=== PATIENT | female | born 1985 | race Caucasian/White ===

== ENCOUNTER 2020-04-10 12:42 | Outpatient (REF) | payer OTHER, SELFPAY ==
--- NOTE | 2020-04-10 | EEG_ITS ---
24-hour ambulatory EEG. The waking background activity consists of a well-defined moderate voltage 9 to 10 hertz posterior alpha frequency that is seen symmetrically and attenuates well with eye opening, well with low voltage, fast frequencies predominant anteriorly. Drowsiness is characterized by attenuation of the background activity and diffuse theta slowing. Stages I through IV of sleep are noted. Throughout the record, recurrent paroxysmal discharges seen in the form of some left hemisphere, predominantly left temporal occipital spike and slow wave discharges as well as generalized spike and slow wave discharges of 4 to 5 Hz occurring synchronously over both hemispheres with a maximum duration of 5 seconds without any associated clinical symptoms. IMPRESSION: This is an abnormal EEG with recurrent paroxysmal discharges, most of which are generalized as well as more isolated spike discharges from the left hemisphere. This EEG correlates with a seizure disorder, probably originating deep in the left hemisphere with secondary bilateral synchrony. Clinical correlation is suggested. MD HARSH Brandt/JOSÉ LUIS / [id number]
== END 2020-04-10 12:43 | disposition home or self-care (01) ==
LOC: HO.NEURO 12:42
PROVIDERS: Visit Provider Psychiatry & Neurology Neurology
DX: G40.909 Epilepsy, unspecified, not intractable, without status epilepticus (principal)
CPT/HCPCS: 95708

== ENCOUNTER 2020-05-19 19:46 | Emergency (ER) | payer OTHER, SELFPAY ==
[2020-05-19 19:49] VITALS: BP 116/79; PULSE 69; RESP 18; TEMP 36.9; O2SAT 100; BMI 26.4
--- NOTE | 2020-05-19 20:10 | ED_ITS ---
HPI - Dental/Oral General Chief complaint: Dental/Oral Stated complaint: dental pain Time Seen by Provider: 05/19/20 20:10 Source: patient Mode of arrival: ambulatory Limitations: no limitations History of Present Illness HPI Narrative: Right lower dental pain for past couple days no swelling or discharge. Does have history of dental caries and chipped teeth. MD Complaint: tooth pain Teeth map: 1. Molar 32 surgically absent extensive decay to 31 and 30 Treatment prior to arrival: none Related Data Previous Rx's Medication Instructions Recorded ibuprofen 800 mg PO Q8H PRN #30 tab 05/19/20 penicillin V potassium 500 mg PO Q12H #20 tab 05/19/20 Allergies Allergy/AdvReac Type Severity Reaction Status Date / Time stringer [CHERRIES] Allergy Severe ANAPHYLAXIS Verified 05/19/20 19:48 gabapentin [From NEURONTIN] Allergy Unknown MUSCLE Verified 05/19/20 19:48 SPASMS lamotrigine [From LAMICTAL] Allergy Unknown MUSCLE Verified 05/19/20 19:48 SPASMS oxcarbazepine Allergy Unknown MUSCLE Verified 05/19/20 19:48 [From TRILEPTAL] SPASMS Sulfa (Sulfonamide Allergy Unknown UNKNOWN Verified 05/19/20 19:48 Antibiotics) [SULFA (SULFONAMIDE ANTIBIOTICS)] SEAFOOD Allergy Severe ANAPHYLAXIS Uncoded 05/19/20 19:48 sulfa Allergy Unknown throat Uncoded 05/19/20 19:48 close Review of Systems Review of Systems: Constitutional: No Weight loss, No Fever, No Chills, No Night Sweats, No Fatigue, No Malaise ENT/Mouth: No Hearing loss, No Ear Pain, No Nasal Congestion, No Sinus Pain, No Hoarseness, No sore throat, No Rhinorrhea, No Swallowing Difficulty Eyes: No Eye Pain, No Swelling, No Redness, No Foreign Body Cardiovascular: No Chest Pain, No SOB, No Dyspnea on Exertion, No Orthopnea, No Edema, No Palpitations Respiratory: No Cough Gastrointestinal: No Nausea, No Vomiting, No Diarrhea, No Constipation, No abdominal Pain, No Hematochezia, No Melena Genitourinary: no irregular bleeding, No Dysuria Musculoskeletal: No joint pain, No Myalgias, No Joint Swelling Skin: No Skin Lesions, No rash Neuro: No Weakness, No Numbness, No Paresthesias, No Loss of Consciousness, No Dizziness, No Headache Psych: No Social Issues Heme/Lymph: No Bruising, No Bleeding,No Lymphadenopathy Endocrine: No Polyuria, No Polydipsia, No Temperature Intolerance Yes all other systems are reviewed and are negative [facility] Past Medical History Medical History (Updated 05/19/20 @ 20:13 by Richard Cook NP) Asthma Bipolar 1 disorder Circulation problem Psychosis Social History Social History Alcohol intake: never Smoking Status: Current every day smoker Use of substances other than those prescribed or required for medical reasons: No Physical Exam Vital Signs: Vital Signs: Last Vital Signs Temp 98.4 F 05/19/20 19:49 Pulse 69 05/19/20 19:49 Resp 18 05/19/20 19:49 BP 116/79 05/19/20 19:49 Pulse Ox 100 05/19/20 19:49 Body Mass Index 26.4 Reviewed Const: General: cooperative and healthy appearing; No acute distress or intoxicated appearing Nutritional Appearance: average body habitus Orientation/consciousness: patient oriented x3 HENMT: Head: Yes normal to inspection Ears: hearing grossly normal bilate rally Throat: Yes other (Extensive decay, no abscess) Eyes: General: appearance normal, both eyes and all related structures Visual Easton: normal visual easton by confrontation Neck: Neck: Yes normal visual inspection, No positive Brudzinski's sign, No positive Kernig's sign and No tender Thyroid: Thyroid normal Chest: Chest palpation & inspection: normal inspection of the chest Resp: Effort & Inspection: normal respiratory effort Cardio: Jugular venous distension: no JVD Skin: General skin exam: no rashes or lesions noted Neuro: General: patient oriented x3 Extrem: General: Yes normal to inspection Discharge Plan Discharge Clinical Impression: Toothache Patient Disposition: Home, Self-Care Instructions: Toothache (ED) Prescriptions: New penicillin V potassium 500 mg tablet 500 mg PO Q12H Qty: 20 RF: 0 ibuprofen 800 mg tablet 800 mg PO Q8H PRN (Reason: pain) Qty: 30 RF: 0 Referrals: ED Physician,Generic [Emergency Provider] - 2 days (Dentist)
--- NOTE | 2020-05-19 21:07 | PC.NURSE ---
PT GIVEN LIDO POP BY SANDRA HOOD.
== END 2020-05-19 20:40 | disposition home or self-care (01) ==
PROVIDERS: Emergency Provider Internal Medicine; PCP Internal Medicine
DX: K08.89 Other specified disorders of teeth and supporting structures (principal); F17.200 Nicotine dependence, unspecified, uncomplicated; Z71.6 Tobacco abuse counseling
CPT/HCPCS: 99283; 99284

== ENCOUNTER 2020-07-14 20:24 | Emergency (ER) | payer OTHER, SELFPAY ==
[2020-07-14 20:25] VITALS: PULSE 86; RESP 20; TEMP 36.7; O2SAT 97; BMI 29.0
--- NOTE | 2020-07-14 22:48 | ED_ITS ---
HPI - Dental/Oral General Chief complaint: Dental/Oral Stated complaint: Dental pain Time Seen by Provider: 07/14/20 22:41 Source: patient Mode of arrival: ambulatory Limitations: no limitations History of Present Illness HPI Narrative: Patient comes to emergency room complaining of dental pain in the right maxillary side. Patient states she has had a broken tooth since 2016, patient has been here for similar complaint. Patient states that she has an appointment with her dentist in 2 weeks for tooth extraction. MD Complaint: tooth pain Onset (ago): year(s) Related Data Previous Rx's Medication Instructions Recorded ibuprofen 800 mg PO Q8H PRN #30 tab 05/19/20 penicillin V potassium 500 mg PO Q12H #20 tab 05/19/20 ibuprofen 800 mg PO Q8H PRN #14 tab 07/14/20 penicillin V potassium 500 mg PO Q8H 7 Days #21 tab 07/14/20 Allergies Allergy/AdvReac Type Severity Reaction Status Date / Time stringer [CHERRIES] Allergy Severe ANAPHYLAXIS Verified 05/19/20 19:48 gabapentin [From NEURONTIN] Allergy Unknown MUSCLE Verified 05/19/20 19:48 SPASMS lamotrigine [From LAMICTAL] Allergy Unknown MUSCLE Verified 05/19/20 19:48 SPASMS oxcarbazepine Allergy Unknown MUSCLE Verified 05/19/20 19:48 [From TRILEPTAL] SPASMS Sulfa (Sulfonamide Allergy Unknown UNKNOWN Verified 05/19/20 19:48 Antibiotics) [SULFA (SULFONAMIDE ANTIBIOTICS)] SEAFOOD Allergy Severe ANAPHYLAXIS Uncoded 05/19/20 19:48 sulfa Allergy Unknown throat Uncoded 05/19/20 19:48 close Review of Systems Review of Systems: Constitutional : No Weight loss, No Fever, No Chills, No Night Sweats, No Fatigue, No Malaise ENT/Mouth : No Hearing loss, No Ear Pain, No Nasal Congestion, No Sinus Pain, No Hoarseness, No sore throat, No Rhinorrhea, No Swallowing Difficulty, dental pain in the right maxillary side Eyes: No Eye Pain, No Swelling, No Redness, No Foreign Body, No Discharge, No Vision Changes Cardiovascular : No Chest Pain, No SOB, No Dyspnea on Exertion, No Orthopnea, No Edema, No Palpitations Respiratory : No Cough, No Sputum, No Wheezing, No Smoke Exposure, No Dyspnea Gastrointestinal : No Nausea, No Vomiting, No Diarrhea, No Constipation, No ab dominal Pain, No Hematochezia, No Melena Genitourinary : no irregular bleeding, No Dysuria, No Urinary Frequency, No Hematuria, No Urinary Incontinence, No Urgency, No Flank Pain, No Urinary Flow Changes, No Hesitancy Musculoskeletal : No joint pain, No Myalgias, No Joint Swelling Skin : No Skin Lesions, No rash Neuro : No Weakness, No Numbness, No Paresthesias, No Loss of Consciousness, No Dizziness, No Headache Psych : No Anxiety/Panic, No Depression, No SI/HI/AH/VH, No Social Issues, Heme/Lymph: No Bruising, No Bleeding,No Lymphadenopathy Endocrine : No Polyuria, No Polydipsia, No Temperature Intolerance [facility] Past Medical History Medical History Asthma Bipolar 1 disorder Circulation problem Psychosis Social History Social History Alcohol intake: never Smoking Status: Current every day smoker Advance Directives: No Advance Directives Information Provided: Yes Physical Exam Vital Signs: Vital Signs: Last Vital Signs Temp 98.0 F 07/14/20 20:25 Pulse 86 07/14/20 20:25 Resp 20 07/14/20 20:25 Pulse Ox 97 07/14/20 20:25 Body Mass Index 29.0 Appearance: Alert. Oriented X3. No acute distress. Eyes: Pupils equal, round and reactive to light. Poor dentition, multiple teeth absent, cracked tooth to the gum in the right maxilla, gum is swollen, no obvious abscess ENT: Pharynx normal. Neck: Normal inspection. Neck supple. No lymph nodes noted. No crepitus CVS: Normal heart rate and rhythm. Pulses normal. Normal S1 and S2 Respiratory: No respiratory distress. Breath sounds normal. No Wheezing. No rales Abdomen: Soft and nontender. No rigidity. No distention. good BS x4 Skin: Skin warm and dry. Normal skin color. Normal skin turgor. Extremities: No lower extremity edema. No lower extremity edema. No Lacerations. No Rash Neuro: Oriented X 3. No motor deficit. No sensory deficit. Moving all exter mities. No slurred speech. Course Course Course Narrative: Patient received the 1st dose of antibiotics, penicillin V 500 and also 800 mg of ibuprofen. Patient states she has had good relief with 800 mg of ibuprofen in the past. Patient has already an appointment schedule for tooth extraction. Discharge Plan Discharge Clinical Impression: Chronic dental pain Patient Disposition: Home, Self-Care Instructions: Toothache (ED) Additional Instructions: Please follow-up with your dentist, please call tomorrow and try to reschedule your appointment to be seen sooner if possible. Please follow-up with your primary care physician tomorrow. If you have any worsening or new symptoms, please return to the emergency room or call 911 Prescriptions: New ibuprofen 800 mg tablet 800 mg PO Q8H PRN (Reason: pain) Qty: 14 RF: 0 penicillin V potassium 500 mg tablet 500 mg PO Q8H 7 Days Qty: 21 RF: 0 No Action penicillin V potassium 500 mg tablet 500 mg PO Q12H Qty: 20 RF: 0 ibuprofen 800 mg tablet 800 mg PO Q8H PRN (Reason: pain) Qty: 30 RF: 0
[2020-07-14] MEDS: Ibuprofen 800 MG TABLET PO (23:12)
[2020-07-14] MEDS: Penicillin V Potassium 250 MG TABLET 500 MG PO (23:12)
== END 2020-07-14 23:32 | disposition home or self-care (01) ==
PROVIDERS: Emergency Provider Emergency Medicine; PCP Internal Medicine
DX: K08.89 Other specified disorders of teeth and supporting structures (principal); Z79.899 Other long term (current) drug therapy
CPT/HCPCS: 99284

== ENCOUNTER → 2020-08-20 13:30 | Outpatient (REF) | payer OTHER, SELFPAY ==
--- NOTE | 2020-08-20 13:44 | ECG_ITS ---
Test Reason : BIPOLAR DISORDER Blood Pressure : / mmHG Vent. Rate : 051 BPM Atrial Rate : 051 BPM P-R Int : 148 ms QRS Dur : 078 ms QT Int : 420 ms P-R-T Axes : 016 088 059 degrees QTc Int : 387 ms Sinus bradycardia Otherwise normal ECG No previous ECGs available Referred By: Jarvis Mccray Electronically Signed By:JOSE DAVID WELLS MD
== END ==
LOC: HO.CARD 13:30
PROVIDERS: PCP Internal Medicine; Visit Provider Psychiatry & Neurology Psychiatry
DX: F25.0 Schizoaffective disorder, bipolar type (principal)
CPT/HCPCS: 93005

== ENCOUNTER 2020-09-11 14:16 | Emergency (ER) | payer OTHER, SELFPAY ==
[2020-09-11 14:32] VITALS: BP 92/61; PULSE 76; RESP 18; TEMP 37.1; O2SAT 96; BMI 28.8
[2020-09-11] MEDS: Docusate Sodium 100 MG/10 ML LIQUID PO (15:15)
--- NOTE | 2020-09-11 16:31 | PC.NURSE ---
PT CAME OUT OF HER ROOM AND BEGAN YELLING AT NURSE THAT THE DR HAD TOLD HER HE BE RIGHT BACK TO FLUSH HER EAR SOFTENER ALREADY APPLIED. PT GOT CLOSE IN NURSES FACE TO YELL AT HER. PT WAS INSTRUCTED THAT HE WILL BE IN SOON HE CAN IT IS AN EMERGENCY ROOM AND HE HAS TO DEAL WITH EMERGENCY WITH [facility], BUT HE WILL BE BACK AND SOON HE CAN AND HE IS AWARE THAT SHE BEEN ASKING.
--- NOTE | 2020-09-11 16:49 | ED_ITS ---
HPI - Ear Problem General Chief complaint: Ear Problems <ADI Fontanez Last Filed: 09/11/20 20:47> Stated complaint: EAR PAIN <ADI Fontanez Last Filed: 09/11/20 20:47> Source: patient <ADI Fontanez Last Filed: 09/11/20 20:47> Mode of arrival: ambulatory <ADI Fontanez Last Filed: 09/11/20 20:47> Limitations: no limitations <ADI Fontanez Last Filed: 09/11/20 20:47> History of Present Illness HPI Narrative: Patient presents to the ED for decreased hearing in left ear, and left ear feeling full. Patient states slight ear pain. Patient denies any discharge from the ear, headache, fever, chills, nausea, vomiting, dizziness <ADI Fontanez Last Filed: 09/11/20 20:47> Related Data Home medications: Previous Rx's Medication Instructions Recorded ibuprofen 800 mg PO Q8H PRN #30 tab 05/19/20 penicillin V potassium 500 mg PO Q12H #20 tab 05/19/20 ibuprofen 800 mg PO Q8H PRN #14 tab 07/14/20 penicillin V potassium 500 mg PO Q8H 7 Days #21 tab 07/14/20 carbamide peroxide [Debrox] 5 drp OTIC (EAR) LEFT Q12H 4 Days 09/11/20 #18 ml cefuroxime axetil 500 mg PO Q12H 10 Days #20 tab 09/13/20 [id number] 4 drp OTIC (EAR) LEFT TID 10 Days 09/13/20 #10 ml <ADI Fontanez Last Filed: 09/11/20 20:47> Allergies/adverse reactions: Allergies Allergy/AdvReac Type Severity Reaction Status Date / Time stringer [CHERRIES] Allergy Severe ANAPHYLAXIS Verified 09/11/20 14:32 gabapentin [From NEURONTIN] Allergy Unknown MUSCLE Verified 09/11/20 14:32 SPASMS lamotrigine [From LAMICTAL] Allergy Unknown MUSCLE Verified 09/11/20 14:32 SPASMS oxcarbazepine Allergy Unknown MUSCLE Verified 09/11/20 14:32 [From TRILEPTAL] SPASMS Sulfa (Sulfonamide Allergy Unknown UNKNOWN Verified 09/11/20 14:32 Antibiotics) [SULFA (SULFONAMIDE ANTIBIOTICS)] SEAFOOD Allergy Severe ANAPHYLAXIS Uncoded 05/19/20 19:48 sulfa Allergy Unknown throat Uncoded 05/19/20 19:48 close <ADI Fontanez - Last Filed: 09/11/20 20:47> Review of Systems Review of Systems: Yes all other systems are reviewed and are negative <ADI Fontanez - Last Filed: 09/11/20 20:47> Constitutional: Constitutional: Reports as per HPI and Reports no additional constitutional complaints <ADI Fontanez - Last Filed: 09/11/20 20:47> Eyes: Eyes: Reports as per HPI and Reports no additional eye complaints <ADI Fontanez - Last Filed: 09/11/20 20:47> ENT: Reports system reviewed and no additional complaints, except as documented, Reports as per HPI and Reports hearing loss (Cerumen impaction) <ADI Fontanez Last Filed: 09/11/20 20:47> Cardiovascular: Cardiovascular: Reports as per HPI and Reports no additional cardiovascular complaints <ADI Fontanez Last Filed: 09/11/20 20:47> Respiratory: Respiratory: Reports as per HPI and Reports no additional respiratory complaints <ADI Fontanez Last Filed: 09/11/20 20:47> Gastrointestinal: Gastrointestinal: Reports as per HPI and Reports no additional gastrointestinal complaints <ADI Fontanez Last Filed: 09/11/20 20:47> Genitourinary: Genitourinary: Reports no additional female genitourinary complaints and Reports as per HPI <ADI Fontanez Last Filed: 09/11/20 20:47> Musculoskeletal: Musculoskeletal: Reports no additional musculoskeletal complaints and Reports as per HPI <ADI Fontanez Last Filed: 09/11/20 20:47> Neurologic: Reports system reviewed and no additional complaints, except as documented and Reports as per HPI <ADI Fontanez Last Filed: 09/11/20 20:47> Psychiatric: Psychiatric: Reports no additional psychiatric complaints and Reports as per HPI <ADI Fontnaez Last Filed: 09/11/20 20:47> PMFSH Past Medical History Medical History: Medical History Asthma Bipolar 1 disorder Circulation problem Psychosis <ADI Fontanez - Last Filed: 09/11/20 20:47> Social History Social History: Social History Alcohol intake: never Smoking Status: Current every day smoker Smoked in Last 30 Days: Yes Substance Use Type: Marijuana Substance Use Frequency: Daily Advance Directives: No Advance Directives Information Provided: No <ADI Fontanez - Last Filed: 09/11/20 20:47> Physical Exam Vital Signs: Vital Signs: Last Vital Signs Temp 98.7 F 09/11/20 14:32 Pulse 76 09/11/20 14:32 Resp 18 09/11/20 14:32 BP 92/61 09/11/20 14:32 Pulse Ox 96 09/11/20 14:32 Body Mass Index 28.8 <ADI Fontanez - Last Filed: 09/11/20 20:47> Vital Signs: Last Vital Signs Temp 98.7 F 09/11/20 14:32 Pulse 76 09/11/20 14:32 Resp 18 09/11/20 14:32 BP 92/61 09/11/20 14:32 Pulse Ox 96 09/11/20 14:32 Body Mass Index 28.8 <Watson Mckeon MD - Last Filed: 10/01/20 07:12> Const: General: cooperative, healthy appearing, comfortable, no acute distress, well developed, alert, awake and Physically active <ADI Fontanez - Last Filed: 09/11/20 20:47> Orientation/consciousness: patient oriented x3 <ADI Fontanez - Last Filed: 09/11/20 20:47> HENMT: Head: Yes normal to inspection and Yes No palpable skull fracture present <ADI Fontanez - Last Filed: 09/11/20 20:47> Ears: unable to visualize TM (Cerumen impaction) on the left <ADI Fontanez - Last Filed: 09/11/20 20:47> Eyes: General: appearance normal, both eyes and all related structures <ADI Fontanez - Last Filed: 09/11/20 20:47> Neck: Neck: Yes normal visual inspection, Yes full ROM, Yes no lymphadenopathy, Yes no meningeal signs, Yes trachea midline and Yes supple <ADI Fontanez Last Filed: 09/11/20 20:47> Chest: Chest palpation & inspection: normal inspection of the chest and normal palpation of entire chest wall <ADI Fontanez Last Filed: 09/11/20 20:47> Resp: Effort & Inspection: normal respiratory effort and able to speak in complete sentences <ADI Fontanez Last Filed: 09/11/20 20:47> Auscultation: clear to auscultation bilaterally <ADI Fontanez Last Filed: 09/11/20 20:47> Cardio: Jugular venous distension: no JVD <ADI Fontanez Last Filed: 09/11/20 20:47> Heart sounds: S1 normal heart sound present and S2 normal heart sound present <ADI Fontanez Last Filed: 09/11/20 20:47> GI: Inspection: Yes normal to inspection and No abdominal wall ecchymosis <ADI Fontanez Last Filed: 09/11/20 20:47> Palpation (GI): Soft to palpation, not firm, nontender, no guarding and not rigid <ADI Fontanez Last Filed: 09/11/20 20:47> : General: No CVA tenderness and Yes no CVA tenderness <ADI Fontanez Last Filed: 09/11/20 20:47> Back/Spine/Pelvis: Back: no CVA tenderness, No CVA tenderness and No back tenderness <ADI Fontanez Last Filed: 09/11/20 20:47> Skin: General skin exam: no rashes or lesions noted and elasticity normal <ADI Fontanez Last Filed: 09/11/20 20:47> Neuro: General: patient oriented x3, no meningeal signs and CN's II-XI intact bilaterally <ADI Fontanez Last Filed: 09/11/20 20:47> Cranial nerves: Yes CN's II-XII intact bilaterally <ADI Fontanez Last Filed: 09/11/20 20:47> Extrem: General: Yes normal to inspection and Yes full ROM <ADI Fontanez - Last Filed: 09/11/20 20:47> Psych: Appearance: grossly normal, well kempt and not disheveled <ADI Hurst - Last Filed: 09/11/20 20:47> Course Course Course Narrative: Cerumen impaction of left ear. Will attempt removal in the ED <ADI Fontanez - Last Filed: 09/11/20 20:47> I have reviewed the chart <Watson Mckeon MD - Last Filed: 10/01/20 07:12> Reevaluation(s) Reevaluation #1: Colace, normal saline, and curetted she was use attempted to remove cerumen impaction. Patient was not compliant in letting Colace staying in the ear and lying on her right side. Cerumen was still hard and attempt was made to try to remove it curetted, but then patient stated she no longer wanted the procedure and wanted to be prescribed medication to remove the earwax. Unable to evaluate tympanic membrane. Patient to be discharged with debrox <ADI Fontanez - Last Filed: 09/11/20 20:47> Time: 16:59 <ADI Fontanez - Last Filed: 09/11/20 20:47> MDM - Ear MDM Narrative Medical decision making narrative: Cerumen impaction <ADI Fontanez Last Filed: 09/11/20 20:47> Discharge Plan Discharge Clinical Impression: Cerumen impaction <ADI Fontanez Last Filed: 09/11/20 20:47> Patient Disposition: Home, Self-Care <ADI Fontanez Last Filed: 09/11/20 20:47> Instructions: Earache (ED) <ADI Fontanez Last Filed: 09/11/20 20:47> Additional Instructions: Return to the ED mainly for worsening ear pain, swelling behind ear, redness behind ear, drainage from the ear, headache, fever, chills, or any other concerning symptoms. <ADI Fontanez Last Filed: 09/11/20 20:47> Prescriptions: New carbamide peroxide [Debrox] 6.5 % drops 5 drp otic (ear) left Q12H 4 Days Qty: 18 RF: 0 No Action penicillin V potassium 500 mg tablet 500 mg PO Q12H Qty: 20 RF: 0 ibuprofen 800 mg tablet 800 mg PO Q8H PRN (Reason: pain) Qty: 30 RF: 0 ibuprofen 800 mg tablet 800 mg PO Q8H PRN (Reason: pain) Qty: 14 RF: 0 penicillin V potassium 500 mg tablet 500 mg PO Q8H 7 Days Qty: 21 RF: 0 cefuroxime axetil 500 mg tablet 500 mg PO Q12H 10 Days Qty: 20 RF: 0 gtrmtlsk-[id number]-JV 3.5-10,000-1 mg/mL-unit/mL-% drops,suspension 4 drp otic (ear) left TID 10 Days Qty: 10 RF: 0 <ADI Fontanez - Last Filed: 09/11/20 20:47> Referrals: Lissy Burrows MD [Primary Care Provider] - 2 days (Cerumen impaction.) <ADI Fontanez - Last Filed: 09/11/20 20:47> Interventions: ED Discharge Assessment Last Done: 09/11/20 17:19 <ADI Fontanez - Last Filed: 09/11/20 20:47> Discharge Date/Time: 09/11/20 17:25 <ADI Fontanez - Last Filed: 09/11/20 20:47> Print Language: Burmese <ADI Fontanez - Last Filed: 09/11/20 20:47>
--- NOTE | 2020-09-11 17:21 | PC.NURSE ---
ADI BYERS AT BEDSIDE TO FLUSH EAR OUT PT NOT TOLERATING ONLY SMALL AMOUNT FLUSHED. PT WILL NEEDED TO CONTINUE WITH DEBROX DROPS.
== END 2020-09-11 17:25 | disposition home or self-care (01) ==
PROVIDERS: Emergency Provider Emergency Medicine; PCP Internal Medicine
DX: H92.02 Otalgia, left ear (principal); H61.22 Impacted cerumen, left ear; Z79.899 Other long term (current) drug therapy
CPT/HCPCS: 69209; 99283

== ENCOUNTER 2020-09-13 11:58 | Emergency (ER) | payer OTHER, SELFPAY ==
[2020-09-13 12:23] VITALS: BP 81/53; PULSE 76; RESP 16; TEMP 36.6; O2SAT 97; BMI 27.3
--- NOTE | 2020-09-13 13:54 | ED_ITS ---
HPI - Ear Problem General Chief complaint: Ear Problems Stated complaint: ear pain Time Seen by Provider: 09/13/20 13:39 Source: patient Mode of arrival: ambulatory Limitations: no limitations History of Present Illness HPI Narrative: 34-year-old female who presents emergency department for evaluation left ear pain and decreased hearing in the left ear. The patient states that she has had the symptoms for approximately 3-4 days, she denies fever, chills, sore throat, cough. She was seen in the emergency department on 09/11/2020 (2 days prior to evaluation) and was noted to have cerumen impaction. The patient did not tolerate the procedure to disimpact her year and has been using Cerumenex and Q-tips on her ears over the past 2 days. She states that her hearing is not improved but her pain is now worse. She states she has a constant pelvis throbbing pain and her left ear which is 8/10 at its worst. She states she has decreased hearing in her ear as well. Related Data Previous Rx's Medication Instructions Recorded ibuprofen 800 mg PO Q8H PRN #30 tab 05/19/20 penicillin V potassium 500 mg PO Q12H #20 tab 05/19/20 ibuprofen 800 mg PO Q8H PRN #14 tab 07/14/20 penicillin V potassium 500 mg PO Q8H 7 Days #21 tab 07/14/20 carbamide peroxide [Debrox] 5 drp OTIC (EAR) LEFT Q12H 4 Days 09/11/20 #18 ml cefuroxime axetil 500 mg PO Q12H 10 Days #20 tab 09/13/20 zujnmeiy-fxcpuzmvq-AH 4 drp OTIC (EAR) LEFT TID 10 Days 09/13/20 #10 ml Allergies Allergy/AdvReac Type Severity Reaction Status Date / Time stringer [CHERRIES] Allergy Severe ANAPHYLAXIS Verified 09/11/20 14:32 gabapentin [From NEURONTIN] Allergy Unknown MUSCLE Verified 09/11/20 14:32 SPASMS lamotrigine [From LAMICTAL] Allergy Unknown MUSCLE Verified 09/11/20 14:32 SPASMS oxcarbazepine Allergy Unknown MUSCLE Verified 09/11/20 14:32 [From TRILEPTAL] SPASMS Sulfa (Sulfonamide Allergy Unknown UNKNOWN Verified 09/11/20 14:32 Antibiotics) [SULFA (SULFONAMIDE ANTIBIOTICS)] SEAFOOD Allergy Severe ANAPHYLAXIS Uncoded 05/19/20 19:48 sulfa Allergy Unknown throat Uncoded 05/19/20 19:48 close Review of Systems Review of Systems: Yes all other systems are reviewed and are negative [facility] Past Medical History Medical History Asthma Bipolar 1 disorder Circulation problem Psychosis Social History Social History Alcohol intake: never Smoking Status: Current every day smoker Smoked in Last 30 Days: Yes Substance Use Type: Marijuana Substance Use Frequency: Daily Advance Directives: No Advance Directives Information Provided: No Physical Exam Vital Signs: Vital Signs: Last Vital Signs Temp 97.8 F 09/13/20 12:23 Pulse 76 09/13/20 12:23 Resp 16 09/13/20 12:23 BP 81/53 L 09/13/20 12:23 Pulse Ox 97 09/13/20 12:23 Body Mass Index 27.3 Const: General: cooperative and in distress Orientation/consciousness: oriented to person Limitations: no limitations HENMT: Head: Yes normal to inspection and Yes normocephalic Ears: TM normal on the right, left TM abnormal (Erythema of the TM with loss of landmarks) and external ear abnormal (Auditory canal is swollen, no discharge, tender) auricular tenderness and pain with movement of external ear General nose ex am: Normal external nose present Face and sinus: Yes normal facial exam Mouth: Normal oral and palatal mucosa present Throat: Yes posterior oropharynx normal Eyes: General: appearance normal, both eyes and all related structures Periorbital: periorbital findings normal Eyelids: Yes eyelids normal Conjunctivae: conjunctivae normal Sclerae: sclerae normal Neck: Neck: Yes normal visual inspection, Yes no lymphadenopathy, Yes trachea midline and Yes supple Chest: Chest palpation & inspection: normal inspection of the chest and normal palpation of entire chest wall Neuro: General: oriented to person Psych: Appearance: grossly normal Mental Status: mental status grossly normal Speech and movement: Normal speech and movement present Affect: normal affect Attitude: cooperative Thought process: Normal thought process present Thought content: Normal thought content present Course Course Course Narrative: 34-year-old female who presents emergency department for evaluation of decreased hearing in her left ear and left ear pain times several days. She was seen 2 days prior for cerumen impaction. On my examination, the left external auditory canal is swollen and tender to palpation, I do not see any significant ear wax in the patient's external auditory canal, her tympanic membrane is erythematous with loss of landmarks. Patient's presentation is consistent with otitis externa and otitis media. The patient states that amoxicillin does not work on her for dental or ear infections therefore she was prescribed Ceftin 500 mg twice a day for 10 days. She was also given a prescription for Cortisporin 4 drops twice a day for 10 days the left ear. She was given verbal and printed instructions and discharged home. She was advised to take Tylenol and ibuprofen for pain. Told it was important to follow-up with her doctor in 2-3 days for re-evaluation. Discharge Plan Discharge Clinical Impression: Otitis externa Qualifiers: Otitis externa type: unspecified type Laterality: left Otitis media Qualifiers: Otitis media type: unspecified Laterality: left Qualified Code(s): H66.92 - Otitis media, unspecified, left ear Patient Disposition: Home, Self-Care Instructions: Otitis Externa (ED), Ear Infection (ED) Additional Instructions: Take Ceftin (cefuroxime) 500 mg pills, 1 pill twice a day for 10 days. Use Cortisporin ear drops, 4 drops in the left ear 3 times a day for 10 days. Take ibuprofen 200 mg pills, 3 pills every 6 hours as needed for pain. Take Tylenol (acetaminophen) 500 mg pills, 2 pills every 4 to 6 hours as needed for pain. Follow-up with your doctor in 2 days. Please return to the emergency department if your symptoms get worse or if you develop any symptoms that are concerning to you. Prescriptions: New cefuroxime axetil 500 mg tablet 500 mg PO Q12H 10 Days Qty: 20 RF: 0 nexbmqsa-vixksqzye-WQ 3.5-10,000-1 mg/mL-unit/mL-% drops,suspension 4 drp otic (ear) left TID 10 Days Qty: 10 RF: 0 No Action penicillin V potassium 500 mg tablet 500 mg PO Q12H Qty: 20 RF: 0 ibuprofen 800 mg tablet 800 mg PO Q8H PRN (Reason: pain) Qty: 30 RF: 0 ibuprofen 800 mg tablet 800 mg PO Q8H PRN (Reason: pain) Qty: 14 RF: 0 penicillin V potassium 500 mg tablet 500 mg PO Q8H 7 Days Qty: 21 RF: 0 carbamide peroxide [Debrox] 6.5 % drops 5 drp otic (ear) left Q12H 4 Days Qty: 18 RF: 0
== END 2020-09-13 14:20 | disposition home or self-care (01) ==
PROVIDERS: Emergency Provider Emergency Medicine Emergency Medical Services; PCP Internal Medicine
DX: H66.92 Otitis media, unspecified, left ear (principal); H92.02 Otalgia, left ear; Z79.899 Other long term (current) drug therapy; F17.200 Nicotine dependence, unspecified, uncomplicated; Z71.6 Tobacco abuse counseling; F12.90 Cannabis use, unspecified, uncomplicated
CPT/HCPCS: 99283

== ENCOUNTER 2021-02-01 09:33 | Emergency (ER) | payer OTHER, SELFPAY ==
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
[2021-02-01 11:01] VITALS: BP 116/49; PULSE 66; RESP 18; TEMP 37; O2SAT 98; BMI 27.0
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
== END 2021-02-01 12:37 | disposition home or self-care (01) ==
PROVIDERS: Emergency Provider Emergency Medicine Emergency Medical Services; PCP Internal Medicine
DX: S63.501A Unspecified sprain of right wrist, initial encounter (principal); S66.911A Strain of unspecified muscle, fascia and tendon at wrist and hand level, right hand, initial encounter; Y09 Assault by unspecified means; Y93.9 Activity, unspecified; Y92.9 Unspecified place or not applicable; Y99.9 Unspecified external cause status
CPT/HCPCS: 73110; 73130; 99283

== ENCOUNTER 2021-03-31 08:39 | Emergency (ER) | payer OTHER, SELFPAY ==
[2021-03-31 08:54] VITALS: BP 117/78; PULSE 94; RESP 18; TEMP 36.3; O2SAT 96; BMI 25.2
--- NOTE | 2021-03-31 09:00 | ED.SKABFB ---
HPI - Skin/Abscess/Foreign Bdy General Chief complaint: Skin/Abscess/Foreign Body Stated complaint: CYST Time Seen by Provider: 03/31/21 08:50 Source: patient Mode of arrival: ambulatory Limitations: no limitations History of Present Illness HPI narrative: 35 y/o female presenting to the ER for evaluation of Bartholin's cyst. She reports having it for the last 11 years. She was seen by an [facility] several years ago and they didn't do anything about it so she refused to go back. She reports it is not painful at rest. Minimal tenderness to the area but it is bothersome most when she walks. It has never been drained or spontaneously ruptured before. No fevers. She denies vaginal discharge, chance of , or other lesions. MD complaint: abscess/boil Onset (ago): year(s) () Tetanus up to date: unsure Location: genitals Severity: moderate Severity scale (1-10): 5 Quality: aching Pain Consistency: intermittent Relieving factors: none Exacerbating factors: movement Context: none Associated symptoms: denies other symptoms Treatments prior to arrival: none Related Data Previous Rx's Medication Instructions Recorded ibuprofen 800 mg tablet 800 mg PO Q8H PRN #30 tab 05/19/20 penicillin V potassium 500 mg 500 mg PO Q12H #20 tab 05/19/20 tablet ibuprofen 800 mg tablet 800 mg PO Q8H PRN #14 tab 07/14/20 penicillin V potassium 500 mg 500 mg PO Q8H 7 Days #21 tab 07/14/20 tablet carbamide peroxide 6.5 % ear drops 5 drp OTIC (EAR) LEFT Q12H 4 Days 09/11/20 (Debrox) #18 ml cefuroxime axetil 500 mg tablet 500 mg PO Q12H 10 Days #20 tab 09/13/20 ctchweak-yuxmvripj-hamycgluf 3.5 4 drp OTIC (EAR) LEFT TID 10 Days 09/13/20 mg-10,000 unit/mL-1 % ear #10 ml drops,susp naproxen 500 mg tablet 500 mg PO BID PRN #20 tab 02/01/21 cephalexin 500 mg capsule 500 mg PO Q6H 7 Days #28 cap 03/31/21 Allergies Allergy/AdvReac Type Severity Reaction Status Date / Time stringer [CHERRIES] Allergy Severe ANAPHYLAXIS Verified 03/31/21 08:56 gabapentin [From NEURONTIN] Allergy Unknown MUSCLE Verified 03/31/21 08:56 SPASMS lamotrigine [From LAMICTAL] Allergy Unknown MUSCLE Verified 03/31/21 08:56 SPASMS oxcarbazepine Allergy Unknown MUSCLE Verified 03/31/21 08:56 [From TRILEPTAL] SPASMS Sulfa (Sulfonamide Allergy Unknown UNKNOWN Verified 03/31/21 08:56 Antibiotics) [SULFA (SULFONAMIDE ANTIBIOTICS)] SEAFOOD Allergy Severe ANAPHYLAXIS Uncoded 02/01/21 11:04 sulfa Allergy Unknown throat Uncoded 02/01/21 11:04 close Review of Systems Constitutional: Constitutional: Denies chills and Denies fever(s) Eyes: Eyes: Reports no additional eye complaints ENT: Reports Normal hearing present Genitourinary: Genitourinary: Denies hematuria, Denies genital pruritis, Reports genital lesions, Denies dysuria, Denies vaginal discharge, Denies vaginal odor and Denies vaginal pruritus Musculoskeletal: Musculoskeletal: Denies back pain Integumentary/Breasts: Skin/Breast: Reports lesions and Denies rash Neurologic: Reports Normal hearing present Psychiatric: Psychiatric: Reports anxiety Hematologic/Lymphatic: Hematologic/Lymphatic: Denies easy bleeding and Denies lymphadenopathy PMFSH Past Medical History Medical History Asthma Bipolar 1 disorder Circulation problem Psychosis Social History Social History Alcohol intake: never Substance Use Type: Marijuana Advance Directives: No Advance Directives Information Provided: No Patient : No Physical Exam Vital Signs: Vital Signs: Last Vital Signs Temp 97.4 F 03/31/21 08:54 Pulse 94 03/31/21 08:54 Resp 18 03/31/21 08:54 BP 117/78 03/31/21 08:54 Pulse Ox 96 03/31/21 08:54 Body Mass Index 25.2 Const: General: cooperative, healthy appearing, comfortable and no acute distress Nutritional Appearance: average body habitus Orientation/consciousness: patient oriented x3 HENMT: Head: Yes normal to inspection Ears: hearing grossly normal bilaterally General nose exam: Normal external nose present Face and sinus: Yes normal facial exam Eyes: General: appearance normal, both eyes and all related structures Neck: Neck: Yes normal visual inspection Chest: Chest palpation & inspection: normal inspection of the chest Resp: Effort & Inspection: normal respiratory effort and able to speak in complete sentences GI: Inspection: Yes normal to inspection Palpation (GI): Soft to palpation, not firm and nontender Rectal Exam - Female: deferred : Other: large minimally tender soft lesion of the labia minora on the left lower side at 5 o.clock position, no fluctuance or induration. mobile without erythema or warmth External Female Exam: external swelling and lesion Female genitals images: 1. large lesion consistent with a Bartholin's cyst Neuro: General: patient oriented x3 Cranial nerves: Yes Normal hearing present Course Course Course Narrative: 35 y/o female presenting for evaluation of a Bartholin's cyst that she has had for 11 years. No recent worsening but just bothersome with ambulation. No exquisite tenderness on exam, lesion is soft and feels as though viscious, soft material is within. No overt inflammation, ertythema or warmth to the area to suggest infection. Unfortunately there are no Word catheters in the Emergency Department at this time. She has not been using Sitz baths or warm compresses. She would like the lesion excised and removed. We discussed need to follow up with [facility]. Offered I&D today but decided to follow up with ENGINE[facility]ING MANAGER for Word catheter vs excision. She is stable for d/c home - encouraged Sitz baths and will give rx for keflex in the event of possible infection although clinical suspicion is low. Patient agrees with plan and will call Dr. Segura's office tomorrow. Critical Care Time Critical Care Time Critical Care Time: No Discharge Plan Discharge Clinical Impression: Bartholin cyst Patient Disposition: Home, Self-Care Instructions: Bartholin Cyst (ED) Additional Instructions: Follow up with [facility] for further evaluation Use warm compresses several times per day Take the antibiotic as prescribed Prescriptions: New cephalexin 500 mg capsule 500 mg PO Q6H 7 Days Qty: 28 RF: 0 No Action penicillin V potassium 500 mg tablet 500 mg PO Q12H Qty: 20 RF: 0 ibuprofen 800 mg tablet 800 mg PO Q8H PRN (Reason: pain) Qty: 30 RF: 0 ibuprofen 800 mg tablet 800 mg PO Q8H PRN (Reason: pain) Qty: 14 RF: 0 penicillin V potassium 500 mg tablet 500 mg PO Q8H 7 Days Qty: 21 RF: 0 carbamide peroxide [Debrox] 6.5 % drops 5 drp otic (ear) left Q12H 4 Days Qty: 18 RF: 0 naproxen 500 mg tablet 500 mg PO BID PRN (Reason: pain) Qty: 20 RF: 0 cefuroxime axetil 500 mg tablet 500 mg PO Q12H 10 Days Qty: 20 RF: 0 lasggubz-qdpzodzha-YY 3.5-10,000-1 mg/mL-unit/mL-% drops,suspension 4 drp otic (ear) left TID 10 Days Qty: 10 RF: 0 Referrals: Manoj Segura MD [Physician] - 1 day (Bartholin's cyst )
== END 2021-03-31 09:34 | disposition home or self-care (01) ==
PROVIDERS: Emergency Provider Internal Medicine; PCP Internal Medicine
DX: N75.0 Cyst of Bartholin's gland (principal); N75.8 Other diseases of Bartholin's gland; Z79.899 Other long term (current) drug therapy
CPT/HCPCS: 99283

== ENCOUNTER → 2021-04-22 10:09 | Outpatient (BNVA) | payer OTHER, SELFPAY | PROVIDERS: PCP Internal Medicine; Visit Provider Obstetrics & Gynecology | DX: N90.89 Other specified noninflammatory disorders of vulva and perineum (principal) | CPT/HCPCS: 99202 ==

== ENCOUNTER 2021-05-15 07:05 | Emergency (ER) | payer OTHER, SELFPAY ==
--- NOTE | ~2021-05-15 | XR_ITS ---
EXAMINATION: XR KNEE, RIGHT CLINICAL INFORMATION: Atraumatic knee pain and swelling COMPARISON: Radiographs of the knee 11/05/2010 TECHNIQUE: Four views of the right knee. FINDINGS: Visualized osseous structures are intact. No fracture or joint effusion. There are postsurgical changes of the lateral aspect of the patella and distal femoral metaphysis Alignment is anatomic. Joint spaces are well maintained. No abnormal soft tissue calcification. XR/XR knee RT 4V IMPRESSION: Postsurgical changes of the knee without acute abnormality.
[2021-05-15 07:07] VITALS: BP 131/86; PULSE 109; RESP 18; TEMP 36.3; O2SAT 98; BMI 25.2
--- NOTE | 2021-05-15 07:17 | ED.EXTPRO ---
HPI - Extremity Problem General Chief complaint: Extremity Problem Stated complaint: rt knee pain Time Seen by Provider: 05/15/21 07:15 Source: patient Mode of arrival: ambulatory Limitations: no limitations History of Present Illness HPI Narrative: 35-year-old female past medical history significant for asthma, and bipolar disorder presents to the emergency department with atraumatic right-sided knee pain x3 days progressively worsening. Patient states that she woke up 1 day in her right knee suddenly started to hurt and becomes swollen. She also notes that over the past 3 days she has been having decreased range of motion to the right knee, and at this point she feels as though she can not even bend it a little bit. She states that walking and movement makes it worse, and immobilization makes it better. She tells me that she had a surgery done on the right knee in 2007 for a dislocated patella, there is no complications with the surgery. Patient denies trauma to the area. Patient rates her pain a 7/10 constant and severe. She denies paresthesias, numbness, fevers, chills, changes in urination, abdominal pain, nausea, vomiting, chest pain, shortness of breath. MD Complaint: joint swelling (right knee ) and joint paint (right knee ) Onset (ago): day(s) (3) Pain Consistency: constant Location: right and knee Severity scale (1-10): 7 Quality: sharp and constant Radiation: none Relieving factors: immobilization Exacerbating factors: range of motion, weight bearing and walking Associated symptoms: denies other symptoms Related Data Home Medications Medication Instructions Recorded Confirmed clonazepam 0.5 mg tablet 0.5 mg PO DAILY PRN 04/22/21 topiramate 100 mg tablet 100 mg PO BID 04/22/21 trazodone 150 mg tablet 150 mg PO BEDTIME 04/22/21 Previous Rx's Medication Instructions Recorded naproxen 500 mg tablet 500 mg PO BID PRN #14 tab 05/15/21 Allergies Allergy/AdvReac Type Severity Reaction Status Date / Time stringer [CHERRIES] Allergy Severe ANAPHYLAXIS Verified 04/22/21 10:39 gabapentin [From NEURONTIN] Allergy Unknown MUSCLE Verified 04/22/21 10:39 SPASMS lamotrigine [From LAMICTAL] Allergy Unknown MUSCLE Verified 04/22/21 10:39 SPASMS oxcarbazepine Allergy Unknown MUSCLE Verified 04/22/21 10:39 [From TRILEPTAL] SPASMS Sulfa (Sulfonamide Allergy Unknown UNKNOWN Verified 04/22/21 10:39 Antibiotics) [SULFA (SULFONAMIDE ANTIBIOTICS)] SEAFOOD Allergy Severe ANAPHYLAXIS Uncoded 02/01/21 11:04 sulfa Allergy Unknown throat Uncoded 02/01/21 11:04 close Review of Systems Review of Systems: Constitutional : No Weight loss, No Fever, No Chills, No Fatigue, No Malaise ENT/Mouth : No sore throat, No Rhinorrhea Eyes: No Eye Pain, No Swelling, No Redness Cardiovascular : No Chest Pain, No SOB, No Dyspnea on Exertion, No Orthopnea, No Edema, No Palpitations Respiratory : No Cough, No Sputum, No Wheezing Gastrointestinal : No Nausea, No Vomiting, No Diarrhea, No Constipation, No abdominal Pain, No Hematochezia, No Melena Genitourinary : No Dysuria, No Urinary Frequency, No Hematuria, Musculoskeletal : + joint pain, No Myalgias, + Joint Swelling Skin : No Skin Lesions, No rash Neuro : No Weakness, No Numbness, No Dizziness, No Headache Psych : No Anxiety/Panic, No Depression All other systems reviewed and are negative [facility] Past Medical History Attestation statement: The following information was validated with the patient. Source: old records reviewed and nursing notes reviewed Medical History Asthma Bipolar 1 disorder Circulation problem Psychosis Surgical History Tubal ligation status Social History Social History Alcohol intake: never Substance Use Type: Marijuana Advance Directives: No Patient : No Physical Exam Vital Signs: Vital Signs: Last Vital Signs Temp 96.7 F L 05/15/21 07:55 Pulse 74 05/15/21 07:55 Resp 18 05/15/21 07:55 BP 103/51 L 05/15/21 07:55 Pulse Ox 98 05/15/21 07:55 Body Mass Index 25.2 Appearance: Alert.? Oriented X3.? No acute distress.? Head: Normocephalic, atraumatic, no step-offs or deformities Eyes: Pupils equal, round and reactive to light.? ENT: Pharynx normal.? Neck: Normal inspection.? Neck supple.? CVS: Normal heart rate and rhythm.? Pulses normal.? Respiratory: No respiratory distress.? Breath sounds normal.? Abdomen: Soft and nontender.? Skin: Skin warm and dry.? Normal skin color.? Normal skin turgor.? Extremities: No lower extremity edema.? No calf ttp. 5/5 strength to bilateral upper and lower extremities + limited ROM to right knee due to pain and swelling. No overlying skin changes to right knee + pain to palpation over right knee. Left knee normal. Back: No midline tenderness, no C-spine tenderness, full range of motion, no CVA tenderness bilaterally Neuro: Oriented X 3.? No motor deficit.? No sensory deficit. Course Reevaluation(s) Reevaluation #1: X-ray of right knee shows no dislocations, or fractures. It shows slight postsurgical changes but nothing acute. This is likely inflammatory osteoarthritis. Patient will be placed in a knee immobilizer, and given crutches. She will also be given naproxen 500 mg p.o. b.i.d. which she can take for inflammation and pain. She has been advised to follow up with Orthopedics if her pain does not subside, or if symptoms worsen in a week. She is safe for discharge home with PCP and Ortho follow-up. Time: 08:19 MDM - Extremity (Nontraumatic) [facility] Narrative Medical decision making narrative: 714 35-year-old female past medical history significant for asthma, and bipolar disorder presents to the emergency department with atraumatic right-sided knee pain x3 days progressively worsening. Patient had surgery on this knee in 2007 when she had a dislocated patella no complications with the surgery. She denies all constitutional symptoms. Upon physical examination patient appears well, she is sitting upright on the exam table, in no acute distress. S1-S2 appreciated free murmurs. Abdomen soft nontender nondistended. Lungs are clear to auscultation no adventitious lung sounds. There is swelling overlying the right knee, and limited range of motion to the right knee, she reports pain with palpation of right knee. Left knee normal with full range of motion. Patient ambulating with a limp. Bilateral lower extremity pulses 2+ equal and bilateral. 5/5 strength. VSS slightly tachycardic likely secondary to pain. Plan at this time is to obtain an x-ray of the right knee. Medical Records Attestation: I reviewed the patient's medical records. Lab Data Attestation: I reviewed the patient's lab results. Imaging Data X-ray of right knee: Attestation: I personally reviewed and interpreted this imaging study as follows: Radiologist's impression: FINDINGS: Visualized osseous structures are intact. No fracture or joint effusion. There are postsurgical changes of the lateral aspect of the patella and distal femoral metaphysis Alignment is anatomic. Joint spaces are well maintained. No abnormal soft tissue calcification.? XR/XR knee RT 4V IMPRESSION: Postsurgical changes of the knee without acute abnormality. Critical Care Time Critical Care Time Critical Care Time: No Discharge Plan Discharge Clinical Impression: Inflammatory arthritis Patient Disposition: Home, Self-Care Instructions: Osteoarthritis (ED) Additional Instructions: Take your medications as prescribed. Rest your knee and wear your knee immobilizer 3-7 days, make sure you take it off at night. Use crutches as instructed. Rest, ice, compress and elevate. Follow-up with your primary care provider this week. And follow up with orthopedics in a week if symptoms worsen or do not resolve. Return to the emergency department with new or worsening symptoms. In case of emergency call 911 Prescriptions: New naproxen 500 mg tablet 500 mg PO BID PRN (Reason: pain) Qty: 14 RF: 0 No Action topiramate 100 mg tablet 100 mg PO BID RF: 0 trazodone 150 mg tablet 150 mg PO BEDTIME RF: 0 clonazepam 0.5 mg tablet 0.5 mg PO DAILY PRNRF: 0 Referrals: Lissy Burrows MD [Primary Care Provider] - 2 days Abisai Hurt MD [Physician] - 1 week Interventions: ED Discharge Assessment Last Done: 05/15/21 08:47 Discharge Date/Time: 05/15/21 08:48
[2021-05-15 07:55] VITALS: BP 103/51; PULSE 74; RESP 18; TEMP 35.9; O2SAT 98
--- NOTE | 2021-05-15 08:02 | PC.NURSE ---
pt c/o of right knee pain consistently x3 days. she states she had surgery on her right knee in 2007 and recently she started having the pain. pt denies any falls/injuries to her right knee. she describes the pain as achy and throbbing 7/10. no other symptoms reported. pt alert and oriented x4, vss.
[2021-05-15] MEDS: Ketorolac Tromethamine 15 MG/ML VIAL 30 MG IM (08:33)
--- NOTE | 2021-05-15 08:44 | PC.NURSE ---
pt medically cleared for discharge. discharge summary given and explained. crutches given and immobilizer placed with directions. pt alert and oriented, vss.
== END 2021-05-15 08:48 | disposition home or self-care (01) ==
PROVIDERS: Emergency Provider Emergency Medicine Emergency Medical Services; PCP Internal Medicine
DX: M17.11 Unilateral primary osteoarthritis, right knee (principal); J45.909 Unspecified asthma, uncomplicated
CPT/HCPCS: 73564; 96372; 99284; J1885

== ENCOUNTER 2021-06-06 12:38 | Outpatient (REF) | payer OTHER, SELFPAY ==
--- NOTE | 2021-06-06 12:43 | EEG_ITS ---
The waking background activity came in consists of a moderate to high voltage posterior 8 to 9 Hertz alpha frequency, intermixed with low voltage fast frequencies anteriorly. Drowsiness is characterized by diffuse theta slowing. All stages of sleep are identified with symmetrical frontal central sleep spindles, a complexes as well as delta sleep. Throughout the record recurrent paroxysmal epileptiform discharges seen in a generalized distribution with 2-4 hertz spike wave and polyspike wave discharges that are generalized and in some discharges it may be originating in the right parietotemporal region. The longest episode lasts 7 seconds without any clinical symptoms. IMPRESSION: This is an abnormal 24-hour ambulatory EEG with recurrent epileptiform discharges that are seen primarily in a generalized distribution with polyspike wave discharges consistent with a generalized seizure disorder. There is some indication that it may be arising in the right hemisphere. Clinical correlation is suggested. MD HARSH Brandt/JOSÉ LUIS / [id number]
== END 2021-06-06 12:39 | disposition home or self-care (01) ==
LOC: HO.NEURO 12:38
PROVIDERS: Visit Provider Psychiatry & Neurology Neurology
DX: G40.909 Epilepsy, unspecified, not intractable, without status epilepticus (principal)
CPT/HCPCS: 95708

== ENCOUNTER 2021-10-04 16:09 | Emergency (ER) | payer OTHER, SELFPAY ==
--- NOTE | ~2021-10-04 | XR_ITS ---
EXAMINATION: XR HIP, LEFT CLINICAL INFORMATION: Left hip pain status post fall. COMPARISON: None TECHNIQUE: Two views of the left hip. FINDINGS: There is no acute fracture or dislocation. The hip joints are intact. There is mild widening of the pubic symphysis with normal alignment. Incidental transitional L5-S1. XR/XR hip LT w PEL1V IMPRESSION: 1. No acute hip or pelvis abnormality. 2. Mild widening of the pubic symphysis may be normal for the patient/chronic.
--- NOTE | ~2021-10-04 | XR_ITS ---
EXAMINATION: XR ELBOW, LEFT CLINICAL INFORMATION: Left elbow pain status post fall. COMPARISON: None TECHNIQUE: AP, lateral, and oblique views of the left elbow. FINDINGS: Mild soft tissue swelling is seen posteriorly. No radiopaque foreign body. There is no acute fracture, dislocation or joint effusion. XR/XR elbow LT min 3V IMPRESSION: Mild soft tissue swelling posteriorly could be normal for the patient or posttraumatic. Correlate with physical exam. No underlying osseous abnormality.
[2021-10-04 16:28] VITALS: BP 132/78; PULSE 83; RESP 22; TEMP 36.9; O2SAT 99; BMI 22.0
[2021-10-04] MEDS: Acetaminophen 325 MG TABLET 650 MG PO (16:32)
[2021-10-04] MEDS: Ibuprofen 600 MG TABLET PO (16:32)
--- NOTE | 2021-10-04 16:43 | ED.FALL ---
HPI - Fall General Chief Complaint: Fall Stated Complaint: fall Time Seen by Provider: 10/04/21 16:43 Source: patient Mode of arrival: ambulatory Limitations: no limitations History of Present Illness HPI Narrative: This is a 35-year-old female past medical history significant for asthma and bipolar disorder presenting to the emergency department status post fall with complaints of left-sided hip and elbow pain. Patient tells me she was going up the stairs she tripped and fell onto her left side. No complaining of left hip and elbow pain. Patient tells me she is able to move elbow however with a lot of pain. She denies preceding symptoms. Denies numbness and tingling. She tells me her elbow is bothering her more than her hip. She denies loss of consciousness, head strike, chest pain, shortness of breath, nausea, vomiting, vision changes, dizziness, headache, neck pain. MD complaint: fall Onset (ago): hour(s) (2) Fall from: standing Fall witnessed: no Place fall occurred: home Loss of consciousness: none Prolonged down time: no Symptoms prior to fall: none Context: tripped/slipped Related Data Home Medications Medication Instructions Recorded Confirmed clonazepam 0.5 mg tablet 0.5 mg PO DAILY PRN 04/22/21 topiramate 100 mg tablet 100 mg PO BID 04/22/21 trazodone 150 mg tablet 150 mg PO BEDTIME 04/22/21 Previous Rx's Medication Instructions Recorded naproxen 500 mg tablet 500 mg PO BID PRN #14 tab 05/15/21 Allergies Allergy/AdvReac Type Severity Reaction Status Date / Time stringer [CHERRIES] Allergy Severe ANAPHYLAXIS Verified 10/04/21 16:30 gabapentin [From NEURONTIN] Allergy Unknown MUSCLE Verified 10/04/21 16:30 SPASMS lamotrigine [From LAMICTAL] Allergy Unknown MUSCLE Verified 10/04/21 16:30 SPASMS oxcarbazepine Allergy Unknown MUSCLE Verified 10/04/21 16:30 [From TRILEPTAL] SPASMS Sulfa (Sulfonamide Allergy Unknown UNKNOWN Verified 10/04/21 16:30 Antibiotics) [SULFA (SULFONAMIDE ANTIBIOTICS)] SEAFOOD Allergy Severe ANAPHYLAXIS Uncoded 10/04/21 16:30 sulfa Allergy Unknown throat Uncoded 10/04/21 16:30 close Review of Systems Review of Systems: Constitutional : No Weight loss, No Fever, No Chills, No Fatigue, No Malaise ENT/Mouth : No sore throat, No Rhinorrhea Eyes: No Eye Pain, No Swelling, No Redness Cardiovascular : No Chest Pain, No SOB, No Dyspnea on Exertion, No Orthopnea, No Edema, No Palpitations Respiratory : No Cough, No Sputum, No Wheezing Gastrointestinal : No Nausea, No Vomiting, No Diarrhea, No Constipation, No abdominal Pain, No Hematochezia, No Melena Genitourinary : No Dysuria, No Urinary Frequency, No Hematuria, Musculoskeletal : + joint pain, No Myalgias, No Joint Swelling Skin : No Skin Lesions, No rash Neuro : No Weakness, No Numbness, No Dizziness, No Headache Psych : No Anxiety/Panic, No Depression All other systems reviewed and are negative Yes all other systems are reviewed and are negative [facility]END[facility] TO [facility] Past Medical History Attestation statement: The following information was validated with the patient. Source: old records reviewed and nursing notes reviewed Medical History Asthma Bipolar 1 disorder Circulation problem Psychosis Surgical History Tubal ligation status Social History Social History Alcohol intake: never Substance Use Type: Marijuana Advance Directives: No Advance Directives Information Provided: No Physical Exam Vital Signs: Vital Signs: Last Vital Signs Temp 98.5 F 10/04/21 16:28 Pulse 83 10/04/21 16:28 Resp 22 H 10/04/21 16:28 BP 132/78 10/04/21 16:28 Pulse Ox 99 10/04/21 16:28 BMI result Body Mass Index 22.0 VSS Appearance: Alert.? Oriented X3.? No acute distress.? Head: Normocephalic, atraumatic, no step-offs or deformities Eyes: Pupils equal, round and reactive to light.? ENT: Pharynx normal.? Neck: Normal inspection.? Neck supple.? CVS: Normal heart rate and rhythm.? Pulses normal.? Respiratory: No respiratory distress.? Breath sounds normal.? Abdomen: Soft and nontender.? Skin: Skin warm and dry.? Normal skin color.? Normal skin turgor.? Extremities: No lower extremity edema.? No calf ttp. 5/5 strength to bilateral upper and lower extremities + pain to palpation to left olecranon. +patient guarding her left elbow however able to move it with pain. + full range of motion however with pain to left hip and left elbow. No overlying skin changes or ecchymosis. No distracting injuries or deformities. No step-offs. Bilateral radial pulses 2+ equal bilateral. Right-side normal. No wrist drop bilaterally. Sensation motor intact bilateral upper and lower extremities. Back: No midline tenderness, no C-spine tenderness, full range of motion, no CVA tenderness bilaterally Neuro: Oriented X 3.? No motor deficit.? No sensory deficit. CN 2-12 intact> Patient ambulating with steady gait. Course Reevaluation(s) Reevaluation #1: Patient decided to leave against medical advise. Images pending. Advised her of the risks of leaving AMA outlined he is on her discharge. I did however give her information to an orthopedic group. Offered her sling patient refused. Time: 17:10 MDM - Fall [facility] Narrative Medical decision making narrative: 1644 35 yo f presents s/p fall w/ complaints of left elbow and hip pain. Reports trip and falll To note upon my arrival to patient's room she is upset because she has been waiting for a long time. She is very upset with me because I am unable to give her a final read of her x-rays. I explained to patient I am not a radiologist. She tells me she is in a lot of pain and would like to leave against medical advice and she does not want wait anymore. I offered her pain medicine she refused. She tells me I just want to go home. PE significant for 5/5 strength to bilateral upper and lower extremities + full range of motion however with pain to left hip and left elbow. No overlying skin changes or ecchymosis. No distracting injuries or deformities. No step-offs. Bilateral radial pulses 2+ equal bilateral. Right-side normal. No wrist drop bilaterally. Sensation motor intact bilateral upper and lower extremities. Based off history and physical examination unlikely fracture, dislocation. Likely muscle strain/sprain. Plan at this time is imaging. Medical Records Attestation: I reviewed the patient's medical records. Lab Data Attestation: I reviewed the patient's lab results. Critical Care Time Critical Care Time Critical Care Time: No Discharge Plan Discharge Clinical Impression: Elbow pain, left, Hip pain, Left against medical advice Patient Disposition: Home, Self-Care Instructions: Against Medical Advice (ED), Hip Pain (ED) Additional Instructions: Take your medications as prescribed. If you were prescribed antibiotics today, it is important that you take your medication to their entirety, do not skip any doses, do not finish them early. Follow-up with your primary care provider this week. Return to the emergency department with new or worsening symptoms. Such as fevers, chills, chest pain, shortness of breath, nausea, vomiting, dizziness, headache, vision changes, lethargy In case of emergency call 911 You decided to leave against medical advice which means that your condition could worsen. Offered the pain medication and something to make it more comfortable. You tell me he want to leave. You were upset because I cannot provide you with the final read on your imaging because this requires a radiologist. Prescriptions: No Action naproxen 500 mg tablet 500 mg PO BID PRN (Reason: pain) Qty: 14 0RF Rx Instructions: Take with food topiramate 100 mg tablet 100 mg PO BID 0RF trazodone 150 mg tablet 150 mg PO BEDTIME 0RF clonazepam 0.5 mg tablet 0.5 mg PO DAILY PRN0RF Referrals: [facility] [Provider Group] - 1 week Physician,Unknown J [Physician] - 2 days Stand Alone Forms: Against Medical Advice, Work/School Release
== END 2021-10-04 17:15 | disposition home or self-care (01) ==
LOC: HO.ED 17:00
PROVIDERS: Emergency Provider Emergency Medicine; PCP Internal Medicine
DX: S59.902A Unspecified injury of left elbow, initial encounter (principal); M25.552 Pain in left hip; M25.551 Pain in right hip; W10.9XXA Fall (on) (from) unspecified stairs and steps, initial encounter; Y93.9 Activity, unspecified; Y92.9 Unspecified place or not applicable; Y99.9 Unspecified external cause status
CPT/HCPCS: 73080; 73502; 99283; 99284

== ENCOUNTER 2022-01-28 14:02 | Emergency (ER) | payer OTHER, SELFPAY ==
[2022-01-28 14:08] VITALS: BP 139/84; PULSE 100; RESP 18; TEMP 36.4; O2SAT 97; BMI 20.9
--- NOTE | 2022-01-28 15:22 | PC.NURSE ---
pt requesting ama paperwork to leave- pa aware
--- NOTE | 2022-01-28 15:26 | PC.NURSE ---
pt eloped upon arrival back to room
== END 2022-01-28 15:27 | disposition left against medical advice (07) ==
PROVIDERS: Emergency Provider Emergency Medicine; PCP Internal Medicine
DX: S81.812A Laceration without foreign body, left lower leg, initial encounter (principal); X99.1XXA Assault by knife, initial encounter; F12.90 Cannabis use, unspecified, uncomplicated; Y93.89 Activity, other specified; Y92.039 Unspecified place in apartment as the place of occurrence of the external cause; Y99.9 Unspecified external cause status
CPT/HCPCS: 99281; 99283

== ENCOUNTER 2022-02-06 11:45 | Outpatient (REF) | payer OTHER, SELFPAY ==
--- NOTE | ~2022-02-06 | US_ITS ---
EXAMINATION: US VENOUS ULTRASOUND WITH DOPPLER LOWER EXTREMITY, LEFT CLINICAL INFORMATION: Left leg edema COMPARISON: None TECHNIQUE: Ultrasound of the deep veins is performed from the hip to the calf with compression sonography and color and pulse Doppler assessment. Spectral analysis with color-flow imaging is performed. FINDINGS: There is normal venous compression and respiratory variation and augmented flow. The visualized common femoral vein, superficial femoral vein, profunda femoral vein, popliteal vein, and the trifurcation region shows no evidence of deep venous thrombosis. There is no significant popliteal fossa cyst. If the patient's symptoms persist, followup ultrasound in 5 days 7 days might be of value to exclude proximal propagation from a non-visualized calf vein. US/US venous duplex LE LT IMPRESSION: No DVT demonstrated in the left lower extremity.
--- NOTE | ~2022-02-06 | XR_ITS ---
EXAMINATION: XR ANKLE, LEFT CLINICAL INFORMATION: Left ankle swelling. COMPARISON: None TECHNIQUE: AP, lateral, and mortise views of the left ankle. FINDINGS: There is lateral malleolar soft tissue swelling. No visible acute fracture, dislocation or subluxation seen. The ankle mortise and subtalar joints are normal. No visible acute fracture, dislocation or subluxation seen. XR/XR ankle LT min 3V IMPRESSION: Mild bimalleolar soft tissue swelling suggestive of ligamentous injury. No visible acute fracture, dislocation or subluxation seen.
[2022-02-06 13:33] LABS: D Dimer High Sensitivity 302 NG/ML
[2022-02-06 13:51] LABS: Alanine Aminotransferase 14 U/L (0-31); Albumin Level 4.7 g/dL (3.5-5.0); Alkaline Phosphatase 42 U/L (39-117); Anion Gap 16 (12-20); Aspartate Amino Transferase 19 U/L (5-31); Bilirubin Total 0.3 mg/dL (0.0-1.0); Blood Urea Nitrogen 10 mg/dL (9-16); Calcium 9.3 mg/dL (8.4-10.2); Carbon Dioxide 23 mmol/L (22-29); Chloride 104 mmol/L (96-108); Estimated Glomerular Filt Rate > 60; Glucose Random 91 mg/dL (60-115); Potassium 3.6 mmol/L (3.3-5.1); Sodium 139 mmol/L (135-145); Total Protein 7.2 g/dL (6.5-8.0)
== END 2022-02-06 11:46 | disposition home or self-care (01) ==
LOC: HO.US 11:45
PROVIDERS: PCP Internal Medicine; Visit Provider Internal Medicine
DX: R60.0 Localized edema (principal); F31.9 Bipolar disorder, unspecified; G40.109 Localization-related (focal) (partial) symptomatic epilepsy and epileptic syndromes with simple partial seizures, not intractable, without status epilepticus
CPT/HCPCS: 36415; 73610; 80053; 85379; 93971

== ENCOUNTER 2022-02-25 19:53 | Emergency (ER) | payer OTHER, SELFPAY ==
[2022-02-25 20:08] VITALS: BP 131/65; PULSE 69; RESP 18; TEMP 37.2; O2SAT 96; BMI 19.9
== END 2022-02-25 22:32 | disposition left against medical advice (07) ==
PROVIDERS: Emergency Provider Emergency Medicine; PCP Internal Medicine
DX: M25.572 Pain in left ankle and joints of left foot (principal)
CPT/HCPCS: 99281

== ENCOUNTER → 2022-03-07 08:31 | Outpatient (BNVA) | payer OTHER, MEDICAID, SELFPAY | PROVIDERS: PCP Internal Medicine; Visit Provider Physician Assistant | DX: M25.572 Pain in left ankle and joints of left foot (principal); G89.29 Other chronic pain | CPT/HCPCS: 99202 ==

== ENCOUNTER 2022-03-29 12:34 | Emergency (ER) | payer OTHER, SELFPAY ==
--- NOTE | ~2022-03-29 | XR_ITS ---
EXAMINATION: XR FINGER, RIGHT CLINICAL INFORMATION: Second digit pain and swelling. COMPARISON: None TECHNIQUE: 3 views of the right hand second digit. FINDINGS: Mild soft tissue swelling is seen in the second digit. There is no acute fracture or dislocation. The joint spaces are unremarkable. No radiopaque foreign body. The remainder of the hand is unremarkable. XR/XR finger RT min 2V IMPRESSION: Mild soft tissue swelling without acute underlying osseous abnormality.
[2022-03-29 12:40] VITALS: BP 119/75; PULSE 94; RESP 18; TEMP 36.9; O2SAT 99; BMI 19.5
--- NOTE | 2022-03-29 15:01 | ED_ITS ---
HPI - Extremity Problem General Chief complaint: Extremity Problem Stated complaint: r index finger inj non work related Time Seen by Provider: 03/29/22 15:01 History of Present Illness HPI Narrative: Patient complains of right index finger pain after she hit a wall and the finger bent back and seemed to be dislocated, she did pull on it and the MCP joint went right back into place but now it is painful to move the finger, no other injury no other complaint no numbness or weakness Related Data Home Medications Medication Instructions Recorded Confirmed clonazepam 0.5 mg tablet 0.5 mg PO DAILY PRN 04/22/21 trazodone 150 mg tablet 150 mg PO BEDTIME 04/22/21 albuterol sulfate 2.5 mg/3 mL mg inhalation BID PRN asthma 03/07/22 (0.083 %) solution for nebulization albuterol sulfate 90 mcg/actuation inhalation 03/07/22 aerosol inhaler (ProAir HFA) fluticasone 250 mcg-salmeterol 50 1 ea inhalation BID 03/07/22 mcg/dose blistr powdr for inhalation (Advair Diskus) fluticasone propionate 110 2 puff inhalation BID 03/07/22 mcg/actuation HFA aerosol inhaler (Flovent HFA) topiramate 100 mg tablet 200 mg PO ONCE 03/07/22 Previous Rx's Medication Instructions Recorded ibuprofen 400 mg tablet 400 mg PO Q6H PRN pain #20 tabs 03/29/22 Allergies Allergy/AdvReac Type Severity Reaction Status Date / Time stringer [CHERRIES] Allergy Severe ANAPHYLAXIS Verified 04/02/22 09:39 gabapentin [From NEURONTIN] Allergy Unknown MUSCLE Verified 04/02/22 09:39 SPASMS lamotrigine [From LAMICTAL] Allergy Unknown MUSCLE Verified 04/02/22 09:39 SPASMS oxcarbazepine Allergy Unknown MUSCLE Verified 04/02/22 09:39 [From TRILEPTAL] SPASMS Sulfa (Sulfonamide Allergy Unknown UNKNOWN Verified 04/02/22 09:39 Antibiotics) [SULFA (SULFONAMIDE ANTIBIOTICS)] SEAFOOD Allergy Severe ANAPHYLAXIS Uncoded 04/02/22 09:39 sulfa Allergy Unknown throat Uncoded 04/02/22 09:39 close Review of Systems Review of Systems: Positive for right index finger pain Negatives are no head injury no neck pain no back pain no numbness weakness or tingling no other extremity injuries Yes all other systems are reviewed and are negative [facility] Past Medical History Source: nursing notes reviewed Medical History Asthma Bipolar 1 disorder Circulation problem Psychosis Surgical History Tubal ligation status Social History Social History (Updated 03/07/22 @ 08:48 by Giselle Elizalde Rowan) Alcohol intake: never Substance Use Type: Marijuana Current occupational status: 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 Physical Exam Vital Signs: Vital Signs: Last Vital Signs Temp 98.4 F 03/29/22 12:40 Pulse 94 03/29/22 12:40 Resp 18 03/29/22 12:40 BP 119/75 03/29/22 12:40 Pulse Ox 99 03/29/22 12:40 O2 Del Method 03/29/22 12:40 BMI result Body Mass Index 19.5 General appearance no distress Head normocephalic atraumatic Neck is supple Respiratory no distress Extremities full range of motion x4 function Right index finger is swollen but does have good range of motion normal tendon function, swelling is at the PIP and proximal phalanx, neurovascular intact, skin intact Other extremities normal Course Course Course Narrative: X-ray was normal so patient seems to have reduced her own finger successfully, all other finger functions were normal and she is given a finger splint and will follow with hand doctor Discharge Plan Discharge Clinical Impression: Dislocation of finger, Sprain of right index finger Patient Disposition: Home, Self-Care Additional Instructions: Follow with orthopedics for further evaluation X-ray showed some mild swelling but no dislocation or fracture of any bone Return any time any worse condition or concern You can apply ice and use Motrin if needed Prescriptions: New ibuprofen 400 mg tablet 400 mg PO Q6H PRN (Reason: pain) Qty: 20 0RF No Action trazodone 150 mg tablet 150 mg PO BEDTIME clonazepam 0.5 mg tablet 0.5 mg PO DAILY PRN topiramate 100 mg tablet 200 mg PO ONCE albuterol sulfate [ProAir HFA] 90 mcg/actuation HFA aerosol inhaler inhalation albuterol sulfate 2.5 mg /3 mL (0.083 %) solution for nebulization inhalation BID PRN (Reason: asthma) fluticasone propion-salmeterol [Advair Diskus] 250-50 mcg/dose blister with device 1 ea inhalation BID fluticasone propionate [Flovent HFA] 110 mcg/actuation HFA aerosol inhaler 2 puff inhalation BID Referrals: Marlene Juarez PA-C [Physician Sales And Marketing Administrator] - (Right index finger dislocation, reduced by patient, right index finger sprain) Interventions: ED Discharge Assessment Last Done: 03/29/22 15:23 Discharge Date/Time: 03/29/22 15:25
== END 2022-03-29 15:25 | disposition home or self-care (01) ==
PROVIDERS: Emergency Provider Emergency Medicine; PCP Internal Medicine
DX: S63.650A Sprain of metacarpophalangeal joint of right index finger, initial encounter (principal); W22.09XA Striking against other stationary object, initial encounter; Y93.9 Activity, unspecified; Y92.9 Unspecified place or not applicable; Y99.9 Unspecified external cause status
CPT/HCPCS: 73140; 99282; 99283

== ENCOUNTER 2022-04-02 08:22 | Outpatient (REF) | payer OTHER, SELFPAY ==
--- NOTE | ~2022-04-02 | XR_ITS ---
EXAMINATION: XR HAND, RIGHT CLINICAL INFORMATION: M79.641 - Pain in right hand COMPARISON: Radiographs right hand and index finger 03/29/2022 TECHNIQUE: PA, lateral, and oblique views of the right hand. FINDINGS: No acute or healing fracture, dislocation, destructive process. No interval arthropathy or erosive changes. No periostitis. XR/XR hand RT min 3V IMPRESSION: No fracture or arthropathy.
== END 2022-04-02 08:23 | disposition home or self-care (01) ==
LOC: HO.HOSX 08:22
PROVIDERS: Visit Provider Orthopaedic Surgery
DX: S63.610A Unspecified sprain of right index finger, initial encounter (principal); X58.XXXA Exposure to other specified factors, initial encounter; Y93.9 Activity, unspecified; Y92.9 Unspecified place or not applicable; Y99.9 Unspecified external cause status
CPT/HCPCS: 73130; 99202

== ENCOUNTER 2022-08-03 16:00 | Emergency (ER) | payer OTHER, SELFPAY ==
--- NOTE | ~2022-08-03 | CT_ITS ---
EXAMINATION: CT ABDOMEN AND PELVIS WITHOUT CONTRAST CLINICAL INFORMATION: Left flank pain. Question stone. COMPARISON: None TECHNIQUE: Multidetector volumetric imaging was performed from the superior aspect of the liver through the pubic symphysis. Sagittal and coronal reformatted images were obtained on the technologist's workstation. This CT examination was performed using dose optimization techniques as appropriate, variously including the following: *Automated exposure control *Adjustment of mA and/or kV according to patient size (this includes techniques or standardized protocols for targeted exams where dose is matched to indication/reason for exam; i.e. extremities or head) *Use of iterative reconstruction technique DLP: 483 mGy-cm FINDINGS: LUNG BASES: The visualized lung bases are unremarkable. LIVER, GALLBLADDER, AND BILIARY TREE: The liver is normal in size, shape, and attenuation. No focal hepatic lesion or biliary ductal dilatation is present. The gallbladder is unremarkable with no evidence of radiopaque gallstones, gallbladder wall thickening, or obvious pericholecystic inflammatory changes. PANCREAS: Pancreas appears normal in appearance. There is, however, a 6.5 x 3 x 2 cm pocket of fluid situated just posterior to the pancreatic tail, anterior to the left kidney, and caudal to the spleen which is of uncertain etiology. This has an attenuation value of 10 Hounsfield units. No additional fluid collections are identified. No intraperitoneal free air or free fluid. SPLEEN: Unremarkable. ADRENAL GLANDS: Unremarkable. KIDNEYS AND URETERS: The kidneys are normal in size, shape, and attenuation. No hydronephrosis or hydroureter. There is a 1 mm nonobstructing calculus within a calyx of the interpolar region of the left kidney. No perinephric stranding. No appreciable ureteral calculi or hydroureter. BLADDER: Unremarkable. GASTROINTESTINAL TRACT: Stomach, small bowel, and colon are normal in caliber. No bowel wall thickening or surrounding inflammatory changes. Appendix is normal. No intraperitoneal free fluid or free air. Moderate volume of stool throughout the colon ABDOMINAL WALL: . LYMPH NODES: Normal. VASCULAR: Unremarkable. PELVIC VISCERA: The uterus and adnexa are unremarkable. OSSEOUS STRUCTURES: There is Castellvi type IIB transitional anatomy at the S1-S2 junction. No acute osseous findings. CT/CT abdomen pelvis wo IV con IMPRESSION: 1. A 1 mm nonobstructing calculus in the left kidney. No evidence of obstructive uropathy. 2. A 6.5 x 3 x 2 cm pocket of fluid situated just posterior to the pancreatic tail, anterior to the left kidney, and caudal to the spleen. This is of uncertain etiology, potentially a sequela of prior pancreatitis there no additional findings of pancreatic inflammation are identified and there are no additional fluid collections. Recommend correlation with serum amylase and lipase. 3. Moderate volume of stool throughout the colon. Fleischner guidelines were followed.
[2022-08-03 16:10] VITALS: BP 106/77; PULSE 93; RESP 20; TEMP 36.6; O2SAT 100; BMI 19.8
--- NOTE | 2022-08-03 16:10 | ED.ABDPAIN ---
HPI - Abdominal Pain General Chief Complaint: Urogenital-Female <ADI Keller - Last Filed: 08/03/22 16:59> Stated Complaint: pain in left side/ left kidney <ADI Keller - Last Filed: 08/03/22 16:59> Time Seen by Provider: 08/03/22 17:20 <ADI Keller - Last Filed: 08/03/22 16:59> Source: patient <Koffi Boyer MD - Last Filed: 08/03/22 22:51> Mode of arrival: ambulatory <Koffi Boyer MD - Last Filed: 08/03/22 22:51> Limitations: no limitations <Koffi Boyer MD - Last Filed: 08/03/22 22:51> History of Present Illness HPI narrative: Patient with no significant past medical history noticed sudden onset of left flank pain for last 2 days last night pain got worse with nausea and vomiting once pain was so bad that patient had syncope episode after the vomiting pain increases on movements no urinary complaints no history of kidney stone no fever or chills no urinary complaints no history of pancreatitis or peptic ulcer disease <Koffi Boyer MD - Last Filed: 08/03/22 22:51> Related Data Home Medications: Home Medications Medication Instructions Recorded Confirmed clonazepam 0.5 mg tablet 0.5 mg PO DAILY PRN 04/22/21 trazodone 150 mg tablet 150 mg PO BEDTIME 04/22/21 albuterol sulfate 2.5 mg/3 mL mg inhalation BID PRN asthma 03/07/22 (0.083 %) solution for nebulization albuterol sulfate 90 mcg/actuation inhalation 03/07/22 aerosol inhaler (ProAir HFA) fluticasone 250 mcg-salmeterol 50 1 ea inhalation BID 03/07/22 mcg/dose blistr powdr for inhalation (Advair Diskus) fluticasone propionate 110 2 puff inhalation BID 03/07/22 mcg/actuation HFA aerosol inhaler (Flovent HFA) topiramate 100 mg tablet 200 mg PO ONCE 03/07/22 Previous Rx's Medication Instructions Recorded ibuprofen 400 mg tablet 400 mg PO Q6H PRN pain #20 tabs 03/29/22 <ADI Keller - Last Filed: 08/03/22 16:59> Allergies/Adverse Reactions: Allergies Allergy/AdvReac Type Severity Reaction Status Date / Time stringer [CHERRIES] Allergy Severe ANAPHYLAXIS Verified 08/03/22 16:13 gabapentin [From NEURONTIN] Allergy Unknown MUSCLE Verified 08/03/22 16:13 SPASMS lamotrigine [From LAMICTAL] Allergy Unknown MUSCLE Verified 08/03/22 16:13 SPASMS oxcarbazepine Allergy Unknown MUSCLE Verified 08/03/22 16:13 [From TRILEPTAL] SPASMS Sulfa (Sulfonamide Allergy Unknown UNKNOWN Verified 04/02/22 09:39 Antibiotics) [SULFA (SULFONAMIDE ANTIBIOTICS)] SEAFOOD Allergy Severe ANAPHYLAXIS Uncoded 04/02/22 09:39 sulfa Allergy Unknown throat Uncoded 04/02/22 09:39 close <ADI Keller - Last Filed: 08/03/22 16:59> Review of Systems Review of Systems Yes all other systems are reviewed and are negative <Koffi Boyer MD - Last Filed: 08/03/22 22:51> [facility] Past Medical History Medical History: Medical History Asthma Bipolar 1 disorder Circulation problem Psychosis <ADI Keller - Last Filed: 08/03/22 16:59> Surgical History: Surgical History Tubal ligation status <ADI Keller - Last Filed: 08/03/22 16:59> Social History Social History: Social History Alcohol intake: never Substance Use Type: Marijuana Advance Directives: No Advance Directives Information Provided: No Current occupational status: 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 <ADI Keller - Last Filed: 08/03/22 16:59> Physical Exam ED Vital Signs: Vital Signs - 24 hr 08/03/22 16:10 08/03/22 17:21 08/03/22 17:21 Temperature 98 F 98.0 F Pulse Rate 93 75 78 Respiratory Rate 20 18 Blood Pressure 106/77 115/61 97/57 L Pulse Oximetry 100 99 Oxygen Delivery Method Room Air Room Air 08/03/22 17:23 08/03/22 17:25 08/03/22 19:25 Temperature 97.9 F Pulse Rate 77 98 64 Respiratory Rate 16 Blood Pressure 109/66 102/67 110/67 Pulse Oximetry 100 Oxygen Delivery Method Room Air BMI result Body Mass Index 19.8 <ADI Keller - Last Filed: 08/03/22 16:59> Vital Signs - 24 hr 08/03/22 16:10 08/03/22 17:21 08/03/22 17:21 Temperature 98 F 98.0 F Pulse Rate 93 75 78 Respiratory Rate 20 18 Blood Pressure 106/77 115/61 97/57 L Pulse Oximetry 100 99 Oxygen Delivery Method Room Air Room Air 08/03/22 17:23 08/03/22 17:25 08/03/22 19:25 Temperature 97.9 F Pulse Rate 77 98 64 Respiratory Rate 16 Blood Pressure 109/66 102/67 110/67 Pulse Oximetry 100 Oxygen Delivery Method Room Air BMI result Body Mass Index 19.8 <Koffi Boyer MD - Last Filed: 08/03/22 22:51> Appearance: Alert. Oriented X3. No acute distress. Eyes: PERRLA, No Nystagmus ENT: Pharynx normal. Oral Mucosa moist Neck: Normal inspection. Neck supple. CVS: Normal heart rate and rhythm. Pulses normal. Respiratory: No respiratory distress. Equal air entry bilateral, no wheezing/rales/rhonchi Abdomen: Soft and nontender. Bowel sounds are present, no mass palpable, no CVA tenderness Skin: Skin warm and dry. Normal skin color. Normal skin turgor. Extremities: No lower extremity edema. No calf tenderness Neuro: Oriented X 3. No motor deficit. No sensory deficit.No cerebellar signs , cranial nerves II-XII intact <Koffi Boyer MD - Last Filed: 08/03/22 22:51> Course Course Course Narrative: RME--36yo F w/PMHx asthma, bipolar, c/o L flank pain since last night with assoc nausea, vomiting and syncopal epsiode last night during intense pain. Denies dysuria, hematuria, fever Ambulating w/steady gait, VSS, nontoxic appearing EKG, Labs, UA, CTAP, orthostatic VS, IVF and zofran ordered <ADI Keller - Last Filed: 08/03/22 16:59> Medical Decision Making Medical Decision Making [facility] [place] Narrative: Patient's CT scan showed fluid collection posterior to the pancreatic tail etiology not very clear patient eloped from the ER without discussing the CT scan results patient's lipase was normal, a phone call at [phone] was made and left a message asking the patient to come back to the ER [phone] Patient called back will be coming back to the ER for admission <Koffi Boyer MD - Last Filed: 08/03/22 22:51> Lab Data [facility] [place] Lab Attestation statement: I reviewed the patient's lab results. <Koffi Boyer MD - Last Filed: 08/03/22 22:51> Result Diagrams: 08/03/22 16:50 08/03/22 16:50 <ADI Keller - Last Filed: 08/03/22 16:59> Labs: Lab Results 08/03/22 08/03/22 08/03/22 Range/Units 16:50 16:50 16:50 WBC 11.2 H (4.8-10.8) X10*3/uL RBC 4.15 L (4.20-5.50) X10*6/uL Hgb 13.2 (12.0-16.0) g/dl Hct 39.9 (37.0-47.0) % MCV 96.1 (80.0-98.0) fL MCH 31.8 (27.0-33.0) pg MCHC 33.1 (31.0-35.0) g/dl RDW 14.0 (11.0-16.0) % Plt Count 188 (160-400) X10*3/uL MPV 11.4 (9.4-12.3) fL Immature Gran % (Auto) 0.5 H (0.0-0.4) % Neut % (Auto) 65.1 (45-73) % Lymph % (Auto) 24.8 (20-40) % [place] % (Auto) 7.6 (2-11) % Eos % (Auto) 1.3 (0-4) % Baso % (Auto) 0.7 (0-2) % Lymph # (Auto) 2.8 (1.2-4.9) X10*3/uL [place] # (Auto) 0.9 (0.1-1.2) X10*3/uL Eos # (Auto) 0.2 (0.0-0.4) X10*3/uL Baso # (Auto) 0.1 (0.0-0.2) X10*3/uL Abs Immat Gran (auto) 0.06 H (0.00-0.03) X10*3/uL Absolute Neuts (auto) 7.3 (2.0-8.3) x10*3/uL Absolute Nucleated RBC 0.000 (0.0-0.012) X10*3/uL Nucleated RBC % (auto) 0.0 (0.0-0.2) /100WBC Sodium 141 (135-145) mmol/L Potassium 4.3 (3.3-5.1) mmol/L Chloride 107 (96-108) mmol/L Carbon Dioxide 24 (22-29) mmol/L Anion Gap 14 (12-20) BUN 13 (9-16) mg/dL Creatinine 0.80 (0.5-1.4) mg/dL Estim Creat Clear Calc 89.6 Estimated GFR > 60 Random Glucose 76 (60-115) mg/dL Calcium 9.7 (8.4-10.2) mg/dL Magnesium 1.8 (1.6-2.6) mg/dL Total Bilirubin 0.2 (0.0-1.0) mg/dL Direct Bilirubin < 0.2 (0.0-0.5) mg/dL AST 14 (5-31) U/L ALT 11 (0-31) U/L Alkaline Phosphatase 46 (39-117) U/L Troponin I High Sens < 3.5 (<3.5-17.0) ng/L Total Protein 6.7 (6.5-8.0) g/dL Albumin 4.4 (3.5-5.0) g/dL Lipase 29 (8-78) U/L Urine Color Urine Appearance Urine pH (5.0-9.0) Ur Specific [place] (1.005-1.025) Urine Protein (Neg-Trace) mg/dL Urine Glucose (UA) (Negative) mg/dL Urine Ketones (Negative) mg/dL Urine Blood (Negative) Urine Nitrite (Negative) Ur Leukocyte Esterase (Negative) Urine RBC (0-2) /HPF Urine WBC (0-5) /HPF Ur Squamous Epith Cells (0-2) /HPF Urine Bacteria (None Seen) Hyaline Casts (0-2) /LPF Urine Test (NEGATIVE) 08/03/22 08/03/22 Range/Units 18:29 18:29 WBC (4.8-10.8) X10*3/uL RBC (4.20-5.50) X10*6/uL Hgb (12.0-16.0) g/dl Hct (37.0-47.0) % MCV (80.0-98.0) fL MCH (27.0-33.0) pg MCHC (31.0-35.0) g/dl RDW (11.0-16.0) % Plt Count (160-400) X10*3/uL MPV (9.4-12.3) fL Immature Gran % (Auto) (0.0-0.4) % Neut % (Auto) (45-73) % Lymph % (Auto) (20-40) % [place] % (Auto) (2-11) % Eos % (Auto) (0-4) % Baso % (Auto) (0-2) % Lymph # (Auto) (1.2-4.9) X10*3/uL [place] # (Auto) (0.1-1.2) X10*3/uL Eos # (Auto) (0.0-0.4) X10*3/uL Baso # (Auto) (0.0-0.2) X10*3/uL Abs Immat Gran (auto) (0.00-0.03) X10*3/uL Absolute Neuts (auto) (2.0-8.3) x10*3/uL Absolute Nucleated RBC (0.0-0.012) X10*3/uL Nucleated RBC % (auto) (0.0-0.2) /100WBC Sodium (135-145) mmol/L Potassium (3.3-5.1) mmol/L Chloride (96-108) mmol/L Carbon Dioxide (22-29) mmol/L Anion Gap (12-20) BUN (9-16) mg/dL Creatinine (0.5-1.4) mg/dL Estim Creat Clear Calc Estimated GFR Random Glucose (60-115) mg/dL Calcium (8.4-10.2) mg/dL Magnesium (1.6-2.6) mg/dL Total Bilirubin (0.0-1.0) mg/dL Direct Bilirubin (0.0-0.5) mg/dL AST (5-31) U/L ALT (0-31) U/L Alkaline Phosphatase (39-117) U/L Troponin I High Sens (<3.5-17.0) ng/L Total Protein (6.5-8.0) g/dL Albumin (3.5-5.0) g/dL Lipase (8-78) U/L Urine Color Yellow Urine Appearance Cloudy Urine pH 6.5 (5.0-9.0) Ur Specific [place] 1.025 (1.005-1.025) Urine Protein Negative (Neg-Trace) mg/dL Urine Glucose (UA) Negative (Negative) mg/dL Urine Ketones Trace (Negative) mg/dL Urine Blood Moderate (2+) H (Negative) Urine Nitrite Negative (Negative) Ur Leukocyte Esterase Negative (Negative) Urine RBC 11-20 H (0-2) /HPF Urine WBC 0-5 (0-5) /HPF Ur Squamous Epith Cells 3-5 (0-2) /HPF Urine Bacteria 4+ (None Seen) Hyaline Casts 0-2 (0-2) /LPF Urine Test NEGATIVE (NEGATIVE) <ADI Keller - Last Filed: 08/03/22 16:59> Lab Results 08/03/22 08/03/22 08/03/22 Range/Units 16:50 16:50 16:50 WBC 11.2 H (4.8-10.8) X10*3/uL RBC 4.15 L (4.20-5.50) X10*6/uL Hgb 13.2 (12.0-16.0) g/dl Hct 39.9 (37.0-47.0) % MCV 96.1 (80.0-98.0) fL MCH 31.8 (27.0-33.0) pg MCHC 33.1 (31.0-35.0) g/dl RDW 14.0 (11.0-16.0) % Plt Count 188 (160-400) X10*3/uL MPV 11.4 (9.4-12.3) fL Immature Gran % (Auto) 0.5 H (0.0-0.4) % Neut % (Auto) 65.1 (45-73) % Lymph % (Auto) 24.8 (20-40) % [place] % (Auto) 7.6 (2-11) % Eos % (Auto) 1.3 (0-4) % Baso % (Auto) 0.7 (0-2) % Lymph # (Auto) 2.8 (1.2-4.9) X10*3/uL [place] # (Auto) 0.9 (0.1-1.2) X10*3/uL Eos # (Auto) 0.2 (0.0-0.4) X10*3/uL Baso # (Auto) 0.1 (0.0-0.2) X10*3/uL Abs Immat Gran (auto) 0.06 H (0.00-0.03) X10*3/uL Absolute Neuts (auto) 7.3 (2.0-8.3) x10*3/uL Absolute Nucleated RBC 0.000 (0.0-0.012) X10*3/uL Nucleated RBC % (auto) 0.0 (0.0-0.2) /100WBC Sodium 141 (135-145) mmol/L Potassium 4.3 (3.3-5.1) mmol/L Chloride 107 (96-108) mmol/L Carbon Dioxide 24 (22-29) mmol/L Anion Gap 14 (12-20) BUN 13 (9-16) mg/dL Creatinine 0.80 (0.5-1.4) mg/dL Estim Creat Clear Calc 89.6 Estimated GFR > 60 Random Glucose 76 (60-115) mg/dL Calcium 9.7 (8.4-10.2) mg/dL Magnesium 1.8 (1.6-2.6) mg/dL Total Bilirubin 0.2 (0.0-1.0) mg/dL Direct Bilirubin < 0.2 (0.0-0.5) mg/dL AST 14 (5-31) U/L ALT 11 (0-31) U/L Alkaline Phosphatase 46 (39-117) U/L Troponin I High Sens < 3.5 (<3.5-17.0) ng/L Total Protein 6.7 (6.5-8.0) g/dL Albumin 4.4 (3.5-5.0) g/dL Lipase 29 (8-78) U/L Urine Color Urine Appearance Urine pH (5.0-9.0) Ur Specific [place] (1.005-1.025) Urine Protein (Neg-Trace) mg/dL Urine Glucose (UA) (Negative) mg/dL Urine Ketones (Negative) mg/dL Urine Blood (Negative) Urine Nitrite (Negative) Ur Leukocyte Esterase (Negative) Urine RBC (0-2) /HPF Urine WBC (0-5) /HPF Ur Squamous Epith Cells (0-2) /HPF Urine Bacteria (None Seen) Hyaline Casts (0-2) /LPF Urine Test (NEGATIVE) 08/03/22 08/03/22 Range/Units 18:29 18:29 WBC (4.8-10.8) X10*3/uL RBC (4.20-5.50) X10*6/uL Hgb (12.0-16.0) g/dl Hct (37.0-47.0) % MCV (80.0-98.0) fL MCH (27.0-33.0) pg MCHC (31.0-35.0) g/dl RDW (11.0-16.0) % Plt Count (160-400) X10*3/uL MPV (9.4-12.3) fL Immature Gran % (Auto) (0.0-0.4) % Neut % (Auto) (45-73) % Lymph % (Auto) (20-40) % [place] % (Auto) (2-11) % Eos % (Auto) (0-4) % Baso % (Auto) (0-2) % Lymph # (Auto) (1.2-4.9) X10*3/uL [place] # (Auto) (0.1-1.2) X10*3/uL Eos # (Auto) (0.0-0.4) X10*3/uL Baso # (Auto) (0.0-0.2) X10*3/uL Abs Immat Gran (auto) (0.00-0.03) X10*3/uL Absolute Neuts (auto) (2.0-8.3) x10*3/uL Absolute Nucleated RBC (0.0-0.012) X10*3/uL Nucleated RBC % (auto) (0.0-0.2) /100WBC Sodium (135-145) mmol/L Potassium (3.3-5.1) mmol/L Chloride (96-108) mmol/L Carbon Dioxide (22-29) mmol/L Anion Gap (12-20) BUN (9-16) mg/dL Creatinine (0.5-1.4) mg/dL Estim Creat Clear Calc Estimated GFR Random Glucose (60-115) mg/dL Calcium (8.4-10.2) mg/dL Magnesium (1.6-2.6) mg/dL Total Bilirubin (0.0-1.0) mg/dL Direct Bilirubin (0.0-0.5) mg/dL AST (5-31) U/L ALT (0-31) U/L Alkaline Phosphatase (39-117) U/L Troponin I High Sens (<3.5-17.0) ng/L Total Protein (6.5-8.0) g/dL Albumin (3.5-5.0) g/dL Lipase (8-78) U/L Urine Color Yellow Urine Appearance Cloudy Urine pH 6.5 (5.0-9.0) Ur Specific [place] 1.025 (1.005-1.025) Urine Protein Negative (Neg-Trace) mg/dL Urine Glucose (UA) Negative (Negative) mg/dL Urine Ketones Trace (Negative) mg/dL Urine Blood Moderate (2+) H (Negative) Urine Nitrite Negative (Negative) Ur Leukocyte Esterase Negative (Negative) Urine RBC 11-20 H (0-2) /HPF Urine WBC 0-5 (0-5) /HPF Ur Squamous Epith Cells 3-5 (0-2) /HPF Urine Bacteria 4+ (None Seen) Hyaline Casts 0-2 (0-2) /LPF Urine Test NEGATIVE (NEGATIVE) <Koffi Boyer MD - Last Filed: 08/03/22 22:51> Radiology Impression Discussion of test interpretation with radiology: I have reviewed the radiologist's reading. <Koffi Boyer MD - Last Filed: 08/03/22 22:51> Radiologist Impression: CT/CT abdomen pelvis wo IV con IMPRESSION: 1.? A 1 mm nonobstructing calculus in the left kidney. No evidence of obstructive uropathy. 2.? A 6.5 x 3 x 2 cm pocket of fluid situated just posterior to the pancreatic tail, anterior to the left kidney, and caudal to the spleen. This is of uncertain etiology, potentially a sequela of prior pancreatitis there no additional findings of pancreatic inflammation are identified and there are no additional fluid collections. Recommend correlation with serum amylase and lipase. 3.? Moderate volume of stool throughout the colon. <Koffi Boyer MD - Last Filed: 08/03/22 22:51> Medications Administered Discontinued Medications Generic Name Dose Route Start Last Admin Trade Name Freq PRN Reason Stop Dose Admin Sodium Chloride 1,000 mls @ 999 mls/hr 08/03/22 16:15 08/03/22 17:39 Ns IV 08/03/22 17:15 Not Given .Q1H1M IVONNE Tramadol HCl 50 mg 08/03/22 17:34 08/03/22 17:39 Tramadol Hcl 50 Mg Tablet PO 08/03/22 17:35 50 mg ONCE ONE Administration <ADI Keller - Last Filed: 08/03/22 16:59> Medications Administered Discontinued Medications Generic Name Dose Route Start Last Admin Trade Name Freq PRN Reason Stop Dose Admin Sodium Chloride 1,000 mls @ 999 mls/hr 08/03/22 16:15 08/03/22 17:39 Ns IV 08/03/22 17:15 Not Given .Q1H1M IVONNE Tramadol HCl 50 mg 08/03/22 17:34 08/03/22 17:39 Tramadol Hcl 50 Mg Tablet PO 08/03/22 17:35 50 mg ONCE ONE Administration <Koffi Boyer MD - Last Filed: 08/03/22 22:51> Discharge Plan Discharge Clinical Impression: Acute left flank pain <ADI Keller - Last Filed: 08/03/22 16:59> Patient Disposition: Elopement <ADI Keller - Last Filed: 08/03/22 16:59> Prescriptions: No Action ibuprofen 400 mg tablet 400 mg PO Q6H PRN (Reason: pain) Qty: 20 0RF trazodone 150 mg tablet 150 mg PO BEDTIME clonazepam 0.5 mg tablet 0.5 mg PO DAILY PRN topiramate 100 mg tablet 200 mg PO ONCE albuterol sulfate [ProAir HFA] 90 mcg/actuation HFA aerosol inhaler inhalation albuterol sulfate 2.5 mg /3 mL (0.083 %) solution for nebulization inhalation BID PRN (Reason: asthma) fluticasone propion-salmeterol [Advair Diskus] 250-50 mcg/dose blister with device 1 ea inhalation BID fluticasone propionate [Flovent HFA] 110 mcg/actuation HFA aerosol inhaler 2 puff inhalation BID <ADI Keller - Last Filed: 08/03/22 16:59>
--- NOTE | 2022-08-03 16:12 | ECG_ITS ---
Test Reason : syncopy Blood Pressure : / mmHG Vent. Rate : 087 BPM Atrial Rate : 087 BPM P-R Int : 162 ms QRS Dur : 078 ms QT Int : 362 ms P-R-T Axes : 074 090 058 degrees QTc Int : 435 ms Normal sinus rhythm Rightward axis Borderline ECG When compared with ECG of 20-AUG-2020 13:52, Vent. rate has increased BY 36 BPM QT has lengthened Referred By: Sonia White Electronically Signed By:JOSE DAVID WELLS MD
[2022-08-03 16:56] LABS: MANUAL DIFF FLAG NO
[2022-08-03 17:01] LABS: Basophils Absolute Auto 0.1 X10*3/uL (0.0-0.2); Basophils Percent Auto 0.7 % (0-2); Eosinophils Absolute Auto 0.2 X10*3/uL (0.0-0.4); Eosinophils Percent Auto 1.3 % (0-4); Hematocrit 39.9 % (37.0-47.0); Hemoglobin 13.2 g/dl (12.0-16.0); Imm Gran Abs Auto 0.06 X10*3/uL (0.00-0.03); Imm Gran Pct Auto 0.5 % (0.0-0.4); Lymphocytes Absolute Auto 2.8 X10*3/uL (1.2-4.9); Lymphocytes Percent Auto 24.8 % (20-40); Mean Corpuscular HGB Conc 33.1 g/dl (31.0-35.0); Mean Corpuscular Hemoglobin 31.8 pg (27.0-33.0); Mean Corpuscular Volume 96.1 fL (80.0-98.0); Mean Platelet Volume 11.4 fL (9.4-12.3); Monocytes Absolute Auto 0.9 X10*3/uL (0.1-1.2); Monocytes Percent Auto 7.6 % (2-11); Neutrophils Absolute Auto 7.3 x10*3/uL (2.0-8.3); Neutrophils Percent Auto 65.1 % (45-73); Platelet Count 188 X10*3/uL (160-400); Red Blood Count 4.15 X10*6/uL (4.20-5.50); White Blood Count 11.2 X10*3/uL (4.8-10.8)
[2022-08-03 17:13] LABS: Alanine Aminotransferase 11 U/L (0-31); Albumin Level 4.4 g/dL (3.5-5.0); Alkaline Phosphatase 46 U/L (39-117); Anion Gap 14 (12-20); Aspartate Amino Transferase 14 U/L (5-31); Bilirubin Direct < 0.2 mg/dL (0.0-0.5); Bilirubin Total 0.2 mg/dL (0.0-1.0); Blood Urea Nitrogen 13 mg/dL (9-16); Calcium 9.7 mg/dL (8.4-10.2); Carbon Dioxide 24 mmol/L (22-29); Chloride 107 mmol/L (96-108); Creatinine Clr Calc Pharmacy 89.6; Estimated Glomerular Filt Rate > 60; Glucose Random 76 mg/dL (60-115); Lipase 29 U/L (8-78); Magnesium 1.8 mg/dL (1.6-2.6); Potassium 4.3 mmol/L (3.3-5.1); Sodium 141 mmol/L (135-145); Total Protein 6.7 g/dL (6.5-8.0)
[2022-08-03 17:21] VITALS: BP 115/61; BP 97/57; PULSE 75; PULSE 78; RESP 18; TEMP 36.7; O2SAT 99
[2022-08-03 17:23] VITALS: BP 109/66; PULSE 77
[2022-08-03 17:24] LABS: Troponin-I High Sensitivity < 3.5 ng/L (<3.5-17.0)
[2022-08-03 17:25] VITALS: BP 102/67; PULSE 98
[2022-08-03] MEDS: traMADoL HCL 50 MG TABLET PO (17:39)
--- NOTE | 2022-08-03 17:43 | PC.NURSE ---
Alert and oriented, respirations even and unlabored. Medicated per the AUG. 02/05 abd pain radiating to her leg. Awaiting CT scan
[2022-08-03 18:37] LABS: Appearance Urine Cloudy; Color Urine Yellow; Glucose Urine UA Negative (Negative); Leukocyte Esterase Urine Negative (Negative); Nitrite Urine Negative (Negative); PH 6.5 (5.0-9.0); Specific Gravity - Urine 1.025 (1.005-1.025); UMIC TRIGGER UACC YES; Urine Blood Moderate (2+) (Negative); Urine Ketones Trace mg/dL (Negative); Urine Protein Negative (Neg-Trace)
[2022-08-03 18:40] LABS: UPreg QC Valid YES; Urine Pregnancy NEGATIVE (NEGATIVE)
[2022-08-03 18:42] LABS: Bacteria Urine 4+ (None Seen); Hyaline Casts Urine 0-2 /LPF (0-2); WBC Urine 0-5 /HPF (0-5)
[2022-08-03 19:25] VITALS: BP 110/67; PULSE 64; RESP 16; TEMP 36.6; O2SAT 100
--- NOTE | 2022-08-03 20:09 | PC.NURSE ---
pt rang call becca. this rn entered pt room. pt stated she would like something to eat. this rn informed pt still awaiting results from CT scan. pt became agitated hearing this and stated I will leave against medical advice, I have not eaten all day . this rn informed dr malik of pt statement. dr malik states it is okay to give pt food at this time. this rn provided pt with crackers and sandwich at this time. awaiting results of ct at this time
== END 2022-08-03 20:25 | disposition left against medical advice (07) ==
PROVIDERS: Physician Assistant; Emergency Provider Internal Medicine; PCP Internal Medicine
DX: R55 Syncope and collapse (principal); R11.2 Nausea with vomiting, unspecified; R10.9 Unspecified abdominal pain; Z79.899 Other long term (current) drug therapy
CPT/HCPCS: 36415; 74176; 80048; 80076; 81001; 81025; 83690; 83735; 84484; 85025; 93005; 96361; 96374; 99285

== ENCOUNTER 2022-08-03 21:42 | Emergency (ER) | payer OTHER, SELFPAY ==
--- NOTE | 2022-08-03 22:00 | ED.ABDPAIN ---
HPI - Abdominal Pain General Chief Complaint: Abdominal Pain Stated Complaint: Fluid in abd Time Seen by Provider: 08/03/22 22:00 Source: patient Mode of arrival: ambulatory Limitations: no limitations History of Present Illness HPI narrative: Patient was seen here earlier for left flank pain for last [address] scan showed fluid collection around the pancreas without any inflammation patient eloped during previous visit ask her to come back for further investigation admission Related Data Home Medications Medication Instructions Recorded Confirmed clonazepam 0.5 mg tablet 0.5 mg PO DAILY PRN 04/22/21 trazodone 150 mg tablet 150 mg PO BEDTIME 04/22/21 albuterol sulfate 2.5 mg/3 mL mg inhalation BID PRN asthma 03/07/22 (0.083 %) solution for nebulization albuterol sulfate 90 mcg/actuation inhalation 03/07/22 aerosol inhaler (ProAir HFA) fluticasone 250 mcg-salmeterol 50 1 ea inhalation BID 03/07/22 mcg/dose blistr powdr for inhalation (Advair Diskus) fluticasone propionate 110 2 puff inhalation BID 03/07/22 mcg/actuation HFA aerosol inhaler (Flovent HFA) topiramate 100 mg tablet 200 mg PO ONCE 03/07/22 Previous Rx's Medication Instructions Recorded ibuprofen 400 mg tablet 400 mg PO Q6H PRN pain #20 tabs 03/29/22 Allergies Allergy/AdvReac Type Severity Reaction Status Date / Time stringer [CHERRIES] Allergy Severe ANAPHYLAXIS Verified 08/03/22 16:13 gabapentin [From NEURONTIN] Allergy Unknown MUSCLE Verified 08/03/22 16:13 SPASMS lamotrigine [From LAMICTAL] Allergy Unknown MUSCLE Verified 08/03/22 16:13 SPASMS oxcarbazepine Allergy Unknown MUSCLE Verified 08/03/22 16:13 [From TRILEPTAL] SPASMS Sulfa (Sulfonamide Allergy Unknown UNKNOWN Verified 04/02/22 09:39 Antibiotics) [SULFA (SULFONAMIDE ANTIBIOTICS)] SEAFOOD Allergy Severe ANAPHYLAXIS Uncoded 04/02/22 09:39 sulfa Allergy Unknown throat Uncoded 04/02/22 09:39 close PMFSH Past Medical History Medical History Asthma Bipolar 1 disorder Circulation problem Psychosis Surgical History Tubal ligation status Social History Social History Alcohol intake: never Substance Use Type: Marijuana Advance Directives: No Advance Directives Information Provided: No Current occupational status: 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 Physical Exam ED Vital Signs: Vital Signs - 24 hr 08/03/22 22:30 Temperature 98.4 F Pulse Rate 72 Respiratory Rate 18 Blood Pressure 105/62 Pulse Oximetry 98 Oxygen Delivery Method Room Air BMI result Body Mass Index 19.3 Medical Decision Making Lab Data Labs: Lab Results 08/03/22 08/03/22 Range/Units 22:46 22:46 Lactic Acid 0.7 (0.5-2.0) mmol/L COVID-19 (PRETTY) Negative (Negative) COVID-19 Clin Com See Note Discharge Plan Discharge Clinical Impression: Abdominal pain Patient Disposition: Left Against Medical Advice Instructions: Abdominal Pain (ED) Additional Instructions: You have fluid collection in the abdomen which need to be evaluated and treated please go to your PCP in a.m. for further workup Prescriptions: No Action ibuprofen 400 mg tablet 400 mg PO Q6H PRN (Reason: pain) Qty: 20 0RF trazodone 150 mg tablet 150 mg PO BEDTIME clonazepam 0.5 mg tablet 0.5 mg PO DAILY PRN topiramate 100 mg tablet 200 mg PO ONCE albuterol sulfate [ProAir HFA] 90 mcg/actuation HFA aerosol inhaler inhalation albuterol sulfate 2.5 mg /3 mL (0.083 %) solution for nebulization inhalation BID PRN (Reason: asthma) fluticasone propion-salmeterol [Advair Diskus] 250-50 mcg/dose blister with device 1 ea inhalation BID fluticasone propionate [Flovent HFA] 110 mcg/actuation HFA aerosol inhaler 2 puff inhalation BID Stand Alone Forms: Against Medical Advice Interventions: ED Discharge Assessment Last Done: 08/03/22 23:33 Discharge Date/Time: 08/03/22 23:33
[2022-08-03 22:30] VITALS: BP 105/62; PULSE 72; RESP 18; TEMP 36.9; O2SAT 98; BMI 19.3
[2022-08-03 23:14] LABS: Lactic Acid 0.7 mmol/L (0.5-2.0)
--- NOTE | 2022-08-03 23:29 | PC.NURSE ---
THis RN was informed by Dr. Tejada that patient was sitting at the edge of the bed with the cigarette and pension agent requesting to go outside to smoke. Patient refused use nicotine patch. Patient requesting to leave AMA despite detailed explanation of risks of leaving AMA. DR. Zuleta attempted to convince [id number] to stay, patient declined. IV line removed. Patient signed AMA notice and instructed to f/u with PCP in am.
[2022-08-03 23:33] LABS: COVID-19 Test Negative (Negative); IDNOW Serial# 6674DD1D
== END 2022-08-03 23:33 | disposition left against medical advice (07) ==
PROVIDERS: Emergency Provider Internal Medicine; PCP Internal Medicine
DX: R10.9 Unspecified abdominal pain (principal); Z20.822 Contact with and (suspected) exposure to COVID-19; Z20.828 Contact with and (suspected) exposure to other viral communicable diseases; Z79.899 Other long term (current) drug therapy
CPT/HCPCS: 36415; 83605; 87040; 87635; 99282

== ENCOUNTER 2022-08-04 15:08 | Observation (INO) | payer OTHER, SELFPAY ==
--- NOTE | ~2022-08-04 | MR_ITS ---
EXAMINATION: MR ABDOMEN WITHOUT AND WITH CONTRAST CLINICAL INFORMATION: Pancreatitis. Question pancreatic cyst. COMPARISON: CT 08/03/2022. Ultrasound 08/05/2022. TECHNIQUE: MR abdomen was performed without and with use of 5.5 mL intravenous Gadavist gadolinium contrast. Postcontrast images are performed in multiphase dynamic sequences. Imaging was performed in 3 planes. FINDINGS: LUNG BASES: The visualized lung bases are unremarkable. LIVER, GALLBLADDER, AND BILIARY TREE: The liver is normal in size, smooth in contour, and normal in signal. No focal hepatic lesion or biliary ductal dilatation is present. The gallbladder is unremarkable with no evidence of gallbladder wall thickening, or obvious pericholecystic inflammatory changes. PANCREAS: The pancreatic parenchyma appears homogenous. There is no pancreatic ductal dilatation. There is motion on this study which does limit evaluation. As seen on previous imaging there is an area of somewhat ill-defined fluid posterior to the pancreatic tail, anterior to the upper pole of the left kidney, and inferior to the spleen. This area measures approximately 5.3 x 2.3 x 2.8 cm. This has a thin wall. Postcontrast imaging is limited in this area but there is no clear abnormal enhancement associated. A pseudocyst is favored given this appearance. SPLEEN: Normal. ADRENAL GLANDS: Normal. KIDNEYS AND URETERS: The kidneys are normal in size, shape, and enhance symmetrically. No hydronephrosis. No perinephric stranding. GASTROINTESTINAL TRACT: No bowel obstruction. No ascites. ABDOMINAL WALL: No significant hernia is appreciated. LYMPH NODES: No lymphadenopathy. VASCULAR: Unremarkable. OSSEOUS STRUCTURES: Marrow signal normal. Mild degenerative change at L5-S1 where there is disc space narrowing and loss of normal signal in the disc. MR/MR abdomen wo/w con IMPRESSION: 1. Motion artifact limits evaluation. There is no pancreatic ductal dilatation. The pancreatic parenchyma appears homogenous. 2. There is an area of fluid posterior to the pancreatic tail, anterior to the upper pole of the left kidney, and inferior to the spleen. This corresponds to the appearance on prior imaging. This has a thin wall and is most consistent with a pseudocyst.
--- NOTE | ~2022-08-04 | US_ITS ---
EXAMINATION: US ABDOMEN COMPLETE CLINICAL INFORMATION: Pancreatic fluid collection.. COMPARISON: CT scan of the abdomen and pelvis dated 08/03/2022. TECHNIQUE: Real-time imaging of the abdominal viscera. FINDINGS: PANCREAS: Normal. Seen in the pancreatic tail measuring approximately 4.6 x 3.4 x 4.0 cm. The remainder the pancreas is unremarkable. No pancreatic ductal dilatation. ABDOMINAL AORTA: Visualized portions unremarkable. INFERIOR VENA CAVA: Visualized portions unremarkable. LIVER: Unremarkable. GALLBLADDER: Incompletely distended with elongation. An echogenic focus along the posterior wall closer to the neck is seen measuring up to 0.3 cm. No mural thickening or pericholecystic fluid. COMMON BILE DUCT: Activity 0.7 cm without intraluminal abnormality. RIGHT KIDNEY: 11.0 cm. Unremarkable. LEFT KIDNEY: 10.2 cm. Unremarkable. SPLEEN: 6.7 cm. Unremarkable. FREE FLUID: None. US/US abdomen complete IMPRESSION: 1. Anechoic fluid collection adjacent to the pancreatitis correlates with CT findings. This is nonspecific. This could represent a pancreatic cyst or pseudocyst. Correlate with patient history. Contrast-enhanced abdominal MRI is recommended for better characterization. 2. 0.3 cm gallbladder polyp without other associated abnormality. This could be monitored for change with a right upper quadrant ultrasound in one year.
[2022-08-04 16:46] VITALS: BP 115/59; PULSE 76; RESP 18; TEMP 36.6; O2SAT 96; BMI 19.3
--- NOTE | 2022-08-04 16:50 | ED.GENADULT ---
HPI - General Adult General Chief complaint: Abdominal Pain <ADI Fontanez Last Filed: 08/09/22 16:11> Stated complaint: abd and back pain <ADI Fontanez Last Filed: 08/09/22 16:11> Time Seen by Provider: 08/04/22 20:33 <ADI Fontanez Last Filed: 08/09/22 16:11> Source: patient <ADI Ellis Last Filed: 08/04/22 22:19> Mode of arrival: ambulatory <ADI Ellis Last Filed: 08/04/22 22:19> Limitations: no limitations <ADI Ellis Last Filed: 08/04/22 22:19> History of Present Illness HPI narrative: This is a 36-year-old female history of bipolar disorder, circulation problems and psychosis re-presented to the emergency department with 3 days of left upper quadrant pain that is severe, constant in nature, tells me it is interfering with her activities of daily living. She tells me that she was seen here yesterday and told that she has fluid in her stomach and that she should be admitted she tell me she left against medical advice. Reports associated nausea, subjective chills. Has not taken her temperature.. Denies chest pain, shortness of breath, headache, vision changes, Vomiting, dizziness, weakness. Patient tells me she is coming in because she would like to be hospitalized as her pain has become intolerable. Patient is not a drinker. <ADI Ellis Last Filed: 08/04/22 22:19> Related Data Home medications: Home Medications Medication Instructions Recorded Confirmed clonazepam 0.5 mg tablet 0.5 mg PO DAILY PRN Anxiety 04/22/21 08/04/22 trazodone 150 mg tablet 150 mg PO BEDTIME 04/22/21 08/04/22 fluticasone 250 mcg-salmeterol 50 1 ea inhalation BID 03/07/22 08/04/22 mcg/dose blistr powdr for inhalation (Advair Diskus) fluticasone propionate 110 2 puff inhalation BID 03/07/22 08/04/22 mcg/actuation HFA aerosol inhaler (Flovent HFA) topiramate 100 mg tablet 200 mg PO DAILY 03/07/22 08/05/22 Previous Rx's Medication Instructions Recorded polyethylene glycol 3350 17 gram 17 g PO DAILY PRN constipation #30 08/07/22 oral powder packet (Miralax) ea <ADI Fontanez - Last Filed: 08/09/22 16:11> Allergies/adverse reactions: Allergies Allergy/AdvReac Type Severity Reaction Status Date / Time stringer [CHERRIES] Allergy Severe ANAPHYLAXIS Verified 08/04/22 23:50 gabapentin [From NEURONTIN] Allergy Unknown MUSCLE Verified 08/04/22 23:50 SPASMS lamotrigine [From LAMICTAL] Allergy Unknown MUSCLE Verified 08/04/22 23:50 SPASMS oxcarbazepine Allergy Unknown MUSCLE Verified 08/04/22 23:50 [From TRILEPTAL] SPASMS Sulfa (Sulfonamide Allergy Unknown UNKNOWN Verified 08/04/22 23:50 Antibiotics) [SULFA (SULFONAMIDE ANTIBIOTICS)] SEAFOOD Allergy Severe ANAPHYLAXIS Uncoded 08/04/22 23:50 sulfa Allergy Unknown throat Uncoded 08/04/22 23:50 close <ADI Fontanez - Last Filed: 08/09/22 16:11> Review of Systems Review of Systems: Constitutional : No Weight loss, No Fever, + Chills, No Fatigue, No Malaise ENT/Mouth : No sore throat, No Rhinorrhea Eyes: No Eye Pain, No Swelling, No Redness Cardiovascular : No Chest Pain, No SOB, No Dyspnea on Exertion, No Orthopnea, No Edema, No Palpitations Respiratory : No Cough, No Sputum, No Wheezing Gastrointestinal : + Nausea, No Vomiting, No Diarrhea, No Constipation, + abdominal Pain, No Hematochezia, No Melena Genitourinary : No Dysuria, No Urinary Frequency, No Hematuria, Musculoskeletal : No joint pain, No Myalgias, No Joint Swelling Skin : No Skin Lesions, No rash Neuro : No Weakness, No Numbness, No Dizziness, No Headache Psych : No Anxiety/Panic, No Depression All other systems reviewed and are negative <ADI Ellis Last Filed: 08/04/22 22:19> Yes all other systems are reviewed and are negative <ADI Ellis Last Filed: 08/04/22 22:19> [facility] Past Medical History Attestation statement: The following information was validated with the patient. <ADI Ellis - Last Filed: 08/04/22 22:19> Source: old records reviewed and nursing notes reviewed <ADI Ellis - Last Filed: 08/04/22 22:19> Medical History: Medical History Asthma Bipolar 1 disorder Circulation problem Psychosis <ADI Fontanez - Last Filed: 08/09/22 16:11> Surgical History: Surgical History Tubal ligation status <ADI Fontanez - Last Filed: 08/09/22 16:11> Social History Social History: Social History Household Members: Spouse Housing: Apartment Do you presently have visiting nurse or other home services: No Alcohol intake: current Alcohol intake frequency: does not drink Patient Tobacco Use Status: Current everyday Tobacco user Tobacco use type: Cigarette e-Cigarette/Vaping Use: Never Used Second Hand Smoke Exposure: Yes Substance Use Type: Marijuana service: No Current occupational status: 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 Oriented X3.? No acute distress.? Head: Normocephalic, atraumatic, no step-offs or deformities Eyes: Pupils equal, round and reactive to light.? Neck: Normal inspection.? Neck supple.? CVS: Normal heart rate and rhythm.? Pulses normal.? Respiratory: No respiratory distress.? Breath sounds normal.? Abdomen: Soft and +LUQ pain .? Skin: Skin warm and dry.? Normal skin color.? Normal skin turgor.? Extremities: No lower extremity edema.? No calf ttp. 5/5 strength to bilateral upper and lower extremities Back: No midline tenderness, no C-spine tenderness, full range of motion, no CVA tenderness bilaterally Neuro: Oriented X 3.? No motor deficit.? No sensory deficit. CN 2-12 intact <ADI Ellsi - Last Filed: 08/04/22 22:19> Course Course Course Narrative: RME: 36 yold female presents to the for abdominal pain. patient was seen last night in the ED and was supposed to be admitted for fluid in pancreas fluid and left kidney but patient signed out AMA. Repeat labs orderd. <ADI Fontanez - Last Filed: 08/09/22 16:11> Reevaluation(s) Reevaluation #1: Patient's CBC patient's CBC with no acute findings. Chemistry with no acute electrolyte abnormalities requiring intervention. Negative lactic acid. Patient is noted to have a urinary tract infection with 4+ bacteria, patient will be treated with ceftriaxone. I did discuss this case with General surgery who recommends reaching out to interventional radiology to see of this area with fluid can be drained, also discuss this with GI who again recommends seeking to Interventional Radiology. Patient reporting severe pain however tolerating p.o.. Discussed this case with hospitalist who will admit patient. <ADI Ellis - Last Filed: 08/04/22 22:19> Time: 22:17 <ADI Ellis - Last Filed: 08/04/22 22:19> Medications Administered Discontinued Medications Generic Name Dose Route Start Last Admin Trade Name Freq PRN Reason Stop Dose Admin Clonazepam 0.5 mg 08/05/22 06:41 08/06/22 23:05 Clonazepam 0.5 Mg Tablet PO 0.5 mg DAILY PRN Administration Anxiety Fluticasone Propionate 2 puff 08/05/22 08:00 08/07/22 08:00 Fluticasone Propionate 100 Mcg Blst.W.Dev INHALE 2 puff RBID IVONNE Administration Fluticasone/Vilanterol 1 puff 08/05/22 08:00 08/07/22 08:00 Fluticasone/Vilanterol 100/25 Blst.W.Dev INHALE 1 puff RDAILY IVONNE Administration Gadobutrol 7.5 ml 08/05/22 14:35 08/05/22 14:36 Gadobutrol 7.5 Ml Vial IVPUSH 08/05/22 14:36 5.5 ml ONCE ONE Administration Ceftriaxone Sodium 1 gm/ 50 mls @ 100 mls/hr 08/04/22 22:16 08/04/22 23:35 Sodium Chloride IV 08/04/22 22:45 Infused ONCE ONE Infusion Lactated Ringer's 1,000 mls @ 100 mls/hr 08/05/22 09:30 08/07/22 11:19 Lr IVCONT Infused .Q10H IVONNE Infusion Morphine Sulfate 4 mg 08/04/22 21:35 08/04/22 21:39 Morphine Sulfate 4 Mg/Ml Cartridge IVPUSH 08/04/22 21:36 4 mg ONCE ONE Administration Protocol Morphine Sulfate 4 mg 08/04/22 23:11 08/07/22 08:09 Morphine Sulfate 4 Mg/Ml Cartridge IVPUSH 4 mg Q4H PRN Administration Pain, Severe (Pain Scale 7-10) Protocol Nicotine 21 mg 08/04/22 23:40 08/07/22 08:09 Nicotine 21 Mg Patch.Td24 TRANSDERMA 21 mg DAILY IVONNE Administration Ondansetron HCl 4 mg 08/04/22 23:11 08/06/22 19:51 Ondansetron Hcl 4 Mg/2 Ml Vial IVPUSH 4 mg Q8H PRN Administration Nausea and Vomiting Polyethylene Glycol 17 gm 08/05/22 09:00 08/07/22 08:09 Polyethylene Glycol 3350 17 Gm Powd.Pack PO 17 gm DAILY IVONNE Administration Sodium Chloride 3 ml 08/05/22 00:00 08/07/22 08:09 0.9 % Sodium Chloride Flush 3 Ml Syringe IVFLUSH 3 ml QSHIFT IVONNE Administration Trazodone HCl 150 mg 08/05/22 21:00 08/06/22 23:05 Trazodone Hcl 50 Mg Tablet PO 150 mg BEDTIME IVONNE Administration Zinc Acetate/Diphenhydramine 1 appl 08/06/22 08:32 08/06/22 16:56 Diphenhydramine Hcl 2 % Cream 28 Gm Tube TOPICAL 1 appl QID PRN Administration itching/skin irritation Protocol Zolpidem Tartrate 5 mg 08/05/22 02:08 08/05/22 03:02 Zolpidem Tartrate 5 Mg Tablet PO 08/05/22 02:09 5 mg ONCE ONE Administration <ADI Fontanez - Last Filed: 08/09/22 16:11> Medications Administered Discontinued Medications Generic Name Dose Route Start Last Admin Trade Name Freq PRN Reason Stop Dose Admin Clonazepam 0.5 mg 08/05/22 06:41 08/06/22 23:05 Clonazepam 0.5 Mg Tablet PO 0.5 mg DAILY PRN Administration Anxiety Fluticasone Propionate 2 puff 08/05/22 08:00 08/07/22 08:00 Fluticasone Propionate 100 Mcg Blst.W.Dev INHALE 2 puff RBID IVONNE Administration Fluticasone/Vilanterol 1 puff 08/05/22 08:00 08/07/22 08:00 Fluticasone/Vilanterol 100/25 Blst.W.Dev INHALE 1 puff RDAILY IVONNE Administration Gadobutrol 7.5 ml 08/05/22 14:35 08/05/22 14:36 Gadobutrol 7.5 Ml Vial IVPUSH 08/05/22 14:36 5.5 ml ONCE ONE Administration Ceftriaxone Sodium 1 gm/ 50 mls @ 100 mls/hr 08/04/22 22:16 08/04/22 23:35 Sodium Chloride IV 08/04/22 22:45 Infused ONCE ONE Infusion Lactated Ringer's 1,000 mls @ 100 mls/hr 08/05/22 09:30 08/07/22 11:19 Lr IVCONT Infused .Q10H IVONNE Infusion Morphine Sulfate 4 mg 08/04/22 21:35 08/04/22 21:39 Morphine Sulfate 4 Mg/Ml Cartridge IVPUSH 08/04/22 21:36 4 mg ONCE ONE Administration Protocol Morphine Sulfate 4 mg 08/04/22 23:11 08/07/22 08:09 Morphine Sulfate 4 Mg/Ml Cartridge IVPUSH 4 mg Q4H PRN Administration Pain, Severe (Pain Scale 7-10) Protocol Nicotine 21 mg 08/04/22 23:40 02/09/23 08:09 Nicotine 21 Mg Patch.Td24 TRANSDERMA 21 mg DAILY IVONNE Administration Ondansetron HCl 4 mg 08/04/22 23:11 08/06/22 19:51 Ondansetron Hcl 4 Mg/2 Ml Vial IVPUSH 4 mg Q8H PRN Administration Nausea and Vomiting Polyethylene Glycol 17 gm 08/05/22 09:00 08/07/22 08:09 Polyethylene Glycol 3350 17 Gm Powd.Pack PO 17 gm DAILY IVONNE Administration Sodium Chloride 3 ml 08/05/22 00:00 08/07/22 08:09 0.9 % Sodium Chloride Flush 3 Ml Syringe IVFLUSH 3 ml QSHIFT IVONNE Administration Trazodone HCl 150 mg 08/05/22 21:00 08/06/22 23:05 Trazodone Hcl 50 Mg Tablet PO 150 mg BEDTIME IVONNE Administration Zinc Acetate/Diphenhydramine 1 appl 08/06/22 08:32 08/06/22 16:56 Diphenhydramine Hcl 2 % Cream 28 Gm Tube TOPICAL 1 appl QID PRN Administration itching/skin irritation Protocol Zolpidem Tartrate 5 mg 08/05/22 02:08 08/05/22 03:02 Zolpidem Tartrate 5 Mg Tablet PO 08/05/22 02:09 5 mg ONCE ONE Administration <ADI Ellis - Last Filed: 08/04/22 22:19> Medical Decision Making Medical Decision Making MDM Narrative: 2100 36-year-old female every presents for the 2nd day in a row for left upper quadrant pain, left against medical advice yesterday reports associated chills, nausea. Tells me she has fluids some are in her stomach. Upon chart review it appears as though patient was offered admission yesterday she was noted to have a 6.5 x 3 x 2 cm pocket of fluid situated just posterior to the pancreatic tail anterior to the left kidney and caudal to the spleen. Of uncertain etiology. Concerning for possible previous pancreatitis. This is exactly where patient has point tenderness. Patient also noted to have moderate amount of stool throughout. On exam significant tenderness to left upper quadrant. No CVA tenderness. Vital signs are stable. Patient well appearing. Again based off patient's chart review I a.m. concerned for this pocket of fluid situated posterior to the pancreatic tail that could be causing pain or discomfort. Also some concern for pancreatitis, UTI, obstructing uropathy. No signs of acute abdomen however. Plan at this time is labs, urine. No need to repeat imaging as patient did have imaging done yesterday, risks versus benefits of radiation reviewed with patient, no need for an additional CT scan. Symptoms are essentially unchanged from yesterday. Will speak to hospitalist for admission. <ADI Ellis - Last Filed: 08/04/22 22:19> Differential Diagnosis Differential Diagnoses: The differential diagnosis associated with the presentation includes <ADI Ellis - Last Filed: 08/04/22 22:19> Again based off patient's chart review I a.m. concerned for this pocket of fluid situated posterior to the pancreatic tail that could be causing pain or discomfort. Also some concern for pancreatitis, UTI, obstructing uropathy. No signs of acute abdomen however. <ADI Ellis - Last Filed: 08/04/22 22:19> Admission/Observation Consideration of admission/observation: Escalation of care including admission/observation considered <ADI Ellis - Last Filed: 08/04/22 22:19> Lab Data MDM Lab Attestation statement: I reviewed the patient's lab results. <ADI Ellis - Last Filed: 08/04/22 22:19> Result Diagrams: 08/04/22 18:30 08/04/22 18:30 <ADI Fontanez - Last Filed: 08/09/22 16:11> Labs: Lab Results 08/04/22 08/04/22 08/04/22 Range/Units 18:30 18:30 21:26 WBC 9.7 (4.8-10.8) X10*3/uL RBC 4.11 L (4.20-5.50) X10*6/uL Hgb 13.0 (12.0-16.0) g/dl Hct 39.4 (37.0-47.0) % MCV 95.9 (80.0-98.0) fL MCH 31.6 (27.0-33.0) pg MCHC 33.0 (31.0-35.0) g/dl RDW 14.4 (11.0-16.0) % Plt Count 182 (160-400) X10*3/uL MPV 11.0 (9.4-12.3) fL Immature Gran % (Auto) 0.5 H (0.0-0.4) % Neut % (Auto) 58.2 (45-73) % Lymph % (Auto) 30.6 (20-40) % [place] % (Auto) 7.7 (2-11) % Eos % (Auto) 2.2 (0-4) % Baso % (Auto) 0.8 (0-2) % Lymph # (Auto) 3.0 (1.2-4.9) X10*3/uL [place] # (Auto) 0.7 (0.1-1.2) X10*3/uL Eos # (Auto) 0.2 (0.0-0.4) X10*3/uL Baso # (Auto) 0.1 (0.0-0.2) X10*3/uL Abs Immat Gran (auto) 0.05 H (0.00-0.03) X10*3/uL Absolute Neuts (auto) 5.6 (2.0-8.3) x10*3/uL Absolute Nucleated RBC 0.000 (0.0-0.012) X10*3/uL Nucleated RBC % (auto) 0.0 (0.0-0.2) /100WBC Sodium 139 (135-145) mmol/L Potassium 3.8 (3.3-5.1) mmol/L Chloride 105 (96-108) mmol/L Carbon Dioxide 28 (22-29) mmol/L Anion Gap 10 L (12-20) BUN 18 H (9-16) mg/dL Creatinine 0.79 (0.5-1.4) mg/dL Estim Creat Clear Calc 88.7 Estimated GFR > 60 Random Glucose 106 (60-115) mg/dL Lactic Acid (0.5-2.0) mmol/L Calcium 8.9 D (8.4-10.2) mg/dL Total Bilirubin 0.2 (0.0-1.0) mg/dL AST 13 (5-31) U/L ALT 12 (0-31) U/L Alkaline Phosphatase 49 (39-117) U/L Total Protein 6.6 (6.5-8.0) g/dL Albumin 4.3 (3.5-5.0) g/dL Triglycerides 110 mg/dL Lipase 50 (8-78) U/L Beta HCG, Quant < 2 mIU/mL Urine Color Yellow Urine Appearance Cloudy Urine pH 6.5 (5.0-9.0) Ur Specific [place] >= 1.030 H (1.005-1.025) Urine Protein Negative (Neg-Trace) mg/dL Urine Glucose (UA) Negative (Negative) mg/dL Urine Ketones Negative (Negative) mg/dL Urine Blood Moderate (2+) H (Negative) Urine Nitrite Negative (Negative) Ur Leukocyte Esterase Negative (Negative) Urine RBC 6-10 H (0-2) /HPF Urine WBC 0-5 (0-5) /HPF Ur Squamous Epith Cells 3-5 (0-2) /HPF Urine Bacteria 4+ (None Seen) Hyaline Casts 0-2 (0-2) /LPF 08/04/22 Range/Units 22:59 WBC (4.8-10.8) X10*3/uL RBC (4.20-5.50) X10*6/uL Hgb (12.0-16.0) g/dl Hct (37.0-47.0) % MCV (80.0-98.0) fL MCH (27.0-33.0) pg MCHC (31.0-35.0) g/dl RDW (11.0-16.0) % Plt Count (160-400) X10*3/uL MPV (9.4-12.3) fL Immature Gran % (Auto) (0.0-0.4) % Neut % (Auto) (45-73) % Lymph % (Auto) (20-40) % [place] % (Auto) (2-11) % Eos % (Auto) (0-4) % Baso % (Auto) (0-2) % Lymph # (Auto) (1.2-4.9) X10*3/uL [place] # (Auto) (0.1-1.2) X10*3/uL Eos # (Auto) (0.0-0.4) X10*3/uL Baso # (Auto) (0.0-0.2) X10*3/uL Abs Immat Gran (auto) (0.00-0.03) X10*3/uL Absolute Neuts (auto) (2.0-8.3) x10*3/uL Absolute Nucleated RBC (0.0-0.012) X10*3/uL Nucleated RBC % (auto) (0.0-0.2) /100WBC Sodium (135-145) mmol/L Potassium (3.3-5.1) mmol/L Chloride (96-108) mmol/L Carbon Dioxide (22-29) mmol/L Anion Gap (12-20) BUN (9-16) mg/dL Creatinine (0.5-1.4) mg/dL Estim Creat Clear Calc Estimated GFR Random Glucose (60-115) mg/dL Lactic Acid 0.7 (0.5-2.0) mmol/L Calcium (8.4-10.2) mg/dL Total Bilirubin (0.0-1.0) mg/dL AST (5-31) U/L ALT (0-31) U/L Alkaline Phosphatase (39-117) U/L Total Protein (6.5-8.0) g/dL Albumin (3.5-5.0) g/dL Triglycerides mg/dL Lipase (8-78) U/L Beta HCG, Quant mIU/mL Urine Color Urine Appearance Urine pH (5.0-9.0) Ur Specific [place] (1.005-1.025) Urine Protein (Neg-Trace) mg/dL Urine Glucose (UA) (Negative) mg/dL Urine Ketones (Negative) mg/dL Urine Blood (Negative) Urine Nitrite (Negative) Ur Leukocyte Esterase (Negative) Urine RBC (0-2) /HPF Urine WBC (0-5) /HPF Ur Squamous Epith Cells (0-2) /HPF Urine Bacteria (None Seen) Hyaline Casts (0-2) /LPF <ADI Fontanez - Last Filed: 08/09/22 16:11> Lab Results 08/04/22 08/04/22 08/04/22 Range/Units 18:30 18:30 21:26 WBC 9.7 (4.8-10.8) X10*3/uL RBC 4.11 L (4.20-5.50) X10*6/uL Hgb 13.0 (12.0-16.0) g/dl Hct 39.4 (37.0-47.0) % MCV 95.9 (80.0-98.0) fL MCH 31.6 (27.0-33.0) pg MCHC 33.0 (31.0-35.0) g/dl RDW 14.4 (11.0-16.0) % Plt Count 182 (160-400) X10*3/uL MPV 11.0 (9.4-12.3) fL Immature Gran % (Auto) 0.5 H (0.0-0.4) % Neut % (Auto) 58.2 (45-73) % Lymph % (Auto) 30.6 (20-40) % [place] % (Auto) 7.7 (2-11) % Eos % (Auto) 2.2 (0-4) % Baso % (Auto) 0.8 (0-2) % Lymph # (Auto) 3.0 (1.2-4.9) X10*3/uL [place] # (Auto) 0.7 (0.1-1.2) X10*3/uL Eos # (Auto) 0.2 (0.0-0.4) X10*3/uL Baso # (Auto) 0.1 (0.0-0.2) X10*3/uL Abs Immat Gran (auto) 0.05 H (0.00-0.03) X10*3/uL Absolute Neuts (auto) 5.6 (2.0-8.3) x10*3/uL Absolute Nucleated RBC 0.000 (0.0-0.012) X10*3/uL Nucleated RBC % (auto) 0.0 (0.0-0.2) /100WBC Sodium 139 (135-145) mmol/L Potassium 3.8 (3.3-5.1) mmol/L Chloride 105 (96-108) mmol/L Carbon Dioxide 28 (22-29) mmol/L Anion Gap 10 L (12-20) BUN 18 H (9-16) mg/dL Creatinine 0.79 (0.5-1.4) mg/dL Estim Creat Clear Calc 88.7 Estimated GFR > 60 Random Glucose 106 (60-115) mg/dL Lactic Acid (0.5-2.0) mmol/L Calcium 8.9 D (8.4-10.2) mg/dL Total Bilirubin 0.2 (0.0-1.0) mg/dL AST 13 (5-31) U/L ALT 12 (0-31) U/L Alkaline Phosphatase 49 (39-117) U/L Total Protein 6.6 (6.5-8.0) g/dL Albumin 4.3 (3.5-5.0) g/dL Triglycerides 110 mg/dL Lipase 50 (8-78) U/L Beta HCG, Quant < 2 mIU/mL Urine Color Yellow Urine Appearance Cloudy Urine pH 6.5 (5.0-9.0) Ur Specific [place] >= 1.030 H (1.005-1.025) Urine Protein Negative (Neg-Trace) mg/dL Urine Glucose (UA) Negative (Negative) mg/dL Urine Ketones Negative (Negative) mg/dL Urine Blood Moderate (2+) H (Negative) Urine Nitrite Negative (Negative) Ur Leukocyte Esterase Negative (Negative) Urine RBC 6-10 H (0-2) /HPF Urine WBC 0-5 (0-5) /HPF Ur Squamous Epith Cells 3-5 (0-2) /HPF Urine Bacteria 4+ (None Seen) Hyaline Casts 0-2 (0-2) /LPF 08/04/22 Range/Units 22:59 WBC (4.8-10.8) X10*3/uL RBC (4.20-5.50) X10*6/uL Hgb (12.0-16.0) g/dl Hct (37.0-47.0) % MCV (80.0-98.0) fL MCH (27.0-33.0) pg MCHC (31.0-35.0) g/dl RDW (11.0-16.0) % Plt Count (160-400) X10*3/uL MPV (9.4-12.3) fL Immature Gran % (Auto) (0.0-0.4) % Neut % (Auto) (45-73) % Lymph % (Auto) (20-40) % [place] % (Auto) (2-11) % Eos % (Auto) (0-4) % Baso % (Auto) (0-2) % Lymph # (Auto) (1.2-4.9) X10*3/uL [place] # (Auto) (0.1-1.2) X10*3/uL Eos # (Auto) (0.0-0.4) X10*3/uL Baso # (Auto) (0.0-0.2) X10*3/uL Abs Immat Gran (auto) (0.00-0.03) X10*3/uL Absolute Neuts (auto) (2.0-8.3) x10*3/uL Absolute Nucleated RBC (0.0-0.012) X10*3/uL Nucleated RBC % (auto) (0.0-0.2) /100WBC Sodium (135-145) mmol/L Potassium (3.3-5.1) mmol/L Chloride (96-108) mmol/L Carbon Dioxide (22-29) mmol/L Anion Gap (12-20) BUN (9-16) mg/dL Creatinine (0.5-1.4) mg/dL Estim Creat Clear Calc Estimated GFR Random Glucose (60-115) mg/dL Lactic Acid 0.7 (0.5-2.0) mmol/L Calcium (8.4-10.2) mg/dL Total Bilirubin (0.0-1.0) mg/dL AST (5-31) U/L ALT (0-31) U/L Alkaline Phosphatase (39-117) U/L Total Protein (6.5-8.0) g/dL Albumin (3.5-5.0) g/dL Triglycerides mg/dL Lipase (8-78) U/L Beta HCG, Quant mIU/mL Urine Color Urine Appearance Urine pH (5.0-9.0) Ur Specific [place] (1.005-1.025) Urine Protein (Neg-Trace) mg/dL Urine Glucose (UA) (Negative) mg/dL Urine Ketones (Negative) mg/dL Urine Blood (Negative) Urine Nitrite (Negative) Ur Leukocyte Esterase (Negative) Urine RBC (0-2) /HPF Urine WBC (0-5) /HPF Ur Squamous Epith Cells (0-2) /HPF Urine Bacteria (None Seen) Hyaline Casts (0-2) /LPF <Susanita Lo, PA - Last Filed: 08/04/22 22:19> Radiology Impression Discussion of test interpretation with radiology: I have reviewed the radiologist's reading. <ADI Ellis - Last Filed: 08/04/22 22:19> Core Measures AMI core measures followed: Yes <ADI Ellis - Last Filed: 08/04/22 22:19> Measure exclusions: not indicated <ADI Ellis - Last Filed: 08/04/22 22:19> Critical Care Time Critical Care Time Critical Care Time: Yes <ADI Ellis - Last Filed: 08/04/22 22:19> Total Critical Care Time: 35 <ADI Ellis - Last Filed: 08/04/22 22:19> Attestation: I attest to this time spent taking care of the patient, obtaining history, physical, reviewing labs, imaging, speaking to my attending, speaking to specialist. <ADI Ellis - Last Filed: 08/04/22 22:19> Discharge Plan Discharge Clinical Impression: Acute LUQ pain, Nausea, UTI (urinary tract infection) <ADI Fontanez - Last Filed: 08/09/22 16:11> Patient Disposition: Admitted As Inpatient <ADI Fontanez - Last Filed: 08/09/22 16:11> Discharge Date/Time: 08/05/22 16:56 <ADI Fontanez - Last Filed: 08/09/22 16:11>
[2022-08-04 18:37] LABS: Basophils Absolute Auto 0.1 X10*3/uL (0.0-0.2); Basophils Percent Auto 0.8 % (0-2); Eosinophils Absolute Auto 0.2 X10*3/uL (0.0-0.4); Eosinophils Percent Auto 2.2 % (0-4); Hematocrit 39.4 % (37.0-47.0); Imm Gran Abs Auto 0.05 X10*3/uL (0.00-0.03); Imm Gran Pct Auto 0.5 % (0.0-0.4); Lymphocytes Percent Auto 30.6 % (20-40); MANUAL DIFF FLAG NO; Mean Corpuscular Hemoglobin 31.6 pg (27.0-33.0); Mean Corpuscular Volume 95.9 fL (80.0-98.0); Monocytes Absolute Auto 0.7 X10*3/uL (0.1-1.2); Monocytes Percent Auto 7.7 % (2-11); Neutrophils Absolute Auto 5.6 x10*3/uL (2.0-8.3); Neutrophils Percent Auto 58.2 % (45-73); Platelet Count 182 X10*3/uL (160-400); Red Blood Count 4.11 X10*6/uL (4.20-5.50); Red Cell Distribution Width 14.4 % (11.0-16.0); White Blood Count 9.7 X10*3/uL (4.8-10.8)
[2022-08-04 19:01] LABS: Alanine Aminotransferase 12 U/L (0-31); Albumin Level 4.3 g/dL (3.5-5.0); Alkaline Phosphatase 49 U/L (39-117); Anion Gap 10 (12-20); Aspartate Amino Transferase 13 U/L (5-31); Bilirubin Total 0.2 mg/dL (0.0-1.0); Blood Urea Nitrogen 18 mg/dL (9-16); Calcium 8.9 mg/dL (8.4-10.2); Carbon Dioxide 28 mmol/L (22-29); Chloride 105 mmol/L (96-108); Creatinine Clr Calc Pharmacy 88.7; Estimated Glomerular Filt Rate > 60; Glucose Random 106 mg/dL (60-115); Lipase 50 U/L (8-78); Potassium 3.8 mmol/L (3.3-5.1); Sodium 139 mmol/L (135-145); Total Protein 6.6 g/dL (6.5-8.0)
[2022-08-04 19:04] LABS: HCG Quantitative < 2 mIU/mL
--- NOTE | 2022-08-04 20:36 | PC.NURSE ---
pt resting on stretcher, reports 8/10 pain in epigastric pain radiating around to both flanks
[2022-08-04 21:27] LABS: Triglycerides 110 mg/dL
[2022-08-04] MEDS: Morphine Sulfate 4 MG/ML CARTRIDGE IVPUSH (21:39)
[2022-08-04 21:53] LABS: Appearance Urine Cloudy; Color Urine Yellow; Glucose Urine UA Negative (Negative); Leukocyte Esterase Urine Negative (Negative); Nitrite Urine Negative (Negative); PH 6.5 (5.0-9.0); Specific Gravity - Urine >= 1.030 (1.005-1.025); UMIC TRIGGER UACC YES; Urine Blood Moderate (2+) (Negative); Urine Ketones Negative (Negative); Urine Protein Negative (Neg-Trace)
[2022-08-04 22:00] LABS: Bacteria Urine 4+ (None Seen); Hyaline Casts Urine 0-2 /LPF (0-2); WBC Urine 0-5 /HPF (0-5)
[2022-08-04 22:59] VITALS: BP 108/84; PULSE 78; RESP 18; O2SAT 97
[2022-08-04] MEDS: cefTRIAXone sodium 1 GM in 0.9 % Sodium Chloride 50 ML IV (23:01)
[2022-08-04 23:13] LABS: Lactic Acid 0.7 mmol/L (0.5-2.0)
--- NOTE | 2022-08-04 23:20 | PM.IMHP ---
History of Present Illness Date of Service: 08/04/22 Chief Complaint: abd pain 56-year-old female with past medical history of asthma, bipolar disorder, psychosis, presents to the hospital with complaints of abdominal pain. Patient reports abdominal pain for the past 2 days, 10/10, constant,localized to the epigastric as well as left upper quadrant area, radiating to the back, reports nausea vomiting, reports no diarrhea constipation, reports no fever or chills. States no history of pancreatitis, denies drinking alcohol. Reports no recent injury to the abdomen. Has no headache, change in vision, no chest pain, no palpitations, no urinary symptoms and no lower extremity edema. on arrival to the ED patient hemodynamically stable Labs are significant for WBC count of 9.7, labs otherwise unremarkable , normal lipase CT abdomen done on the day prior while she was evaluated in the ER showed 6.5 x 3.2 cm pocket of fluid situated just posterior to the pancreatic tail, anterior to the left kidney and quad O2 the spleen, uncertain etiology, potentially a sequelae of prior pancreatitis, case was discussed with surgery, as well as GI, recommended IR intervention Review of Systems Review of Systems: Yes all other systems are reviewed and are negative [facility] Medical History Asthma Bipolar 1 disorder Circulation problem Psychosis Surgical History Tubal ligation status Social History Alcohol intake: current Alcohol intake frequency: does not drink Patient Tobacco Use Status: Current everyday Tobacco user Smoked in Last 30 Days: Yes Use of substances other than those prescribed or required for medical reasons: Yes Substance Use Type: Marijuana Advance Directives: No Advance Directives Information Provided: Yes Nutrition Risks: No Nutritional Risk Patient : No Current occupational status: 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 Allergies Allergy/AdvReac Type Severity Reaction Status Date / Time stringer [CHERRIES] Allergy Severe ANAPHYLAXIS Verified 08/04/22 23:50 gabapentin [From NEURONTIN] Allergy Unknown MUSCLE Verified 08/04/22 23:50 SPASMS lamotrigine [From LAMICTAL] Allergy Unknown MUSCLE Verified 08/04/22 23:50 SPASMS oxcarbazepine Allergy Unknown MUSCLE Verified 02/06/23 23:50 [From TRILEPTAL] SPASMS Sulfa (Sulfonamide Allergy Unknown UNKNOWN Verified 08/04/22 23:50 Antibiotics) [SULFA (SULFONAMIDE ANTIBIOTICS)] SEAFOOD Allergy Severe ANAPHYLAXIS Uncoded 08/04/22 23:50 sulfa Allergy Unknown throat Uncoded 08/04/22 23:50 close Active Medications: Current Medications Morphine Sulfate (Morphine Sulfate 4 Mg/Ml Cartridge) 4 mg IVPUSH Q4H PRN; Protocol PRN Reason: Pain, Severe (Pain Scale 7-10) Ondansetron HCl (Ondansetron Hcl 4 Mg/2 Ml Vial) 4 mg IVPUSH Q8H PRN PRN Reason: Nausea and Vomiting Pharmacy Consult (Consult Rx Perform Med Rec) 1 each MISCELLANE ONCE PRN PRN Reason: Consult order Sodium Chloride (0.9 % Sodium Chloride Flush 3 Ml Syringe) [facility] Medications Medication Instructions Recorded Confirmed Last Taken Type clonazepam 0.5 mg tablet 0.5 mg PO DAILY PRN Anxiety 04/22/21 08/04/22 08/03/22 History trazodone 150 mg tablet 150 mg PO BEDTIME 04/22/21 08/04/22 08/03/22 History fluticasone 250 mcg-salmeterol 50 1 ea inhalation BID 03/07/22 08/04/22 Unknown History mcg/dose blistr powdr for inhalation (Advair Diskus) fluticasone propionate 110 2 puff inhalation BID 03/07/22 08/04/22 Unknown History mcg/actuation HFA aerosol inhaler (Flovent HFA) topiramate 100 mg tablet 200 mg PO ONCE 03/07/22 08/04/22 08/03/22 History Physical Exam Vital Signs and Narrative: Vital Signs: Last Vital Signs Temp 97.8 F 08/04/22 16:46 Pulse 78 08/04/22 22:59 Resp 18 08/04/22 22:59 BP 108/84 08/04/22 22:59 Pulse Ox 97 08/04/22 22:59 O2 Del Method 08/04/22 22:59 BMI result Body Mass Index 19.3 Const: General: cooperative and no acute distress Orientation/consciousness: patient oriented x3 Eyes: General: appearance normal, both eyes and all related structures Resp: Effort & Inspection: normal respiratory effort Auscultation: clear to auscultation bilaterally Cardio: Rate: regular rate Rhythm: regular rhythm GI: Other: tender in the right upper quadrant, no guarding or rebound no CVA tenderness Palpation (GI): Soft to palpation Auscultation: normal bowel sounds Skin: General skin exam: no rashes or lesions noted Neuro: General: patient oriented x3 Cognition (Neuro): normal cognition Extrem: General: Yes normal to inspection and Yes no pedal edema Results Labs 08/04/22 18:30 08/04/22 18:30 Labs: Laboratory Results - last 24 hr 08/04/22 08/04/22 08/04/22 18:30 18:30 21:26 MCV 95.9 MCH 31.6 MCHC 33.0 RDW 14.4 Plt Count 182 MPV 11.0 Immature Gran % (Auto) 0.5 H Neut % (Auto) 58.2 Lymph % (Auto) 30.6 Marin % (Auto) 7.7 Eos % (Auto) 2.2 Baso % (Auto) 0.8 Lymph # (Auto) 3.0 Marin # (Auto) 0.7 Eos # (Auto) 0.2 Baso # (Auto) 0.1 Abs Immat Gran (auto) 0.05 H Absolute Neuts (auto) 5.6 Absolute Nucleated RBC 0.000 Nucleated RBC % (auto) 0.0 Anion Gap 10 L Estim Creat Clear Calc 88.7 Estimated GFR > 60 Random Glucose 106 Lactic Acid Calcium 8.9 D Total Bilirubin 0.2 AST 13 ALT 12 Alkaline Phosphatase 49 Total Protein 6.6 Albumin 4.3 Triglycerides 110 Lipase 50 Beta HCG, Quant < 2 Urine Color Yellow Urine Appearance Cloudy Urine pH 6.5 Ur Specific [place] >= 1.030 H Urine Protein Negative Urine Glucose (UA) Negative Urine Ketones Negative Urine Blood Moderate (2+) H Urine Nitrite Negative Ur Leukocyte Esterase Negative Urine RBC 6-10 H Urine WBC 0-5 Ur Squamous Epith Cells 3-5 Urine Bacteria 4+ Hyaline Casts 0-2 08/04/22 22:59 MCV MCH MCHC RDW Plt Count MPV Immature Gran % (Auto) Neut % (Auto) Lymph % (Auto) Marin % (Auto) Eos % (Auto) Baso % (Auto) Lymph # (Auto) Marin # (Auto) Eos # (Auto) Baso # (Auto) Abs Immat Gran (auto) Absolute Neuts (auto) Absolute Nucleated RBC Nucleated RBC % (auto) Anion Gap Estim Creat Clear Calc Estimated GFR Random Glucose Lactic Acid 0.7 Calcium Total Bilirubin AST ALT Alkaline Phosphatase Total Protein Albumin Triglycerides Lipase Beta HCG, Quant Urine Color Urine Appearance Urine pH Ur Specific Morrison Urine Protein Urine Glucose (UA) Urine Ketones Urine Blood Urine Nitrite Ur Leukocyte Esterase Urine RBC Urine WBC Ur Squamous Epith Cells Urine Bacteria Hyaline Casts Imaging Comment: 1.? A 1 mm nonobstructing calculus in the left kidney. No evidence of obstructive uropathy. 2.? A 6.5 x 3 x 2 cm pocket of fluid situated just posterior to the pancreatic tail, anterior to the left kidney, and caudal to the spleen. This is of uncertain etiology, potentially a sequela of prior pancreatitis there no additional findings of pancreatic inflammation are identified and there are no additional fluid collections. Recommend correlation with serum amylase and lipase. 3.? Moderate volume of stool throughout the colon. ? Assessment and Plan (1) Acute LUQ pain: Status: Acute (2) Pancreatic cyst: Status: Acute Plan 36-year-old female with past medical history of asthma as well as bipolar disorder presents to the hospital with left upper quadrant abdominal pain found to have cyst in the abdomen # pancreatic cyst - cyst located just posterior to the to the tail of the abdomen - denies any history of pancreatitis - normal lipase - no evidence of pancreatitis at this time - afebrile, no leukocytosis - will speak to IR for possible drainage - pain control at this time # asthma - not in exacerbation - continue home inhalers DVT prophylaxis: Early ambulation Time Spent With Patient Time: Total time managing care of this patient today ____ minutes. Quality Stroke Does the patient have a stroke diagnosis?: No VTE Prior VTE?: No VTE Risk Level:: Medical - low VTE Device Contraindication: Treatment Not Indicated VTE Drug Contraindication: Treatment Not Indicated
[2022-08-05] MEDS: Nicotine 21 MG PATCH.TD24 TRANSDERMA ×2 (00:23→07:58)
[2022-08-05] MEDS: Morphine Sulfate 4 MG/ML CARTRIDGE IVPUSH ×6 (01:39→22:23)
[2022-08-05 01:41] LABS: COVID-19 Test Negative (Negative); IDNOW Serial# 6674DD1D
[2022-08-05] MEDS: Zolpidem Tartrate 5 MG TABLET PO (03:02)
[2022-08-05 06:19] LABS: MANUAL DIFF FLAG NO
[2022-08-05 06:23] LABS: Basophils Absolute Auto 0.1 X10*3/uL (0.0-0.2); Basophils Percent Auto 0.8 % (0-2); Eosinophils Absolute Auto 0.3 X10*3/uL (0.0-0.4); Eosinophils Percent Auto 2.5 % (0-4); Hematocrit 37.5 % (37.0-47.0); Hemoglobin 12.5 g/dl (12.0-16.0); Imm Gran Abs Auto 0.04 X10*3/uL (0.00-0.03); Imm Gran Pct Auto 0.4 % (0.0-0.4); Lymphocytes Absolute Auto 3.5 X10*3/uL (1.2-4.9); Lymphocytes Percent Auto 33.7 % (20-40); Mean Corpuscular HGB Conc 33.3 g/dl (31.0-35.0); Mean Corpuscular Hemoglobin 31.9 pg (27.0-33.0); Mean Corpuscular Volume 95.7 fL (80.0-98.0); Mean Platelet Volume 11.3 fL (9.4-12.3); Monocytes Percent Auto 9.3 % (2-11); Neutrophils Absolute Auto 5.6 x10*3/uL (2.0-8.3); Neutrophils Percent Auto 53.3 % (45-73); Platelet Count 189 X10*3/uL (160-400); Red Blood Count 3.92 X10*6/uL (4.20-5.50); Red Cell Distribution Width 14.5 % (11.0-16.0); White Blood Count 10.5 X10*3/uL (4.8-10.8)
--- NOTE | 2022-08-05 06:29 | PC.NURSE ---
patient medicated with morphine per aug. states extreme 8/10 pain to abdomen. patient also reporting she is very thirsty and asking for iv fluids. will CTM
[2022-08-05 06:42] LABS: Anion Gap 15 (12-20); Blood Urea Nitrogen 14 mg/dL (9-16); Calcium 8.9 mg/dL (8.4-10.2); Carbon Dioxide 22 mmol/L (22-29); Chloride 106 mmol/L (96-108); Estimated Glomerular Filt Rate > 60; Glucose Random 98 mg/dL (60-115); Potassium 3.9 mmol/L (3.3-5.1); Sodium 139 mmol/L (135-145)
--- NOTE | 2022-08-05 07:18 | PC.NURSE ---
assumed care of patient, pt resting comfortably in bed, VSS, awaiting inpt bed
[2022-08-05] MEDS: polyethylene glycoL 3350 17 GM POWD.PACK PO (07:58)
[2022-08-05] MEDS: clonazePAM 0.5 MG TABLET PO (09:29)
[2022-08-05] MEDS: Lactated Ringers 1,000 ML 100 ML IVCONT ×2 (09:30→17:28)
[2022-08-05] MEDS: ondansetron HCL 4 MG/2 ML VIAL IVPUSH (09:31)
--- NOTE | 2022-08-05 09:50 | PM.GICN ---
History of Present Illness Data of Consult Service Date: 08/05/22 Requesting physician: Leslie Villela Primary Care Provider: Lissy Burrows MD HPI Reason for consult: LUQ pain ?36-year-old female with history of asthma, bipolar disorder, psychosis, who I am seeing for assessment for abdominal pain She presents with 2 d hx of LUQ and epigastric pain, 10/10 in severity, with radiation into the back associated with nausea,. No relieving or exacerbating factors and no relation to food. denies diarrhea constipation, reports no fever or chills, Has no headache, change in vision, no chest pain, no palpitations, no urinary symptoms and no lower extremity edema.? denies alcohol use.no history of pancreatitis, no new meds, been on same meds for 2 yrs now. Has weight loss for 2 yrs attributed to topirimate use. CT imaging w/ 6.5 x 3.2 cm pocket of fluid situated just posterior to the pancreatic tail, anterior to the left kidney Labs are significant for WBC count of 9.7, labs otherwise unremarkable , normal lipase UA with blood-not on periods Review of Systems Review of Systems: Constitutional : + Weight loss, No Fever, No Chills ENT/Mouth : No sore throat, No Rhinorrhea Eyes: No Swelling, No Redness Cardiovascular : No Chest Pain, No SOB, No Edema Respiratory : No Cough, No Sputum, No Wheezing Gastrointestinal : see HPI Genitourinary : NO Dysuria, No Urinary Frequency, No Hematuria, No Urgency Musculoskeletal : No joint pain, No Myalgias, No Joint Swelling Skin : No Skin Lesions, No rash Neuro : No Weakness, No Numbness, No Dizziness, No Headache Psych : No Anxiety/Panic, No Depression Heme/Lymph: No Bruising, No Lymphadenopathy Endocrine : No Polyuria, No Polydipsia All other systems reviewed and are negative. [facility] Past Medical History Medical History Asthma Bipolar 1 disorder Circulation problem Psychosis Family History Pertinent family history: no FH of pancreas disease Surgical History Surgical History Tubal ligation status Social History Social History Household Members: Spouse Housing: Apartment Do you presently have visiting nurse or other home services: No Alcohol intake: current Alcohol intake frequency: does not drink Patient Tobacco Use Status: Current everyday Tobacco user Tobacco use type: Cigarette e-Cigarette/Vaping Use: Never Used Second Hand Smoke Exposure: Yes Substance Use Type: Marijuana Current occupational status: 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 Allergies Allergy/AdvReac Type Severity Reaction Status Date / Time stringer [CHERRIES] Allergy Severe ANAPHYLAXIS Verified 08/04/22 23:50 gabapentin [From NEURONTIN] Allergy Unknown MUSCLE Verified 08/04/22 23:50 SPASMS lamotrigine [From LAMICTAL] Allergy Unknown MUSCLE Verified 08/04/22 23:50 SPASMS oxcarbazepine Allergy Unknown MUSCLE Verified 08/04/22 23:50 [From TRILEPTAL] SPASMS Sulfa (Sulfonamide Allergy Unknown UNKNOWN Verified 08/04/22 23:50 Antibiotics) [SULFA (SULFONAMIDE ANTIBIOTICS)] SEAFOOD Allergy Severe ANAPHYLAXIS Uncoded 08/04/22 23:50 sulfa Allergy Unknown throat Uncoded 08/04/22 23:50 close Active Medications: Current Medications Clonazepam (Clonazepam 0.5 Mg Tablet) 0.5 mg PO DAILY PRN PRN Reason: Anxiety Last Admin: 08/05/22 09:29 Dose: 0.5 mg Fluticasone Propionate (Fluticasone Propionate 100 Mcg Blst.W.Dev) 2 puff INHALE RBID [facility] Last Admin: 08/05/22 09:30 Dose: Not Given Fluticasone/Vilanterol (Fluticasone/Vilanterol 100/25 Blst.W.Dev) 1 puff INHALE RDAILY [facility] Last Admin: 08/05/22 09:31 Dose: Not Given Lactated Ringer's (Lr) 1,000 mls @ 100 mls/hr IVCONT .Q10H [facility] Last Admin: 08/05/22 09:30 Dose: 100 mls/hr Morphine Sulfate (Morphine Sulfate 4 Mg/Ml Cartridge) 4 mg IVPUSH Q4H PRN; Protocol PRN Reason: Pain, Severe (Pain Scale 7-10) Last Admin: 08/05/22 09:29 Dose: 4 mg Nicotine (Nicotine 21 Mg Patch.Td24) 21 mg TRANSDERMA DAILY [facility] Last Admin: 08/05/22 07:58 Dose: 21 mg Ondansetron HCl (Ondansetron Hcl 4 Mg/2 Ml Vial) 4 mg IVPUSH Q8H PRN PRN Reason: Nausea and Vomiting Last Admin: 08/05/22 09:31 Dose: 4 mg Pharmacy Consult (Consult Rx Perform Med Rec) 1 each MISCELLANE ONCE PRN PRN Reason: Consult order Polyethylene Glycol (Polyethylene Glycol 3350 17 Gm Powd.Pack) 17 gm PO DAILY [facility] Last Admin: 08/05/22 07:58 Dose: 17 gm Sodium Chloride (0.9 % Sodium Chloride Flush 3 Ml Syringe) 3 ml IVFLUSH QSHIFT [facility] Last Admin: 08/05/22 07:58 Dose: Not Given Topiramate (Topiramate 100 Mg Tablet) 200 mg PO ONCE IVONNE Trazodone HCl (Trazodone Hcl 50 Mg Tablet) 150 mg PO BEDTIME [facility] Home Medications Medication Instructions Recorded Confirmed Last Taken Type clonazepam 0.5 mg tablet 0.5 mg PO DAILY PRN Anxiety 04/22/21 08/04/22 08/03/22 History trazodone 150 mg tablet 150 mg PO BEDTIME 04/22/21 08/04/22 08/03/22 History fluticasone 250 mcg-salmeterol 50 1 ea inhalation BID 03/07/22 08/04/22 Unknown History mcg/dose blistr powdr for inhalation (Advair Diskus) fluticasone propionate 110 2 puff inhalation BID 03/07/22 08/04/22 Unknown History mcg/actuation HFA aerosol inhaler (Flovent HFA) topiramate 100 mg tablet 200 mg PO DAILY 03/07/22 08/05/22 08/03/22 History Physical Exam Vital Signs: Vital Signs: Last Vital Signs Temp 97.8 F 08/04/22 16:46 Pulse 78 08/04/22 22:59 Resp 18 08/04/22 22:59 BP 108/84 08/04/22 22:59 Pulse Ox 97 08/04/22 22:59 O2 Del Method 08/04/22 22:59 BMI result Body Mass Index 19.3 EXAM: GENERAL: The patient is well developed and nontoxic, relaxed VITAL SIGNS:see workflow HEENT: Nonicteric sclerae, PERRLA, EOMI. Oropharynx clear. Moist mucous membranes. Conjunctivae appear well perfused. No thyroid mass. CHEST: Chest wall is nontender. HEART: Regular rate and rhythm without murmurs. LUNGS: Clear to auscultation bilaterally. ABDOMEN: Soft, positive bowel sounds, nontender, no organomegaly.no flank tenderness, striations noted SKIN: No rash, no excessive bruising, petechiae, or purpura. NEUROLOGIC: Cranial nerves II-XII intact without motor/sensory deficit. psych-nml affect Results Labs 08/05/22 06:07 08/05/22 06:07 Labs: Short CBC 08/04/22 08/05/22 Range/Units 18:30 06:07 WBC 9.7 10.5 (4.8-10.8) X10*3/uL Hgb 13.0 12.5 (12.0-16.0) g/dl Hct 39.4 37.5 (37.0-47.0) % Plt Count 182 189 (160-400) X10*3/uL BMP 08/04/22 08/05/22 18:30 06:07 Sodium 139 139 Potassium 3.8 3.9 Chloride 105 106 Carbon Dioxide 28 22 BUN 18 H 14 Creatinine 0.79 0.70 Calcium 8.9 D 8.9 Liver Function 08/04/22 Range/Units 18:30 Total Bilirubin 0.2 (0.0-1.0) mg/dL AST 13 (5-31) U/L ALT 12 (0-31) U/L Alkaline Phosphatase 49 (39-117) U/L Albumin 4.3 (3.5-5.0) g/dL Urine 08/04/22 Range/Units 21:26 Urine Color Yellow Urine Appearance Cloudy Urine pH 6.5 (5.0-9.0) Ur Specific [place] >= 1.030 H (1.005-1.025) Urine Protein Negative (Neg-Trace) mg/dL Urine Glucose (UA) Negative (Negative) mg/dL Assessment and Plan (1) Pancreatic cyst: Status: Acute (2) Acute LUQ pain: Status: Acute Plan 1/ Acute upper abdominal pain, with nausea, wt cystic fluid collection around the tail of pancreas, the fluid collection is not that large and would not expect it to cause this much pain. to my read pancreas looks bulky on the non contrast CT. She may have pancreatitis due to medications e.g topirimate, pancreas divisum, or panc cysts, Sphincter of oddi dysfunction. Her abdomen exam is pretty benign at this time which conflicts with the clinical presentation. PLAN: 1/ MRI p-ancreas for further evaluation 2/ Abod exam is benign, can try clears and advance diet as tolerated 3/ if imaging neg and ongoing sx then EGD, 4/ check Igg4 and celiac serologies Time Spent With Patient Time: Total time managing care of this patient today ____ minutes. Procedures Date of Service Date of Service: 08/05/22
--- NOTE | 2022-08-05 09:57 | PM.CNGS ---
History of Present Illness Consult details Consult date: 08/05/22 Reason for consult: abdominal pain Narrative: The patient is a 36-year-old woman seen at the request of the emergency department because of left upper quadrant pain that started several days ago. Patient notes she was watching TV when she started developing an ache in her left upper quadrant and back that felt like us to muscle strain and then began getting worse. She denies any prior history of pancreatitis and denies any history of peptic ulcer disease. She is unaware of any malignancy in the immediate family. When the pain became unrelenting, she came to the emergency room for evaluation. She was noted to have our retro pancreatic collection and I was asked to help evaluate her. Patient denies any unexplained weight loss or recent trauma. In reviewing the past few months, the patient states she was otherwise in her usual state of health until a few days ago. Review of Systems Review of Systems: Yes all other systems are reviewed and are negative Constitutional: Constitutional: Reports as per [facility] Past Medical History Medical History Asthma Bipolar 1 disorder Circulation problem Psychosis Surgical History Surgical History Tubal ligation status Social History Social History Alcohol intake: current Alcohol intake frequency: does not drink Patient Tobacco Use Status: Current everyday Tobacco user Smoked in Last 30 Days: Yes Use of substances other than those prescribed or required for medical reasons: Yes Substance Use Type: Marijuana Advance Directives: No Advance Directives Information Provided: Yes Nutrition Risks: No Nutritional Risk Patient : No Current occupational status: 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 Allergies Allergy/AdvReac Type Severity Reaction Status Date / Time stringer [CHERRIES] Allergy Severe ANAPHYLAXIS Verified 08/04/22 23:50 gabapentin [From NEURONTIN] Allergy Unknown MUSCLE Verified 08/04/22 23:50 SPASMS lamotrigine [From LAMICTAL] Allergy Unknown MUSCLE Verified 08/04/22 23:50 SPASMS oxcarbazepine Allergy Unknown MUSCLE Verified 08/04/22 23:50 [From TRILEPTAL] SPASMS Sulfa (Sulfonamide Allergy Unknown UNKNOWN Verified 08/04/22 23:50 Antibiotics) [SULFA (SULFONAMIDE ANTIBIOTICS)] SEAFOOD Allergy Severe ANAPHYLAXIS Uncoded 08/04/22 23:50 sulfa Allergy Unknown throat Uncoded 08/04/22 23:50 close Active Medications: Current Medications Clonazepam (Clonazepam 0.5 Mg Tablet) 0.5 mg PO DAILY PRN PRN Reason: Anxiety Last Admin: 08/05/22 09:29 Dose: 0.5 mg Fluticasone Propionate (Fluticasone Propionate 100 Mcg Blst.W.Dev) 2 puff INHALE RBID [facility] Last Admin: 08/05/22 09:30 Dose: Not Given Fluticasone/Vilanterol (Fluticasone/Vilanterol 100/25 Blst.W.Dev) 1 puff INHALE RDAILY [facility] Last Admin: 08/05/22 09:31 Dose: Not Given Lactated Ringer's (Lr) 1,000 mls @ 100 mls/hr IVCONT .Q10H [facility] Last Admin: 08/05/22 09:30 Dose: 100 mls/hr Morphine Sulfate (Morphine Sulfate 4 Mg/Ml Cartridge) 4 mg IVPUSH Q4H PRN; Protocol PRN Reason: Pain, Severe (Pain Scale 7-10) Last Admin: 08/05/22 09:29 Dose: 4 mg Nicotine (Nicotine 21 Mg Patch.Td24) 21 mg TRANSDERMA DAILY [facility] Last Admin: 08/05/22 07:58 Dose: 21 mg Ondansetron HCl (Ondansetron Hcl 4 Mg/2 Ml Vial) 4 mg IVPUSH Q8H PRN PRN Reason: Nausea and Vomiting Last Admin: 08/05/22 09:31 Dose: 4 mg Pharmacy Consult (Consult Rx Perform Med Rec) 1 each MISCELLANE ONCE PRN PRN Reason: Consult order Polyethylene Glycol (Polyethylene Glycol 3350 17 Gm Powd.Pack) 17 gm PO DAILY [facility] Last Admin: 08/05/22 07:58 Dose: 17 gm Sodium Chloride (0.9 % Sodium Chloride Flush 3 Ml Syringe) 3 ml IVFLUSH QSHIFT [facility] Last Admin: 08/05/22 07:58 Dose: Not Given Topiramate (Topiramate 100 Mg Tablet) 200 mg PO ONCE [facility] Trazodone HCl (Trazodone Hcl 50 Mg Tablet) 150 mg PO BEDTIME [facility] Home Medications Medication Instructions Recorded Confirmed Last Taken Type clonazepam 0.5 mg tablet 0.5 mg PO DAILY PRN Anxiety 1025/21 02/06/23 02/05/23 History trazodone 150 mg tablet 150 mg PO BEDTIME 04/22/21 08/04/22 08/03/22 History fluticasone 250 mcg-salmeterol 50 1 ea inhalation BID 03/07/22 08/04/22 Unknown History mcg/dose blistr powdr for inhalation (Advair Diskus) fluticasone propionate 110 2 puff inhalation BID 03/07/22 08/04/22 Unknown History mcg/actuation HFA aerosol inhaler (Flovent HFA) topiramate 100 mg tablet 200 mg PO DAILY 03/07/22 08/05/22 08/03/22 History Physical Exam Vital Signs: Vital Signs: Last Vital Signs Temp 97.8 F 08/04/22 16:46 Pulse 78 08/04/22 22:59 Resp 18 08/04/22 22:59 BP 108/84 08/04/22 22:59 Pulse Ox 97 08/04/22 22:59 O2 Del Method 08/04/22 22:59 BMI result Body Mass Index 19.3 The patient is non-toxic & in good spirits NC/AT, PERRLA, EOMI Mood, affect & judgment all appear appropriate Sclera anicteric conjunctiva pink and moist Oropharynx is clear with no aphthous ulcers, dentition poor, Mallampati class 2, mucous membranes moist Neck is supple with no masses, adenopathy or bruits Heart is regular, normal S1-S2 no rubs or murmurs Lungs are clear and equal anteriorly with no audible wheezing, rubs or dullness to percussion Abdomen is overweight with no demonstrable hernias. No HSM, rebound, rigidity, guarding, masses or bruits are present. There is minimal left upper quadrant discomfort but no acute surgical abdomen Rectal exam is deferred Skin has good turgor and is free of rashes Extremities free of cyanosis clubbing edema Results Labs 08/05/22 06:07 08/05/22 06:07 Labs: Abnormal lab results 08/04/22 08/04/22 08/04/22 Range/Units 18:30 18:30 21:26 RBC 4.11 L (4.20-5.50) X10*6/uL Immature Gran % (Auto) 0.5 H (0.0-0.4) % Abs Immat Gran (auto) 0.05 H (0.00-0.03) X10*3/uL Anion Gap 10 L (12-20) BUN 18 H (9-16) mg/dL Ur Specific [place] >= 1.030 H (1.005-1.025) Urine Blood Moderate (2+) H (Negative) Urine RBC 6-10 H (0-2) /HPF 08/05/22 Range/Units 06:07 RBC 3.92 L (4.20-5.50) X10*6/uL Immature Gran % (Auto) (0.0-0.4) % Abs Immat Gran (auto) 0.04 H (0.00-0.03) X10*3/uL Anion Gap (12-20) BUN (9-16) mg/dL Ur Specific [place] (1.005-1.025) Urine Blood (Negative) Urine RBC (0-2) /HPF Short CBC 08/04/22 08/05/22 Range/Units 18:30 06:07 WBC 9.7 10.5 (4.8-10.8) X10*3/uL Hgb 13.0 12.5 (12.0-16.0) g/dl Hct 39.4 37.5 (37.0-47.0) % Plt Count 182 189 (160-400) X10*3/uL BMP 08/04/22 08/05/22 18:30 06:07 Sodium 139 139 Potassium 3.8 3.9 Chloride 105 106 Carbon Dioxide 28 22 BUN 18 H 14 Creatinine 0.79 0.70 Calcium 8.9 D 8.9 Liver Function 08/04/22 Range/Units 18:30 Total Bilirubin 0.2 (0.0-1.0) mg/dL AST 13 (5-31) U/L ALT 12 (0-31) U/L Alkaline Phosphatase 49 (39-117) U/L Albumin 4.3 (3.5-5.0) g/dL Urine 08/04/22 Range/Units 21:26 Urine Color Yellow Urine Appearance Cloudy Urine pH 6.5 (5.0-9.0) Ur Specific [place] >= 1.030 H (1.005-1.025) Urine Protein Negative (Neg-Trace) mg/dL Urine Glucose (UA) Negative (Negative) mg/dL All other labs normal. Imaging Abdomen CT scan report/results: report reviewed and image reviewed CT scan - pelvis: report reviewed and image reviewed Assessment and Plan (1) Acute LUQ pain: Status: Acute (2) Pancreatic cyst: Status: Acute (3) Nausea: Status: Acute Plan Unclear etiology for pancreatic fluid collection. While the patient is a smoker, she denies any typical symptoms of peptic ulcer disease including dyspepsia, so upper endoscopy is deferred to GI. Patient denies any antecedent trauma to suggest pancreatic injury or duct disruption. She reports sparing alcohol use and denies any prior history of pancreatitis. Additional imaging and tumor markers may be helpful if there is concern regarding malignancy, since the patient is a smoker. Either pancreatic protocol CT or MRI of the pancreas may be in order to exclude malignancy. Patient isn't reporting any signs consistent with choledocholithiasis, but I will order an abdominal ultrasound to assess the gallbladder. It is exceedingly unlikely the patient experienced choledocholithiasis that led to gallstone pancreatitis and a subsequent fluid collection, but if the remaining workup were to be unrevealing, this would need to be considered. There does not appear to be any acute surgical need at this time and would defer workup to Gastroenterology. Will follow-up on ultrasound, but given the clinical presentation, excluding primary pancreatic pathology is in order. Time Spent With Patient Time: Total time managing care of this patient today ____ minutes. Procedures Date of Service Date of Service: 08/05/22
[2022-08-05 10:25] LABS: Amylase 50 U/L (28-100); Lipase 14 U/L (8-78)
[2022-08-05 11:34] VITALS: BP 133/65; PULSE 86; RESP 16; TEMP 37; O2SAT 99
--- NOTE | 2022-08-05 14:06 | HO.PM.IMPN ---
Subjective Subjective Date of Service: 08/05/22 Interval History: LUQ pain No N/V No diarrhea No EtOH intake. No hx pancreatitis. No hx gallstones. Review of Systems Review of Systems: Yes all other systems are reviewed and are negative Physical Exam Vital Signs: Vital Signs: Last Vital Signs Temp 98.6 F 08/05/22 11:34 Pulse 86 08/05/22 11:34 Resp 16 08/05/22 11:34 BP 133/65 08/05/22 11:34 Pulse Ox 99 08/05/22 11:34 O2 Del Method 08/05/22 11:34 BMI result Body Mass Index 19.3 Const: Other: Gen: in no acute distress HEENT: sclera anicteric, moist mucus membranes Neck: supple Lungs: clear to auscultation bilaterally Heart: regular rate and rhythm, no murmurs Abd: soft, non-tender, non-distended Ext: no edema Skin: warm/well-perfused Neuro: alert and oriented x3, no focal findings Psych: appropriate affect Objective Data Active Medications Clonazepam (Clonazepam 0.5 Mg Tablet) 0.5 mg PO DAILY PRN PRN Reason: Anxiety Last Admin: 08/05/22 09:29 Dose: 0.5 mg Documented By: JOSÉ MIGUEL Fluticasone Propionate (Fluticasone Propionate 100 Mcg Blst.W.Dev) 2 puff INHALE RBID [facility] Last Admin: 08/05/22 09:30 Dose: Not Given Documented By: JOSÉ MIGUEL Non-Admin Reason: Patient Refused Fluticasone/Vilanterol (Fluticasone/Vilanterol 100/25 Blst.W.Dev) 1 puff INHALE RDAILY [facility] Last Admin: 08/05/22 09:31 Dose: Not Given Documented By: JOSÉ MIGUEL Non-Admin Reason: Patient Refused Lactated Ringer's (Lr) 1,000 mls @ 100 mls/hr IVCONT .Q10H [facility] Last Admin: 08/05/22 09:30 Dose: 100 mls/hr Documented By: JOSÉ MIGUEL Morphine Sulfate (Morphine Sulfate 4 Mg/Ml Cartridge) 4 mg IVPUSH Q4H PRN; Protocol PRN Reason: Pain, Severe (Pain Scale 7-10) Last Admin: 02/07/23 09:29 Dose: 4 mg Documented By: JOSÉ MIGUEL Nicotine (Nicotine 21 Mg Patch.Td24) 21 mg TRANSDERMA DAILY [facility] Last Admin: 08/05/22 07:58 Dose: 21 mg Documented By: JOSÉ MIGUEL Ondansetron HCl (Ondansetron Hcl 4 Mg/2 Ml Vial) 4 mg IVPUSH Q8H PRN PRN Reason: Nausea and Vomiting Last Admin: 08/05/22 09:31 Dose: 4 mg Documented By: JOSÉ MIGUEL Pharmacy Consult (Consult Rx Perform Med Rec) 1 each MISCELLANE ONCE PRN PRN Reason: Consult order Polyethylene Glycol (Polyethylene Glycol 3350 17 Gm Powd.Pack) 17 gm PO DAILY [facility] Last Admin: 08/05/22 07:58 Dose: 17 gm Documented By: JOSÉ MIUGEL Sodium Chloride (0.9 % Sodium Chloride Flush 3 Ml Syringe) 3 ml IVFLUSH QSHIFT [facility] Last Admin: 08/05/22 07:58 Dose: Not Given Documented By: JOSÉ MIGUEL Non-Admin Reason: IV Running Topiramate (Topiramate 100 Mg Tablet) 200 mg PO ONCE [facility] Trazodone HCl (Trazodone Hcl 50 Mg Tablet) 150 mg PO BEDTIME [facility] Labs 08/05/22 06:07 08/05/22 06:07 Labs: Laboratory Results - last 24 hr 08/04/22 08/04/22 08/04/22 18:30 18:30 21:26 MCV 95.9 MCH 31.6 MCHC 33.0 RDW 14.4 Plt Count 182 MPV 11.0 Immature Gran % (Auto) 0.5 H Neut % (Auto) 58.2 Lymph % (Auto) 30.6 [place] % (Auto) 7.7 Eos % (Auto) 2.2 Baso % (Auto) 0.8 Lymph # (Auto) 3.0 [place] # (Auto) 0.7 Eos # (Auto) 0.2 Baso # (Auto) 0.1 Abs Immat Gran (auto) 0.05 H Absolute Neuts (auto) 5.6 Absolute Nucleated RBC 0.000 Nucleated RBC % (auto) 0.0 Anion Gap 10 L Estim Creat Clear Calc 88.7 Estimated GFR > 60 Random Glucose 106 Lactic Acid Calcium 8.9 D Total Bilirubin 0.2 AST 13 ALT 12 Alkaline Phosphatase 49 Total Protein 6.6 Albumin 4.3 Triglycerides 110 Amylase Lipase 50 Beta HCG, Quant < 2 Urine Color Yellow Urine Appearance Cloudy Urine pH 6.5 Ur Specific [place] >= 1.030 H Urine Protein Negative Urine Glucose (UA) Negative Urine Ketones Negative Urine Blood Moderate (2+) H Urine Nitrite Negative Ur Leukocyte Esterase Negative Urine RBC 6-10 H Urine WBC 0-5 Ur Squamous Epith Cells 3-5 Urine Bacteria 4+ Hyaline Casts 0-2 COVID-19 (PRETTY) COVID-19 Clin Com 08/04/22 08/05/22 08/05/22 22:59 01:23 06:07 MCV 95.7 MCH 31.9 MCHC 33.3 RDW 14.5 Plt Count 189 MPV 11.3 Immature Gran % (Auto) 0.4 Neut % (Auto) 53.3 Lymph % (Auto) 33.7 [place] % (Auto) 9.3 Eos % (Auto) 2.5 Baso % (Auto) 0.8 Lymph # (Auto) 3.5 [place] # (Auto) 1.0 Eos # (Auto) 0.3 Baso # (Auto) 0.1 Abs Immat Gran (auto) 0.04 H Absolute Neuts (auto) 5.6 Absolute Nucleated RBC 0.000 Nucleated RBC % (auto) 0.0 Anion Gap Estim Creat Clear Calc Estimated GFR Random Glucose Lactic Acid 0.7 Calcium Total Bilirubin AST ALT Alkaline Phosphatase Total Protein Albumin Triglycerides Amylase Lipase Beta HCG, Quant Urine Color Urine Appearance Urine pH Ur Specific [place] Urine Protein Urine Glucose (UA) Urine Ketones Urine Blood Urine Nitrite Ur Leukocyte Esterase Urine RBC Urine WBC Ur Squamous Epith Cells Urine Bacteria Hyaline Casts COVID-19 (PRETTY) Negative COVID-19 Clin Com See Note 08/05/22 06:07 MCV MCH MCHC RDW Plt Count MPV Immature Gran % (Auto) Neut % (Auto) Lymph % (Auto) [place] % (Auto) Eos % (Auto) Baso % (Auto) Lymph # (Auto) [place] # (Auto) Eos # (Auto) Baso # (Auto) Abs Immat Gran (auto) Absolute Neuts (auto) Absolute Nucleated RBC Nucleated RBC % (auto) Anion Gap 15 Estim Creat Clear Calc 100.0 Estimated GFR > 60 Random Glucose 98 Lactic Acid Calcium 8.9 Total Bilirubin AST ALT Alkaline Phosphatase Total Protein Albumin Triglycerides Amylase 50 Lipase 14 Beta HCG, Quant Urine Color Urine Appearance Urine pH Ur Specific [place] Urine Protein Urine Glucose (UA) Urine Ketones Urine Blood Urine Nitrite Ur Leukocyte Esterase Urine RBC Urine WBC Ur Squamous Epith Cells Urine Bacteria Hyaline Casts COVID-19 (PRETTY) COVID-19 Clin Com Assessment and Plan (1) Pancreatic cyst: Status: Acute Plan hospital d#2 36yo F with asthma + bipolar disorder presenting with LUQ pain and found to have cyst near tail of pancreas # pancreatic cyst - GI + Gen Surg consulted. MRI + US. check celiac serology + IgG subclasses. clear liquid diet as tolerated. IV morphine for pain control # asthma - prn albuterol, controller inhalers # seizure disorder - topiramate # mood disorder - trazodone, clonazepam # tobacco abuse - NRT # VTE ppx: SCDs Time Spent With Patient Time: Total time managing care of this patient today ___40_ minutes. Quality Stroke Does the patient have a stroke diagnosis?: No VTE Prior VTE?: No VTE Risk Level:: Medical - low VTE Device Contraindication: Treatment Not Indicated VTE Drug Contraindication: Treatment Not Indicated
[2022-08-05 17:17] VITALS: BP 105/65; PULSE 72; RESP 18; TEMP 36.7; O2SAT 98
[2022-08-05] MEDS: traZODone HCL 50 MG TABLET 150 MG PO (22:21)
[2022-08-05 23:45] VITALS: BP 101/59; PULSE 61; RESP 18; TEMP 36.3; O2SAT 97
[2022-08-06] MEDS: Morphine Sulfate 4 MG/ML CARTRIDGE IVPUSH ×6 (02:24→23:31)
[2022-08-06 03:22] VITALS: BP 104/56; PULSE 71; RESP 18; TEMP 36.6; O2SAT 99
[2022-08-06] MEDS: Lactated Ringers 1,000 ML 100 ML IVCONT ×2 (05:52→14:18)
[2022-08-06 06:35] LABS: Prothrombin Time 11.8 SEC (10.0-13.1)
[2022-08-06 06:38] LABS: Partial Thromboplastin Time 27.2 SEC (26.0-36.4)
[2022-08-06 06:49] LABS: Hematocrit 38.8 % (37.0-47.0); Hemoglobin 12.9 g/dl (12.0-16.0); Mean Corpuscular HGB Conc 33.2 g/dl (31.0-35.0); Mean Corpuscular Hemoglobin 31.7 pg (27.0-33.0); Mean Corpuscular Volume 95.3 fL (80.0-98.0); Mean Platelet Volume 11.5 fL (9.4-12.3); Platelet Count 180 X10*3/uL (160-400); Red Blood Count 4.07 X10*6/uL (4.20-5.50); Red Cell Distribution Width 14.3 % (11.0-16.0); White Blood Count 7.8 X10*3/uL (4.8-10.8)
[2022-08-06 07:03] LABS: Alanine Aminotransferase 10 U/L (0-31); Albumin Level 3.7 g/dL (3.5-5.0); Alkaline Phosphatase 41 U/L (39-117); Anion Gap 15 (12-20); Aspartate Amino Transferase 12 U/L (5-31); Bilirubin Total 0.4 mg/dL (0.0-1.0); Blood Urea Nitrogen 8 mg/dL (9-16); Calcium 8.7 mg/dL (8.4-10.2); Carbon Dioxide 22 mmol/L (22-29); Chloride 107 mmol/L (96-108); Estimated Glomerular Filt Rate > 60; Glucose Random 128 mg/dL (60-115); Magnesium 1.8 mg/dL (1.6-2.6); Potassium 3.9 mmol/L (3.3-5.1); Sodium 140 mmol/L (135-145); Total Protein 5.6 g/dL (6.5-8.0)
[2022-08-06 07:44] VITALS: BP 96/53; PULSE 61; RESP 18; TEMP 36.8; O2SAT 100
[2022-08-06] MEDS: Nicotine 21 MG PATCH.TD24 TRANSDERMA (09:10)
--- NOTE | 2022-08-06 10:32 | MHC.CM.PN ---
SAUD 08/06/22, EMR REVIEWED, PT ADMITTED W/INTRCTABLE ABD PAIN, CM MET W/PT WHO REPORTS SHE LIVES W/, IS INDEP W/ALL CARE, DENIES USE OF DME/HOME SERVICES. PT VERIFIES PFIZER X2, PCP DEBORAH MIRANDA AND PT HAS BEEN EDUCATED ON AND COMPLETED A HCP NAMING HER [facility] SAUCEDA [phone] HER [facility] W/NO ALTERNATE CHOSEN AT THIS TIME. D/C PLAN: HOME NO SERVICES W/ FOR TRANSPORT
--- NOTE | 2022-08-06 11:12 | P.PNIM_ITS ---
Subjective Subjective Date of Service: 08/06/22 Interval History: still c/o LUQ pain but no N/V; wants to try eating MRI result pending Review of Systems Review of Systems: Yes all other systems are reviewed and are negative Physical Exam Vital Signs: Vital Signs: Last Vital Signs Temp 98.3 F 08/06/22 07:44 Pulse 61 08/06/22 07:44 Resp 18 08/06/22 07:44 BP 96/53 L 08/06/22 07:44 Pulse Ox 100 08/06/22 07:44 O2 Del Method 08/06/22 07:44 BMI result Body Mass Index 19.3 Const: Other: Gen: in no acute distress HEENT: sclera anicteric, moist mucus membranes Neck: supple Lungs: clear to auscultation bilaterally Heart: regular rate and rhythm, no murmurs Abd: soft, mild LUQ tenderness without rebound Ext: no edema Skin: warm/well-perfused Neuro: alert and oriented x3, no focal findings Psych: appropriate affect Objective Data Active Medications Clonazepam (Clonazepam 0.5 Mg Tablet) 0.5 mg PO DAILY PRN PRN Reason: Anxiety Last Admin: 08/05/22 09:29 Dose: 0.5 mg Documented By: JOSÉ MIGUEL Fluticasone Propionate (Fluticasone Propionate 100 Mcg Blst.W.Dev) 2 puff INHALE RBID [facility] Last Admin: 08/06/22 07:34 Dose: Not Given Documented By: TAISHA Non-Admin Reason: scan says amy wills Fluticasone/Vilanterol (Fluticasone/Vilanterol 100/25 Blst.W.Dev) 1 puff INHALE RDAILY [facility] Last Admin: 08/06/22 07:34 Dose: Not Given Documented By: TAISHA Non-Admin Reason: scan says med dc Lactated Ringer's (Lr) 1,000 mls @ 100 mls/hr IVCONT .Q10H [facility] Last Admin: 08/06/22 05:52 Dose: 100 mls/hr Documented By: FREIDA Morphine Sulfate (Morphine Sulfate 4 Mg/Ml Cartridge) 4 mg IVPUSH Q4H PRN; Protocol PRN Reason: Pain, Severe (Pain Scale 7-10) Last Admin: 02/08/23 10:29 Dose: 4 mg Documented By: SHERLEY Nicotine (Nicotine 21 Mg Patch.Td24) 21 mg TRANSDERMA DAILY [facility] Last Admin: 08/06/22 09:10 Dose: 21 mg Documented By: SHERLEY Ondansetron HCl (Ondansetron Hcl 4 Mg/2 Ml Vial) 4 mg IVPUSH Q8H PRN PRN Reason: Nausea and Vomiting Last Admin: 08/05/22 09:31 Dose: 4 mg Documented By: JSOÉ MIGUEL Pharmacy Consult (Consult Rx Perform Med Rec) 1 each MISCELLANE ONCE PRN PRN Reason: Consult order Polyethylene Glycol (Polyethylene Glycol 3350 17 Gm Powd.Pack) 17 gm PO DAILY [facility] Last Admin: 08/06/22 09:15 Dose: Not Given Documented By: SHERLEY Non-Admin Reason: Patient Refused Sodium Chloride (0.9 % Sodium Chloride Flush 3 Ml Syringe) 3 ml IVFLUSH QSHIFT [facility] Last Admin: 08/06/22 09:13 Dose: Not Given Documented By: SHERLEY Non-Admin Reason: IV Running Topiramate (Topiramate 100 Mg Tablet) 200 mg PO ONCE [facility] Trazodone HCl (Trazodone Hcl 50 Mg Tablet) 150 mg PO BEDTIME [facility] Last Admin: 08/05/22 22:21 Dose: 150 mg Documented By: FREIDA Comments: pt refused , was in br then she wanted to walk and now she will take pill and pain med Zinc Acetate/Diphenhydramine (Diphenhydramine Hcl 2 % Cream 28 Gm Tube) 1 appl TOPICAL QID PRN; Protocol PRN Reason: itching/skin irritation Labs 08/06/22 05:49 08/06/22 05:49 Labs: Laboratory Results - last 24 hr 08/06/22 08/06/22 08/06/22 05:49 05:49 05:49 MCV 95.3 MCH 31.7 MCHC 33.2 RDW 14.3 Plt Count 180 MPV 11.5 Absolute Nucleated RBC 0.000 Nucleated RBC % (auto) 0.0 PT 11.8 INR 1.0 APTT 27.2 Anion Gap 15 Estim Creat Clear Calc 100.0 Estimated GFR > 60 Random Glucose 128 H Calcium 8.7 Magnesium 1.8 Total Bilirubin 0.4 AST 12 ALT 10 Alkaline Phosphatase 41 Total Protein 5.6 L Albumin 3.7 Impressions Abdomen Ultrasound 08/05/22 11:39 IMPRESSION: 1. Anechoic fluid collection adjacent to the pancreatitis correlates with CT findings. This is nonspecific. This could represent a pancreatic cyst or pseudocyst. Correlate with patient history. Contrast-enhanced abdominal MRI is recommended for better characterization. 2. 0.3 cm gallbladder polyp without other associated abnormality. This could be monitored for change with a right upper quadrant ultrasound in one year. Microbiology Microbiology Results: Microbiology 08/04/22 22:59 Blood Culture - Preliminary Blood - Venous No growth after 24 hours. 08/04/22 22:59 Blood Culture - Preliminary Blood - Venous No growth after 24 hours. Assessment and Plan (1) Pancreatic cyst: Status: Acute Plan hospital d#3 36yo F with asthma + bipolar disorder presenting with LUQ pain and found to have cyst near tail of pancreas # pancreatic cyst - GI + Gen Surg consulted. MRI pending. celiac serology + IgG subclasses pending. advance diet as tolerated. IV morphine for pain control # GB polyp - repeat US in 6-12 mo # asthma - prn albuterol, controller inhalers # seizure disorder - topiramate # mood disorder - trazodone, clonazepam # tobacco abuse - NRT # VTE ppx: SCDs Time Spent With Patient Time: Total time managing care of this patient today _35___ minutes. Quality Stroke Does the patient have a stroke diagnosis?: No VTE Prior VTE?: No VTE Risk Level:: Medical - low VTE Device Contraindication: Treatment Not Indicated VTE Drug Contraindication: Treatment Not Indicated
[2022-08-06 12:00] VITALS: BP 108/66; PULSE 69; RESP 18; TEMP 37.1; O2SAT 99
[2022-08-06] MEDS: ondansetron HCL 4 MG/2 ML VIAL IVPUSH ×2 (12:56→19:51)
[2022-08-06] MEDS: 0.9 % Sodium Chloride Flush 3 ML SYRINGE IVFLUSH (14:23)
[2022-08-06 15:22] VITALS: BP 97/42; PULSE 57; RESP 19; TEMP 36.9; O2SAT 98
[2022-08-06] MEDS: diphenhydrAMINE HCl 2 % Cream 28 GM TUBE 1 APPL TOPICAL (16:56)
--- NOTE | 2022-08-06 17:49 | PC.NURSE ---
Pt alert and oriented x4. THis am at 0700, pt complained about the clear liquid diet she was on. I want regular food, or i will call my boyfriend to bring food. Pt is very demanding and unable to be redirected. notifeid. Diet changed to regular. Pt able to eat and tolerate with no nausea. At lunch time, pt had some nausea. Pt advised to go slow on the food.
--- NOTE | 2022-08-06 18:32 | PC.NURSE ---
1730- this RN went tompt room to insert a new IV. Pt stated i am sleeping now. I don't want to be bothered. this RN informed the pt that it would be difficulty to insert the IV at a later time since it was busy. This RN asked to pt to wait few minutes but the pt started yelling'Call my doctor. i am going to report you and joanna you. Pt was reminded that this RN did go to the room to insert an IV and she refused at time. Pt stated that she was going to pull out her IV that she had on the LAC and then go out and smoke. This RN let the covering and lining supervisor Lizeth Gandhi know about the situation and she came up and inserted a new IV for Pt. notified via Beeline text but he was already gone for the day. notified via [employer] text and a phone call.
[2022-08-06 19:17] VITALS: BP 97/60; PULSE 71; RESP 19; TEMP 36.8; O2SAT 97
[2022-08-06] MEDS: clonazePAM 0.5 MG TABLET PO (23:05)
[2022-08-06] MEDS: traZODone HCL 50 MG TABLET 150 MG PO (23:05)
[2022-08-06 23:57] VITALS: BP 118/58; PULSE 64; RESP 18; TEMP 36.8; O2SAT 100
[2022-08-07] MEDS: Lactated Ringers 1,000 ML 100 ML IVCONT ×2 (00:26→08:10)
[2022-08-07 08:00] VITALS: BP 132/94; PULSE 54; RESP 18; TEMP 35.4; O2SAT 96
[2022-08-07] MEDS: Fluticasone Propionate 100 MCG BLST.W.DEV 2 PUFF INHALE (08:00)
[2022-08-07] MEDS: Fluticasone/Vilanterol 100/25 BLST.W.DEV 1 PUFF INHALE (08:00)
[2022-08-07 08:03] VITALS: PULSE 68; RESP 16; O2SAT 98
[2022-08-07] MEDS: 0.9 % Sodium Chloride Flush 3 ML SYRINGE IVFLUSH (08:09)
[2022-08-07] MEDS: polyethylene glycoL 3350 17 GM POWD.PACK PO (08:09)
[2022-08-07] MEDS: Morphine Sulfate 4 MG/ML CARTRIDGE IVPUSH (08:09)
[2022-08-07] MEDS: Nicotine 21 MG PATCH.TD24 TRANSDERMA (08:09)
[2022-08-07 08:23] VITALS: TEMP 36.7
--- NOTE | 2022-08-07 11:11 | P.DS_ITS ---
DS: Providers Provider Date of Service: 08/07/22 Date of admission: 08/04/22 23:11 Date of discharge: 08/07/22 Primary care physician: Lissy Burrows MD Consults: 08/05/22 06:58 Consult to Physician Routine Consulting Provider: Yuriy Carballo Reason for consultation: IntraABDOMINAL Cyst Has provider been notified: No 08/05/22 09:20 Consult to Gastroenterology Routine Consulting Provider: [facility] [place] [facility] Reason for consultation: pancreatic cyust 08/05/22 09:22 Consult to General Surgery Routine Consulting Provider: [facility] [place] [facility] Reason for consultation: pancreatic cyst tail Attending physician on discharge: Lorenzo Damon Discharging clinician: Marleen Redding DS: Diagnosis Discharge Diagnosis (1) Pancreatic cyst: Status: Acute (2) Gallbladder polyp: Status: Acute DS: Summary Hospital Course Hospital Course: From H&P on day of admission 56-year-old female with past medical history of asthma, bipolar disorder, psychosis, presents to the hospital with complaints of abdominal pain.? Patient reports abdominal pain for the past 2 days, 10/10, constant,localized to the epigastric as well as left upper quadrant area, radiating to the back, reports nausea vomiting, reports no diarrhea constipation, reports no fever or chills.? States no history of pancreatitis, denies drinking alcohol.? Reports no recent injury to the abdomen.? Has no headache, change in vision, no chest pain, no palpitations, no urinary symptoms and no lower extremity edema.? ?on arrival to the ED patient hemodynamically stable Labs are significant for WBC count of 9.7, labs otherwise unremarkable , normal lipase CT abdomen done on the day prior while she was evaluated in the ER showed 6.5 x 3.2 cm pocket of fluid situated just posterior to the pancreatic tail, anterior to the left kidney and quad O2 the spleen, uncertain etiology, potentially a sequelae of prior pancreatitis, ?case was discussed with surgery, as well as GI, recommended IR intervention pancreatic pseudocyst. MRI confirmed likely pseudocyst. Lipase normal. Diet advanced to full and tolerating without issues. Sen by GI. No further inpatient workup or intervention is required. Recommend to schedule follow-up appointment with GI for possible endoscopy if patient is having ongoing abdominal pain. She is currently tolerating a regular diet and agrees with plan for outpatient follow up. gallbladder polyp- seen by General surgery. No gallstones noted. Should have follow-up ultrasound in 6 months to confirm stability. Time Spent with Patient Time attestation: Total time managing care of this patient today ____ minutes. Discharge coordination time: Greater than 30 minutes Quality: Safe Use of Opioids Does Pt have an Active Cancer Diagnosis on the Problem List?: No Quality: Stroke Does the patient have a stroke diagnosis?: No Physical Exam Vital Signs: Vital Signs: Last Vital Signs Temp 98.0 F 08/07/22 08:23 Pulse 68 08/07/22 08:03 Resp 16 08/07/22 08:03 BP 132/94 H 08/07/22 08:00 Pulse Ox 96 08/07/22 08:00 O2 Del Method 08/07/22 08:00 BMI result Body Mass Index 19.3 Const: General: comfortable, no acute distress, alert and awake Nutritional Appearance: average body habitus Orientation/consciousness: patient oriented x3 Resp: Effort & Inspection: normal respiratory effort Cardio: Rate: regular rate Heart sounds: S1 normal heart sound present and S2 normal heart sound present GI: Inspection: No distended Palpation (GI): Soft to palpation Neuro: General: patient oriented x3 Extrem: General: Yes no pedal edema DS: Data Data Completed and Pending Labs on day of discharge: Preliminary micro results at discharge 08/04/22 22:59 Blood Culture - Preliminary Blood - Venous No growth after 48 hours. 08/04/22 22:59 Blood Culture - Preliminary Blood - Venous No growth after 48 hours. Discharge Plan Discharge Patient Disposition: Home, Self-Care Discharge Diagnosis: pancreatic psudocyst Referrals: Lissy Burrows MD [Primary Care Provider] - 1 Week Francisco Velez MD [Physician] - 1 Week Discharge Medications: New polyethylene glycol 3350 [Miralax] 17 gram powder in packet 17 g PO DAILY PRN (Reason: constipation) Qty: 30 0RF Continued trazodone 150 mg tablet 150 mg PO BEDTIME clonazepam 0.5 mg tablet 0.5 mg PO DAILY PRN (Reason: Anxiety) topiramate 100 mg tablet 200 mg PO DAILY fluticasone propion-salmeterol [Advair Diskus] 250-50 mcg/dose blister with device 1 ea inhalation BID fluticasone propionate [Flovent HFA] 110 mcg/actuation HFA aerosol inhaler 2 puff inhalation BID Discharge Orders: Discharge Order (Routine); Ordered 08/07/22 Ordered By: Marlene Redding Activity on Discharge: As tolerated Stand Alone Forms: Patient Portal Discharge page Care Plan Goals: see below Health Concerns: Pancreatic pseudocyst gallbladder polyp Plan of Treatment: call to schedule follow-up appointment with GI specialist no intervention required for pancreatic pseudocyst at this time will need outpatient follow-up US for gallbladder polyp in 6 months can use miralax daily as needed for constipation Assessment: see discharge summary Discharge Date/Time: 08/07/22 11:34
--- NOTE | 2022-08-07 11:26 | MHC.CM.PN ---
PT MEDICALLY CLEARED FOR D/C HOME NO SERVICES W/ [facility] FOR TRANSPORT
[2022-08-07 13:13] LABS: Immunoglobulin A 242 mg/dL (47-310)
[2022-08-07 13:54] LABS: Transglutaminase Ab IgG <1.0 U/mL; Transglutaminase IgA <1.0 U/mL
[2022-08-07 14:48] LABS: Immunoglobulin G Subclass 1 319 mg/dL (382-929); Immunoglobulin G Subclass 2 253 mg/dL (241-700); Immunoglobulin G Subclass 3 38 mg/dL (22-178); Immunoglobulin G Subclass 4 14.9 mg/dL (4-86); Immunoglobulin G Total 661 mg/dL (600-1640)
== END 2022-08-07 11:34 | disposition home or self-care (01) ==
LOC: HO.ED 22:19 → HO.EDOVER 23:22 → HO.S3 08-05 15:46
PROVIDERS: Family Medicine; Physician Assistant; Admitting Provider Internal Medicine; Emergency Provider Emergency Medicine Emergency Medical Services; PCP Internal Medicine; Visit Provider Physician Assistant Medical
DX: K86.3 Pseudocyst of pancreas (principal); K82.4 Cholesterolosis of gallbladder; R10.12 Left upper quadrant pain; R11.0 Nausea; N39.0 Urinary tract infection, site not specified; Z20.822 Contact with and (suspected) exposure to COVID-19; R63.4 Abnormal weight loss; Z68.1 Body mass index [BMI] 19.9 or less, adult; J45.909 Unspecified asthma, uncomplicated; F31.9 Bipolar disorder, unspecified; I99.9 Unspecified disorder of circulatory system; F29 Unspecified psychosis not due to a substance or known physiological condition; F12.90 Cannabis use, unspecified, uncomplicated; F17.200 Nicotine dependence, unspecified, uncomplicated; Z79.899 Other long term (current) drug therapy
CPT/HCPCS: 36415; 74183; 76700; 80048; 80053; 81001; 82150; 82784; 83605; 83690; 83735; 84478; 84702; 85025; 85027; 85610; 85730; 86364; 87040; 87635; 96361; 96365; 96375; 96376; 99221; 99284; 99285; A9585; J0696; J2270; J2405

== ENCOUNTER 2022-08-16 09:31 | Emergency (ER) | payer OTHER, SELFPAY ==
--- NOTE | ~2022-08-16 | CT_ITS ---
EXAMINATION: CT ABDOMEN AND PELVIS WITH CONTRAST CLINICAL INFORMATION: Worsening left upper quadrant pain, known pancreatic pseudocyst COMPARISON: MR abdomen 08/05/2022, CT abdomen pelvis 08/03/2022 TECHNIQUE: Multidetector volumetric images were obtained from the superior aspect of the liver through the pubic symphysis following administration 85 mL of Omnipaque 350 intravenous contrast. Sagittal and coronal reformatted images were obtained on the technologist's workstation. Oral contrast: No This CT examination was performed using dose optimization techniques as appropriate, variously including the following: *Automated exposure control *Adjustment of mA and/or kV according to patient size (this includes techniques or standardized protocols for targeted exams where dose is matched to indication/reason for exam; i.e. extremities or head) *Use of iterative reconstruction technique DLP: 435 mGy-cm FINDINGS: LUNG BASES: Unremarkable. ABDOMINAL AND PELVIC WALL: Skin thickening overlying the region of the umbilicus which would be amenable to direct inspection to exclude any soft tissue infection, though similar to prior. LIVER AND BILIARY TREE: Unremarkable. GALLBLADDER: Unremarkable. PANCREAS: A simple attenuation fluid collection interposed between the tail of the pancreas and the left kidney measuring 6 cm which somewhat insinuates around the surrounding vessels and organs, previously 6.3 cm morphologically similar to recent prior.. SPLEEN: Unremarkable. ADRENAL GLANDS: Unremarkable. KIDNEYS AND URETERS: Unremarkable. GASTROINTESTINAL TRACT: Large desiccated stool ball within the rectum measuring 8.5 cm in diameter. No rectal wall thickening or infiltration of the mesorectal fat to suggest stercoral colitis. Normal appendix. VASCULAR: Unremarkable. LYMPH NODES/PERITONEUM: No lymphadenopathy. FREE FLUID: None. BLADDER: Unremarkable. PELVIC VISCERA: Physiologic left ovarian corpus luteum. OSSEOUS STRUCTURES: Lumbosacral anatomy with broad-based bilateral L5 transverse processes pseudoarticulating with the sacrum which can be a source of pain. While degenerative disc disease at L5-S1.. CT/CT abdomen pelvis w IV con IMPRESSION: A 6 cm simple attenuation fluid collection adjacent to the pancreatic tail which somewhat insinuates around the surrounding vessels and organs. 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 Other differential considerations could include an enteric duplication cyst, mesenteric cyst, or if any clinical history pancreatitis or peripancreatic pseudocyst. Large desiccated stool ball in the rectum measuring 8.5 cm in diameter. No rectal wall thickening or infiltration of the mesorectal fat to suggest stercoral colitis. Skin thickening overlying the region of the umbilicus which would be amenable to direct inspection to exclude any soft tissue infection, though appearance is similar to prior. Lumbosacral anatomy with broad-based bilateral L5 transverse processes pseudoarticulating with the sacrum which can be a source of pain.
--- NOTE | 2022-08-16 09:40 | ED.ABDPAIN ---
HPI - Abdominal Pain General Chief Complaint: Abdominal Pain Stated Complaint: L side abd pain per EMS Time Seen by Provider: 08/16/22 09:34 Source: patient Mode of arrival: ambulatory Limitations: no limitations History of Present Illness HPI narrative: Patient is a 36-year-old female who presents emergency department for evaluation of left upper abdominal pain. She reports this pain to be consistent with pain that previously had her admitted into the hospital earlier this month. She states that she is awaiting a follow-up appointment with Gastroenterology which is scheduled 08/25/2022. She states that she has had persistent pain since the time of discharge. However she woke this morning with severe worsening of pain, nausea without vomiting, diarrhea, and states that she ?felt something pop inside of my stomach?. Denies fevers, chills, chest pain, shortness of breath, constipation, lower abdominal pain, melena, hematochezia. Denies any genitourinary symptoms. Related Data Home Medications Medication Instructions Recorded Confirmed clonazepam 0.5 mg tablet 0.5 mg PO DAILY PRN Anxiety 04/22/21 08/04/22 trazodone 150 mg tablet 150 mg PO BEDTIME 04/22/21 08/04/22 fluticasone 250 mcg-salmeterol 50 1 ea inhalation BID 03/07/22 08/04/22 mcg/dose blistr powdr for inhalation (Advair Diskus) fluticasone propionate 110 2 puff inhalation BID 03/07/22 08/04/22 mcg/actuation HFA aerosol inhaler (Flovent HFA) topiramate 100 mg tablet 200 mg PO DAILY 03/07/22 08/05/22 Previous Rx's Medication Instructions Recorded polyethylene glycol 3350 17 gram 17 g PO DAILY PRN constipation #30 08/07/22 oral powder packet (Miralax) ea oxycodone 5 mg tablet 5 mg PO Q8H PRN pain #10 tabs 08/16/22 Allergies Allergy/AdvReac Type Severity Reaction Status Date / Time stringer [CHERRIES] Allergy Severe ANAPHYLAXIS Verified 08/04/22 23:50 gabapentin [From NEURONTIN] Allergy Unknown MUSCLE Verified 08/04/22 23:50 SPASMS lamotrigine [From LAMICTAL] Allergy Unknown MUSCLE Verified 08/04/22 23:50 SPASMS oxcarbazepine Allergy Unknown MUSCLE Verified 08/04/22 23:50 [From TRILEPTAL] SPASMS Sulfa (Sulfonamide Allergy Unknown UNKNOWN Verified 08/04/22 23:50 Antibiotics) [SULFA (SULFONAMIDE ANTIBIOTICS)] SEAFOOD Allergy Severe ANAPHYLAXIS Uncoded 08/04/22 23:50 sulfa Allergy Unknown throat Uncoded 08/04/22 23:50 close Review of Systems Review of Systems Constitutional : No Weight loss, No Fever, No Chills ENT/Mouth :? No sore throat, No Rhinorrhea Eyes: No Swelling, No Redness Cardiovascular : No Chest Pain, No SOB, No Edema Respiratory : No Cough, No Sputum, No Wheezing Gastrointestinal : Positive Nausea, no Vomiting, positive Diarrhea, positive abdominal pain, No Hematochezia, No Melena Genitourinary : No Dysuria, No Urinary Frequency, No Hematuria, No Urgency? Musculoskeletal : No joint pain, No Myalgias, No Joint Swelling Skin : No Skin Lesions, No rash Neuro : No Weakness, No Numbness, No Dizziness, No Headache Psych : No Anxiety/Panic, No Depression Heme/Lymph: No Bruising, No Lymphadenopathy Endocrine : No Polyuria, No Polydipsia Yes all other systems are reviewed and are negative FORMERLY [facility], [facility] Past Medical History Attestation statement: The following information was validated with the patient. Source: old records reviewed Medical History Asthma Bipolar 1 disorder Circulation problem Psychosis Surgical History Tubal ligation status Social History Social History Household Members: Spouse Housing: Apartment Do you presently have visiting nurse or other home services: No Alcohol intake: never Patient Tobacco Use Status: Current everyday Tobacco user Tobacco use type: Cigarette Smoked in Last 30 Days: Yes e-Cigarette/Vaping Use: Never Used Second Hand Smoke Exposure: Yes Use of substances other than those prescribed or required for medical reasons: No Substance Use Type: Marijuana Advance Directives: Yes Advance Directives on File: Yes Advance Directives Date on File: 08/08/22 Patient : No service: No Current occupational status: 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 No acute distress.?Normal affect. Eyes: Pupils equal, round and reactive to light.? ENT: Pharynx normal.?? Neck: Normal inspection.? Neck supple.?? CVS: Heart sounds normal. Normal heart rate and rhythm.? Pulses normal.?? Respiratory: No respiratory distress.? Lung sounds clear to auscultation bilaterally?? Abdomen: Soft with left upper quadrant tenderness upon palpation. Normoactive bowel sounds. No pulsatile mass.??No rigidity. No guarding. Skin: Skin warm and dry.? Normal skin color.?? Extremities: No lower extremity edema.? Neuro: Moves all extremities spontaneously. Sensation intact bilaterally. Ambulates with normal steady gait. Course Reevaluation(s) Reevaluation #1: COVID-19 and influenza testing are negative. CBC is without leukocytosis. CMP is overall unremarkable, lipase is within normal limits. Urinalysis without evidence of infection. CT of the abdomen and pelvis reveals a 6 cm fluid collection adjacent to the pancreatic tail, incidental finding of large volume stool in the rectum without wall thickening or infiltration of the rectal fat, skin thickening overlying the region of the umbilicus, upon physical examination there is no signs of soft tissue infection/cellulitis, and this has been seen previously. At this time, suspect pain to be consistent with prior diagnosed pancreatic pseudocyst, previously measured on MRI imaging at 5.3 x 2.3 x 2.8 cm. Pain has significantly improved after medicated with morphine. She is tolerating oral intake. Additionally she states that she has had a large bowel movement since CT imaging was obtained, therefore no concern for fecal impaction at this time. I consulted with Gastroenterology on-call Dr. Casillas; at this time she agrees with plan of care for discharge home, pain management, outpatient follow-up with Gastroenterology, no indication/current concern for infection to pseudocyst. Discussed with patient worrisome signs and symptoms that would warrant re-evaluation in the emergency department. Discussed Tylenol/ibuprofen, and prescription for oxycodone sent to patient's pharmacy. She verbalizes understanding. Stable for discharge. Time: 12:45 Medical Decision Making Medical Decision Making MDM Narrative: Reviewed recent inpatient admission 08/04/2022 with discharge 08/07/2022, diagnosed with pancreatic pseudocyst as seen on MRI, with advised went for outpatient follow-up with Gastroenterology and possible endoscopy for persistent pain, additionally gallbladder polyps with recommendations for follow-up with general surgery in 6 months. As per patient's report, she has not yet had follow-up with Gastroenterology this is scheduled for 08/25/2022. Presenting with sudden onset severe pain this morning, associated nausea and diarrhea. Abdominal examination reveals left upper abdominal tenderness upon palpation, no rigidity, no guarding. Will obtain CBC to evaluate for leukocytosis/ anemia, CMP and lipase to evaluate for abnormal electrolytes /abnormal renal function/ abnormal hepatic/biliary function, CT abdomen and pelvis, and Urinalysis. Patient received 1 L normal saline IV fluid, Zofran 4 mg IV for nausea, morphine 4 mg IV for pain. Differential Diagnosis Differential Diagnoses: The differential diagnosis associated with the presentation includes Consult Healthcare Provider Management of the patient was discussed with: [employer] (As noted in course) Lab Data [facility] Lab Attestation statement: I reviewed the patient's lab results. 08/16/22 10:04 08/16/22 10:04 Labs: Lab Results 08/16/22 08/16/22 08/16/22 Range/Units 10:04 10:04 10:04 WBC 9.6 (4.8-10.8) X10*3/uL RBC 4.17 L (4.20-5.50) X10*6/uL Hgb 13.2 (12.0-16.0) g/dl Hct 38.8 (37.0-47.0) % MCV 93.0 (80.0-98.0) fL MCH 31.7 (27.0-33.0) pg MCHC 34.0 (31.0-35.0) g/dl RDW 14.3 (11.0-16.0) % Plt Count 258 D (160-400) X10*3/uL MPV 9.8 (9.4-12.3) fL Immature Gran % (Auto) 0.4 (0.0-0.4) % Neut % (Auto) 71.7 (45-73) % Lymph % (Auto) 19.1 L (20-40) % Lasalle % (Auto) 5.8 (2-11) % Eos % (Auto) 2.2 (0-4) % Baso % (Auto) 0.8 (0-2) % Lymph # (Auto) 1.8 (1.2-4.9) X10*3/uL Lasalle # (Auto) 0.6 (0.1-1.2) X10*3/uL Eos # (Auto) 0.2 (0.0-0.4) X10*3/uL Baso # (Auto) 0.1 (0.0-0.2) X10*3/uL Abs Immat Gran (auto) 0.04 H (0.00-0.03) X10*3/uL Absolute Neuts (auto) 6.9 (2.0-8.3) x10*3/uL Absolute Nucleated RBC 0.000 (0.0-0.012) X10*3/uL Nucleated RBC % (auto) 0.0 (0.0-0.2) /100WBC Sodium 141 (135-145) mmol/L Potassium 3.8 (3.3-5.1) mmol/L Chloride 113 H (96-108) mmol/L Carbon Dioxide 18 L (22-29) mmol/L Anion Gap 14 (12-20) BUN 15 (9-16) mg/dL Creatinine 0.73 (0.5-1.4) mg/dL Estim Creat Clear Calc 101.7 Estimated GFR > 60 Random Glucose 99 (60-115) mg/dL Calcium 8.8 (8.4-10.2) mg/dL Magnesium 1.9 (1.6-2.6) mg/dL Total Bilirubin 0.5 (0.0-1.0) mg/dL AST 15 (5-31) U/L ALT 11 (0-31) U/L Alkaline Phosphatase 46 (39-117) U/L Total Protein 6.5 (6.5-8.0) g/dL Albumin 4.2 (3.5-5.0) g/dL Lipase 25 (8-78) U/L Urine Color Urine Appearance Urine pH (5.0-9.0) Ur Specific Given (1.005-1.025) Urine Protein (Neg-Trace) mg/dL Urine Glucose (UA) (Negative) mg/dL Urine Ketones (Negative) mg/dL Urine Blood (Negative) Urine Nitrite (Negative) Ur Leukocyte Esterase (Negative) Urine Test (NEGATIVE) COVID-19 (RPETTY) (Negative) COVID-19 Clin Com Influenza Type A ([place]) Negative (Negative) Influenza Type B ([place]) Negative (Negative) Influenza A & B Note See Note 08/16/22 08/16/22 08/16/22 Range/Units 10:04 11:19 11:19 WBC (4.8-10.8) X10*3/uL RBC (4.20-5.50) X10*6/uL Hgb (12.0-16.0) g/dl Hct (37.0-47.0) % MCV (80.0-98.0) fL MCH (27.0-33.0) pg MCHC (31.0-35.0) g/dl RDW (11.0-16.0) % Plt Count (160-400) X10*3/uL MPV (9.4-12.3) fL Immature Gran % (Auto) (0.0-0.4) % Neut % (Auto) (45-73) % Lymph % (Auto) (20-40) % Lasalle % (Auto) (2-11) % Eos % (Auto) (0-4) % Baso % (Auto) (0-2) % Lymph # (Auto) (1.2-4.9) X10*3/uL Lasalle # (Auto) (0.1-1.2) X10*3/uL Eos # (Auto) (0.0-0.4) X10*3/uL Baso # (Auto) (0.0-0.2) X10*3/uL Abs Immat Gran (auto) (0.00-0.03) X10*3/uL Absolute Neuts (auto) (2.0-8.3) x10*3/uL Absolute Nucleated RBC (0.0-0.012) X10*3/uL Nucleated RBC % (auto) (0.0-0.2) /100WBC Sodium (135-145) mmol/L Potassium (3.3-5.1) mmol/L Chloride (96-108) mmol/L Carbon Dioxide (22-29) mmol/L Anion Gap (12-20) BUN (9-16) mg/dL Creatinine (0.5-1.4) mg/dL Estim Creat Clear Calc Estimated GFR Random Glucose (60-115) mg/dL Calcium (8.4-10.2) mg/dL Magnesium (1.6-2.6) mg/dL Total Bilirubin (0.0-1.0) mg/dL AST (5-31) U/L ALT (0-31) U/L Alkaline Phosphatase (39-117) U/L Total Protein (6.5-8.0) g/dL Albumin (3.5-5.0) g/dL Lipase (8-78) U/L Urine Color Yellow Urine Appearance Clear Urine pH 5.5 (5.0-9.0) Ur Specific Given >= 1.030 H (1.005-1.025) Urine Protein Negative (Neg-Trace) mg/dL Urine Glucose (UA) Negative (Negative) mg/dL Urine Ketones Negative (Negative) mg/dL Urine Blood Negative (Negative) Urine Nitrite Negative (Negative) Ur Leukocyte Esterase Negative (Negative) Urine Test NEGATIVE (NEGATIVE) COVID-19 (PRETTY) Negative (Negative) COVID-19 Clin Com See Note Influenza Type A ([place]) (Negative) Influenza Type B ([place]) (Negative) Influenza A & B Note Independent Interpretation I performed an independent interpretation of an: CT Scan Radiology Impression Discussion of test interpretation with radiology: I have reviewed the radiologist's reading. Radiologist Impression: CT/CT abdomen pelvis w IV con IMPRESSION: ? A 6 cm simple attenuation fluid collection adjacent to the pancreatic tail which somewhat insinuates around the surrounding vessels and organs. 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 Other differential considerations could include an enteric duplication cyst, mesenteric cyst, or if any clinical history pancreatitis or peripancreatic pseudocyst. ? Large desiccated stool ball in the rectum measuring 8.5 cm in diameter. No rectal wall thickening or infiltration of the mesorectal fat to suggest stercoral colitis. ? Skin thickening overlying the region of the umbilicus which would be amenable to direct inspection to exclude any soft tissue infection, though appearance is similar to prior. ? Lumbosacral anatomy with broad-based bilateral L5 transverse processes pseudoarticulating with the sacrum which can be a source of pain. External Record Review External record reviewed: Inpatient record (As noted above) Prescription Management I considered prescription management with: Pain Medication (As noted in course) Medications Administered Discontinued Medications Generic Name Dose Route Start Last Admin Trade Name Jessica PRN Reason Stop Dose Admin Sodium Chloride 1,000 mls @ 999 mls/hr 08/16/22 09:45 08/16/22 12:41 Ns IV 08/16/22 10:45 Infused .Q1H1M IVONNE Infusion Iohexol 100 ml 08/16/22 10:47 08/16/22 10:48 Iohexol 350 Mg/Ml 100 Ml Infus..Btl IV 08/16/22 10:48 85 ml ONCE ONE Administration Morphine Sulfate 4 mg 08/16/22 09:45 08/16/22 10:32 Morphine Sulfate 4 Mg/Ml Cartridge IVPUSH 08/16/22 09:46 4 mg ONCE ONE Administration Protocol Nicotine 21 mg 08/16/22 11:33 08/16/22 12:27 Nicotine 21 Mg Patch.Td24 TRANSDERMA 08/16/22 11:34 21 mg ONCE ONE Administration Ondansetron HCl 4 mg 08/16/22 09:45 08/16/22 10:32 Ondansetron Hcl 4 Mg/2 Ml Vial IVPUSH 08/16/22 09:46 4 mg ONCE ONE Administration Discharge Plan Discharge Clinical Impression: Pancreatic cyst Patient Disposition: Home, Self-Care Additional Instructions: As we discussed, your blood work and CT imaging today are very reassuring. There are no changes. Please follow-up with GI doctor as scheduled. You can take ibuprofen 200 mg, 3 tablets (600mg) every 6-8 hours as needed for pain, in addition to Tylenol 500 mg, 2 tablets (1,000mg) every 4-6 hours as needed for pain, but not to exceed 3 doses daily (3,000mg).? You have also been given a prescription for oxycodone to use as needed for severe pain unrelieved by ibuprofen or Tylenol. Oxycodone is a narcotic medication, it can be addictive. You should not drive, drink alcohol, or work while taking this medication. Additionally, given you are prescribed clonazepam, you should not use this medication in addition to the oxycodone, as a combination of the 2 can be very sedating and can interact with 1 another. Please return back to emergency department with any new or worsening symptoms or concerns. Prescriptions: New oxycodone 5 mg tablet 5 mg PO Q8H PRN (Reason: pain) Qty: 10 0RF Rx Instructions: Partial Fill upon patient request. I am aware that patient is also prescribed clonazepam No Action polyethylene glycol 3350 [Miralax] 17 gram powder in packet 17 g PO DAILY PRN (Reason: constipation) Qty: 30 0RF trazodone 150 mg tablet 150 mg PO BEDTIME clonazepam 0.5 mg tablet 0.5 mg PO DAILY PRN (Reason: Anxiety) topiramate 100 mg tablet 200 mg PO DAILY fluticasone propion-salmeterol [Advair Diskus] 250-50 mcg/dose blister with device 1 ea inhalation BID fluticasone propionate [Flovent HFA] 110 mcg/actuation HFA aerosol inhaler 2 puff inhalation BID Referrals: Lissy Burrows MD [Primary Care Provider] - Francisco Velez MD [Physician] -
[2022-08-16 09:41] VITALS: BP 99/80; PULSE 83; RESP 20; TEMP 36.8; O2SAT 98; BMI 26.7
[2022-08-16 09:42] VITALS: BP 138/78; PULSE 79; O2SAT 99
[2022-08-16 10:08] LABS: MANUAL DIFF FLAG NO
[2022-08-16 10:12] LABS: Basophils Absolute Auto 0.1 X10*3/uL (0.0-0.2); Basophils Percent Auto 0.8 % (0-2); Eosinophils Absolute Auto 0.2 X10*3/uL (0.0-0.4); Eosinophils Percent Auto 2.2 % (0-4); Hematocrit 38.8 % (37.0-47.0); Hemoglobin 13.2 g/dl (12.0-16.0); Imm Gran Abs Auto 0.04 X10*3/uL (0.00-0.03); Imm Gran Pct Auto 0.4 % (0.0-0.4); Lymphocytes Absolute Auto 1.8 X10*3/uL (1.2-4.9); Lymphocytes Percent Auto 19.1 % (20-40); Mean Corpuscular Hemoglobin 31.7 pg (27.0-33.0); Mean Platelet Volume 9.8 fL (9.4-12.3); Monocytes Absolute Auto 0.6 X10*3/uL (0.1-1.2); Monocytes Percent Auto 5.8 % (2-11); Neutrophils Absolute Auto 6.9 x10*3/uL (2.0-8.3); Neutrophils Percent Auto 71.7 % (45-73); Platelet Count 258 X10*3/uL (160-400); Red Blood Count 4.17 X10*6/uL (4.20-5.50); Red Cell Distribution Width 14.3 % (11.0-16.0); White Blood Count 9.6 X10*3/uL (4.8-10.8)
[2022-08-16 10:23] LABS: COVID-19 Test Negative (Negative); IDNOW Serial# 16C4AD1C
[2022-08-16 10:29] LABS: Alanine Aminotransferase 11 U/L (0-31); Albumin Level 4.2 g/dL (3.5-5.0); Alkaline Phosphatase 46 U/L (39-117); Anion Gap 14 (12-20); Aspartate Amino Transferase 15 U/L (5-31); Bilirubin Total 0.5 mg/dL (0.0-1.0); Blood Urea Nitrogen 15 mg/dL (9-16); Calcium 8.8 mg/dL (8.4-10.2); Carbon Dioxide 18 mmol/L (22-29); Chloride 113 mmol/L (96-108); Creatinine Clr Calc Pharmacy 101.7; Estimated Glomerular Filt Rate > 60; Glucose Random 99 mg/dL (60-115); Lipase 25 U/L (8-78); Magnesium 1.9 mg/dL (1.6-2.6); Potassium 3.8 mmol/L (3.3-5.1); Sodium 141 mmol/L (135-145); Total Protein 6.5 g/dL (6.5-8.0)
[2022-08-16 10:30] LABS: IDNOW Serial# BCCEAD1C; Influenza A Negative (Negative); Influenza B2 Negative (Negative)
[2022-08-16] MEDS: 0.9 % Sodium Chloride 1,000 ML 999 ML IV (10:32)
[2022-08-16] MEDS: Morphine Sulfate 4 MG/ML CARTRIDGE IVPUSH (10:32)
[2022-08-16] MEDS: ondansetron HCL 4 MG/2 ML VIAL IVPUSH (10:32)
[2022-08-16] MEDS: iohexoL 350 MG/ML 100 ML INFUS..BTL IV (10:48)
[2022-08-16 11:30] LABS: Appearance Urine Clear; Color Urine Yellow; Glucose Urine UA Negative (Negative); Leukocyte Esterase Urine Negative (Negative); Nitrite Urine Negative (Negative); PH 5.5 (5.0-9.0); Specific Gravity - Urine >= 1.030 (1.005-1.025); Urine Blood Negative (Negative); Urine Ketones Negative (Negative); Urine Protein Negative (Neg-Trace)
[2022-08-16 11:34] LABS: UPreg QC Valid YES; Urine Pregnancy NEGATIVE (NEGATIVE)
[2022-08-16] MEDS: Nicotine 21 MG PATCH.TD24 TRANSDERMA (12:27)
== END 2022-08-16 13:06 | disposition home or self-care (01) ==
PROVIDERS: Nurse Practitioner Family; Emergency Provider Emergency Medicine; PCP Internal Medicine
DX: K86.2 Cyst of pancreas (principal); R10.12 Left upper quadrant pain; Z20.822 Contact with and (suspected) exposure to COVID-19; F17.210 Nicotine dependence, cigarettes, uncomplicated; F12.90 Cannabis use, unspecified, uncomplicated; Z79.899 Other long term (current) drug therapy
CPT/HCPCS: 74177; 80053; 81003; 81025; 83690; 83735; 85025; 87502; 87635; 96361; 96374; 96375; 99284; J2270; J2405; Q9967

== ENCOUNTER 2022-08-20 18:41 | Emergency (ER) | payer OTHER, SELFPAY ==
--- NOTE | ~2022-08-20 | XR_ITS ---
EXAMINATION: XR ABDOMEN KUB CLINICAL INDICATION: Flank pain. COMPARISON: 08/16/2022 (CT) TECHNIQUE: AP view of the abdomen. FINDINGS: There is Castellvi type IIB transitional anatomy at the lumbosacral junction. This transitional level is likely S1 is there are 5 nonrib-bearing vertebral bodies cephalad to it. Minimal left convex lumbar curvature. Nondilated bowel gas pattern. No radiodense renal or ureteral calculi are identified. Phleboliths are present in the pelvis. XR/XR KUB IMPRESSION: 1. No radiodense renal or ureteral calculi. 2. Transitional anatomy at the lumbosacral junction.
[2022-08-20 18:55] VITALS: BP 165/127; PULSE 82; RESP 16; TEMP 36.3; O2SAT 98; BMI 22.8
--- NOTE | 2022-08-20 19:27 | ED.ABDPAIN ---
HPI - Abdominal Pain General Chief Complaint: Abdominal Pain <ADI Erwin - Last Filed: 08/22/22 18:10> Stated Complaint: cyst pancreas <ADI Erwin - Last Filed: 08/22/22 18:10> Time Seen by Provider: 08/20/22 23:43 <ADI Erwin - Last Filed: 08/22/22 18:10> Source: patient <Francisca Gottlieb MD - Last Filed: 08/26/22 16:33> Mode of arrival: ambulatory <Francisca Gottlieb MD - Last Filed: 08/26/22 16:33> History of Present Illness HPI narrative: This is a 36-year-old female who was recently diagnosed with a pancreatic pseudocyst in comes in with significant amount of pain as her follow-up appointment with gastroenterology is not for a couple of more days and when she was discharged from the hospital the pain medication that she received was not enough to last until she is to be seen by the specialist for possible cyst drainage. She denies any fever, chills but is experiencing nausea and vomiting. <Francisca Gottlieb MD - Last Filed: 08/26/22 16:33> Related Data Home Medications: Home Medications Medication Instructions Recorded Confirmed clonazepam 0.5 mg tablet 0.5 mg PO DAILY PRN Anxiety 04/22/21 08/04/22 fluticasone 250 mcg-salmeterol 50 1 ea inhalation BID 03/07/22 08/04/22 mcg/dose blistr powdr for inhalation (Advair Diskus) fluticasone propionate 110 2 puff inhalation BID 03/07/22 08/04/22 mcg/actuation HFA aerosol inhaler (Flovent HFA) albuterol sulfate 2.5 mg/3 mL mg inhalation BID PRN asthma 08/25/22 (0.083 %) solution for nebulization albuterol sulfate 90 mcg/actuation inhalation 08/25/22 aerosol inhaler (Ventolin HFA) topiramate 200 mg tablet 200 mg PO DAILY 08/25/22 trazodone 100 mg tablet 100 mg PO BEDTIME 08/25/22 Previous Rx's Medication Instructions Recorded polyethylene glycol 3350 17 gram 17 g PO DAILY PRN constipation #30 08/07/22 oral powder packet (Miralax) ea oxycodone 5 mg tablet 5 mg PO Q8H PRN pain #10 tabs 08/16/22 hyoscyamine sulfate 0.125 mg 0.125 mg PO QID #30 tabs 08/25/22 disintegrating tablet pantoprazole 40 mg tablet,delayed 40 mg PO DAILY #30 tabs 08/25/22 release <ADI Erwin - Last Filed: 08/22/22 18:10> Allergies/Adverse Reactions: Allergies Allergy/AdvReac Type Severity Reaction Status Date / Time stringer [CHERRIES] Allergy Severe ANAPHYLAXIS Verified 08/25/22 14:37 gabapentin [From NEURONTIN] Allergy Unknown MUSCLE Verified 08/25/22 14:37 SPASMS lamotrigine [From LAMICTAL] Allergy Unknown MUSCLE Verified 08/25/22 14:37 SPASMS oxcarbazepine Allergy Unknown MUSCLE Verified 08/25/22 14:37 [From TRILEPTAL] SPASMS Sulfa (Sulfonamide Allergy Unknown UNKNOWN Verified 08/25/22 14:37 Antibiotics) [SULFA (SULFONAMIDE ANTIBIOTICS)] SEAFOOD Allergy Severe ANAPHYLAXIS Uncoded 08/04/22 23:50 sulfa Allergy Unknown throat Uncoded 08/04/22 23:50 close <ADI Erwin - Last Filed: 08/22/22 18:10> Review of Systems Review of Systems Pertinent positives and negatives as stated in HPI <Francisca Gottlieb MD - Last Filed: 08/26/22 16:33> PMFSH Past Medical History Source: nursing notes reviewed <Francisca Gottlieb MD - Last Filed: 08/26/22 16:33> Medical History: Medical History Asthma Bipolar 1 disorder Circulation problem Psychosis <ADI Erwin - Last Filed: 08/22/22 18:10> Surgical History: Surgical History Tubal ligation status <ADI Erwin - Last Filed: 08/22/22 18:10> Social History Social History: Social History Household Members: Spouse Housing: Apartment Do you presently have visiting nurse or other home services: No Alcohol intake: never Patient Tobacco Use Status: Current everyday Tobacco user Tobacco use type: Cigarette e-Cigarette/Vaping Use: Never Used Second Hand Smoke Exposure: Yes Substance Use Type: Marijuana Advance Directives Date on File: 08/08/22 service: No Current occupational status: 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 GENERAL: Well developed, well nourished, in no acute distress. HEAD: Normocephalic/atraumatic EYES: PERRLA, EOMI LUNGS: Normal breath sounds. No adventitious sounds or accessory muscle use. SpO2<98> CARDIOVASCULAR: Regular rate and rhythm without noted murmurs ABDOMEN: Soft, tenderness in the epigastrium non-distended with bowel sounds. MUSCULOSKELETAL: No tenderness, deformities, or effusions noted on gross inspection. EXTREMITIES: No cyanosis, clubbing or edema. SKIN: Inspection of the skin reveals no rashes NEUROLOGIC: Alert and oriented x 4. Strength and sensation to light touch were grossly intact x 4. <Francisca Gottlieb MD - Last Filed: 08/26/22 16:33> Course Course Course Narrative: RME - 36 y/o F, with hx of recently diagnosed pancreatic pseudocyst, recent admission here from 08/04-08/07, presenting today with 10/10 upper abdominal pain which started yesterday. +Nausea/vomiting. Patient is tearful in triage, BP 165/127, all other VS are stable. Labs ordered. Patient stable to return to the waiting room until treatment room becomes available. <ADI Erwin - Last Filed: 08/22/22 18:10> Medical Decision Making Medical Decision Making MDM Narrative: This is a down time chart completion 36-year-old female with recent diagnosis of pancreatic tail pseudocyst I did review her prior documentation, I provided patient with Zofran as well as 5 mg of oxycodone. I reviewed all investigations and my interpretation is that patient is likely having residual pain from the pancreatic findings but is otherwise hemodynamically stable. On re-evaluation patient is feeling much better will be discharged home with Zofran for nausea as well as enough oxycodone to get her to her scheduled appointment with GI. Patient understands the plan, knows the results and is amenable to the discharge. Patient was discharged at 02:33 with paper scripts for Zofran and oxycodone (dispense of 9). <Francisca Gottlieb MD - Last Filed: 08/26/22 16:33> Differential Diagnosis Please see the discussion above <Francisca Gottlieb MD - Last Filed: 08/26/22 16:33> Lab Data Please see the discussion above <Francisca Gottlieb MD - Last Filed: 08/26/22 16:33> Result Diagrams: 08/20/22 19:27 08/20/22 19:27 <ADI Erwin - Last Filed: 08/22/22 18:10> Labs: Lab Results 08/20/22 08/20/22 Range/Units 19:27 19:27 WBC 10.5 (4.8-10.8) X10*3/uL RBC 4.04 L (4.20-5.50) X10*6/uL Hgb 12.9 (12.0-16.0) g/dl Hct 37.7 (37.0-47.0) % MCV 93.3 (80.0-98.0) fL MCH 31.9 (27.0-33.0) pg MCHC 34.2 (31.0-35.0) g/dl RDW 14.0 (11.0-16.0) % Plt Count 256 (160-400) X10*3/uL MPV 10.0 (9.4-12.3) fL Immature Gran % (Auto) 0.3 (0.0-0.4) % Neut % (Auto) 64.1 (45-73) % Lymph % (Auto) 27.2 (20-40) % [place] % (Auto) 6.3 (2-11) % Eos % (Auto) 1.3 (0-4) % Baso % (Auto) 0.8 (0-2) % Lymph # (Auto) 2.9 (1.2-4.9) X10*3/uL [place] # (Auto) 0.7 (0.1-1.2) X10*3/uL Eos # (Auto) 0.1 (0.0-0.4) X10*3/uL Baso # (Auto) 0.1 (0.0-0.2) X10*3/uL Abs Immat Gran (auto) 0.03 (0.00-0.03) X10*3/uL Absolute Neuts (auto) 6.7 (2.0-8.3) x10*3/uL Absolute Nucleated RBC 0.000 (0.0-0.012) X10*3/uL Nucleated RBC % (auto) 0.0 (0.0-0.2) /100WBC Sodium 142 (135-145) mmol/L Potassium 3.7 (3.3-5.1) mmol/L Chloride 108 (96-108) mmol/L Carbon Dioxide 27 (22-29) mmol/L Anion Gap 11 L (12-20) BUN 10 (9-16) mg/dL Creatinine 0.68 (0.5-1.4) mg/dL Estim Creat Clear Calc 114.2 Estimated GFR > 60 Random Glucose 92 (60-115) mg/dL Calcium 9.2 (8.4-10.2) mg/dL Magnesium 1.6 (1.6-2.6) mg/dL Total Bilirubin 0.6 (0.0-1.0) mg/dL Direct Bilirubin 0.2 (0.0-0.5) mg/dL AST 17 (5-31) U/L ALT 13 (0-31) U/L Alkaline Phosphatase 45 (39-117) U/L Total Protein 6.7 (6.5-8.0) g/dL Albumin 4.4 (3.5-5.0) g/dL Lipase 19 (8-78) U/L Beta HCG, Quant < 2 mIU/mL <ADI Erwin - Last Filed: 08/22/22 18:10> Lab Results 08/20/22 08/20/22 Range/Units 19:27 19:27 WBC 10.5 (4.8-10.8) X10*3/uL RBC 4.04 L (4.20-5.50) X10*6/uL Hgb 12.9 (12.0-16.0) g/dl Hct 37.7 (37.0-47.0) % MCV 93.3 (80.0-98.0) fL MCH 31.9 (27.0-33.0) pg MCHC 34.2 (31.0-35.0) g/dl RDW 14.0 (11.0-16.0) % Plt Count 256 (160-400) X10*3/uL MPV 10.0 (9.4-12.3) fL Immature Gran % (Auto) 0.3 (0.0-0.4) % Neut % (Auto) 64.1 (45-73) % Lymph % (Auto) 27.2 (20-40) % [place] % (Auto) 6.3 (2-11) % Eos % (Auto) 1.3 (0-4) % Baso % (Auto) 0.8 (0-2) % Lymph # (Auto) 2.9 (1.2-4.9) X10*3/uL [place] # (Auto) 0.7 (0.1-1.2) X10*3/uL Eos # (Auto) 0.1 (0.0-0.4) X10*3/uL Baso # (Auto) 0.1 (0.0-0.2) X10*3/uL Abs Immat Gran (auto) 0.03 (0.00-0.03) X10*3/uL Absolute Neuts (auto) 6.7 (2.0-8.3) x10*3/uL Absolute Nucleated RBC 0.000 (0.0-0.012) X10*3/uL Nucleated RBC % (auto) 0.0 (0.0-0.2) /100WBC Sodium 142 (135-145) mmol/L Potassium 3.7 (3.3-5.1) mmol/L Chloride 108 (96-108) mmol/L Carbon Dioxide 27 (22-29) mmol/L Anion Gap 11 L (12-20) BUN 10 (9-16) mg/dL Creatinine 0.68 (0.5-1.4) mg/dL Estim Creat Clear Calc 114.2 Estimated GFR > 60 Random Glucose 92 (60-115) mg/dL Calcium 9.2 (8.4-10.2) mg/dL Magnesium 1.6 (1.6-2.6) mg/dL Total Bilirubin 0.6 (0.0-1.0) mg/dL Direct Bilirubin 0.2 (0.0-0.5) mg/dL AST 17 (5-31) U/L ALT 13 (0-31) U/L Alkaline Phosphatase 45 (39-117) U/L Total Protein 6.7 (6.5-8.0) g/dL Albumin 4.4 (3.5-5.0) g/dL Lipase 19 (8-78) U/L Beta HCG, Quant < 2 mIU/mL <Francisca Gottlieb MD - Last Filed: 08/26/22 16:33> Radiology Impression Radiologist Impression: My interpretation is in agreement with radiology's impression of the imaging study. <Francisca Gottlieb MD - Last Filed: 08/26/22 16:33> External Record Review External record reviewed: Outpatient record and Prior outpatient labs <Francisca Gottlieb MD - Last Filed: 08/26/22 16:33> Critical Care Time Critical Care Time Critical Care Time: Yes <Francisca Gottlieb MD - Last Filed: 08/26/22 16:33> Total Critical Care Time: 30 <Francisca Gottlieb MD - Last Filed: 08/26/22 16:33> Attestation: I personally attest to this time spent taking care of the patient. <Francisca Gottlieb MD - Last Filed: 08/26/22 16:33> Discharge Plan Discharge Clinical Impression: Abdominal pain, Cyst of pancreas <ADI Erwin - Last Filed: 08/22/22 18:10> Patient Disposition: Home, Self-Care <ADI Erwin - Last Filed: 08/22/22 18:10> Prescriptions: No Action oxycodone 5 mg tablet 5 mg PO Q8H PRN (Reason: pain) Qty: 10 0RF Rx Instructions: Partial Fill upon patient request. I am aware that patient is also prescribed clonazepam polyethylene glycol 3350 [Miralax] 17 gram powder in packet 17 g PO DAILY PRN (Reason: constipation) Qty: 30 0RF clonazepam 0.5 mg tablet 0.5 mg PO DAILY PRN (Reason: Anxiety) albuterol sulfate [Ventolin HFA] 90 mcg/actuation HFA aerosol inhaler inhalation albuterol sulfate 2.5 mg /3 mL (0.083 %) solution for nebulization inhalation BID PRN (Reason: asthma) topiramate 200 mg tablet 200 mg PO DAILY trazodone 100 mg tablet 100 mg PO BEDTIME hyoscyamine sulfate 0.125 mg tablet,disintegrating 0.125 mg PO QID Qty: 30 0RF pantoprazole 40 mg tablet,delayed release (DR/EC) 40 mg PO DAILY Qty: 30 1RF fluticasone propion-salmeterol [Advair Diskus] 250-50 mcg/dose blister with device 1 ea inhalation BID fluticasone propionate [Flovent HFA] 110 mcg/actuation HFA aerosol inhaler 2 puff inhalation BID <ADI Erwin - Last Filed: 08/22/22 18:10> Referrals: Clarisa Casillas MD [Physician] - <ADI Erwin - Last Filed: 08/22/22 18:10> Discharge Date/Time: 08/21/22 03:00 <ADI Erwin - Last Filed: 08/22/22 18:10>
[2022-08-20 19:32] LABS: MANUAL DIFF FLAG NO
[2022-08-20 19:34] LABS: Basophils Absolute Auto 0.1 X10*3/uL (0.0-0.2); Basophils Percent Auto 0.8 % (0-2); Eosinophils Absolute Auto 0.1 X10*3/uL (0.0-0.4); Eosinophils Percent Auto 1.3 % (0-4); Hematocrit 37.7 % (37.0-47.0); Hemoglobin 12.9 g/dl (12.0-16.0); Imm Gran Abs Auto 0.03 X10*3/uL (0.00-0.03); Imm Gran Pct Auto 0.3 % (0.0-0.4); Lymphocytes Absolute Auto 2.9 X10*3/uL (1.2-4.9); Lymphocytes Percent Auto 27.2 % (20-40); Mean Corpuscular HGB Conc 34.2 g/dl (31.0-35.0); Mean Corpuscular Hemoglobin 31.9 pg (27.0-33.0); Mean Corpuscular Volume 93.3 fL (80.0-98.0); Monocytes Absolute Auto 0.7 X10*3/uL (0.1-1.2); Monocytes Percent Auto 6.3 % (2-11); Neutrophils Absolute Auto 6.7 x10*3/uL (2.0-8.3); Neutrophils Percent Auto 64.1 % (45-73); Platelet Count 256 X10*3/uL (160-400); Red Blood Count 4.04 X10*6/uL (4.20-5.50); White Blood Count 10.5 X10*3/uL (4.8-10.8)
[2022-08-20 20:09] LABS: Alanine Aminotransferase 13 U/L (0-31); Albumin Level 4.4 g/dL (3.5-5.0); Alkaline Phosphatase 45 U/L (39-117); Anion Gap 11 (12-20); Aspartate Amino Transferase 17 U/L (5-31); Bilirubin Direct 0.2 mg/dL (0.0-0.5); Bilirubin Total 0.6 mg/dL (0.0-1.0); Blood Urea Nitrogen 10 mg/dL (9-16); Calcium 9.2 mg/dL (8.4-10.2); Carbon Dioxide 27 mmol/L (22-29); Chloride 108 mmol/L (96-108); Creatinine Clr Calc Pharmacy 114.2; Estimated Glomerular Filt Rate > 60; Glucose Random 92 mg/dL (60-115); HCG Quantitative < 2 mIU/mL; Lipase 19 U/L (8-78); Magnesium 1.6 mg/dL (1.6-2.6); Potassium 3.7 mmol/L (3.3-5.1); Sodium 142 mmol/L (135-145); Total Protein 6.7 g/dL (6.5-8.0)
[2022-08-21 00:54] VITALS: BP 119/71; PULSE 89; RESP 18; TEMP 36.8; O2SAT 99
== END 2022-08-21 03:00 | disposition home or self-care (01) ==
PROVIDERS: Physician Assistant; Emergency Provider Student in an Organized Health Care Education/Training Program; PCP Internal Medicine
DX: R10.9 Unspecified abdominal pain (principal); K86.2 Cyst of pancreas; F17.210 Nicotine dependence, cigarettes, uncomplicated; Z79.899 Other long term (current) drug therapy; Z71.6 Tobacco abuse counseling
CPT/HCPCS: 36415; 74018; 80048; 80076; 83690; 83735; 84702; 85025; 99283

== ENCOUNTER 2022-08-25 14:26 | Outpatient (REF) | payer OTHER, SELFPAY ==
[2022-08-26 15:33] LABS: H Pylori Breath Test Negative (Negative)
== END 2022-08-25 14:27 | disposition home or self-care (01) ==
LOC: CF 14:26
PROVIDERS: PCP Internal Medicine; Visit Provider Internal Medicine Gastroenterology
DX: R10.9 Unspecified abdominal pain (principal); K86.2 Cyst of pancreas
CPT/HCPCS: 36415; 83013; 99212

== ENCOUNTER 2022-11-29 16:02 | Emergency (ER) | payer OTHER, SELFPAY ==
[2022-11-29 16:05] VITALS: BP 119/70; PULSE 88; RESP 16; TEMP 36.7; O2SAT 97; BMI 23.0
--- NOTE | 2022-11-29 16:14 | ED_ITS ---
HPI - General Adult General Chief complaint: Extremity Injury, Lower Stated complaint: R knee pain Time Seen by Provider: 11/29/22 17:09 Source: patient and old records reviewed Mode of arrival: ambulatory Limitations: no limitations History of Present Illness HPI narrative: 37 year old female with a history of chronic right knee pain with history of osteoarthritis who presents to the ER for evaluation of worsening acute on chronic right knee pain. No new trauma or injury. She states she had surgery on that knee in 2006 at [facility]. She is unaware of what exactly the surgery was but thinks it had something to do with her patella. She has had numbness over the patella since. She also reports chronic pain in the knee. She denies any swelling, skin changes, warmth Or redness. She has been taking ibuprofen and Tylenol with minimal relief. She has been seeing her PCP who told her it was osteoarthritis and she is not in agreement with that. She does have in orthopedist at this time. MD complaint: Chronic right knee pain Onset (ago): month(s) (6) Location: right and lower extremity Radiation: non-radiation Severity: moderate Severity scale (1-10): 7 Quality: aching Pain Consistency: constant Relieving factors: immobilization Exacerbating factors: movement Associated symptoms: denies other symptoms Treatments prior to arrival: none Related Data Home Medications Medication Instructions Recorded Confirmed clonazepam 0.5 mg tablet 0.5 mg PO DAILY PRN Anxiety 04/22/21 08/04/22 fluticasone 250 mcg-salmeterol 50 1 ea inhalation BID 03/07/22 08/04/22 mcg/dose blistr powdr for inhalation (Advair Diskus) fluticasone propionate 110 2 puff inhalation BID 03/07/22 08/04/22 mcg/actuation HFA aerosol inhaler (Flovent HFA) albuterol sulfate 2.5 mg/3 mL mg inhalation BID PRN asthma 08/25/22 (0.083 %) solution for nebulization albuterol sulfate 90 mcg/actuation inhalation 08/25/22 aerosol inhaler (Ventolin HFA) topiramate 200 mg tablet 200 mg PO DAILY 08/25/22 trazodone 100 mg tablet 100 mg PO BEDTIME 08/25/22 Previous Rx's Medication Instructions Recorded polyethylene glycol 3350 17 gram 17 g PO DAILY PRN constipation #30 08/07/22 oral powder packet (Miralax) ea oxycodone 5 mg tablet 5 mg PO Q8H PRN pain #10 tabs 08/16/22 hyoscyamine sulfate 0.125 mg 0.125 mg PO QID #30 tabs 08/25/22 disintegrating tablet pantoprazole 40 mg tablet,delayed 40 mg PO DAILY #30 tabs 08/25/22 release naproxen 500 mg tablet 500 mg PO BID PRN pain #20 tabs 11/29/22 Allergies Allergy/AdvReac Type Severity Reaction Status Date / Time stringer [CHERRIES] Allergy Severe ANAPHYLAXIS Verified 11/29/22 16:05 gabapentin [From NEURONTIN] Allergy Unknown MUSCLE Verified 11/29/22 16:05 SPASMS lamotrigine [From LAMICTAL] Allergy Unknown MUSCLE Verified 11/29/22 16:05 SPASMS oxcarbazepine Allergy Unknown MUSCLE Verified 11/29/22 16:05 [From TRILEPTAL] SPASMS Sulfa (Sulfonamide Allergy Unknown UNKNOWN Verified 11/29/22 16:05 Antibiotics) [SULFA (SULFONAMIDE ANTIBIOTICS)] SEAFOOD Allergy Severe ANAPHYLAXIS Uncoded 08/04/22 23:50 sulfa Allergy Unknown throat Uncoded 08/04/22 23:50 close Review of Systems Review of Systems: Yes all other systems are reviewed and are negative PMFSH Past Medical History Medical History Asthma Bipolar 1 disorder Circulation problem Psychosis Surgical History Tubal ligation status Social History Social History Household Members: Spouse Housing: Apartment Do you presently have visiting nurse or other home services: No Alcohol intake: never Patient Tobacco Use Status: Current everyday Tobacco user Tobacco use type: Cigarette e-Cigarette/Vaping Use: Never Used Second Hand Smoke Exposure: Yes Substance Use Type: Marijuana Advance Directives: Yes Advance Directives on File: Yes Advance Directives Date on File: 08/08/22 service: No Current occupational status: 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 Oriented X3. No acute distress. HEENT: normal inspection CVS: Normal heart rate and rhythm. Pulses normal. Respiratory: No respiratory distress. Skin: Skin warm and dry. Normal skin color. Normal skin turgor. No rashes. Extremities: normal inspection of the bilateral lower extremities, well-healed surgical scar of the right knee. No joint swelling of the right knee. Normal range of motion of the right knee with pain at flexion of 90 degrees. No joint laxity appreciated. No pain with varus or valgus stress. Tenderness of the patellar tendon with no defect. Able to extend and lift the leg up off the bed. Neuro: Oriented X 3. No motor deficit. No sensory deficit. Steady gait, no limp Course Course Course Narrative: RME performed by Monica Ortiz PA-C. Patient is a 37 year old assigned female at presenting to the emergency department with right knee pain. Patient was told by her PCP this is likely arthritis and some degree of pain is normal however, the patient does not agree. Patient placed back in the waiting room pending room availability. Medical Decision Making Medical Decision Making MDM Narrative: 37-year-old female presenting to the ER for evaluation of acute on chronic nontraumatic right knee pain with history of surgery on that knee in 2006. Patient's knee is benign in appearance on examination today. She had x-ray done in 2020 showing postoperative changes. No role for emergent x-ray today given lack of trauma and swelling on examination. It is recommended that she follow-up with orthopedics for further evaluation and treatment. Will recommend naproxen for pain As well as Extra Strength Arthritis Tylenol. Arpit wrap provided 1st comfort and compression. We discussed knee braces as well. She will follow-up with orthopedics. Differential Diagnosis Differential Diagnoses: The differential diagnosis associated with the presentation includes Osteoarthritis, degenerative changes, inflammatory arthritis, meniscus injury, doubt knee sprain or strain External Record Review External record reviewed: Office record, Outpatient record and Prior outpatient labs Tests considered The following testing was considered but not selected: x-ray consider not indicated today Chronic Conditions Patient?s care impacted by: Diabetes Critical Care Time Critical Care Time Critical Care Time: No Discharge Plan Discharge Clinical Impression: Chronic pain of right knee Patient Disposition: Home, Self-Care Instructions: Knee Pain (ED) Additional Instructions: Recommend following up with orthopedics for further evaluation of your knee pain. Call for an appointment. Name and number below. Recommend Tylenol 975 mg every 6 hours around the clock. Take the prescribed anti-inflammatory pain medication as needed for pain, take with food. If you develop new or worsening symptoms call 911 or come back to the ER for further evaluation. Prescriptions: New naproxen 500 mg tablet 500 mg PO BID PRN (Reason: pain) Qty: 20 0RF No Action oxycodone 5 mg tablet 5 mg PO Q8H PRN (Reason: pain) Qty: 10 0RF Rx Instructions: Partial Fill upon patient request. I am aware that patient is also prescribed clonazepam polyethylene glycol 3350 [Miralax] 17 gram powder in packet 17 g PO DAILY PRN (Reason: constipation) Qty: 30 0RF clonazepam 0.5 mg tablet 0.5 mg PO DAILY PRN (Reason: Anxiety) albuterol sulfate [Ventolin HFA] 90 mcg/actuation HFA aerosol inhaler inhalation albuterol sulfate 2.5 mg /3 mL (0.083 %) solution for nebulization inhalation BID PRN (Reason: asthma) topiramate 200 mg tablet 200 mg PO DAILY trazodone 100 mg tablet 100 mg PO BEDTIME hyoscyamine sulfate 0.125 mg tablet,disintegrating 0.125 mg PO QID Qty: 30 0RF pantoprazole 40 mg tablet,delayed release (DR/EC) 40 mg PO DAILY Qty: 30 1RF fluticasone propion-salmeterol [Advair Diskus] 250-50 mcg/dose blister with device 1 ea inhalation BID fluticasone propionate [Flovent HFA] 110 mcg/actuation HFA aerosol inhaler 2 puff inhalation BID Referrals: [facility] [place] [Provider Group] ( chronic right knee pain, status post surgery 2006 at [facility]) Lsisy Burrows MD [Primary Care Provider] - (Chronic right knee pain) Interventions: ED Discharge Assessment Last Done: 11/29/22 17:29 Discharge Date/Time: 11/29/22 17:29
== END 2022-11-29 17:29 | disposition home or self-care (01) ==
PROVIDERS: Emergency Provider Emergency Medicine; PCP Internal Medicine
DX: M25.561 Pain in right knee (principal); F17.210 Nicotine dependence, cigarettes, uncomplicated; Z71.6 Tobacco abuse counseling; Z79.899 Other long term (current) drug therapy
CPT/HCPCS: 99282; 99283

== ENCOUNTER 2022-12-11 07:27 | Outpatient (REF) | payer OTHER, SELFPAY ==
--- NOTE | ~2022-12-11 | XR_ITS ---
EXAMINATION: XR KNEE AP STANDING XR KNEE, RIGHT CLINICAL INFORMATION: Knee pain. COMPARISON: May 15, 2021 TECHNIQUE: AP bilateral standing view of the knees was obtained. Three views of the right knee. XR/XR knee standing BI FINDINGS/IMPRESSION: There has been no significant radiographic change compared with May 15, 2021. There is no acute radiographic finding. A metallic plate projects over the lateral aspect of the patella. Linear, transverse/slightly oblique tubular lucency with associated amorphous calcification projects over the medial aspect of the distal femoral metaphysis. There is no acute finding. No fracture or dislocation is seen. No suprapatellar effusion is seen. The joint spaces appear maintained.
--- NOTE | ~2022-12-11 | XR_ITS ---
EXAMINATION: XR KNEE AP STANDING XR KNEE, RIGHT CLINICAL INFORMATION: Knee pain. COMPARISON: May 15, 2021 TECHNIQUE: AP bilateral standing view of the knees was obtained. Three views of the right knee. XR/XR knee RT 2V FINDINGS/IMPRESSION: There has been no significant radiographic change compared with May 15, 2021. There is no acute radiographic finding. A metallic plate projects over the lateral aspect of the patella. Linear, transverse/slightly oblique tubular lucency with associated amorphous calcification projects over the medial aspect of the distal femoral metaphysis. There is no acute finding. No fracture or dislocation is seen. No suprapatellar effusion is seen. The joint spaces appear maintained.
== END 2022-12-11 07:28 | disposition home or self-care (01) ==
LOC: HO.HOSX 07:27
PROVIDERS: Visit Provider Orthopaedic Surgery
DX: M17.11 Unilateral primary osteoarthritis, right knee (principal)
CPT/HCPCS: 73560; 73565; 99202

== ENCOUNTER 2023-03-12 14:00 | Outpatient (RCR) | payer OTHER, SELFPAY ==
--- NOTE | 2023-01-16 16:10 | MHC.PT.EP ---
[facility] [place] Office [place] Office [place] Office [address] [phone] F: [phone] F: [phone] F: [phone] F: [phone] Physical Therapy Plan of Care Date of Evaluation: Date of Surgery: Diagnosis: RIGHT knee primary OA and RIGHT knee patellofemoral OA Assessment: Patient is a 37 y.o. female who is referred to PT by Marlene Juarez PA-C, with Dx of RIGHT knee primary OA and RIGHT knee patellofemoral OA. Patient impairments include pain, antalgic and impaired gait, limited ROM, weakness.Patient current functional limitations are ascending/descending stairs, walking, bending, prolonged standing. Patient will benefit from skilled PT to address aforementioned impairments and functional limitations to meet established goals. Prognosis is fair due to chronicty of symptoms. Frequency and Duration: The patient will be seen 2x/week for 4 weeks Short Term Goals: 2 weeks Patient demonstrates consistency and independence with HEP to self manage symptoms. Patient is able to ambulate with LRAD, one crutch or cane to improve heel to toe gait pattern. Halfway Goals: 4 weeks Patient presents with increased R knee flexion 120 degrees to be able to perform sit to stand from low surface. Patient presents with increased R knee quad strength 4/5 to be able to asecend stairs with railings without buckling. Treatment Plan: Modalities to reduce pain, spasms and effusion. Manual therapy to restore motion and function. Therapeutic exercise to improve strength and flexibility. Neuromuscular re-education for posture and balance. Therapeutic activities to return to functional activities of daily living. Electronically signed by: Osei Duenas, PT, DPT Please sign and return to therapist. Thank you for your referral.
--- NOTE | 2023-03-12 15:41 | MHC.PT.DC ---
[facility] [place] Office [place] Office [place] Office [address] Keshav [place] 140 [facility] [phone] F: [phone] F: [phone] F: [phone] F: [phone] Physical Therapy Discharge Report Diagnosis: RIGHT knee primary OA and RIGHT knee patellofemoral OA Date of Surgery: Date of Evaluation: 01/16/23 Date of Discharge: 03/12/23 Treatments to Date: 15 Cancellations to Date: No Shows to Date: Discharge Status: Recommend MD Follow-up Discharge Summary: She has completed course of PT. Unfortunately she has plateaued with PT and has not been able to make significant progress in either ROM and strength, limited by pain and muscle guarding as I am unable to determine with testing meniscal or other ligamentous involvement. She also reports hx of fall if she tries to wean off brace or crutches at home. She is good candidate for MRI and alternative interventions besides PT, surgery if indicated. Electronically signed by: Osei Duenas, PT, DPT Please sign and return to therapist. Thank you for your referral.
== END 2023-03-12 15:38 | disposition home or self-care (01) ==
LOC: HO.PT 14:00
PROVIDERS: PCP Internal Medicine; Visit Provider Physician Assistant
DX: M17.11 Unilateral primary osteoarthritis, right knee (principal)
CPT/HCPCS: 97014; 97110; 97112; 97116; 97140; 97161; 97530

== ENCOUNTER 2023-03-18 14:26 | Outpatient (AMB) | payer OTHER, SELFPAY ==
--- NOTE | 2023-03-18 14:34 | A.OFFVIS_ITS ---
Intake Vital Signs 03/18/23 14:36 Height 5 ft 8 in Weight 151 lb BMI 23.0 Intake Visit Reasons: EP, Patellofemoral arthritis of right knee Intake Note: Katia a 37 year old female who presents today for a follow up of right knee. Patient reports last PT session was on 03/12/23 and has had no improvement. States pain with bending knee making it difficult to walk and stair use. No relief with Tylenol or motrin as well as knee bracing, icing and elevation. She uses a stem unit 3 times a day and has increased strength. Allergies stringer [CHERRIES] Allergy (Severe, Verified 03/18/23 14:43) ANAPHYLAXIS gabapentin [From NEURONTIN] Allergy (Unknown, Verified 03/18/23 14:43) MUSCLE SPASMS lamotrigine [From LAMICTAL] Allergy (Unknown, Verified 03/18/23 14:43) MUSCLE SPASMS oxcarbazepine [From TRILEPTAL] Allergy (Unknown, Verified 03/18/23 14:43) MUSCLE SPASMS Sulfa (Sulfonamide Antibiotics) [SULFA (SULFONAMIDE ANTIBIOTICS)] Allergy (Unknown, Verified 03/18/23 14:43) UNKNOWN SEAFOOD Allergy (Severe, Uncoded 03/18/23 14:43) ANAPHYLAXIS sulfa Allergy (Unknown, Uncoded 03/18/23 14:43) throat close HPI EP, Patellofemoral arthritis of right knee HPI Details 37-year-old female who returns to the formerly [facility] today for a follow-up of right knee pain. She states she has pain and tightness in her knee which is aggravated with bending, ambulation and stair use. She also c/o feeling like her knee will snap and give out. She finds no relief with Tylenol and Motrin as well as knee brace, icing and elevation. 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 Significant retropatellar tenderness along the medial and lateral aspect of the patella and hypersensitivity to palpation around the knee. Full ROM with crepitus. Negative Kori?s. No ligamentous laxity. NVI. Psych Appearance: grossly normal Affect: normal affect Attitude: cooperative Office Procedures Joint Injection/Drain Joint Injection/Drain Primary Site: right knee Prep: site was prepped using aseptic technique, ethochloride spray was applied and injection warnings given Injected: 80 mg of, DepoMedrol, with 8 mL of, 1% plain lidocaine and in the joint Approach Used: anterolateral Procedure: The patient tolerated the procedure well and there was some relief with the local anesthesia Coding 09556 - Glenohumeral/Tronchanteric Bursa/Intraarticular Procedure code (CPT) selection complete Results Reviewed Results Reviewed: 03/18/23 14:56 Lidocaine HCl 2 % MPF [Xylocaine 2 % MPF] 5 ml .ROUTE .STK-MED ONE methylPREDNISolone acetate [DEPO-MedroL] 80 mg .ROUTE .STK-MED ONE Assessment & Plan Assessment & Plan (1) Patellofemoral arthritis of right knee: Code(s): M17.11 - Unilateral primary osteoarthritis, right knee Plan We discussed options today which include steroid injection. They did consent to move forward with the injection, which was tolerated well. I recommended rest, ice and elevation and OTC anti-inflammatories PRN for discomfort. I am also going to refer her to pain management for evaluation of geniculate injection. If symptoms persist or worsens over the next 6-8 weeks, patient will contact the office, otherwise follow-up as needed. Orders: Referrals Pain Management Referral M17.11 - Unilateral primary osteoarthritis, right knee Patient Instructions: Scribed for Marlene Juarez PA-C, by Pb Jernigan medical referral coordinator, on 03/18/2023 at 2:45 PM Marlene CHANDRA PA-C, have personally reviewed and agree with the information entered by the scribe. Coding Level of Care Code Est Pt Level 3 (82311) Diagnoses Patellofemoral arthritis of right knee M17.11 CPT Codes Coding - Joint 7: 24170 - Glenohumeral/Tronchanteric Bursa/Intraarticular ([id number])
[2023-03-18 14:36] VITALS: BMI 23.0
== END 2023-03-18 16:38 | disposition home or self-care (01) ==
PROVIDERS: PCP Internal Medicine; Visit Provider Physician Assistant
DX: M17.11 Unilateral primary osteoarthritis, right knee (principal)
CPT/HCPCS: 20610; 99213

== ENCOUNTER → 2023-03-18 14:26 | Outpatient (BNVA) | payer OTHER, SELFPAY | PROVIDERS: PCP Internal Medicine; Visit Provider Physician Assistant | DX: M17.11 Unilateral primary osteoarthritis, right knee (principal) | CPT/HCPCS: 20610; 99212; J1040 ==

== ENCOUNTER 2023-03-27 13:05 | Outpatient (AMB) | payer OTHER, SELFPAY ==
--- NOTE | 2023-03-27 13:26 | A.OFFVIS_ITS ---
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: No Accompanied by: Self / Same As Patient Allergies stringer [CHERRIES] Allergy (Severe, Verified 03/18/23 14:43) ANAPHYLAXIS gabapentin [From NEURONTIN] Allergy (Unknown, Verified 03/18/23 14:43) MUSCLE SPASMS lamotrigine [From LAMICTAL] Allergy (Unknown, Verified 03/18/23 14:43) MUSCLE SPASMS oxcarbazepine [From TRILEPTAL] Allergy (Unknown, Verified 03/18/23 14:43) MUSCLE SPASMS Sulfa (Sulfonamide Antibiotics) [SULFA (SULFONAMIDE ANTIBIOTICS)] Allergy (Unknown, Verified 03/18/23 14:43) UNKNOWN SEAFOOD Allergy (Severe, Uncoded 03/18/23 14:43) ANAPHYLAXIS sulfa Allergy (Unknown, Uncoded 03/18/23 14:43) throat close HPI OA right knee HPI Details Patient is a 37 years old female with history of right knee OA, s/p right surgery in 2007 Dr. Lujan at [facility] for dislocated patella and reports has screws and anchors in place. Patient reports chronic knee pain unrelieved with physical therapy, NSAIDs, rest, ice, cortisone injection, knee bracing. She presents with global right knee pain, worse in medial aspect with pain and swelling. Reports increasing pain with bending, walking and weight bearing. Pain affects her daily activities, functioning, sleep, social activities, mood and quality of life. Patient utilizes crutches and is able to partial weight bearing only. Denies fever, numbness, tingling, weakness, skin discoloration, rashes or open wounds. Patient is interested to undergo diagnostic nerve blocks for potential peripheral nerve stimulation with Sprint trial. We also discussed genicular RFA as back up option. Location Right knee Duration Chronic pain for 1 year Characteristics of symptom or complaint Throbbing, aching, burning, tingling, stabbing, cramping, pulling, tight Aggravating or associated factors Walking, climbing stairs, bending, weight bearing Relieving factors None, tried NSAIDs, Tylenol, knee bracing Treatment PT no improvement, cortisone injection 03/18/23-no pain relief PFSH Medical History Psychosis Bipolar 1 disorder Circulation problem Asthma Surgical History Tubal ligation status Social History Household Members: Spouse Housing: Apartment Do you presently have visiting nurse or other home services: No Alcohol intake: never Patient Tobacco Use Status: Current everyday Tobacco user Tobacco use type: Cigarette Cigarette Packs Per Day: 0.5 Years Smoked: 28 years e-Cigarette/Vaping Use: Never Used Second Hand Smoke Exposure: Yes Substance Use Type: Marijuana Substance Use Frequency: Daily Advance Directives Date on File: 08/08/22 service: No Current occupational status: 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 Alert and oriented. Mood and affect appropriate. Follows and participates in conversation appropriately. Respiratory effort is unlabored. No cough. Able to transition from sit to stand unassisted. Ambulates with crutches, partial weight bearing on right. Extrem Right lower extremity: knee (Limited flexion, bending due to pain. Knee brace is on.) Details: tenderness (retropatellar) Location: of the medial joint line and of the lateral joint line, swelling (mild, global knee) and crepitus; no ec chymosis and no unusual warmth Results Reviewed Results Reviewed: XR KNEE AP STANDING XR KNEE, RIGHT 12/11/22 CLINICAL INFORMATION: Knee pain. COMPARISON: May 15, 2021 TECHNIQUE: AP bilateral standing view of the knees was obtained. Three views of the right knee. FINDINGS/IMPRESSION: There has been no significant radiographic change compared with May 15, 2021. There is no acute radiographic finding. A metallic plate projects over the lateral aspect of the patella. Linear, transverse/slightly oblique tubular lucency with associated amorphous calcification projects over the medial aspect of the distal femoral metaphysis. There is no acute finding. No fracture or dislocation is seen. No suprapatellar effusion is seen. The joint spaces appear maintained. Assessment & Plan Assessment & Plan (1) Patellofemoral arthritis of right knee: Code(s): M17.11 - Unilateral primary osteoarthritis, right knee (2) Right knee pain: Code(s): M25.561 - Pain in right knee Plan Schedule Diagnostic Right Femoral nerve block with local and fluoroscopy for potential temporary peripheral nerve stimulator placement for chronic right knee pain with prior history of knee surgery for dislocated patella. We also genicular RFA and Curonix PNS trial/implant for a longer term pain relief. Informational booklets were provided to patient. Expectations, risks and benefits were reviewed. Patient is aware she will be contacted to schedule this procedure. All questions were answered and the patient is in agreement of plan. Follow-up after injections and sooner as needed. Coding Level of Care Code New Pt Level 4 (03235) Diagnoses Patellofemoral arthritis of right knee M17.11 Right knee pain M25.561
[2023-03-27 13:33] VITALS: BP 132/71; PULSE 84; O2SAT 95; BMI 23.8
== END 2023-03-27 13:56 | disposition home or self-care (01) ==
PROVIDERS: PCP Internal Medicine; Visit Provider Nurse Practitioner Family
DX: M17.11 Unilateral primary osteoarthritis, right knee (principal); M25.561 Pain in right knee
CPT/HCPCS: 99204

== ENCOUNTER → 2023-03-27 13:05 | Outpatient (BNVA) | payer OTHER, SELFPAY | PROVIDERS: PCP Internal Medicine; Visit Provider Nurse Practitioner Family ==

== ENCOUNTER 2023-04-14 07:31 | Outpatient (REF) | payer OTHER, SELFPAY | END 2023-04-14 07:32 | disposition home or self-care (01) | LOC: CF 07:31 | PROVIDERS: Visit Provider Anesthesiology | DX: Z13.89 Encounter for screening for other disorder (principal) ==

== ENCOUNTER 2023-04-23 09:42 | Day surgery (SDC) | payer OTHER, SELFPAY ==
[2023-04-23 09:47] VITALS: BMI 24.0
[2023-04-23 09:49] VITALS: BP 121/80; PULSE 81; RESP 18; TEMP 36.1; O2SAT 96
--- NOTE | 2023-04-23 10:13 | MHC.SHP ---
Pre-Procedural Eval Section A Date of Service: 04/23/23 The patient is an INPATIENT: No Changes since office visit: Yes Patient answered all questions The History & Physical has been completed within 30 days and I have reviewed it.: No Section B Chief Complaint: Unilateral primary osteoarthritis, right knee Details of Present Illness: As above Relevant Family History (Specify if Yes): No Relevant Social History: None Present Medications: see Short Stay Collaborative assessment Medical History: No relevant PMH History of Previous Operations: No relevant previous surgery Allergies: Allergies Allergy/AdvReac Type Severity Reaction Status Date / Time stringer [CHERRIES] Allergy Severe ANAPHYLAXIS Verified 03/18/23 14:43 gabapentin [From NEURONTIN] Allergy Unknown MUSCLE Verified 03/18/23 14:43 SPASMS lamotrigine [From LAMICTAL] Allergy Unknown MUSCLE Verified 03/18/23 14:43 SPASMS oxcarbazepine Allergy Unknown MUSCLE Verified 03/18/23 14:43 [From TRILEPTAL] SPASMS Sulfa (Sulfonamide Allergy Unknown UNKNOWN Verified 03/18/23 14:43 Antibiotics) [SULFA (SULFONAMIDE ANTIBIOTICS)] SEAFOOD Allergy Severe ANAPHYLAXIS Uncoded 03/18/23 14:43 sulfa Allergy Unknown throat Uncoded 03/18/23 14:43 close Review of Systems Sugical H&P ROS: Negative: Constitution, Cardiovascular, Respiratory, Neurological, Psychiatric, Hem-Onc, Allergic/Immunologic, Gastrointestinal, Genitourinary, Musculoskeletal, Integumentary, Endocrine and Eyes/Ears/Nose/Throat Exam Surgical H&P Exam: Normal: HEENT, Normal: Heart, Normal: Lungs, Normal: Extremities, Normal: Abdomen, Normal: Skin and Normal: Neurological Plan Diagnosis/Plan: Unchanged I have reviewed the history and physical and performed a pertinent physical examination on my patient. No changes have occurred unless specified. Time Spent With Patient Time: Total time managing care of this patient today ____ minutes.
[2023-04-23] MEDS: Lactated Ringers 1,000 ML 100 ML IVCONT (10:19)
--- NOTE | 2023-04-23 10:56 | P.CONAN_ITS ---
Documented by User: Katia Lyon NP 04/22/23 09:40 HPI - Anesthesia Eval Consult details Narrative: 37yo F for Right Diagnostic Femoral Nerve Block s/p tubal PMFSH Active Problems Active Problems: All Active Problems (Updated 03/27/23 @ 14:15 by PETER Cabello) Right knee pain (Acute) Patellofemoral arthritis of right knee (Acute) Abdominal pain (Acute) Gallbladder polyp (Acute) Pancreatic cyst (Acute) Acute LUQ pain (Acute) Sprain of right index finger (Acute) Chronic pain of left ankle (Acute) Vulvar lesion (Acute) Past Medical History Medical History (Updated 03/27/23 @ 14:15 by PETER Cabello) Psychosis Bipolar 1 disorder Circulation problem Asthma Surgical History Surgical History (Updated 04/23/23 @ 10:21 by Luz Mchugh RN) Hx of tubal ligation Tubal ligation status Social History Social History Household Members: Spouse Housing: Apartment Do you presently have visiting nurse or other home services: No Alcohol intake: never Patient Tobacco Use Status: Current everyday Tobacco user Tobacco use type: Cigarette Cigarette Packs Per Day: 0.5 Years Smoked: 28 years e-Cigarette/Vaping Use: Never Used Second Hand Smoke Exposure: Yes Substance Use Type: Marijuana Are you DNR?: No Advance Directives: No Advance Directives Information Provided: Yes Advance Directives Date on File: 08/08/22 service: No Current occupational status: 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 Allergies Allergy/AdvReac Type Severity Reaction Status Date / Time stringer [CHERRIES] Allergy Severe ANAPHYLAXIS Verified 03/18/23 14:43 gabapentin [From NEURONTIN] Allergy Unknown MUSCLE Verified 03/18/23 14:43 SPASMS lamotrigine [From LAMICTAL] Allergy Unknown MUSCLE Verified 03/18/23 14:43 SPASMS oxcarbazepine Allergy Unknown MUSCLE Verified 03/18/23 14:43 [From TRILEPTAL] SPASMS Sulfa (Sulfonamide Allergy Unknown UNKNOWN Verified 03/18/23 14:43 Antibiotics) [SULFA (SULFONAMIDE ANTIBIOTICS)] SEAFOOD Allergy Severe ANAPHYLAXIS Uncoded 03/18/23 14:43 sulfa Allergy Unknown throat Uncoded 03/18/23 14:43 close Home Medications Medication Instructions Recorded Confirmed Last Taken Type clonazepam 0.5 mg tablet 0.5 mg PO DAILY PRN Anxiety 04/22/21 12/11/22 08/03/22 History fluticasone 250 mcg-salmeterol 50 1 ea inhalation BID 03/07/22 12/11/22 Unknown History mcg/dose blistr powdr for inhalation (Advair Diskus) fluticasone propionate 110 2 puff inhalation BID 03/07/22 12/11/22 Unknown History mcg/actuation HFA aerosol inhaler (Flovent HFA) albuterol sulfate 2.5 mg/3 mL mg inhalation BID PRN asthma 08/25/22 12/11/22 Unknown History (0.083 %) solution for nebulization albuterol sulfate 90 mcg/actuation inhalation 08/25/22 12/11/22 Unknown History aerosol inhaler (Ventolin HFA) topiramate 200 mg tablet 200 mg PO DAILY 08/25/22 12/11/22 04/23/23 History trazodone 100 mg tablet 100 mg PO BEDTIME 08/25/22 12/11/22 Unknown History Exam Exam Date and Time: April 22, 2023 0937 Pertinent Lab Results Pertinent Lab Results: Laboratory Tests 08/20/22 19:27 WBC 10.5 Hgb 12.9 Hct 37.7 Plt Count 256 Sodium 142 Potassium 3.7 Chloride 108 Carbon Dioxide 27 BUN 10 Creatinine 0.68 Narrative Narrative: EKG 07/2022 Vent. Rate : 087 BPM Atrial Rate : 087 BPM P-R Int : 162 ms QRS Dur : 078 ms QT Int : 362 ms P-R-T Axes : 074 090 058 degrees QTc Int : 435 ms Normal sinus rhythm Rightward axis Borderline ECG When compared with ECG of 20-AUG-2020 13:52, Vent. rate has increased BY 36 BPM QT has lengthened Assessment and Plan Assessment Anesthesia Assessment: Chart Reviewed Documented by User: Alix Costa DO 04/23/23 10:56 [facility] Past Medical History Medical History (Updated 03/27/23 @ 14:15 by PETER Cabello) Psychosis Bipolar 1 disorder Circulation problem Asthma Surgical History Surgical History (Updated 04/23/23 @ 10:21 by Luz Mchugh RN) Hx of tubal ligation Tubal ligation status History of Problems with Anesthesia: No Social History Social History Household Members: Spouse Housing: Apartment Do you presently have visiting nurse or other home services: No Alcohol intake: never Patient Tobacco Use Status: Current everyday Tobacco user Tobacco use type: Cigarette Cigarette Packs Per Day: 0.5 Years Smoked: 28 years e-Cigarette/Vaping Use: Never Used Second Hand Smoke Exposure: Yes Substance Use Type: Marijuana Are you DNR?: No Advance Directives: No Advance Directives Information Provided: Yes Advance Directives Date on File: 08/08/22 service: No Current occupational status: 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 Allergies Allergy/AdvReac Type Severity Reaction Status Date / Time stringer [CHERRIES] Allergy Severe ANAPHYLAXIS Verified 03/18/23 14:43 gabapentin [From NEURONTIN] Allergy Unknown MUSCLE Verified 03/18/23 14:43 SPASMS lamotrigine [From LAMICTAL] Allergy Unknown MUSCLE Verified 03/18/23 14:43 SPASMS oxcarbazepine Allergy Unknown MUSCLE Verified 03/18/23 14:43 [From TRILEPTAL] SPASMS Sulfa (Sulfonamide Allergy Unknown UNKNOWN Verified 03/18/23 14:43 Antibiotics) [SULFA (SULFONAMIDE ANTIBIOTICS)] SEAFOOD Allergy Severe ANAPHYLAXIS Uncoded 03/18/23 14:43 sulfa Allergy Unknown throat Uncoded 03/18/23 14:43 close Home Medications Medication Instructions Recorded Confirmed Last Taken Type clonazepam 0.5 mg tablet 0.5 mg PO DAILY PRN Anxiety 04/22/21 12/11/22 08/03/22 History fluticasone 250 mcg-salmeterol 50 1 ea inhalation BID 03/07/22 12/11/22 Unknown History mcg/dose blistr powdr for inhalation (Advair Diskus) fluticasone propionate 110 2 puff inhalation BID 03/07/22 12/11/22 Unknown History mcg/actuation HFA aerosol inhaler (Flovent HFA) albuterol sulfate 2.5 mg/3 mL mg inhalation BID PRN asthma 08/25/22 12/11/22 Un known History (0.083 %) solution for nebulization albuterol sulfate 90 mcg/actuation inhalation 08/25/22 12/11/22 Unknown History aerosol inhaler (Ventolin HFA) topiramate 200 mg tablet 200 mg PO DAILY 08/25/22 12/11/22 04/23/23 History trazodone 100 mg tablet 100 mg PO BEDTIME 08/25/22 12/11/22 Unknown History Exam Exam Date and Time: April 23, 2023 1055 Height,Weight and Vital Signs: Vital Signs Temperature 97 F 04/23/23 09:49 Pulse Rate 81 04/23/23 09:49 Respiratory Rate 18 04/23/23 09:49 Blood Pressure 121/80 04/23/23 09:49 Pulse Oximetry 96 04/23/23 09:49 Oxygen Delivery Method Room Air 04/23/23 09:49 Temperature 97 F 04/23/23 09:49 Pulse Rate 81 04/23/23 09:49 Respiratory Rate 18 04/23/23 09:49 Blood Pressure 121/80 04/23/23 09:49 Pulse Oximetry 96 04/23/23 09:49 Oxygen Delivery Method Room Air 04/23/23 09:49 Height 5 ft 8 in Weight 71.668 kg Airway Mallampati Class: II Neck ROM: Full Loose/Missing/Broken Teeth: Yes (poor dentition, multiple missing teeth) Heart: S1S2 Lungs: CTAB Assessment and Plan Assessment Anesthesia Assessment: Anesthesia Plan Discussed and Chart Reviewed Final Anesthetic Review History of Problems with Anesthesia: No NPO: Yes ASA Class: II Final Preanesthetic Review: No Changes in Pt Med Stat, Meds/Allgs Chart Reviewed, Consent Obtained/Reviewed and Anes Risks/Benef Reviewed Patient Risk: Low Procedure Risk: Low Anesthetic Plan Anesthetic Plan: MAC: and Agree w/ Assess. and Plan Disposition: Standard PACU
[2023-04-23] MEDS: Albuterol Sulfate (0.083%) 2.5 MG/3 ML VIAL.NEB INHALE (11:06)
[2023-04-23 11:55] VITALS: BP 96/62; PULSE 85; RESP 18; TEMP 36.4; O2SAT 99
--- NOTE | 2023-04-23 11:59 | PM.OP ---
Brief Operative Note Date of Service: 04/23/23 Pre-op diagnosis: Right knee pain Post-op diagnosis: same Procedure: femoral nerve block diagnostic Surgeon: Long Angeles MD Anesthesia: MAC Was an Senior Systems Programmer used for this Procedure?: No Estimated blood loss (mL): 0 Condition: stable Disposition: PACU
--- NOTE | 2023-04-23 12:00 | P.OP_ITS ---
Operative Note Operative Note Date of Service: 04/23/23 Narrative: informed consent was explained to the patient with risk and benefits explained. patient came to the operating room and positioned supine on the operating table [employer] monitors were applied. Patient was deeply sedated. Time-out was performed delineating correct site and side of the procedure name and date of of the patient allergies of the patient risk of fire needs for antibodies prophylaxis. The patient's right groin was prepped with ChloraPrep and draped with sterile adhesive utility towels. Sterilely prepped so sound probe was brought of the operating field and the picture of the femoral artery femoral vein and femoral nerves were delineated on the ultrasound screen. 100 mm echo stim 22 gauge needle was inserted extra anatomically through the skin and was advanced to were the femoral nerve in live view fashion. when needle stops in the vicinity of the femoral nerve injection of the saline was performed after aspiration. Spread of the saline demonstrated perineural spread of the injectate and no intraneural spread of the injectate. After that 6 cc of ropivacaine 0.5% was performed around the nerve. After that the needle was removed and sterile dressing was applied. Patient tolerated procedure well , she was awaken taking outside of the operating room to PACU. She reported no significant pain relieve, actually she reported pain act exacerbation after the procedure.
[2023-04-23 12:10] VITALS: BP 98/72; PULSE 73; RESP 18; TEMP 36.3; O2SAT 100
== END 2023-04-23 12:53 | disposition home or self-care (01) ==
PROVIDERS: PCP Internal Medicine; Visit Provider Anesthesiology
PROC: 3E0T3BZ Introduction of Anesthetic Agent into Peripheral Nerves and Plexi, Percutaneous Approach (ICD-10-PCS; CPT 64447; principal; 2023-04-23 11:30)
DX: M17.11 Unilateral primary osteoarthritis, right knee (principal); M25.561 Pain in right knee; G89.29 Other chronic pain; M25.572 Pain in left ankle and joints of left foot; J45.909 Unspecified asthma, uncomplicated; F31.9 Bipolar disorder, unspecified; Z79.51 Long term (current) use of inhaled steroids; Z79.899 Other long term (current) drug therapy; Z88.2 Allergy status to sulfonamides; Z88.8 Allergy status to other drugs, medicaments and biological substances; F17.210 Nicotine dependence, cigarettes, uncomplicated
CPT/HCPCS: 64447; J2795

== ENCOUNTER → 2023-04-23 09:42 | Outpatient (BNV) | payer OTHER, SELFPAY | PROVIDERS: PCP Internal Medicine; Visit Provider Anesthesiology | DX: M25.561 Pain in right knee (principal) | CPT/HCPCS: 64447 ==

== ENCOUNTER 2023-04-27 11:23 | Outpatient (AMB) | payer OTHER, SELFPAY ==
--- NOTE | 2023-04-27 11:34 | A.OFFVIS_ITS ---
Intake Vital Signs 04/27/23 11:54 Height 5 ft 8 in Weight 151 lb BMI 23.0 BP 124/72 Blood Pressure Location Lt brachial Position Sitting Respiration 16 Pulse 102 H Pulse Source Pulse Oximeter Pulse Oximetry (%) 97 Oxygen Delivery Method Room Air Intake Visit Reasons: S/p Dx Femoral Nerve Block 04/23/23/confirmed Allergies stringer [CHERRIES] Allergy (Severe, Verified 03/18/23 14:43) ANAPHYLAXIS gabapentin [From NEURONTIN] Allergy (Unknown, Verified 03/18/23 14:43) MUSCLE SPASMS lamotrigine [From LAMICTAL] Allergy (Unknown, Verified 03/18/23 14:43) MUSCLE SPASMS oxcarbazepine [From TRILEPTAL] Allergy (Unknown, Verified 03/18/23 14:43) MUSCLE SPASMS Sulfa (Sulfonamide Antibiotics) [SULFA (SULFONAMIDE ANTIBIOTICS)] Allergy ( Unknown, Verified 03/18/23 14:43) UNKNOWN SEAFOOD Allergy (Severe, Uncoded 03/18/23 14:43) ANAPHYLAXIS sulfa Allergy (Unknown, Uncoded 03/18/23 14:43) throat close HPI HPI Comments History of Present Illness Details Katia is back in my office after to diagnostic injections which were performed for her. There was genicular nerve block which resulted in only pain aggravation and there was also femoral nerve block which also resulted in pain aggravation postoperatively. Unfortunately this is exhausting my armamentarium to help this patient. I recommended her to go back to Dr. Lujan at [facility] and have a consult regarding of the total knee replacement. She is very young however her condition in the knees very severe and prevents her from being mobile, uses crutches for mobility, she reports pain 9.5/10, she tried opioid medications and NSAIDs to help her pain. She denies help from NSAIDs orally, she reported oxycodone 5 mg helped her pain for 4 hours but she did not like the way oxycodone make her feel. She reports dysesthesia and mood changes while she took oxycodone. Prior: a 37 years old female with history of right knee OA, s/p right surgery in 2006 Dr. Lujan at [facility] for dislocated patella and reports has screws and anchors in place. Patient reports chronic knee pain unrelieved with physical therapy, NSAIDs, rest, ice, cortisone injection, knee bracing. She presents with global right knee pain, worse in medial aspect with pain and swelling. Reports increasing pain with bending, walking and weight bearing. Pain affects her daily activities, functioning, sleep, social activities, mood and quality of life. Patient utilizes crutches and is able to partial weight bearing only. [facility] Medical History (Updated 03/27/23 @ 14:15 by PETER Cabello) Psychosis Bipolar 1 disorder Circulation problem Asthma Surgical History (Updated 04/23/23 @ 10:21 by Luz Mchugh RN) Hx of tubal ligation Tubal ligation status Social History Household Members: Spouse Housing: Apartment Do you presently have visiting nurse or other home services: No Alcohol intake: never Patient Tobacco Use Status: Current everyday Tobacco user Tobacco use type: Cigarette Cigarette Packs Per Day: 0.5 Years Smoked: 28 years e-Cigarette/Vaping Use: Never Used Second Hand Smoke Exposure: Yes Substance Use Type: Marijuana Advance Directives Date on File: 08/08/22 service: No Current occupational status: 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 Alert and oriented. Mood and affect appropriate. Follows and participates in conversation appropriately. Respiratory effort is unlabored. No cough. Able to transition from sit to stand unassisted. Ambulates with crutches, partial weight bearing on right. Extrem Right lower extremity: knee (Limited flexion, bending due to pain. Knee brace is on.) Details: tenderness (retropatellar) Location: of the medial joint line and of the lateral joint line, swelling (mild, global knee) and crepitus; no ecchymosis and no unusual warmth Assessment & Plan Assessment & Plan (1) Patellofemoral arthritis of right knee: Code(s): M17.11 - Unilateral primary osteoarthritis, right knee (2) Right knee pain: Code(s): M25.561 - Pain in right knee Plan Neither Diagnostic Right Femoral nerve block nor genicular nerve block were effective for pain control of this patient. The knee on exam is swollen and wrist ballottement of the patella. I will start her on diclofenac ointment. I recommended her to consider returning to Dr. Boswell for evaluation. The surgeon from [facility] was operating on her in 2006. That diagnosis was patellar dislocation. Medications: New diclofenac sodium 3% 1 appl topical BID 100 grams 8RF 30 days Patient Instructions: I here by testify that I spent 35 minutes in conversation with this patient as well as planning her care ordering medicine and organizing the note. Coding Level of Care Code Est Pt Level 4 (54122) Diagnoses Patellofemoral arthritis of right knee M17.11 Right knee pain M25.561
[2023-04-27 11:54] VITALS: BP 124/72; PULSE 102; RESP 16; O2SAT 97; BMI 23.0
== END 2023-04-27 12:23 | disposition home or self-care (01) ==
PROVIDERS: PCP Internal Medicine; Visit Provider Anesthesiology
DX: M17.11 Unilateral primary osteoarthritis, right knee (principal); M25.561 Pain in right knee
CPT/HCPCS: 99214

== ENCOUNTER → 2023-04-27 11:23 | Outpatient (BNVA) | payer OTHER, SELFPAY | PROVIDERS: PCP Internal Medicine; Visit Provider Anesthesiology | DX: M17.11 Unilateral primary osteoarthritis, right knee (principal); M25.561 Pain in right knee | CPT/HCPCS: 99212 ==

== ENCOUNTER 2023-06-05 03:22 | Emergency (ER) | payer OTHER, SELFPAY ==
[2023-06-05 03:25] VITALS: BP 136/99; PULSE 95; RESP 18; TEMP 36.6; O2SAT 97; BMI 22.0
--- NOTE | 2023-06-05 05:05 | ED.URI ---
HPI - URI/Sore Throat General Chief Complaint: Upper Respiratory Symptoms Stated Complaint: COVID +, SoB Time Seen by Provider: 06/05/23 04:58 Source: patient Mode of arrival: ambulatory Limitations: no limitations History of Present Illness HPI Narrative: Patient comes to the emergency room complaining of mild shortness of breath, coughing, nausea vomiting diarrhea. Patient states that she took to COVID test at home, both are positive. Patient states that she has been symptomatic for 7 days. Related Data Home Medications Medication Instructions Recorded Confirmed clonazepam 0.5 mg tablet 0.5 mg PO DAILY PRN Anxiety 04/22/21 12/11/22 fluticasone 250 mcg-salmeterol 50 1 ea inhalation BID 03/07/22 12/11/22 mcg/dose blistr powdr for inhalation (Advair Diskus) fluticasone propionate 110 2 puff inhalation BID 03/07/22 12/11/22 mcg/actuation HFA aerosol inhaler (Flovent HFA) albuterol sulfate 2.5 mg/3 mL mg inhalation BID PRN asthma 08/25/22 12/11/22 (0.083 %) solution for nebulization albuterol sulfate 90 mcg/actuation inhalation 08/25/22 12/11/22 aerosol inhaler (Ventolin HFA) topiramate 200 mg tablet 200 mg PO DAILY 08/25/22 12/11/22 trazodone 100 mg tablet 100 mg PO BEDTIME 08/25/22 12/11/22 Previous Rx's Medication Instructions Recorded polyethylene glycol 3350 17 gram 17 g PO DAILY PRN constipation #30 08/07/22 oral powder packet (Miralax) ea hyoscyamine sulfate 0.125 mg 0.125 mg PO QID #30 tabs 08/25/22 disintegrating tablet pantoprazole 40 mg tablet,delayed 40 mg PO DAILY #30 tabs 08/25/22 release Tens Unit #1 ea 01/28/23 diclofenac sodium 3 % topical gel 1 appl topical BID 30 days #100 04/27/23 grams acetaminophen 500 mg tablet 500 mg PO QID PRN fever or pain 06/05/23 #14 tabs ibuprofen 600 mg tablet 600 mg PO Q8H PRN fever or pain 06/05/23 #14 tabs ondansetron HCl 4 mg tablet 4 mg PO Q6H PRN nausea and 06/05/23 vomiting #10 tabs Allergies Allergy/AdvReac Type Severity Reaction Status Date / Time stringer [CHERRIES] Allergy Severe ANAPHYLAXIS Verified 06/05/23 03:25 gabapentin [From NEURONTIN] Allergy Unknown MUSCLE Verified 06/05/23 03:25 SPASMS lamotrigine [From LAMICTAL] Allergy Unknown MUSCLE Verified 06/05/23 03:25 SPASMS oxcarbazepine Allergy Unknown MUSCLE Verified 06/05/23 03:25 [From TRILEPTAL] SPASMS Sulfa (Sulfonamide Allergy Unknown UNKNOWN Verified 06/05/23 03:25 Antibiotics) [SULFA (SULFONAMIDE ANTIBIOTICS)] SEAFOOD Allergy Severe ANAPHYLAXIS Uncoded 06/05/23 03:25 sulfa Allergy Unknown throat Uncoded 06/05/23 03:25 close Review of Systems Review of Systems: Constitutional : No Weight loss, No Fever, No Chills, No Night Sweats, No Fatigue, No Malaise ENT/Mouth : No Hearing loss, No Ear Pain, No Nasal Congestion, No Sinus Pain, No Hoarseness, No sore throat, No Rhinorrhea, No Swallowing Difficulty Eyes: No Eye Pain, No Swelling, No Redness, No Foreign Body, No Discharge, No Vision Changes Cardiovascular : No Chest Pain, No SOB, No Dyspnea on Exertion, No Orthopnea, No Edema, No Palpitations Respiratory : Complaining of cough No Sputum, No Wheezing, No Smoke Exposure, No Dyspnea Gastrointestinal : Complaining of nausea vomiting and diarrhea No Constipation, No abdominal Pain, No Hematochezia, No Melena Genitourinary : no irregular bleeding, No Dysuria, No Urinary Frequency, No Hematuria, No Urinary Incontinence, No Urgency, No Flank Pain, No Urinary Flow Changes, No Hesitancy Musculoskeletal : No joint pain, No Myalgias, No Joint Swelling Skin : No Skin Lesions, No rash Neuro : No Weakness, No Numbness, No Paresthesias, No Loss of Consciousness, No Dizziness, No Headache Psych : No Anxiety/Panic, No Depression, No SI/HI/AH/VH, No Social Issues, Heme/Lymph: No Bruising, No Bleeding,No Lymphadenopathy Endocrine : No Polyuria, No Polydipsia, No Temperature Intolerance PMFSH Past Medical History Medical History Psychosis Bipolar 1 disorder Circulation problem Asthma Surgical History Hx of tubal ligation Tubal ligation status Social History Social History Household Members: Spouse Housing: Apartment Do you presently have visiting nurse or other home services: No Alcohol intake: never Patient Tobacco Use Status: Current everyday Tobacco user Tobacco use type: Cigarette Cigarette Packs Per Day: 0.5 Years Smoked: 28 years e-Cigarette/Vaping Use: Never Used Second Hand Smoke Exposure: Yes Substance Use Type: Marijuana Advance Directives: Yes Advance Directives on File: Yes Advance Directives Date on File: 08/08/22 service: No Current occupational status: 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 Oriented X3. No acute distress. Well-appearing Eyes: Pupils equal, round and reactive to light. ENT: Pharynx normal. Neck: Normal inspection. Neck supple. No lymph nodes noted. No crepitus CVS: Normal heart rate and rhythm. Pulses normal. Normal S1 and S2 Respiratory: No respiratory distress. Breath sounds normal. No Wheezing. No rales , oxygen saturation 100% on room air, even with walking in her room without oxygen desaturations Abdomen: Soft and nontender. No rigidity. No distention. Skin: Skin warm and dry. Normal skin color. Normal skin turgor. Extremities: No lower extremity edema. No Lacerations. No Rash Neuro: Oriented X 3. No motor deficit. No sensory deficit. Moving all extremities. No slurred speech. CN 2 through 12 grossly intact Psych: calm, cooperative, normal affect Medical Decision Making Medical Decision Making MDM Narrative: -patient brought with her her home tests of COVID, both positive. Discussed with the patient that she is outside of the window of treatment for paxlovid, patient has been symptomatic for about a week. -patient will be discharged home, will alternate Tylenol and Motrin. -patient agrees with plan. Differential Diagnosis Differential Diagnoses: The differential diagnosis associated with the presentation includes (COVID, viral URI, influenza) Discharge Plan Discharge Clinical Impression: COVID-19 Patient Disposition: Home, Self-Care Instructions: COVID-19 (Coronavirus Disease 2019) (ED) Additional Instructions: Please follow-up with your primary care physician tomorrow. If you have any worsening or new symptoms, please return to the emergency room or call 911 Prescriptions: New ibuprofen 600 mg tablet 600 mg PO Q8H PRN (Reason: fever or pain) Qty: 14 0RF acetaminophen 500 mg tablet 500 mg PO QID PRN (Reason: fever or pain) Qty: 14 0RF ondansetron HCl 4 mg tablet 4 mg PO Q6H PRN (Reason: nausea and vomiting) Qty: 10 0RF No Action (DME) Tens Unit See Rx Instructions .Route .MEDSUPPLY Qty: 1 0RF Rx Instructions: As directed polyethylene glycol 3350 [Miralax] 17 gram powder in packet 17 g PO DAILY PRN (Reason: constipation) Qty: 30 0RF clonazepam 0.5 mg tablet 0.5 mg PO DAILY PRN (Reason: Anxiety) albuterol sulfate [Ventolin HFA] 90 mcg/actuation HFA aerosol inhaler inhalation albuterol sulfate 2.5 mg /3 mL (0.083 %) solution for nebulization inhalation BID PRN (Reason: asthma) topiramate 200 mg tablet 200 mg PO DAILY trazodone 100 mg tablet 100 mg PO BEDTIME hyoscyamine sulfate 0.125 mg tablet,disintegrating 0.125 mg PO QID Qty: 30 0RF pantoprazole 40 mg tablet,delayed release (DR/EC) 40 mg PO DAILY Qty: 30 1RF fluticasone propion-salmeterol [Advair Diskus] 250-50 mcg/dose blister with device 1 ea inhalation BID fluticasone propionate [Flovent HFA] 110 mcg/actuation HFA aerosol inhaler 2 puff inhalation BID diclofenac sodium 3 % gel 1 appl topical BID 30 Days Qty: 100 8RF
[2023-06-05 05:26] LABS: Influenza A PCR NEGATIVE (Negative); Influenza B PCR NEGATIVE (Negative); Resp Syncy Virus RNA Qual PCR NEGATIVE (Negative); SARS COV2 PCR INHOUSE POSITIVE (Negative)
== END 2023-06-05 05:25 | disposition home or self-care (01) ==
PROVIDERS: Emergency Provider Emergency Medicine; PCP Internal Medicine
DX: U07.1 COVID-19 (principal); R06.02 Shortness of breath; F17.210 Nicotine dependence, cigarettes, uncomplicated; Z71.6 Tobacco abuse counseling; Z79.899 Other long term (current) drug therapy
CPT/HCPCS: 0241U; 99283; 99284

== ENCOUNTER 2023-11-08 18:14 | Emergency (ER) | payer OTHER, SELFPAY ==
[2023-11-08 18:26] VITALS: BP 143/86; PULSE 87; RESP 16; TEMP 36.6; O2SAT 96; BMI 24.3
--- NOTE | 2023-11-08 18:28 | ED.GENADULT ---
HPI - General Adult General Chief complaint: Dental/Oral Stated complaint: toothache, has tried everything w/ no help Time Seen by Provider: 11/08/23 18:30 Source: patient Mode of arrival: ambulatory Limitations: no limitations History of Present Illness HPI narrative: Patient is a 38 year old assigned female at with a history of chronic left ankle pain presenting to the emergency department today with left lower dental pain. Patient states that over the last few days she has had left lower dental pain. Patient states that she knows she needs to go to the dentist to have it removed but hasn't made it there yet. Patient denies any dizziness, lightheadedness, abdominal pain, nausea, vomiting, fever, chills, blurry vision, double vision, loss of vision, chest pain, difficulty breathing, shortness of breath, back pain, night sweats, pain with urination, increased urinary frequency, increased urinary urgency, blood in her urine or stool, syncope or a near syncopal episode, recent trauma or falls, bowel incontinence, bladder incontinence, bowel retention, bladder retention, or any other complaints at this time. Onset (ago): day(s) Location: mouth and left Radiation: non-radiation Severity: mild Severity scale (1-10): 3 Quality: aching and dull Pain Consistency: constant Relieving factors: none Exacerbating factors: none Associated symptoms: denies other symptoms Treatments prior to arrival: none Related Data Home Medications ?Medication ?Instructions ?Recorded ?Confirmed clonazepam 0.5 mg tablet 0.5 mg PO DAILY PRN Anxiety 04/22/21 12/11/22 fluticasone 250 mcg-salmeterol 50 1 ea inhalation BID 03/07/22 12/11/22 mcg/dose blistr powdr for inhalation (Advair Diskus) fluticasone propionate 110 2 puff inhalation BID 03/07/22 12/11/22 mcg/actuation HFA aerosol inhaler (Flovent HFA) albuterol sulfate 2.5 mg/3 mL mg inhalation BID PRN asthma 08/25/22 12/11/22 (0.083 %) solution for nebulization albuterol sulfate 90 mcg/actuation inhalation 08/25/22 12/11/22 aerosol inhaler (Ventolin HFA) topiramate 200 mg tablet 200 mg PO DAILY 08/25/22 12/11/22 trazodone 100 mg tablet 100 mg PO BEDTIME 08/25/22 12/11/22 Previous Rx's ?Medication ?Instructions ?Recorded polyethylene glycol 3350 17 gram 17 g PO DAILY PRN constipation #30 08/07/22 oral powder packet (Miralax) ea hyoscyamine sulfate 0.125 mg 0.125 mg PO QID #30 tabs 08/25/22 disintegrating tablet pantoprazole 40 mg tablet,delayed 40 mg PO DAILY #30 tabs 08/25/22 release Tens Unit #1 ea 01/28/23 diclofenac sodium 3 % topical gel 1 appl topical BID 30 days #100 04/27/23 grams acetaminophen 500 mg tablet 500 mg PO QID PRN fever or pain 06/05/23 #14 tabs ibuprofen 600 mg tablet 600 mg PO Q8H PRN fever or pain 06/05/23 #14 tabs ondansetron HCl 4 mg tablet 4 mg PO Q6H PRN nausea and 06/05/23 vomiting #10 tabs chlorhexidine gluconate 0.12 % 15 ml buccal BID #118 mL 11/08/23 mouthwash (Peridex) naproxen 500 mg tablet 500 mg PO BID 7 days #14 tabs 11/08/23 penicillin V potassium 500 mg 500 mg PO BID 10 days #20 tabs 11/08/23 tablet Allergies Allergy/AdvReac Type Severity Reaction Status Date / Time stringer [CHERRIES] Allergy Severe ANAPHYLAXIS Verified 11/08/23 18:28 gabapentin [From NEURONTIN] Allergy Unknown MUSCLE Verified 11/08/23 18:28 SPASMS lamotrigine [From LAMICTAL] Allergy Unknown MUSCLE Verified 11/08/23 18:28 SPASMS oxcarbazepine Allergy Unknown MUSCLE Verified 11/08/23 18:28 [From TRILEPTAL] SPASMS Sulfa (Sulfonamide Allergy Unknown UNKNOWN Verified 11/08/23 18:28 Antibiotics) [SULFA (SULFONAMIDE ANTIBIOTICS)] Review of Systems Constitutional: Constitutional: Reports no additional constitutional complaints, Denies chills, Denies fever(s) and Denies night sweats Eyes: Eyes: Reports no additional eye complaints, Denies blurry vision, Denies change in vision, Denies diplopia, Denies eye discharge, Denies loss of vision and Denies eye pain ENT: Denies dizziness Comments: left lower dental pain Cardiovascular: Cardiovascular: Reports no additional cardiovascular complaints, Denies chest pain, Denies lightheadedness, Denies Loss of Consciousness and Denies dyspnea Respiratory: Respiratory: Reports no additional respiratory complaints and Denies dyspnea Gastrointestinal: Gastrointestinal: Reports no additional gastrointestinal complaints, Denies abdominal pain, Denies melena, Denies hematochezia, Denies change in bowel habits and Denies change in stool character Genitourinary: Genitourinary: Denies hematuria, Denies urinary frequency, Denies dysuria, Denies urinary incontinence, Denies urinary hesitancy and Denies urinary urgency Musculoskeletal: Musculoskeletal: Reports no additional musculoskeletal complaints, Denies numbness and Denies tingling Neurologic: Denies dizziness, Denies loss of vision, Denies numbness and Denies tingling Psychiatric: Psychiatric: Reports no additional psychiatric complaints Endocrine: Endocrine: Reports no additional endocrine complaints Hematologic/Lymphatic: Hematologic/Lymphatic: Reports no additional hematologic/lymphatic complaints Allergic/Immunologic: Allergic/Immunologic: Reports no additional allergic/immunologic complaints [facility] Past Medical History Attestation statement: The following information was validated with the patient. Source: old records reviewed and nursing notes reviewed Medical History Psychosis Bipolar 1 disorder Circulation problem Asthma Surgical History Hx of tubal ligation Tubal ligation status Social History Social History Household Members: Spouse Housing: Apartment Do you presently have visiting nurse or other home services: No Alcohol intake: never Patient Tobacco Use Status: Current everyday Tobacco user Tobacco use type: Cigarette Cigarette Packs Per Day: 0.5 Years Smoked: 28 years e-Cigarette/Vaping Use: Never Used Second Hand Smoke Exposure: Yes Substance Use Type: Marijuana Advance Directives: Yes Advance Directives on File: Yes Advance Directives Date on File: 08/08/22 Do you have a plan to hurt others: No Plan service: No Current occupational status: 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 Physical Exam ED Vital Signs: Vital Signs - 24 hr 11/08/23 18:26 Temperature 97.9 F Pulse Rate 87 Respiratory Rate 16 Blood Pressure 143/86 H Pulse Oximetry 96 Oxygen Delivery Method Room Air BMI result Body Mass Index 24.3 Const General: cooperative, no acute distress, alert and awake Nutritional Appearance: well nourished Orientation/consciousness: patient oriented x3 Limitations: no limitations HENMT Head: Yes normal to inspection and Yes atraumatic Ears: hearing grossly normal bilaterally and external ears normal General nose exam: Normal external nose present, no nasal discharge noted and no epistaxis Face and sinus: Yes normal facial exam, No abrasion and No laceration Mouth: Normal oral and palatal mucosa present, no drooling and no muffled voice Teeth image: 1. section of tooth missing. Mild surrounding erythema. Eyes General: appearance normal, both eyes and all related structures Periorbital: periorbital findings normal Eyelids: Yes eyelids normal Conjunctivae: conjunctivae normal Pupils: Equal, round and reactive pupils present EOM: EOMs intact bilaterally Neck Neck: Yes normal visual inspection, Yes full ROM and Yes no lymphadenopathy Chest Chest palpation & inspection: normal inspection of the chest Resp Effort & Inspection: normal respiratory effort and able to speak in complete sentences GI Inspection: Yes normal to inspection Neuro General: patient oriented x3 and moves all extremities Cranial nerves: Yes Equal, round and reactive pupils present Cognition (Neuro): normal cognition Motor exam (neuro): 5/5 motor strength present throughout Sensory Exam: Normal double simultaneous stimulation for sensation Coordination: [id number] test normal Extrem General: Yes normal to inspection, Yes full ROM and Yes capillary refill normal Psych Appearance: grossly normal Mental Status: mental status grossly normal Affect: normal affect Attitude: cooperative Thought process: Normal thought process present Thought content: Normal thought content present Insight: Good insight present (Psych) Medical Decision Making Medical Decision Making MDM Narrative: Patient is a 38 year old assigned female at with a history of chronic left ankle pain presenting to the emergency department today with left lower dental pain. Patient's physical exam showed a section of tooth #17 missing as well as surrounding erythema but no area of fluctuance. I am suspicious of a developing abscess. I explained my physical exam findings to the patient. I answered all questions asked by the patient. I stressed the importance of the patient taking her medication as prescribed. I stressed the importance of the patient following up with her primary care provider and a dentist. I stressed the importance of the patient returning to the emergency department immediately if her symptoms were to worsen or if she were to develop any dizziness, shortness of breath, difficulty breathing, chest pain, blurry vision, loss of vision, nausea, vomiting, abdominal pain, fever, chills, back pain, or any other complaints. Patient verbalized agreement and understanding with this treatment plan and discharge. Differential Diagnosis Differential Diagnoses: The differential diagnosis associated with the presentation includes Dental caries Poor dentition Dental pain Dental abscess Admission/Observation Consideration of admission/observation: Escalation of care including admission/observation considered Patient would have been admitted to the hospital had her clinical presentation warranted hospital admission. Prescription Management I considered prescription management with: Antibiotic (patient prescribed an antibiotic for possible dental abscess around tooth #17) Discharge Plan Discharge Clinical Impression: Abscess, dental Patient Disposition: Home, Self-Care Instructions: Dental Abscess (ED) Additional Instructions: Follow up with your primary care provider and a dentist. Return to the emergency department immediately if your symptoms worsen or if you develop any dizziness, shortness of breath, difficulty breathing, chest pain, blurry vision, loss of vision, nausea, vomiting, abdominal pain, fever, chills, back pain, or any other complaints. Call or visit any of the clinics below to establish with a dentist: [facility] [address] [place] [address] [facility] [address] [place] [address] [facility] [address] [facility] [address] [facility] [address] [place] [address] [facility] [address] [place] [id number] [facility] [address] [place] [address] [place] [address] [place] [address] Prescriptions: New penicillin V potassium 500 mg tablet 500 mg PO BID 10 Days Qty: 20 0RF naproxen 500 mg tablet 500 mg PO BID 7 Days Qty: 14 0RF chlorhexidine gluconate [Peridex] 0.12 % mouthwash 15 ml buccal BID Qty: 118 0RF No Action (DME) Tens Unit See Rx Instructions .Route .MEDSUPPLY Qty: 1 0RF Rx Instructions: As directed polyethylene glycol 3350 [Miralax] 17 gram powder in packet 17 g PO DAILY PRN (Reason: constipation) Qty: 30 0RF ibuprofen 600 mg tablet 600 mg PO Q8H PRN (Reason: fever or pain) Qty: 14 0RF acetaminophen 500 mg tablet 500 mg PO QID PRN (Reason: fever or pain) Qty: 14 0RF ondansetron HCl 4 mg tablet 4 mg PO Q6H PRN (Reason: nausea and vomiting) Qty: 10 0RF clonazepam 0.5 mg tablet 0.5 mg PO DAILY PRN (Reason: Anxiety) albuterol sulfate [Ventolin HFA] 90 mcg/actuation HFA aerosol inhaler inhalation albuterol sulfate 2.5 mg /3 mL (0.083 %) solution for nebulization inhalation BID PRN (Reason: asthma) topiramate 200 mg tablet 200 mg PO DAILY trazodone 100 mg tablet 100 mg PO BEDTIME hyoscyamine sulfate 0.125 mg tablet,disintegrating 0.125 mg PO QID Qty: 30 0RF pantoprazole 40 mg tablet,delayed release (DR/EC) 40 mg PO DAILY Qty: 30 1RF fluticasone propion-salmeterol [Advair Diskus] 250-50 mcg/dose blister with device 1 ea inhalation BID fluticasone propionate [Flovent HFA] 110 mcg/actuation HFA aerosol inhaler 2 puff inhalation BID diclofenac sodium 3 % gel 1 appl topical BID 30 Days Qty: 100 8RF Referrals: Lissy Burrows MD [Primary Care Provider] - Discharge Date/Time: 11/08/23 18:36 Print Language: Kyrgyz
== END 2023-11-08 18:36 | disposition home or self-care (01) ==
LOC: HO.ED 18:34
PROVIDERS: Emergency Provider Emergency Medicine; PCP Internal Medicine
DX: K04.7 Periapical abscess without sinus (principal); K08.89 Other specified disorders of teeth and supporting structures; F17.210 Nicotine dependence, cigarettes, uncomplicated
CPT/HCPCS: 99281; 99283

== ENCOUNTER 2024-01-04 11:13 | Emergency (ER) | payer OTHER, SELFPAY ==
--- NOTE | ~2024-01-04 | XR_ITS ---
EXAMINATION: XR WRIST, RIGHT CLINICAL INFORMATION: Right wrist injury and pain COMPARISON: Right hand x-ray on 04/02/2022 TECHNIQUE: PA, lateral, oblique, and scaphoid views of the right wrist. FINDINGS: BONES: Bony structures are intact. There is no focal bone destruction or periosteal reaction seen. JOINTS: Alignment of joints is normal. SOFT TISSUE: Soft tissue is normal. No radiopaque foreign body or abnormal air collection is seen. XR/XR wrist RT min 3V IMPRESSION: 1. Unchanged Normal x-rays of right wrist. No fracture or dislocation or signs of osteomyelitis are found.
[2024-01-04 11:52] VITALS: BP 117/73; PULSE 66; RESP 18; TEMP 36.8; O2SAT 98; BMI 24.0
== END 2024-01-04 14:51 | disposition left against medical advice (07) ==
PROVIDERS: Emergency Provider Emergency Medicine; PCP Internal Medicine
DX: M25.531 Pain in right wrist (principal)
CPT/HCPCS: 73110; 99281

== ENCOUNTER 2024-01-07 02:36 | Emergency (ER) | payer OTHER, SELFPAY ==
--- NOTE | ~2024-01-07 | XR_ITS ---
EXAMINATION: XR HAND, LEFT CLINICAL INFORMATION: Pain. COMPARISON: None available. TECHNIQUE: PA, lateral, and oblique views of the left hand. FINDINGS: The bones and soft tissues are normal. No fracture. Alignment is anatomic. Joint spaces are maintained. No erosions or soft tissue calcifications. XR/XR hand LT min 3V IMPRESSION: No significant abnormality identified.
[2024-01-07 02:56] VITALS: BP 131/58; PULSE 65; RESP 16; TEMP 36.8; O2SAT 99; BMI 24.5
== END 2024-01-07 05:15 | disposition left against medical advice (07) ==
PROVIDERS: Emergency Provider Emergency Medicine
DX: M79.642 Pain in left hand (principal)
CPT/HCPCS: 73130; 99281

== ENCOUNTER 2024-01-19 16:12 | Inpatient (IN) | payer OTHER, SELFPAY ==
--- NOTE | 2024-01-19 16:35 | ED.PSYCH ---
HPI - Psych General Stated Complaint: SI WITH PLAN PER EMS Time Seen by Provider: 01/19/24 16:22 Source: patient Mode of arrival: EMS Limitations: no limitations History of Present Illness ED Provider: Dr. Krupa Santoro HPI Narrative: Patient comes to the emergency room via ambulance complaining of suicidal ideation for a month, and auditory hallucinations. Patient states that for about a month, the voices in her head have gradually been getting much louder and there are so many that she can not even hear what they are saying. Patient states that today she attempted to commit suicide by stabbing her neck. However, states that the knife she picked it was very dull and did not even appears the skin. Patient states that she got a much sharper knife, states that her stopped her and called 911. Patient and states that she is not on any medications for bipolar disorder. Patient denies HI Patient also complaining of chronic dental pain of the left mandible. Patient states that she has not been able to see her dentist. Patient states that when uses chlorhexidine mouthwash, makes the pain more tolerable Related Data Home Medications ?Medication ?Instructions ?Recorded ?Confirmed clonazepam 0.5 mg tablet 0.5 mg PO DAILY PRN Anxiety 04/22/21 12/11/22 fluticasone 250 mcg-salmeterol 50 1 ea inhalation BID 03/07/22 12/11/22 mcg/dose blistr powdr for inhalation (Advair Diskus) fluticasone propionate 110 2 puff inhalation BID 03/07/22 12/11/22 mcg/actuation HFA aerosol inhaler (Flovent HFA) albuterol sulfate 2.5 mg/3 mL mg inhalation BID PRN asthma 08/25/22 12/11/22 (0.083 %) solution for nebulization albuterol sulfate 90 mcg/actuation inhalation 08/25/22 12/11/22 aerosol inhaler (Ventolin HFA) topiramate 200 mg tablet 200 mg PO DAILY 08/25/22 12/11/22 trazodone 100 mg tablet 100 mg PO BEDTIME 08/25/22 12/11/22 Previous Rx's ?Medication ?Instructions ?Recorded polyethylene glycol 3350 17 gram 17 g PO DAILY PRN constipation #30 08/07/22 oral powder packet (Miralax) ea hyoscyamine sulfate 0.125 mg 0.125 mg PO QID #30 tabs 08/25/22 disintegrating tablet pantoprazole 40 mg tablet,delayed 40 mg PO DAILY #30 tabs 08/25/22 release Tens Unit #1 ea 01/28/23 diclofenac sodium 3 % topical gel 1 appl topical BID 30 days #100 04/27/23 grams acetaminophen 500 mg tablet 500 mg PO QID PRN fever or pain 06/05/23 #14 tabs ibuprofen 600 mg tablet 600 mg PO Q8H PRN fever or pain 06/05/23 #14 tabs ondansetron HCl 4 mg tablet 4 mg PO Q6H PRN nausea and 06/05/23 vomiting #10 tabs chlorhexidine gluconate 0.12 % 15 ml buccal BID #118 mL 11/08/23 mouthwash (Peridex) naproxen 500 mg tablet 500 mg PO BID 7 days #14 tabs 11/08/23 penicillin V potassium 500 mg 500 mg PO BID 10 days #20 tabs 11/08/23 tablet Allergies Allergy/AdvReac Type Severity Reaction Status Date / Time stringer [CHERRIES] Allergy Severe ANAPHYLAXIS Verified 01/19/24 16:43 gabapentin [From NEURONTIN] Allergy Unknown MUSCLE Verified 01/19/24 16:43 SPASMS lamotrigine [From LAMICTAL] Allergy Unknown MUSCLE Verified 01/19/24 16:43 SPASMS oxcarbazepine Allergy Unknown MUSCLE Verified 01/19/24 16:43 [From TRILEPTAL] SPASMS Sulfa (Sulfonamide Allergy Unknown UNKNOWN Verified 01/19/24 16:43 Antibiotics) [SULFA (SULFONAMIDE ANTIBIOTICS)] coconut Allergy Anaphylaxis Verified 01/19/24 16:43 Review of Systems Review of Systems: Constitutional : No Weight loss, No Fever, No Chills, No Night Sweats, No Fatigue, No Malaise ENT/Mouth : No Hearing loss, No Ear Pain, No Nasal Congestion, No Sinus Pain, No Hoarseness, No sore throat, No Rhinorrhea, No Swallowing Difficulty Eyes: No Eye Pain, No Swelling, No Redness, No Foreign Body, No Discharge, No Vision Changes Cardiovascular : No Chest Pain, No SOB, No Dyspnea on Exertion, No Orthopnea, No Edema, No Palpitations Respiratory : No Cough, No Sputum, No Wheezing, No Smoke Exposure, No Dyspnea Gastrointestinal : No Nausea, No Vomiting, No Diarrhea, No Constipation, No abdominal Pain, No Hematochezia, No Melena Genitourinary : no irregular bleeding, No Dysuria, No Urinary Frequency, No Hematuria, No Urinary Incontinence, No Urgency, No Flank Pain, No Urinary Flow Changes, No Hesitancy Musculoskeletal : No joint pain, No Myalgias, No Joint Swelling Skin : No Skin Lesions, No rash Neuro : No Weakness, No Numbness, No Paresthesias, No Loss of Consciousness, No Dizziness, No Headache Psych : No Anxiety/Panic, complaining of depression, suicidal ideation, no HI Heme/Lymph: No Bruising, No Bleeding,No Lymphadenopathy Endocrine : No Polyuria, No Polydipsia, No Temperature Intolerance PMFSH Past Medical History Medical History Psychosis Bipolar 1 disorder Circulation problem Asthma Surgical History Hx of tubal ligation Tubal ligation status Social History Social History Household Members: Spouse Housing: Apartment Do you presently have visiting nurse or other home services: No Alcohol intake: never Patient Tobacco Use Status: Current everyday Tobacco user Tobacco use type: Cigarette Cigarette Packs Per Day: 0.5 Years Smoked: 28 years e-Cigarette/Vaping Use: Never Used Second Hand Smoke Exposure: Yes Substance Use Type: Marijuana Advance Directives Date on File: 08/08/22 service: No Current occupational status: 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 Oriented X3. No acute distress. Eyes: Pupils equal, round and reactive to light. ENT: Pharynx normal. Poor dentition Neck: Normal inspection. Neck supple. No lymph nodes noted. No crepitus CVS: Normal heart rate and rhythm. Pulses normal. Normal S1 and S2 Respiratory: No respiratory distress. Breath sounds normal. No Wheezing. No rales Abdomen: Soft and nontender. No rigidity. No distention. Skin: Skin warm and dry. Normal skin color. Normal skin turgor. Extremities: No lower extremity edema. No Lacerations. No Rash Neuro: Oriented X 3. No motor deficit. No sensory deficit. Moving all extremities. No slurred speech. CN 2 through 12 grossly intact Psych: calm, cooperative, normal affect Course Course Course Narrative: -all of patient's labs pending -care team consult pending -patient is on a Section 12 -physician observation started at 16:39 Discharge Plan Discharge Clinical Impression: Psychosis, Bipolar 1 disorder, Pain, dental Patient Disposition: Still a Patient Prescriptions: No Action (DME) Tens Unit See Rx Instructions .Route .MEDSUPPLY Qty: 1 0RF Rx Instructions: As directed polyethylene glycol 3350 [Miralax] 17 gram powder in packet 17 g PO DAILY PRN (Reason: constipation) Qty: 30 0RF ibuprofen 600 mg tablet 600 mg PO Q8H PRN (Reason: fever or pain) Qty: 14 0RF acetaminophen 500 mg tablet 500 mg PO QID PRN (Reason: fever or pain) Qty: 14 0RF ondansetron HCl 4 mg tablet 4 mg PO Q6H PRN (Reason: nausea and vomiting) Qty: 10 0RF penicillin V potassium 500 mg tablet 500 mg PO BID 10 Days Qty: 20 0RF naproxen 500 mg tablet 500 mg PO BID 7 Days Qty: 14 0RF chlorhexidine gluconate [Peridex] 0.12 % mouthwash 15 ml buccal BID Qty: 118 0RF clonazepam 0.5 mg tablet 0.5 mg PO DAILY PRN (Reason: Anxiety) albuterol sulfate [Ventolin HFA] 90 mcg/actuation HFA aerosol inhaler inhalation albuterol sulfate 2.5 mg /3 mL (0.083 %) solution for nebulization inhalation BID PRN (Reason: asthma) topiramate 200 mg tablet 200 mg PO DAILY trazodone 100 mg tablet 100 mg PO BEDTIME hyoscyamine sulfate 0.125 mg tablet,disintegrating 0.125 mg PO QID Qty: 30 0RF pantoprazole 40 mg tablet,delayed release (DR/EC) 40 mg PO DAILY Qty: 30 1RF fluticasone propion-salmeterol [Advair Diskus] 250-50 mcg/dose blister with device 1 ea inhalation BID fluticasone propionate [Flovent HFA] 110 mcg/actuation HFA aerosol inhaler 2 puff inhalation BID diclofenac sodium 3 % gel 1 appl topical BID 30 Days Qty: 100 8RF Print Language: Pakistani
[2024-01-19 16:36] VITALS: BP 138/83; BP 140/88; PULSE 59; PULSE 62; RESP 14; TEMP 36.8; O2SAT 98; BMI 25.4
[2024-01-19 16:45] VITALS: RESP 14
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
[2024-01-19 16:58] LABS: Appearance Urine Cloudy; Color Urine Yellow; Glucose Urine UA Negative (Negative); Leukocyte Esterase Urine Negative (Negative); Nitrite Urine Positive (Negative); PH 7.5 (5.0-9.0); Specific Gravity - Urine 1.015 (1.005-1.025); UMIC TRIGGER UACC YES; Urine Blood Negative (Negative); Urine Ketones Negative (Negative); Urine Protein Negative (Neg-Trace)
[2024-01-19 16:59] LABS: UPreg QC Valid YES; Urine Pregnancy NEGATIVE (NEGATIVE)
[2024-01-19 17:10] LABS: Amphetamine Screen Urine Not Detected (Not Detect); Barbiturates, Urine Not Detected (Not Detect); Benzodiazepines Screen Urine Not Detected (Not Detect); Buprenorphine Scr Not Detected (Not Detect); Cannabinoid Screen Urine POSITIVE (Not Detect); Cocaine Screen Urine Not Detected (Not Detect); Fentanyl, urine Not Detected (Not Detect); Methadone Screen, Urine Not Detected (Not Detect); Opiate Screen Urine Not Detected (Not Detect); Oxycodone Screen Urine Not Detected (Not Detect); Phencyclidine Screen Urine Not Detected (Not Detect)
[2024-01-19 17:18] LABS: Bacteria Urine 4+ (None Seen); Hyaline Casts Urine 0-2 /LPF (0-2); RBC Urine 0-2 /HPF (0-2); UACC Culture Trigger YES; WBC Urine 0-5 /HPF (0-5)
[2024-01-19 17:33] LABS: MANUAL DIFF FLAG NO
[2024-01-19 17:39] LABS: Basophils Absolute Auto 0.1 X10*3/uL (0.0-0.2); Basophils Percent Auto 0.6 % (0-2); Eosinophils Absolute Auto 0.1 X10*3/uL (0.0-0.4); Eosinophils Percent Auto 0.9 % (0-4); Hematocrit 40.3 % (37.0-47.0); Hemoglobin 13.7 g/dl (12.0-16.0); Imm Gran Abs Auto 0.04 X10*3/uL (0.00-0.03); Imm Gran Pct Auto 0.4 % (0.0-0.4); Lymphocytes Absolute Auto 2.7 X10*3/uL (1.2-4.9); Mean Corpuscular Hemoglobin 32.3 pg (27.0-33.0); Mean Platelet Volume 11.1 fL (9.4-12.3); Monocytes Absolute Auto 0.7 X10*3/uL (0.1-1.2); Monocytes Percent Auto 6.9 % (2-11); Neutrophils Absolute Auto 6.7 x10*3/uL (2.0-8.3); Neutrophils Percent Auto 65.2 % (45-73); Platelet Count 227 X10*3/uL (160-400); Red Blood Count 4.24 X10*6/uL (4.20-5.50); Red Cell Distribution Width 14.6 % (11.0-16.0); White Blood Count 10.3 X10*3/uL (4.8-10.8)
[2024-01-19] MEDS: Nicotine 21 MG PATCH.TD24 TRANSDERMA (17:49)
[2024-01-19 17:55] LABS: Alanine Aminotransferase 10 U/L (0-31); Albumin Level 4.5 g/dL (3.5-5.0); Alkaline Phosphatase 55 U/L (39-117); Anion Gap 15 (12-20); Aspartate Amino Transferase 16 U/L (5-31); Bilirubin Direct 0.1 mg/dL (0.0-0.5); Bilirubin Total 0.3 mg/dL (0.0-1.0); Blood Urea Nitrogen 7 mg/dL (9-16); Calcium 9.7 mg/dL (8.4-10.2); Carbon Dioxide 24 mmol/L (22-29); Chloride 106 mmol/L (96-108); Estimated Glomerular Filt Rate > 60; Ethanol < 10 mg/dL; Glucose Random 111 mg/dL (60-115); Potassium 3.6 mmol/L (3.3-5.1); Sodium 141 mmol/L (135-145); Total Protein 7.3 g/dL (6.5-8.0)
[2024-01-19] MEDS: LORazepam 1 MG TABLET 2 MG PO (18:01)
--- NOTE | 2024-01-19 18:01 | PHA.MEDREC ---
Pharmacy Consult ? Medication Reconciliation Pharmacy has completed the medication reconciliation. Spoke to Carmen regarding med rec, patient reports she is noncompliant with her topiramate and trazodone
--- NOTE | 2024-01-19 19:16 | PC.NURSE ---
patient appears to remain at rest at present respirations are even and unlabored patient appears in no distress
[2024-01-19] MEDS: clonazePAM 0.5 MG TABLET PO (20:02)
[2024-01-19] MEDS: Chlorhexidine Gluc Oral Rinse 15 ML MOUTHWASH BUCCAL (20:02)
[2024-01-19] MEDS: traZODone HCL 100 MG TABLET PO (20:02)
[2024-01-20 06:21] VITALS: PULSE 16
[2024-01-20] MEDS: clonazePAM 0.5 MG TABLET PO ×2 (09:06→21:23)
[2024-01-20] MEDS: Chlorhexidine Gluc Oral Rinse 15 ML MOUTHWASH BUCCAL ×2 (09:06→21:22)
[2024-01-20] MEDS: Topiramate 100 MG TABLET 200 MG PO (09:06)
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
[2024-01-20] MEDS: diphenhydrAMINE HCL 25 MG CAPSULE 50 MG PO (10:34)
[2024-01-20] MEDS: LORazepam 1 MG TABLET 2 MG PO (10:34)
[2024-01-20] MEDS: OLANZapine 10 MG TABLET PO ×2 (10:34→11:56)
--- NOTE | 2024-01-20 10:56 | PC.NURSE ---
Pt aggrivated in regards to not having access to her phone. Pt voiced many times she wants to leave. Pt making threats such as i'm going to break all the lockers in here . Security called zachariah MOSHER notified. See orders
[2024-01-20] MEDS: Bacitracin Oint 0.9 GM PACKET 1 APPL TOPICAL (11:45)
--- NOTE | 2024-01-20 12:09 | PC.NURSE ---
Pt continuously c/o not being able to get in touch with her and her frustration over having a break from the the phone. Pt took her plastic juice cup, ripped it up, and used the cut up pieces to cut herself superficially multiple times. Charge nurse and MD aware. Superficial cuts cleansed and bacitracin applied with DSG.
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
[2024-01-20] MEDS: Nicotine 21 MG PATCH.TD24 TRANSDERMA (21:22)
[2024-01-20] MEDS: traZODone HCL 100 MG TABLET PO (21:23)
[2024-01-20] MEDS: hydrOXYzine HCL 25 MG TABLET PO (21:23)
[2024-01-21 07:00] VITALS: BMI 29.7
[2024-01-21 08:00] VITALS: BP 105/60; PULSE 67; RESP 14; TEMP 36.6; O2SAT 98
[2024-01-21 08:02] LABS: Estimated Average Glucose 105 mg/dL; Hemoglobin A1c % 5.3 % (<6.0)
[2024-01-21 08:12] LABS: Cholesterol 180 mg/dL (<200); HDL Cholesterol 47 mg/dL (>40); LDL Cholesterol Calculated 116 mg/dL (<100); Triglycerides 85 mg/dL (<150)
[2024-01-21 08:28] LABS: Free T4 (Free Thyroxine) 0.96 ng/dL (0.71-1.85); Thyroid Stimulating Hormone 0.38 uIU/mL (0.32-4.0)
[2024-01-21] MEDS: Chlorhexidine Gluc Oral Rinse 15 ML MOUTHWASH BUCCAL ×2 (08:30→21:15)
[2024-01-21] MEDS: Topiramate 100 MG TABLET 200 MG PO (08:30)
[2024-01-21] MEDS: clonazePAM 0.5 MG TABLET PO ×2 (08:30→21:15)
[2024-01-21 08:41] LABS: Folate 6.7 ng/mL (> or = 4.0); Vitamin B12 274 pg/mL (200-900)
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
[2024-01-21 14:30] VITALS: BP 113/80
[2024-01-21] MEDS: cloNIDine HCL 0.1 MG TABLET PO (14:30)
[2024-01-21] MEDS: Acetaminophen 325 MG TABLET 650 MG PO (14:31)
[2024-01-21] MEDS: Ibuprofen 600 MG TABLET PO ×2 (15:29→21:20)
[2024-01-21] MEDS: Benzocaine 20 % Oral Gel 9 GM TUBE 1 APPL MUCOUS MEM ×3 (16:11→21:22)
[2024-01-21] MEDS: traZODone HCL 100 MG TABLET PO (21:16)
[2024-01-21 21:17] VITALS: BP 130/75; PULSE 108; RESP 16; TEMP 36.4; O2SAT 96
[2024-01-21] MEDS: traZODone HCL 50 MG TABLET PO (21:17)
[2024-01-21] MEDS: cloNIDine HCL 0.1 MG TABLET 0.05 MG PO (21:17)
[2024-01-22 07:15] VITALS: BP 91/68; PULSE 106; RESP 14; TEMP 36.4; O2SAT 94
[2024-01-22] MEDS: clonazePAM 0.5 MG TABLET PO ×2 (08:29→22:22)
[2024-01-22] MEDS: Topiramate 100 MG TABLET 200 MG PO (08:30)
[2024-01-22] MEDS: Sertraline HCL 50 MG TABLET PO (08:30)
[2024-01-22 08:31] VITALS: BP 96/70
[2024-01-22] MEDS: cloNIDine HCL 0.1 MG TABLET 0.05 MG PO ×3 (08:31→22:23)
[2024-01-22] MEDS: Chlorhexidine Gluc Oral Rinse 15 ML MOUTHWASH BUCCAL ×2 (08:33→22:22)
[2024-01-22] MEDS: Nicotine 21 MG PATCH.TD24 TRANSDERMA (10:53)
--- NOTE | 2024-01-22 14:31 | HO.PSYCHPN ---
Subjective Subjective Date of Service: 01/22/24 Reason For Visit: SI WITH PLAN PER EMS Interim History: irritable, labile. asking for discharge. reinforced repeatedly that pt would not be discharged today or over the weekend. reported she was not having SI, anxiety much less, depression lifted. per staff, attending groups. no dep/anx. presented as with dep/anx. Mental Status Exam Mental Status Exam Narrative: reactive, irritable, not cooperative. adequately dressed and groomed. PMA of agitated gestures. speech incr rate, amount, loudness. nml tone, decr latency. thoughts linear and logical, no delusions or paranoia expressed. affect constricted, hyper-intense, labile. mood less anxious and not depressed. denies SI/SIBI/HI/AVH. Diagnostics Vital Signs (24Hr): Vital Signs - 24 hr 01/21/24 21:17 01/22/24 07:15 01/22/24 08:31 Temperature 97.6 F 97.5 F Pulse Rate 108 H 106 H Respiratory Rate 16 14 Blood Pressure 130/75 91/68 96/70 Pulse Oximetry 96 94 Oxygen Delivery Method Room Air Room Air BMI result Body Mass Index 29.7 Labs 01/19/24 17:28 01/19/24 17:28 Labs: Laboratory Results - last 48 hr 01/21/24 07:20 Estimat Average Glucose 105 Hemoglobin A1c % 5.3 Triglycerides 85 Cholesterol 180 LDL Cholesterol, Calc 116 H HDL Cholesterol 47 Vitamin B12 274 Folate 6.7 TSH 0.38 Free T4 0.96 Medications Medications Current Medications Acetaminophen (Acetaminophen 325 Mg Tablet) 650 mg PO Q6H PRN PRN Reason: Headache/Pain Mild Scale (1-3) Last Admin: 01/21/24 14:31 Dose: 650 mg Al Hydroxide/Mg Hydroxide (Magnesium Hydrox/Alum Hydrox 30 Ml Oral.Susp) 30 ml PO Q6H PRN PRN Reason: Heartburn/Nausea Benzocaine (Benzocaine 20 % Oral Gel 9 Gm Tube) 1 appl MUCOUS MEM QID PRN; Protocol PRN Reason: oral mucosa pain Last Admin: 01/21/24 21:22 Dose: 1 appl Chlorhexidine Gluconate (Chlorhexidine Gluc Oral Rinse 15 Ml Mouthwash) 15 ml BUCCAL BID IVONNE Last Admin: 01/22/24 08:33 Dose: 15 ml Clonazepam (Clonazepam 0.5 Mg Tablet) 0.5 mg PO BID [facility] Last Admin: 01/22/24 08:29 Dose: 0.5 mg Clonidine HCl (Clonidine Hcl 0.1 Mg Tablet) 0.05 mg PO TID [facility]; Protocol Last Admin: 01/22/24 08:31 Dose: 0.05 mg Hydroxyzine HCl (Hydroxyzine Hcl 25 Mg Tablet) 25 mg PO Q6H PRN PRN Reason: Anxiety Last Admin: 01/20/24 21:23 Dose: 25 mg Ibuprofen (Ibuprofen 600 Mg Tablet) 600 mg PO Q6H PRN PRN Reason: Pain, Moderate(Pain Scale 4-6) Last Admin: 01/21/24 21:20 Dose: 600 mg Magnesium Hydroxide (Milk Of Magnesia 30 Ml Oral.Susp) 30 ml PO DAILY PRN PRN Reason: Constipation Nicotine (Nicotine 21 Mg Patch.Td24) 21 mg TRANSDERMA DAILY PRN PRN Reason: Nicotine Cravings Last Admin: 01/22/24 10:53 Dose: 21 mg Nicotine Polacrilex (Nicotine Polacrilex 2 Mg Gum) 4 mg BUCCAL Q2H PRN PRN Reason: Nicotine Cravings Sertraline HCl (Sertraline Hcl 50 Mg Tablet) 50 mg PO DAILY [facility] Last Admin: 01/22/24 08:30 Dose: 50 mg Topiramate (Topiramate 100 Mg Tablet) 200 mg PO DAILY [facility] Last Admin: 01/22/24 08:30 Dose: 200 mg Trazodone HCl (Trazodone Hcl 100 Mg Tablet) 100 mg PO BEDTIME [facility] Last Admin: 01/21/24 21:16 Dose: 100 mg Trazodone HCl (Trazodone Hcl 50 Mg Tablet) 50 mg PO BEDTIME MRX1 PRN PRN Reason: Insomnia Last Admin: 01/21/24 21:17 Dose: 50 mg Allergies Allergies Allergy/AdvReac Type Severity Reaction Status Date / Time stringer [CHERRIES] Allergy Severe ANAPHYLAXIS Verified 01/19/24 16:43 gabapentin [From NEURONTIN] Allergy Unknown MUSCLE Verified 01/19/24 16:43 SPASMS lamotrigine [From LAMICTAL] Allergy Unknown MUSCLE Verified 01/19/24 16:43 SPASMS oxcarbazepine Allergy Unknown MUSCLE Verified 01/19/24 16:43 [From TRILEPTAL] SPASMS Sulfa (Sulfonamide Allergy Unknown UNKNOWN Verified 01/19/24 16:43 Antibiotics) [SULFA (SULFONAMIDE ANTIBIOTICS)] coconut Allergy Anaphylaxis Verified 01/19/24 16:43 Assessment & Plan Assessment & Plan (1) Chronic post-traumatic stress disorder (PTSD): Status: Acute Code(s): F43.12 - Post-traumatic stress disorder, chronic Plan 01/20: start clonidine 0.05 TID. start zoloft 50 mg daily. assess Sx tomorrow. 01/21: irritable, labile, agitated. demanding discharge. reinforced not until thursday at the earliest. reports she is feeling much less anxious, not depressed, and without SI. Reason for continued inpatient stay Substantial Risk for: harm to self, inability to function and rapid decompensation Time Spent With Patient Time: Total time managing care of this patient today __25__ minutes.
[2024-01-22 15:41] VITALS: BP 114/63; PULSE 65
[2024-01-22] MEDS: hydrOXYzine HCL 25 MG TABLET PO (15:44)
[2024-01-22] MEDS: chlorproMAZINE HCl 25 MG TABLET PO ×2 (15:44→22:22)
[2024-01-22 22:15] VITALS: BP 114/71; PULSE 77; RESP 16; TEMP 36.7; O2SAT 98
[2024-01-22] MEDS: traZODone HCL 100 MG TABLET PO (22:22)
[2024-01-23] MEDS: chlorproMAZINE HCl 25 MG TABLET PO (04:22)
[2024-01-23 08:00] VITALS: BP 112/76; PULSE 97; RESP 16; TEMP 36.7; O2SAT 100
[2024-01-23] MEDS: clonazePAM 0.5 MG TABLET PO ×2 (08:51→20:48)
[2024-01-23] MEDS: Topiramate 100 MG TABLET 200 MG PO (08:51)
[2024-01-23] MEDS: Sertraline HCL 50 MG TABLET PO (08:52)
[2024-01-23 08:53] VITALS: BP 112/76
[2024-01-23] MEDS: cloNIDine HCL 0.1 MG TABLET 0.05 MG PO ×3 (08:53→20:48)
[2024-01-23] MEDS: Chlorhexidine Gluc Oral Rinse 15 ML MOUTHWASH BUCCAL ×2 (08:55→20:49)
--- NOTE | 2024-01-23 10:24 | HO.PSYCHPN ---
Subjective Subjective Date of Service: 01/23/24 Reason For Visit: SI WITH PLAN PER EMS Subjective Notes: Conditional Voluntary and 3 Day (01/26) Interim History: Patient was seen and discussed in rounds today. Records and plans were reviewed. She continues to be guarded, somewhat labile. Attending some groups. Medication compliant. She has had some outburst when on the phone. Eating and sleeping adequately. No changes were made today. No dangerous behaviors reported Review of Systems Review of Systems Yes all other systems are reviewed and are negative Mental Status Exam Mental Status Exam Narrative: In today's visit she is alert, pleasant and interactive. Normal speech. Moderate eye contact. Affect is subdued. No overt signs of psychosis. No SI/HI. No AVH. Cognitively is intact. Diagnostics Vital Signs (24Hr): Vital Signs - 24 hr 01/22/24 15:41 01/22/24 22:15 01/23/24 08:53 Temperature 98.1 F Pulse Rate 65 77 Respiratory Rate 16 Blood Pressure 114/63 114/71 112/76 Pulse Oximetry 98 Oxygen Delivery Method Room Air BMI result Body Mass Index 29.7 Labs 01/19/24 17:28 01/19/24 17:28 Medications Medications Current Medications Acetaminophen (Acetaminophen 325 Mg Tablet) 650 mg PO Q6H PRN PRN Reason: Headache/Pain Mild Scale (1-3) Last Admin: 01/21/24 14:31 Dose: 650 mg Al Hydroxide/Mg Hydroxide (Magnesium Hydrox/Alum Hydrox 30 Ml Oral.Susp) 30 ml PO Q6H PRN PRN Reason: Heartburn/Nausea Benzocaine (Benzocaine 20 % Oral Gel 9 Gm Tube) 1 appl MUCOUS MEM QID PRN; Protocol PRN Reason: oral mucosa pain Last Admin: 01/21/24 21:22 Dose: 1 appl Chlorhexidine Gluconate (Chlorhexidine Gluc Oral Rinse 15 Ml Mouthwash) 15 ml BUCCAL BID IVONNE Last Admin: 01/23/24 08:55 Dose: 15 ml Chlorpromazine HCl (Chlorpromazine Hcl 25 Mg Tablet) 25 mg PO Q4H PRN PRN Reason: agitation Last Admin: 01/23/24 04:22 Dose: 25 mg Clonazepam (Clonazepam 0.5 Mg Tablet) 0.5 mg PO BID IVONNE Last Admin: 01/23/24 08:51 Dose: 0.5 mg Clonidine HCl (Clonidine Hcl 0.1 Mg Tablet) 0.05 mg PO TID [facility]; Protocol Last Admin: 01/23/24 08:53 Dose: 0.05 mg Hydroxyzine HCl (Hydroxyzine Hcl 25 Mg Tablet) 25 mg PO Q6H PRN PRN Reason: Anxiety Last Admin: 01/22/24 15:44 Dose: 25 mg Ibuprofen (Ibuprofen 600 Mg Tablet) 600 mg PO Q6H PRN PRN Reason: Pain, Moderate(Pain Scale 4-6) Last Admin: 01/21/24 21:20 Dose: 600 mg Magnesium Hydroxide (Milk Of Magnesia 30 Ml Oral.Susp) 30 ml PO DAILY PRN PRN Reason: Constipation Nicotine (Nicotine 21 Mg Patch.Td24) 21 mg TRANSDERMA DAILY PRN PRN Reason: Nicotine Cravings Last Admin: 01/22/24 10:53 Dose: 21 mg Nicotine Polacrilex (Nicotine Polacrilex 2 Mg Gum) 4 mg BUCCAL Q2H PRN PRN Reason: Nicotine Cravings Sertraline HCl (Sertraline Hcl 50 Mg Tablet) 50 mg PO DAILY [facility] Last Admin: 01/23/24 08:52 Dose: 50 mg Topiramate (Topiramate 100 Mg Tablet) 200 mg PO DAILY [facility] Last Admin: 01/23/24 08:51 Dose: 200 mg Trazodone HCl (Trazodone Hcl 100 Mg Tablet) 100 mg PO BEDTIME [facility] Last Admin: 01/22/24 22:22 Dose: 100 mg Trazodone HCl (Trazodone Hcl 50 Mg Tablet) 50 mg PO BEDTIME MRX1 PRN PRN Reason: Insomnia Last Admin: 01/21/24 21:17 Dose: 50 mg Allergies Allergies Allergy/AdvReac Type Severity Reaction Status Date / Time stringer [CHERRIES] Allergy Severe ANAPHYLAXIS Verified 01/19/24 16:43 gabapentin [From NEURONTIN] Allergy Unknown MUSCLE Verified 01/19/24 16:43 SPASMS lamotrigine [From LAMICTAL] Allergy Unknown MUSCLE Verified 01/19/24 16:43 SPASMS oxcarbazepine Allergy Unknown MUSCLE Verified 01/19/24 16:43 [From TRILEPTAL] SPASMS Sulfa (Sulfonamide Allergy Unknown UNKNOWN Verified 01/19/24 16:43 Antibiotics) [SULFA (SULFONAMIDE ANTIBIOTICS)] coconut Allergy Anaphylaxis Verified 01/19/24 16:43 Assessment & Plan Assessment & Plan (1) Chronic post-traumatic stress disorder (PTSD): Status: Acute Code(s): F43.12 - Post-traumatic stress disorder, chronic Plan 01/20: start clonidine 0.05 TID. start zoloft 50 mg daily. assess Sx tomorrow. 01/21: irritable, labile, agitated. demanding discharge. reinforced not until thursday at the earliest. reports she is feeling much less anxious, not depressed, and without SI. 01/22: Continue current regimen and plans Reason for continued inpatient stay Substantial Risk for: med/psych decompensation Time Spent With Patient Time: Total time managing care of this patient today ____ minutes.
[2024-01-23 14:50] VITALS: BP 122/84; PULSE 84
[2024-01-23 15:05] VITALS: BP 122/84
[2024-01-23 20:00] VITALS: BP 141/70; PULSE 82; RESP 18; TEMP 36.5; O2SAT 99
--- NOTE | 2024-01-23 20:20 | ECG_ITS ---
Test Reason : c/o chest pain Blood Pressure : / mmHG Vent. Rate : 068 BPM Atrial Rate : 068 BPM P-R Int : 164 ms QRS Dur : 082 ms QT Int : 416 ms P-R-T Axes : 075 090 064 degrees QTc Int : 442 ms Normal sinus rhythm Rightward axis Borderline ECG When compared with ECG of 03-AUG-2022 16:45, No significant change was found Referred By: Kavon Kwok Electronically Signed By:HAIR PALMER
[2024-01-23] MEDS: traZODone HCL 100 MG TABLET PO (20:48)
[2024-01-23] MEDS: Benzocaine 20 % Oral Gel 9 GM TUBE 1 APPL MUCOUS MEM (20:55)
[2024-01-24] MEDS: chlorproMAZINE HCl 25 MG TABLET PO (03:04)
--- NOTE | 2024-01-24 04:27 | PC.NURSE ---
at 1999 on 01/23/24 patient reported chest pain. no diaphoresis, no c/o nausea, no dyspnea. VS wnl. EKG done and reviewed by Dr. Emmy Diehl. Dr. Danyel Diehl also made f/u call to unit to see how patient was feeling. reported that patient was comfortable and no longer c/o chest pain.
[2024-01-24 08:25] VITALS: BP 99/66; PULSE 83; RESP 14; TEMP 36.7; O2SAT 97
[2024-01-24] MEDS: Sertraline HCL 50 MG TABLET PO (08:57)
[2024-01-24] MEDS: clonazePAM 0.5 MG TABLET PO ×2 (08:57→22:37)
[2024-01-24] MEDS: cloNIDine HCL 0.1 MG TABLET 0.05 MG PO ×2 (08:58→22:37)
[2024-01-24] MEDS: Topiramate 100 MG TABLET 200 MG PO (08:58)
[2024-01-24] MEDS: Chlorhexidine Gluc Oral Rinse 15 ML MOUTHWASH BUCCAL (09:01)
--- NOTE | 2024-01-24 10:24 | P.PNPSI_ITS ---
Subjective Subjective Date of Service: 01/24/24 Reason For Visit: SI WITH PLAN PER EMS Subjective Notes: Conditional Voluntary and 3 Day (01/26) Interim History: Patient was seen and discussed in rounds today. Records and plans were reviewed. She is doing a little better and denies any depression or anxiety. Not attending groups. Isolative. Eating and sleeping adequately. She is requesting a nasal spray which I will order. No SI. No changes were made Review of Systems Review of Systems Nasal dryness Yes all other systems are reviewed and are negative Mental Status Exam Mental Status Exam Narrative: In today's visit she is alert, pleasant and interactive. Normal speech. Moderate eye contact. Affect is subdued. No overt signs of psychosis. No SI/HI. No AVH. Cognitively is intact. Diagnostics Vital Signs (24Hr): Vital Signs - 24 hr 01/23/24 14:50 01/23/24 15:05 01/23/24 20:00 Temperature 97.7 F Pulse Rate 84 82 Respiratory Rate 18 Blood Pressure 122/84 122/84 141/70 H Pulse Oximetry 99 Oxygen Delivery Method Room Air 01/24/24 08:25 Temperature 98.1 F Pulse Rate 83 Respiratory Rate 14 Blood Pressure 99/66 Pulse Oximetry 97 Oxygen Delivery Method Room Air BMI result Body Mass Index 29.7 Labs 01/19/24 17:28 01/19/24 17:28 Medications Medications Current Medications Acetaminophen (Acetaminophen 325 Mg Tablet) 650 mg PO Q6H PRN PRN Reason: Headache/Pain Mild Scale (1-3) Last Admin: 01/21/24 14:31 Dose: 650 mg Al Hydroxide/Mg Hydroxide (Magnesium Hydrox/Alum Hydrox 30 Ml Oral.Susp) 30 ml PO Q6H PRN PRN Reason: Heartburn/Nausea Benzocaine (Benzocaine 20 % Oral Gel 9 Gm Tube) 1 appl MUCOUS MEM QID PRN; Protocol PRN Reason: oral mucosa pain Last Admin: 01/23/24 20:55 Dose: 1 appl Chlorhexidine Gluconate (Chlorhexidine Gluc Oral Rinse 15 Ml Mouthwash) 15 ml BUCCAL BID IVONNE Last Admin: 01/24/24 09:01 Dose: 15 ml Chlorpromazine HCl (Chlorpromazine Hcl 25 Mg Tablet) 25 mg PO Q4H PRN PRN Reason: agitation Last Admin: 01/24/24 03:04 Dose: 25 mg Clonazepam (Clonazepam 0.5 Mg Tablet) 0.5 mg PO BID [facility] Last Admin: 01/24/24 08:57 Dose: 0.5 mg Clonidine HCl (Clonidine Hcl 0.1 Mg Tablet) 0.05 mg PO TID [facility]; Protocol Last Admin: 01/24/24 08:58 Dose: 0.05 mg Hydroxyzine HCl (Hydroxyzine Hcl 25 Mg Tablet) 25 mg PO Q6H PRN PRN Reason: Anxiety Last Admin: 01/22/24 15:44 Dose: 25 mg Ibuprofen (Ibuprofen 600 Mg Tablet) 600 mg PO Q6H PRN PRN Reason: Pain, Moderate(Pain Scale 4-6) Last Admin: 01/21/24 21:20 Dose: 600 mg Magnesium Hydroxide (Milk Of Magnesia 30 Ml Oral.Susp) 30 ml PO DAILY PRN PRN Reason: Constipation Nicotine (Nicotine 21 Mg Patch.Td24) 21 mg TRANSDERMA DAILY PRN PRN Reason: Nicotine Cravings Last Admin: 01/22/24 10:53 Dose: 21 mg Nicotine Polacrilex (Nicotine Polacrilex 2 Mg Gum) 4 mg BUCCAL Q2H PRN PRN Reason: Nicotine Cravings Sertraline HCl (Sertraline Hcl 50 Mg Tablet) 50 mg PO DAILY [facility] Last Admin: 01/24/24 08:57 Dose: 50 mg Topiramate (Topiramate 100 Mg Tablet) 200 mg PO DAILY [facility] Last Admin: 01/24/24 08:58 Dose: 200 mg Trazodone HCl (Trazodone Hcl 100 Mg Tablet) 100 mg PO BEDTIME [facility] Last Admin: 01/23/24 20:48 Dose: 100 mg Trazodone HCl (Trazodone Hcl 50 Mg Tablet) 50 mg PO BEDTIME MRX1 PRN PRN Reason: Insomnia Last Admin: 01/21/24 21:17 Dose: 50 mg Allergies Allergies Allergy/AdvReac Type Severity Reaction Status Date / Time stringer [CHERRIES] Allergy Severe ANAPHYLAXIS Verified 01/19/24 16:43 gabapentin [From NEURONTIN] Allergy Unknown MUSCLE Verified 01/19/24 16:43 SPASMS lamotrigine [From LAMICTAL] Allergy Unknown MUSCLE Verified 01/19/24 16:43 SPASMS oxcarbazepine Allergy Unknown MUSCLE Verified 01/19/24 16:43 [From TRILEPTAL] SPASMS Sulfa (Sulfonamide Allergy Unknown UNKNOWN Verified 01/19/24 16:43 Antibiotics) [SULFA (SULFONAMIDE ANTIBIOTICS)] coconut Allergy Anaphylaxis Verified 01/19/24 16:43 Assessment & Plan Assessment & Plan (1) Chronic post-traumatic stress disorder (PTSD): Status: Acute Code(s): F43.12 - Post-traumatic stress disorder, chronic Plan 01/20: start clonidine 0.05 TID. start zoloft 50 mg daily. assess Sx tomorrow. 01/21: irritable, labile, agitated. demanding discharge. reinforced not until thursday at the earliest. reports she is feeling much less anxious, not depressed, and without SI. 01/22: Continue current regimen and plans 01/23: Continue current regimen and plans. Reason for continued inpatient stay Substantial Risk for: med/psych decompensation Time Spent With Patient Time: Total time managing care of this patient today ____ minutes.
--- NOTE | 2024-01-24 19:33 | PC.NURSE ---
01/24/24 Pt reported R knee pain. Pt reported hx of osteoarthritis. Pt stated It really hurts and I can not put any pressure on it. I tried to stand up and sat right back down on my bed. I passed information along to oncoming michael, Rukhsana OLSEN.
[2024-01-24] MEDS: Acetaminophen 325 MG TABLET 650 MG PO (20:08)
[2024-01-24 21:40] VITALS: BP 125/67; PULSE 68; RESP 16; TEMP 36.4; O2SAT 99
[2024-01-24] MEDS: traZODone HCL 100 MG TABLET PO (22:37)
[2024-01-24] MEDS: Acetaminophen/Codeine 300-30mg Tablet 1 TAB PO (22:38)
[2024-01-25] MEDS: chlorproMAZINE HCl 25 MG TABLET PO ×2 (04:06→21:55)
[2024-01-25 07:40] VITALS: BP 117/78; PULSE 81; RESP 16; TEMP 36.4; O2SAT 99
[2024-01-25] MEDS: cloNIDine HCL 0.1 MG TABLET 0.05 MG PO ×3 (08:16→21:47)
[2024-01-25] MEDS: Sertraline HCL 50 MG TABLET PO (08:17)
[2024-01-25] MEDS: Topiramate 100 MG TABLET 200 MG PO (08:18)
[2024-01-25] MEDS: clonazePAM 0.5 MG TABLET PO ×2 (08:18→21:48)
[2024-01-25] MEDS: Chlorhexidine Gluc Oral Rinse 15 ML MOUTHWASH BUCCAL ×2 (08:19→21:47)
[2024-01-25] MEDS: Nicotine 21 MG PATCH.TD24 TRANSDERMA (08:38)
[2024-01-25 15:08] VITALS: BP 118/92; PULSE 83; RESP 16; O2SAT 100
--- NOTE | 2024-01-25 17:31 | HO.PSYCHPN ---
Subjective Subjective Date of Service: 01/25/24 Reason For Visit: SI WITH PLAN PER EMS Subjective Notes: 3 Day Interim History: Reviewed with Dr. David. 3 day up on 01/27/24. social with peers, active on unit. Pt reports feeling good today; pt became angry and started yelling at T/W when notified she would not be getting discharged today. Pt reports she is feeling better and just want to go home ; pt denies SI/HI/VH/AH. Pt to be discharged home tomorrow. pt plans on following up with her outpatient providers. Medication Compliance: Yes Side effects from medications: No Attending Groups: Yes Review of Systems Constitutional: Reports as per HPI Eyes: Reports as per HPI Reports as per HPI Cardiovascular: Reports as per HPI Respiratory: Reports as per HPI Gastrointestinal: Reports as per HPI Genitourinary: Reports as per HPI Musculoskeletal: Reports as per HPI Skin/Breast: Reports as per HPI Reports as per HPI Psychiatric: Reports as per HPI Endocrine: Reports as per HPI Hematologic/Lymphatic: Reports as per HPI Allergic/Immunologic: Reports as per HPI Mental Status Exam Mental Status Exam Narrative: Pt is alert and oriented; behavior is cooperative; dressed in casual attire; mood is described as good ; eye contact appropriate; Speech is normal rate, volume and prosody not pressured; thought process is organized; Thought content is on discharge; denies SI/HI/VH/AH. Diagnostics Vital Signs (24Hr): Vital Signs - 24 hr 01/24/24 21:40 01/25/24 07:40 01/25/24 15:08 Temperature 97.6 F 97.5 F Pulse Rate 68 81 83 Respiratory Rate 16 16 16 Blood Pressure 125/67 117/78 118/92 H Pulse Oximetry 99 99 100 Oxygen Delivery Method Room Air Room Air Room Air BMI result Body Mass Index 29.7 Labs 01/19/24 17:28 01/19/24 17:28 Medications Medications Current Medications Acetaminophen (Acetaminophen 325 Mg Tablet) 650 mg PO Q6H PRN PRN Reason: Headache/Pain Mild Scale (1-3) Last Admin: 01/24/24 20:08 Dose: 650 mg Acetaminophen/Codeine Phosphate (Acetaminophen/Codeine 300-30mg Tablet) 1 tab PO Q6H PRN PRN Reason: Pain, Severe (Pain Scale 7-10) Stop: 01/25/24 22:20 Last Admin: 01/24/24 22:38 Dose: 1 tab Al Hydroxide/Mg Hydroxide (Magnesium Hydrox/Alum Hydrox 30 Ml Oral.Susp) 30 ml PO Q6H PRN PRN Reason: Heartburn/Nausea Benzocaine (Benzocaine 20 % Oral Gel 9 Gm Tube) 1 appl MUCOUS MEM QID PRN; Protocol PRN Reason: oral mucosa pain Last Admin: 01/23/24 20:55 Dose: 1 appl Chlorhexidine Gluconate (Chlorhexidine Gluc Oral Rinse 15 Ml Mouthwash) 15 ml BUCCAL BID [facility] Last Admin: 01/25/24 08:19 Dose: 15 ml Chlorpromazine HCl (Chlorpromazine Hcl 25 Mg Tablet) 25 mg PO Q4H PRN PRN Reason: agitation Last Admin: 01/25/24 04:06 Dose: 25 mg Clonazepam (Clonazepam 0.5 Mg Tablet) 0.5 mg PO BID [facility] Last Admin: 01/25/24 08:18 Dose: 0.5 mg Clonidine HCl (Clonidine Hcl 0.1 Mg Tablet) 0.05 mg PO TID [facility]; Protocol Last Admin: 01/25/24 15:12 Dose: 0.05 mg Hydroxyzine HCl (Hydroxyzine Hcl 25 Mg Tablet) 25 mg PO Q6H PRN PRN Reason: Anxiety Last Admin: 01/22/24 15:44 Dose: 25 mg Ibuprofen (Ibuprofen 600 Mg Tablet) 600 mg PO Q6H PRN PRN Reason: Pain, Moderate(Pain Scale 4-6) Last Admin: 01/21/24 21:20 Dose: 600 mg Magnesium Hydroxide (Milk Of Magnesia 30 Ml Oral.Susp) 30 ml PO DAILY PRN PRN Reason: Constipation Nicotine (Nicotine 21 Mg Patch.Td24) 21 mg TRANSDERMA DAILY PRN PRN Reason: Nicotine Cravings Last Admin: 01/25/24 08:38 Dose: 21 mg Nicotine Polacrilex (Nicotine Polacrilex 2 Mg Gum) 4 mg BUCCAL Q2H PRN PRN Reason: Nicotine Cravings Sertraline HCl (Sertraline Hcl 50 Mg Tablet) 50 mg PO DAILY [facility] Last Admin: 01/25/24 08:17 Dose: 50 mg Sodium Chloride (Sodium Chloride 0.65 % Nasal 44 Ml Sprbtl) 1 spray NOSTRIL-B Q1H PRN PRN Reason: Nasal Congestion Topiramate (Topiramate 100 Mg Tablet) 200 mg PO DAILY [facility] Last Admin: 01/25/24 08:18 Dose: 200 mg Trazodone HCl (Trazodone Hcl 100 Mg Tablet) 100 mg PO BEDTIME IVONNE Last Admin: 01/24/24 22:37 Dose: 100 mg Trazodone HCl (Trazodone Hcl 50 Mg Tablet) 50 mg PO BEDTIME MRX1 PRN PRN Reason: Insomnia Last Admin: 01/21/24 21:17 Dose: 50 mg Allergies Allergies Allergy/AdvReac Type Severity Reaction Status Date / Time stringer [CHERRIES] Allergy Severe ANAPHYLAXIS Verified 01/19/24 16:43 gabapentin [From NEURONTIN] Allergy Unknown MUSCLE Verified 01/19/24 16:43 SPASMS lamotrigine [From LAMICTAL] Allergy Unknown MUSCLE Verified 01/19/24 16:43 SPASMS oxcarbazepine Allergy Unknown MUSCLE Verified 01/19/24 16:43 [From TRILEPTAL] SPASMS Sulfa (Sulfonamide Allergy Unknown UNKNOWN Verified 01/19/24 16:43 Antibiotics) [SULFA (SULFONAMIDE ANTIBIOTICS)] coconut Allergy Anaphylaxis Verified 01/19/24 16:43 Assessment & Plan Assessment & Plan (1) Bipolar 1 disorder: Status: Acute Code(s): F31.9 - Bipolar disorder, unspecified (2) Chronic post-traumatic stress disorder (PTSD): Status: Acute Code(s): F43.12 - Post-traumatic stress disorder, chronic Plan 01/20: start clonidine 0.05 TID. start zoloft 50 mg daily. assess Sx tomorrow. 01/21: irritable, labile, agitated. demanding discharge. reinforced not until thursday at the earliest. reports she is feeling much less anxious, not depressed, and without SI. 01/22: Continue current regimen and plans 01/23: Continue current regimen and plans. 01/24: 3 day up on 01/27/24. social with peers, active on unit. Pt reports feeling good today; pt became angry and started yelling at T/W when notified she would not be getting discharged today. Pt reports she is feeling better and just want to go home ; pt denies SI/HI/VH/AH. Pt to be discharged home tomorrow. pt plans on following up with her outpatient providers. Patient educated on: diagnosis, medication risk/benefits and therapeutic strategies Informed Consent: understands Reason for continued inpatient stay Substantial Risk for: stable for discharge Time Spent With Patient Time: Total time managing care of this patient today _20___ minutes.
[2024-01-25] MEDS: Magnesium Hydrox/Alum Hydrox 30 ML ORAL.SUSP PO (20:08)
[2024-01-25 21:45] VITALS: BP 115/71; PULSE 79; RESP 16; TEMP 36.1; O2SAT 98
[2024-01-25] MEDS: traZODone HCL 100 MG TABLET PO (21:48)
[2024-01-26 07:15] VITALS: BP 105/64; PULSE 90; RESP 16; TEMP 36.4; O2SAT 98
[2024-01-26 08:48] VITALS: BP 115/72
[2024-01-26] MEDS: Chlorhexidine Gluc Oral Rinse 15 ML MOUTHWASH BUCCAL (08:48)
[2024-01-26] MEDS: clonazePAM 0.5 MG TABLET PO (08:48)
[2024-01-26] MEDS: Topiramate 100 MG TABLET 200 MG PO (08:48)
[2024-01-26] MEDS: Sertraline HCL 50 MG TABLET PO (08:48)
[2024-01-26] MEDS: cloNIDine HCL 0.1 MG TABLET 0.05 MG PO (08:48)
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
== END 2024-01-26 11:00 | disposition home or self-care (01) | DRG 753 ==
LOC: HO.ED 01-20 07:34 → HO.PADLT16 01-20 14:57
PROVIDERS: Emergency Medicine; Admitting Provider Psychiatry & Neurology Psychiatry; Emergency Provider Emergency Medicine Emergency Medical Services; PCP Internal Medicine; Responsible Provider Registered Nurse; Visit Provider Psychiatry & Neurology Psychiatry
DX: F31.9 Bipolar disorder, unspecified (principal); R45.851 Suicidal ideations; F43.12 Post-traumatic stress disorder, chronic; F17.210 Nicotine dependence, cigarettes, uncomplicated; Z71.6 Tobacco abuse counseling; Z79.899 Other long term (current) drug therapy
CPT/HCPCS: 36415; 80048; 80061; 80076; 80307; 81001; 81003; 81025; 82607; 82746; 83036; 84439; 84443; 85025; 87086; 87088; 87186; 93005; 99284; S9485

== ENCOUNTER 2024-01-20 14:44 | Outpatient (BNV) | payer OTHER, SELFPAY | END 2024-01-23 20:20 | PROVIDERS: Admitting Provider Psychiatry & Neurology Psychiatry; Emergency Provider Emergency Medicine Emergency Medical Services; PCP Internal Medicine; Visit Provider Internal Medicine | DX: R07.9 Chest pain, unspecified (principal) | CPT/HCPCS: 93010 ==

== ENCOUNTER → 2024-01-20 14:44 | Outpatient (BNV) | payer OTHER, SELFPAY | PROVIDERS: Admitting Provider Psychiatry & Neurology Psychiatry; Emergency Provider Emergency Medicine Emergency Medical Services; PCP Internal Medicine; Visit Provider Psychiatry & Neurology Psychiatry | DX: F31.4 Bipolar disorder, current episode depressed, severe, without psychotic features (principal); F43.12 Post-traumatic stress disorder, chronic | CPT/HCPCS: 90792; 99231; 99232; 99238 ==

== ENCOUNTER 2024-03-22 14:10 | Inpatient (IN) | payer OTHER, SELFPAY ==
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
[2024-03-22 14:23] VITALS: BP 126/81; PULSE 86; O2SAT 96
[2024-03-22 14:24] VITALS: BP 123/76; PULSE 85; RESP 18; TEMP 37.5; O2SAT 98; BMI 24.3
[2024-03-22 14:55] VITALS: BP 123/76; PULSE 85; RESP 18; TEMP 37.5; O2SAT 98
--- NOTE | 2024-03-22 14:55 | ED.PSYCH ---
HPI - Psych General Chief Complaint: Psychiatric Symptoms Stated Complaint: SI PER EMS Time Seen by Provider: 03/22/24 14:54 History of Present Illness ED Provider: Angelina BOWERS Narrative: The patient is a 38-year-old female with a history of bipolar disorder and PTSD. She has been feeling more this month. She has been feeling increasingly suicidal and has been hearing voices that has been telling her to kill herself. Today she had a plan to overdose on pills but her stopped her and called an ambulance and she was brought to the hospital. She did not actually overdose on any pills do anything else to harm herself. No fever, sweats, chills. Related Data Previous Rx's ?Medication ?Instructions ?Recorded chlorhexidine gluconate 0.12 % 15 ml buccal BID 30 days #600 mL 01/26/24 mouthwash chlorpromazine 25 mg tablet 25 mg PO BID PRN agitation 30 days 01/26/24 #60 tabs clonazepam 0.5 mg tablet 0.5 mg PO BID 14 days #28 tabs 01/26/24 clonidine HCl 0.1 mg tablet 0.05 mg PO TID 30 days #45 tabs 01/26/24 sertraline 50 mg tablet 50 mg PO DAILY 30 days #30 tabs 01/26/24 topiramate 200 mg tablet 200 mg PO DAILY 30 days #30 tabs 01/26/24 trazodone 100 mg tablet 100 mg PO BEDTIME 30 days #30 tabs 01/26/24 Allergies Allergy/AdvReac Type Severity Reaction Status Date / Time stringer [CHERRIES] Allergy Severe ANAPHYLAXIS Verified 03/22/24 14:24 gabapentin [From NEURONTIN] Allergy Unknown MUSCLE Verified 03/22/24 14:24 SPASMS lamotrigine [From LAMICTAL] Allergy Unknown MUSCLE Verified 03/22/24 14:24 SPASMS oxcarbazepine Allergy Unknown MUSCLE Verified 03/22/24 14:24 [From TRILEPTAL] SPASMS Sulfa (Sulfonamide Allergy Unknown UNKNOWN Verified 03/22/24 14:24 Antibiotics) [SULFA (SULFONAMIDE ANTIBIOTICS)] coconut Allergy Anaphylaxis Verified 03/22/24 14:24 Review of Systems Review of Systems: Yes all other systems are reviewed and are negative PMFSH Past Medical History Medical History Psychosis Bipolar 1 disorder Circulation problem Asthma Surgical History Hx of tubal ligation Tubal ligation status Social History Social History Household Members: Significant Other Housing: House Do you presently have visiting nurse or other home services: No Alcohol intake: never Patient Tobacco Use Status: Refuse Tobacco use screen Tobacco use type: Cigarette Cigarette Packs Per Day: 0.5 Years Smoked: 28 years Smoked in Last 30 Days: Yes e-Cigarette/Vaping Use: Never Used Second Hand Smoke Exposure: Yes Use of substances other than those prescribed or required for medical reasons: Yes Substance Use Type: Marijuana Advance Directives Date on File: 08/08/22 Do you have a plan to hurt others: No Plan service: No Current occupational status: 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 She is tearful and seems very sad. She is cooperative. HEENT: Other: Face is symmetrical, mucous membranes moist. Eyes: Other: Pupils are round equal, conjunctivae are clear, extraocular movements intact General: appearance normal, both eyes and all related structures Neck: Neck: Yes full ROM, Yes supple and Yes no JVD Resp: Effort & Inspection: normal respiratory effort Auscultation: clear to auscultation bilaterally Cardio: Rate: regular rate Rhythm: regular rhythm Heart sounds: S1 normal heart sound present and S2 normal heart sound present GI: Other: Abdomen is soft and nontender Skin: General skin exam: no rashes or lesions noted Neuro: Other: The patient is awake, alert. Face is symmetrical. Speech is clear. Cranial nerves are intact. She moves her extremities normally and appropriately. She has a normal gait. She is neurologically intact. Extrem: Other: No peripheral edema Psych: Other: The patient has a sad affect. She is cooperative. She says that she is hearing voices telling her to kill herself but she does not have an obvious thought disorder. Medications Administered Discontinued Medications Generic Name Dose Route Start Last Admin Trade Name Jessica PRN Reason Stop Dose Admin Olanzapine 10 mg 03/22/24 15:01 03/22/24 15:07 Olanzapine Odt 10 Mg Tab.Shiv BARON 03/22/24 15:02 10 mg ONCE ONE Administration Medical Decision Making Medical Decision Making [facility] Narrative: The patient is a 38-year-old female with a history of bipolar disorder and PTSD who presents with worsening symptoms of depression over the last month. She also describes hearing voices telling her to kill herself. Today she says that she attempted to try to overdose on medications but was stopped by her . She seems quite depressed. She complains of hearing voices although she does not seem frankly psychotic. She was given a dose of olanzapine orally as she seemed somewhat agitated. I suspect that she will be medically clear after her labs are back. She we will need to be seen by the care team. [facility] pending evaluation by the care team. The patient will be placed in physician observation. Lab Data 03/22/24 15:16 03/22/24 15:17 Labs: Lab Results 03/22/24 Range/Units 14:41 Urine Opiates Screen Not Detected (Not Detect) Ur Buprenorphine Scrn Not Detected (Not Detect) ng/mL Ur Oxycodone Screen Not Detected (Not Detect) ng/mL Urine Methadone Screen Not Detected (Not Detect) ng/mL Urine Fentanyl Screen Not Detected (Not Detect) Ur Barbiturates Screen Not Detected (Not Detect) Ur Phencyclidine Scrn Not Detected (Not Detect) Ur Amphetamines Screen Not Detected (Not Detect) U Benzodiazepines Scrn Not Detected (Not Detect) Urine Cocaine Screen Not Detected (Not Detect) U Marijuana (THC) Screen POSITIVE H (Not Detect) Discharge Plan Discharge Clinical Impression: Depression Patient Disposition: Still a Patient Prescriptions: No Action sertraline 50 mg Tablet 50 mg PO DAILY 30 Days Qty: 30 0RF chlorhexidine gluconate 0.12 % Mouthwash 15 ml buccal BID 30 Days Qty: 600 0RF clonidine HCl 0.1 mg Tablet 0.05 mg PO TID 30 Days Qty: 45 0RF Protocol: Hold for SBP< HOLD for SBP < : 90 chlorpromazine 25 mg Tablet 25 mg PO BID PRN (Reason: agitation) 30 Days Qty: 60 0RF clonazepam 0.5 mg tablet 0.5 mg PO BID 14 Days Qty: 28 1RF trazodone 100 mg tablet 100 mg PO BEDTIME 30 Days Qty: 30 0RF topiramate 200 mg tablet 200 mg PO DAILY 30 Days Qty: 30 0RF Interventions: [place]-Suicide Risk Severity Scale Last Done: 03/22/24 14:57 Print Language: Estonian
[2024-03-22 15:07] LABS: Amphetamine Screen Urine Not Detected (Not Detect); Barbiturates, Urine Not Detected (Not Detect); Benzodiazepines Screen Urine Not Detected (Not Detect); Buprenorphine Scr Not Detected (Not Detect); Cannabinoid Screen Urine POSITIVE (Not Detect); Cocaine Screen Urine Not Detected (Not Detect); Fentanyl, urine Not Detected (Not Detect); Methadone Screen, Urine Not Detected (Not Detect); Opiate Screen Urine Not Detected (Not Detect); Oxycodone Screen Urine Not Detected (Not Detect); Phencyclidine Screen Urine Not Detected (Not Detect)
[2024-03-22] MEDS: OLANZapine ODT 10 MG TAB.RAPDIS TRANSLINGU (15:07)
[2024-03-22 15:22] LABS: Basophils Absolute Auto 0.1 X10*3/uL (0.0-0.2); Basophils Percent Auto 0.6 % (0-2); Eosinophils Absolute Auto 0.1 X10*3/uL (0.0-0.4); Eosinophils Percent Auto 0.5 % (0-4); Hematocrit 38.7 % (37.0-47.0); Hemoglobin 13.3 g/dl (12.0-16.0); Imm Gran Abs Auto 0.04 X10*3/uL (0.00-0.03); Imm Gran Pct Auto 0.4 % (0.0-0.4); Lymphocytes Absolute Auto 1.9 X10*3/uL (1.2-4.9); Lymphocytes Percent Auto 16.8 % (20-40); MANUAL DIFF FLAG NO; Mean Corpuscular HGB Conc 34.4 g/dl (31.0-35.0); Mean Corpuscular Volume 93.3 fL (80.0-98.0); Mean Platelet Volume 10.6 fL (9.4-12.3); Monocytes Absolute Auto 0.7 X10*3/uL (0.1-1.2); Neutrophils Absolute Auto 8.5 x10*3/uL (2.0-8.3); Neutrophils Percent Auto 75.7 % (45-73); Platelet Count 225 X10*3/uL (160-400); Red Blood Count 4.15 X10*6/uL (4.20-5.50); Red Cell Distribution Width 14.1 % (11.0-16.0); White Blood Count 11.2 X10*3/uL (4.8-10.8)
--- NOTE | 2024-03-22 15:35 | MHC.CARE ---
Pt sent in from community by [facility] crisis team, pt suicidal and hearing voices, she will be inpatient bed search.
[2024-03-22 15:50] LABS: Acetaminophen LAB < 3 mcg/mL (<30); Alanine Aminotransferase 9 U/L (0-31); Albumin Level 4.8 g/dL (3.5-5.0); Alkaline Phosphatase 52 U/L (39-117); Anion Gap 14 (12-20); Aspartate Amino Transferase 18 U/L (5-31); Bilirubin Total 0.4 mg/dL (0.0-1.0); Blood Urea Nitrogen 11 mg/dL (9-16); Calcium 10.2 mg/dL (8.4-10.2); Carbon Dioxide 24 mmol/L (22-29); Chloride 104 mmol/L (96-108); Creatinine Clr Calc Pharmacy 104.3; Estimated Glomerular Filt Rate > 60; Ethanol < 10 mg/dL; Glucose Random 104 mg/dL (60-115); Potassium 3.5 mmol/L (3.3-5.1); Salicylate < 5.0 mg/dL (15-30); Sodium 138 mmol/L (135-145)
--- NOTE | 2024-03-22 15:55 | MHC.CARE ---
CARE team to re-assess patent for appropriate level of care, disposition pending crisis assessment by CARE team.
[2024-03-22 18:20] VITALS: BP 132/78; PULSE 80; RESP 16; TEMP 36.4; O2SAT 98
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
[2024-03-22] MEDS: clonazePAM 0.5 MG TABLET PO (21:22)
[2024-03-22] MEDS: traZODone HCL 100 MG TABLET PO (21:22)
[2024-03-22 21:42] VITALS: BP 132/78
[2024-03-22] MEDS: cloNIDine HCL 0.1 MG TABLET 0.05 MG PO (21:42)
[2024-03-22] MEDS: chlorproMAZINE HCl 25 MG TABLET PO (21:43)
[2024-03-23 08:15] VITALS: BP 161/88; PULSE 77; RESP 16; TEMP 36.3; O2SAT 97
[2024-03-23 08:49] LABS: Estimated Average Glucose 111 mg/dL; Hemoglobin A1C 111.3903 umol/L; Hemoglobin A1c % 5.5 % (<6.0); Total Hemoglobin (HGBA1C) 3031.2866 umol/L
[2024-03-23] MEDS: Nicotine 21 MG PATCH.TD24 TRANSDERMA (08:53)
[2024-03-23 08:54] VITALS: BP 161/88
[2024-03-23] MEDS: Topiramate 100 MG TABLET 200 MG PO (08:54)
[2024-03-23] MEDS: cloNIDine HCL 0.1 MG TABLET 0.05 MG PO (08:54)
[2024-03-23] MEDS: clonazePAM 0.5 MG TABLET PO (08:54)
[2024-03-23 08:59] LABS: Cholesterol 206 mg/dL (<200); HDL Cholesterol 46 mg/dL (>40); LDL Cholesterol Calculated 149 mg/dL (<100); Triglycerides 58 mg/dL (<150)
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
[2024-03-23] MEDS: Flu Vacc TS2024-25(6mos up)/PF 0.5 ML SYRINGE IM (10:23)
[2024-03-23] MEDS: Fluticasone Propionate 250 MCG BLST.W.DEV 1 PUFF INHALE (10:23)
[2024-03-23] MEDS: hydrOXYzine HCL 25 MG TABLET PO (13:30)
[2024-03-23] MEDS: OLANZapine 5 MG TABLET PO (13:32)
[2024-03-23 15:52] VITALS: BP 91/55
[2024-03-23 19:41] LABS: Appearance Urine Turbid; Color Urine Yellow; Glucose Urine UA Negative (Negative); Leukocyte Esterase Urine Trace (Negative); Nitrite Urine Negative (Negative); PH 8.5 (5.0-9.0); Specific Gravity - Urine 1.015 (1.005-1.025); UMIC TRIGGER UACC YES; Urine Blood Moderate (2+) (Negative); Urine Ketones Negative (Negative); Urine Protein Negative (Neg-Trace)
[2024-03-23 19:42] LABS: UPreg QC Valid YES; Urine Pregnancy NEGATIVE (NEGATIVE)
[2024-03-23 19:44] LABS: Bacteria Urine 4+ (None Seen); Hyaline Casts Urine 0-2 /LPF (0-2); RBC Urine >20 /HPF (0-2); WBC Urine 0-5 /HPF (0-5)
[2024-03-23 20:00] VITALS: BP 97/56; PULSE 60; TEMP 36.4; O2SAT 97
[2024-03-24] MEDS: chlorproMAZINE HCl 25 MG TABLET PO (00:05)
[2024-03-24] MEDS: OLANZapine 5 MG TABLET PO (00:05)
[2024-03-24] MEDS: clonazePAM 0.5 MG TABLET PO ×2 (00:05→21:34)
[2024-03-24] MEDS: traZODone HCL 100 MG TABLET PO (00:05)
[2024-03-24 10:24] VITALS: BP 88/58; PULSE 56; RESP 14; TEMP 36.9; O2SAT 98
[2024-03-24 10:29] VITALS: BP 86/52; PULSE 56; RESP 14; TEMP 36.9; O2SAT 98
[2024-03-24 10:45] VITALS: BP 88/54; PULSE 55; RESP 14; O2SAT 97
--- NOTE | 2024-03-24 10:45 | PC.NURSE ---
Addendum entered by Alva Weems RN 03/24/24 10:48: rechecked 15 min later 88/54. Pt educated and encouraged to increase fluids w/ little effect. Awaiting hospitalist. Will continue to monitor. (all BP's were checked manually this morning) Original Note: provider CAW, messaged via tiger text for decreased BP taken while sitting. 88/58, 86/52, fluids encouraged. Provider ordered hospitalist consult. Rechecked 10 min
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
--- NOTE | 2024-03-24 12:38 | PM.EVENT ---
Event Note Date of Service: 03/24/24 Event Note: Patient is a 38-year-old female with a PMH significant for migraines, bipolar disorder, and PTSD who was admitted to [facility] unit increasing depression with SI with plan to overdose on pills. Hospitalist consult for persistent hypotension. Patient's BP today has been documented 88/58 and then again as 88/54. Repeat manual taken a 94/70. Review of previous BP readings indicate patient mostly normotensive though occasionally hypertensive. Patient without history of significant hypotension in the past. Patient reports being lightheaded and dizzy with standing, and unsteady on her feet. Patient reports she has not been eating or drinking much for the past few days. Last meal yesterday at breakfast. Reports only drinking a couple of small sips of water since yesterday. Patient's affect is extremely flat. When asked why she has not been eating, patient just shrugs and states she is unable to answer that question. Denies nausea, vomiting, abdominal pain. Hypotension likely secondary to reduced p.o. intake. We will give patient 1L IVF. Encourage p.o. intake as much as possible. Repeat BP after fluids. Time Spent With Patient Time: Total time managing care of this patient today ____ minutes.
[2024-03-24] MEDS: cefuroxime axetiL 250 MG TABLET PO ×2 (14:08→21:21)
[2024-03-24] MEDS: 0.9 % Sodium Chloride 1,000 ML 999 ML IV (14:50)
[2024-03-24 16:07] VITALS: BP 120/85; PULSE 72; O2SAT 99
[2024-03-24] MEDS: Topiramate 100 MG TABLET 200 MG PO (16:26)
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
[2024-03-24 20:00] VITALS: BP 109/68; PULSE 68; RESP 16; TEMP 36.4; O2SAT 98
[2024-03-24] MEDS: Nicotine 21 MG PATCH.TD24 TRANSDERMA (22:02)
[2024-03-24 23:02] VITALS: BP 118/74
[2024-03-25 00:52] LABS: Amphetamine Screen Urine Not Detected (Not Detect); Barbiturates, Urine Not Detected (Not Detect); Benzodiazepines Screen Urine Not Detected (Not Detect); Buprenorphine Scr Not Detected (Not Detect); Cannabinoid Screen Urine POSITIVE (Not Detect); Cocaine Screen Urine Not Detected (Not Detect); Fentanyl, urine Not Detected (Not Detect); Methadone Screen, Urine Not Detected (Not Detect); Opiate Screen Urine Not Detected (Not Detect); Oxycodone Screen Urine Not Detected (Not Detect); Phencyclidine Screen Urine Not Detected (Not Detect)
[2024-03-25] MEDS: OLANZapine 5 MG TABLET PO ×2 (02:33→23:20)
[2024-03-25] MEDS: traZODone HCL 50 MG TABLET PO ×2 (02:33→23:21)
[2024-03-25 08:58] LABS: Iron 52 mcg/dL (30-160); Percent Iron Saturation 25 % (15-50); Total Iron Binding Capacity 206 mcg/dL (228-428); Unsaturated Iron Binding 154 ug/dL
[2024-03-25] MEDS: Thiamine HCL 100 MG TABLET PO (09:11)
[2024-03-25] MEDS: clonazePAM 0.5 MG TABLET PO ×2 (09:11→23:20)
[2024-03-25 09:12] VITALS: BP 114/67; PULSE 64; RESP 16; TEMP 36.7; O2SAT 97
[2024-03-25] MEDS: Topiramate 100 MG TABLET 200 MG PO (09:12)
[2024-03-25] MEDS: Fluticasone Propionate 250 MCG BLST.W.DEV 1 PUFF INHALE ×2 (09:12→23:22)
[2024-03-25] MEDS: cefuroxime axetiL 250 MG TABLET PO ×2 (09:12→23:21)
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
[2024-03-25] MEDS: Cariprazine HCl 1.5 MG CAPSULE PO (13:11)
--- NOTE | 2024-03-25 17:11 | MHC.SL.SWA ---
Speech Pathologist Impression: Pharyngoesophageal Dysphagia Risk of Aspiration Due to: None Dysphasia Diet Status: No Change Liquid Consistency and Strategies for Safe Swallow: Liquid Intake Recommendation: Thin Liquid Intake Strategies: Small Sips Solid Food Consistency: Dietary Recommendations: Regular Additional Modifications to Solid Foods: Patient's swallow appears WFL in the oral and pharyngeal phases. Patient with timely oral transit and intact rotary chew, patient is able to manage regular textures well with good oral clearance, timely swallow trigger, and no overt s/s of aspiration. Patient does report pain with swallowing, as well as globus sensation, burning in her throat, and feeling like things are coming back up, particularly when swallowing solids. Recommend further workup with Gastroenterology, as her symptoms are suspicious for esophageal pathology. Recommend continue on REGULAR texture diet and THIN liquids with precautions for pharyngoesophageal dysphagia: take small bites, chew food well, alternate with sips of liquid, maintain upright position while eating and for at least 30 minutes afterwards. Recommendations communicated with MD via [place] Message. Oral Medication Intake: Whole with Liquid Please contact the pharmacy regarding appropriate crushable or liquid drug formulations that are available whenever modified delivery is recommended. Compensatory Strategies and Precautions to be Taken for Safe Swallow: Sitting Upright (90 deg) Small Bites and Sips Alternate Liquids/Solids Rate of Ingestion Change Supervision While Eating and Drinking for Safe Swallow: Intermittent Supervision Swallowing Recommended Treatments: Compens. Strategy Educat. Recommendation for Speech: Inpatient Speech Therapy Comment: 1 f/u to monitor Frequency/Duration: Date Range for Service Req: Timeline to reassess: Java Web Architect Clinican/Clinical Fellow: No Supervisory Statement: I have reviewed and agree with the student/clinical fellow's documentation: N/A Speech Language Pathologist: Laurie Castorena M.A., CCC-[employer]
[2024-03-25 20:00] VITALS: BP 95/57; PULSE 79; TEMP 36.9; O2SAT 99
[2024-03-25 21:55] VITALS: BP 115/57; PULSE 71; TEMP 36.7
[2024-03-25] MEDS: polyethylene glycoL 3350 17 GM POWD.PACK PO (23:18)
[2024-03-25] MEDS: Nicotine 21 MG PATCH.TD24 TRANSDERMA (23:26)
[2024-03-26 08:00] VITALS: BP 86/42; PULSE 70; RESP 16; TEMP 36.3; O2SAT 97
[2024-03-26] MEDS: Thiamine HCL 100 MG TABLET PO (08:46)
[2024-03-26] MEDS: Topiramate 100 MG TABLET 200 MG PO (08:46)
[2024-03-26] MEDS: cefuroxime axetiL 250 MG TABLET PO ×2 (08:46→23:38)
[2024-03-26] MEDS: Cariprazine HCl 3 MG CAPSULE PO (08:46)
[2024-03-26] MEDS: clonazePAM 0.5 MG TABLET PO ×2 (08:46→23:38)
[2024-03-26] MEDS: Fluticasone Propionate 250 MCG BLST.W.DEV 1 PUFF INHALE (08:47)
[2024-03-26] MEDS: polyethylene glycoL 3350 17 GM POWD.PACK PO (08:47)
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
--- NOTE | 2024-03-26 15:30 | PM.GICN ---
History of Present Illness Data of Consult Service Date: 03/26/24 Primary Care Provider: Lissy Burrows MD [facility] Reason for consult: Dysphagia 38 YF with hx of migraines, bipolar disorder, and PTSD admitted to Psychiatric unit on 03/23/24 with increasing depression with SI with plan to overdose on pills. GI consulted for evaluation of dysphagia. Patient complains of dysphagia for the past 1-2 months - mostly to intake of solid food. She feels food can get stuck in the upper chest and she drinks cold water to get it to move down. Sometimes she has to regurgitate the food for relief of symptoms. Complains of mild heartburn symptoms. Pt also complains of constipation and has been getting Miralax She admits to weight loss of 30 lb over the past 6 months (she weighed 180 lbs 6 months ago) Patient denies EtOH use and admits to smoking once back per day of cigarettes (since she was 9 yrs old) and also smokes marijuana She denies use of aspirin or NSAIDs and takes Tylenol infrequently for headaches Pt has asthma and denies any cardiac problems or sleep apnea. Patient denies having an upper endoscopy or colonoscopy in the past She has 4 children (who do not live with her), she has been homeless and is on disability. Review of Systems Review of Systems: Yes all other systems are reviewed and are negative PMFSH Past Medical History Medical History Borderline personality disorder Mood disorder Pain, dental Psychosis Psychosis Bipolar 1 disorder Circulation problem Asthma Surgical History Surgical History Hx of tubal ligation Tubal ligation status Social History Social History Household Members: Spouse Household Members Other:: AND DOG Housing: Apartment Housing Other:: GETTING EVICTED ON 03/24/24 Do you presently have visiting nurse or other home services: No Alcohol intake: never Patient Tobacco Use Status: Current everyday Tobacco user Tobacco use type: Cigarette Cigarette Packs Per Day: 0.5 Cigarettes Per Day: 10.0 Years Smoked: 28 years e-Cigarette/Vaping Use: Never Used Second Hand Smoke Exposure: No Substance Use Type: Marijuana Advance Directives: Yes Advance Directives on File: Yes Advance Directives Date on File: 08/08/22 Do you have a plan to hurt others: No Plan service: No Current occupational status: 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 Sexual orientation: Straight/Heterosexual Meds Allergies Allergy/AdvReac Type Severity Reaction Status Date / Time stringer [CHERRIES] Allergy Severe ANAPHYLAXIS Verified 04/04/24 06:36 gabapentin [From NEURONTIN] Allergy Unknown MUSCLE Verified 04/04/24 06:36 SPASMS lamotrigine [From LAMICTAL] Allergy Unknown MUSCLE Verified 04/04/24 06:36 SPASMS oxcarbazepine Allergy Unknown MUSCLE Verified 04/04/24 06:36 [From TRILEPTAL] SPASMS Sulfa (Sulfonamide Allergy Unknown UNKNOWN Verified 04/04/24 06:36 Antibiotics) [SULFA (SULFONAMIDE ANTIBIOTICS)] coconut Allergy Anaphylaxis Verified 04/04/24 06:36 Active Medications: Current Medications Acetaminophen (Acetaminophen 325 Mg Tablet) 650 mg PO Q6H PRN PRN Reason: Headache/Pain Mild Scale (1-3) Al Hydroxide/Mg Hydroxide (Magnesium Hydrox/Alum Hydrox 30 Ml Oral.Susp) 30 ml PO Q6H PRN PRN Reason: Heartburn/Nausea Cariprazine (Cariprazine Hcl 3 Mg Capsule) 3 mg PO DAILY [facility] Last Admin: 03/26/24 08:46 Dose: 3 mg Cefuroxime Axetil (Cefuroxime Axetil 250 Mg Tablet) 250 mg PO BID [facility] Last Admin: 03/26/24 08:46 Dose: 250 mg Chlorpromazine HCl (Chlorpromazine Hcl 25 Mg Tablet) 25 mg PO BID PRN PRN Reason: agitation Last Admin: 03/24/24 00:05 Dose: 25 mg Clonazepam (Clonazepam 0.5 Mg Tablet) 0.5 mg PO BID [facility] Last Admin: 03/26/24 08:46 Dose: 0.5 mg Fluticasone Propionate (Fluticasone Propionate 250 Mcg Blst.W.Dev) 1 puff INHALE RBID [facility] Last Admin: 03/26/24 08:47 Dose: 1 puff Hydroxyzine HCl (Hydroxyzine Hcl 25 Mg Tablet) 25 mg PO Q6H PRN PRN Reason: Anxiety Last Admin: 03/23/24 13:30 Dose: 25 mg Magnesium Hydroxide (Milk Of Magnesia 30 Ml Oral.Susp) 30 ml PO DAILY PRN PRN Reason: Constipation Nicotine (Nicotine 21 Mg Patch.Td24) 21 mg TRANSDERMA DAILY PRN PRN Reason: smoking cessation Last Admin: 03/25/24 23:26 Dose: 21 mg Nicotine Polacrilex (Nicotine Polacrilex 2 Mg Gum) 4 mg BUCCAL Q2H PRN PRN Reason: Nicotine Cravings Olanzapine (Olanzapine 5 Mg Tablet) 5 mg PO TID PRN PRN Reason: agitation Last Admin: 03/25/24 23:20 Dose: 5 mg Polyethylene Glycol (Polyethylene Glycol 3350 17 Gm Powd.Pack) 17 gm PO DAILY [facility] Last Admin: 03/26/24 08:47 Dose: 17 gm Thiamine HCl (Thiamine Hcl 100 Mg Tablet) 100 mg PO DAILY [facility] Last Admin: 03/26/24 08:46 Dose: 100 mg Topiramate (Topiramate 100 Mg Tablet) 200 mg PO DAILY [facility] Last Admin: 03/26/24 08:46 Dose: 200 mg Trazodone HCl (Trazodone Hcl 50 Mg Tablet) 50 mg PO BEDTIME MRX1 PRN PRN Reason: Insomnia Last Admin: 03/25/24 23:21 Dose: 50 mg Physical Exam Vital Signs: Vital Signs: Last Vital Signs Temp 97.4 F 03/26/24 08:00 Pulse 70 03/26/24 08:00 Resp 16 03/26/24 08:00 BP 86/42 L 03/26/24 08:00 Pulse Ox 97 03/26/24 08:00 O2 Del Method Room Air 03/26/24 08:00 BMI result Body Mass Index 24.3 Const: General: healthy appearing and no acute distress Nutritional Appearance: average body habitus Orientation/consciousness: patient oriented x3 Limitations: no limitations HEENT: Head: Yes normal to inspection Ears: hearing grossly normal bilaterally Mouth: Normal oral and palatal mucosa present Eyes: Sclerae: sclerae normal Pupils: Equal, round and reactive pupils present Neck: Neck: Yes normal visual inspection Chest: Chest palpation & inspection: normal inspection of the chest Resp: Effort & Inspection: normal respiratory effort Auscultation: clear to auscultation bilaterally Cardio: Palpation: normal PMI Rate: regular rate Rhythm: regular rhythm Heart sounds: S1 normal heart sound present, S2 normal heart sound present and no murmurs GI: Palpation (GI): Soft to palpation, nontender and No hepatosplenomegaly present Auscultation: normal bowel sounds Rectal Exam - Female: deferred Skin: General skin exam: no rashes or lesions noted Neuro: General: patient oriented x3, gait normal and moves all extremities Cranial nerves: Yes Equal, round and reactive pupils present Psych: Appearance: grossly normal Mental Status: mental status grossly normal Results Labs 03/22/24 15:16 03/22/24 15:17 Assessment and Plan (1) Dysphagia, pharyngoesophageal phase: Status: Acute (2) GERD (gastroesophageal reflux disease): Status: Acute (3) Borderline personality disorder: Status: Acute (4) Chronic post-traumatic stress disorder (PTSD): Status: Acute (5) Right knee pain: Status: Acute (6) Homeless: Status: Acute Plan 38 YF with hx of migraines, bipolar disorder, and PTSD admitted to Psychiatric unit on 03/23/24 with increasing depression with SI with plan to overdose on pills. Patient complains of dysphagia for the past 1-2 months - mostly to intake of solid food. Dysphagia can be due to erosive esophagitis, esophageal stricture or esophageal motility disorder Pt was evaluated by speech pathologist and diagnosed with a pharyngo esophageal source of dysphagia RECOMMENDATIONS: 1. Schedule a barium swallow (order placed) 2. Pt can be started on Famotidine 20 mg twice daily after she finishes Ceftin (due to drug interactive with Ceftin) Procedures Date of Service Date of Service: 04/08/24
[2024-03-26] MEDS: OLANZapine 5 MG TABLET PO (16:19)
[2024-03-26 20:00] VITALS: BP 126/63; PULSE 85; TEMP 36.8; O2SAT 99
[2024-03-26] MEDS: Acetaminophen 325 MG TABLET 650 MG PO (23:50)
[2024-03-26] MEDS: Nicotine 21 MG PATCH.TD24 TRANSDERMA (23:51)
[2024-03-27] MEDS: Milk of Magnesia 30 ML ORAL.SUSP PO ×2 (00:35→09:06)
[2024-03-27] MEDS: traZODone HCL 50 MG TABLET PO (01:32)
[2024-03-27] MEDS: OLANZapine 5 MG TABLET PO (01:32)
[2024-03-27 08:52] VITALS: BP 100/58; PULSE 77; RESP 17; TEMP 36.4; O2SAT 97
[2024-03-27] MEDS: Cariprazine HCl 3 MG CAPSULE PO (08:59)
[2024-03-27] MEDS: clonazePAM 0.5 MG TABLET PO ×2 (08:59→21:13)
[2024-03-27] MEDS: Thiamine HCL 100 MG TABLET PO (08:59)
[2024-03-27] MEDS: cefuroxime axetiL 250 MG TABLET PO ×2 (08:59→21:13)
[2024-03-27] MEDS: Topiramate 100 MG TABLET 200 MG PO (08:59)
[2024-03-27] MEDS: polyethylene glycoL 3350 17 GM POWD.PACK PO (09:03)
[2024-03-27] MEDS: Fluticasone Propionate 250 MCG BLST.W.DEV 1 PUFF INHALE ×2 (09:05→21:13)
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
[2024-03-27 20:00] VITALS: BP 114/67; PULSE 91; TEMP 36.9; O2SAT 99
[2024-03-28] MEDS: Nicotine 21 MG PATCH.TD24 TRANSDERMA (00:36)
[2024-03-28 08:00] VITALS: BP 120/85; PULSE 77; TEMP 36.5; O2SAT 99
[2024-03-28] MEDS: Topiramate 100 MG TABLET 200 MG PO (09:10)
[2024-03-28] MEDS: clonazePAM 0.5 MG TABLET PO ×2 (09:10→22:44)
[2024-03-28] MEDS: cefuroxime axetiL 250 MG TABLET PO ×2 (09:11→22:44)
[2024-03-28] MEDS: Cariprazine HCl 3 MG CAPSULE PO (09:11)
[2024-03-28] MEDS: Fluticasone Propionate 250 MCG BLST.W.DEV 1 PUFF INHALE ×2 (09:12→22:44)
[2024-03-28 09:35] VITALS: BP 127/72
[2024-03-28 09:40] VITALS: BP 114/58
[2024-03-28 09:41] VITALS: BP 115/72
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
--- NOTE | 2024-03-28 11:35 | MHC.SLORD ---
Speech Language Pathology Order Status: Pt NPO for barium swallow this afternoon, ST to followup as indicated.
--- NOTE | 2024-03-28 13:24 | PC.NURSE ---
Pt back from barium swallow study and per tech. Regular diet resumed and not placed on any restrictions. Radiology report pending
[2024-03-28] MEDS: chlorproMAZINE HCl 25 MG TABLET PO (14:54)
--- NOTE | 2024-03-28 17:50 | PC.NURSE ---
This afternoon pt became agitated with her roommate after she believed she heard her talking shit about me! Her roommate contested stating she was talking about someone else. Pt in ribera yelling back and forth with peer and she was taken to fresh air break room for quiet time/check in with staff. She was tearful and reported she felt she was being bullied just like my family and at school. She was medicated with thorazine 25 mg per PRN MAR and was able to calm down and self regulate. Room change made and she was able to be civil with peer and no further verbal altercations noted. She is encouraged to continue to come to staff with needs and if she is agitated ask nurse for prn thorazine as it helps with agitation.
[2024-03-28 20:00] VITALS: BP 96/55; PULSE 88; RESP 16; TEMP 36.3; O2SAT 98
[2024-03-29] MEDS: OLANZapine 5 MG TABLET PO (00:43)
[2024-03-29] MEDS: traZODone HCL 50 MG TABLET PO (00:43)
[2024-03-29] MEDS: Nicotine 21 MG PATCH.TD24 TRANSDERMA (06:16)
[2024-03-29 08:16] VITALS: BP 121/59; PULSE 94; RESP 18; TEMP 36.8; O2SAT 98
[2024-03-29] MEDS: Cariprazine HCl 3 MG CAPSULE PO (08:24)
[2024-03-29] MEDS: polyethylene glycoL 3350 17 GM POWD.PACK PO (08:24)
[2024-03-29] MEDS: Fluticasone Propionate 250 MCG BLST.W.DEV 1 PUFF INHALE ×2 (08:24→22:58)
[2024-03-29] MEDS: clonazePAM 0.5 MG TABLET PO ×2 (08:25→23:01)
[2024-03-29] MEDS: Thiamine HCL 100 MG TABLET PO (08:25)
[2024-03-29] MEDS: Topiramate 100 MG TABLET 200 MG PO (08:25)
[2024-03-29] MEDS: cefuroxime axetiL 250 MG TABLET PO ×2 (08:25→22:59)
[2024-03-29] MEDS: chlorproMAZINE HCl 25 MG TABLET PO (08:25)
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
[2024-03-29] MEDS: chlorproMAZINE HCl 10 MG TABLET PO (12:25)
[2024-03-29] MEDS: Sertraline HCL 25 MG TABLET PO (12:25)
[2024-03-29] MEDS: OLANZapine ODT 10 MG TAB.RAPDIS TRANSLINGU ×2 (14:48→23:00)
--- NOTE | 2024-03-29 16:54 | MHC.SL.DTX ---
Dysphagia Diet modifications: Last documented Solid diet consistencies: Regular Last documented Liquid consistency: Thin Last documented Medication Administration: Changes made to current diet?: No Liquid Consistency and Strategies: Liquid Intake Recommendation: Thin Compensatory Strategies for Safe Swallow: Unrestricted Compensatory Strategies for Safe Swallow(b): Sitting Upright (90 deg) Small Bites and Sips Alternate Liquids/Solids Rate of Ingestion Change Solid Food Consistency: Dietary Recommendations: Regular Oral Medication Intake: Whole with Liquid Strategies and Precautions to be Taken for Safe Swallow: Sitting Upright (90 deg) Small Bites and Sips Alternate Liquids/Solids Rate of Ingestion Change Supervision While Eating and/Drinking: Intermittent Supervision Foods to Avoid: Swallowing Recommended Treatments: Compens. Strategy Educat. Level of Impact on: Daily activities: Moderate Interpersonal interactions: Education: None Employment: Mild Community: Moderate Prognosis for Improvement: Guarded Recommendation for Speech: Inpatient Speech Therapy Treatment: Pt was seen in the day room sitting at a table with a fellow resident drawing and coloring. She had her Barium Swallow done, but the results are pending. Per the Radiology, PA, the results showed no penetration or aspiration on passage of the bolus through the oral cavity and pharynx, and will be recommending EGD for correlation of suspected esophageal dysmotility. Full results will be published when signed off by the supervising MD. Katia continues to report ongoing odynophagia with Solids greater than Liquids. Pt trialed bites of Puree Pudding and Regular Solid (Ambrosio Cracker). After only x3 bites of the cracker she started complaining of discomfort was visually uncomfortable. She was encouraged to drink liquids which alleviated her discomfort, but not completely. Her neighbor at the table stated, she does this all the time , unprompted. MEMBERSHIP SALES REPRESENTATIVE reviewed texture modification options. She reports that she got food through an IV from the age of 13 to 16 at a [place] hospital/institution but cannot explain further. MEMBERSHIP SALES REPRESENTATIVE explained tube feeding options, and she expresses desire to get a PEG Tube. MEMBERSHIP SALES REPRESENTATIVE explained that that was unlikely a half-way solution. RN and MD notified. For now, not recommending any changes to her current diet. Pt can self-select to her best ability the solids that will create the least discomfort. Recommend also consultation with Dietitian, if not already initiated, to maximize nutrition in the setting of severely reduced intake. Risk Assessor Clinican/Clinical Fellow: No Supervisory Statement: I have reviewed and agree with the student/clinical fellow's documentation: N/A Speech Language Pathologist: Ciro Lambert M.A., CCC-MEMBERSHIP SALES REPRESENTATIVE
[2024-03-29 22:50] VITALS: BP 103/59; PULSE 70; TEMP 36.7; O2SAT 99
[2024-03-30] MEDS: traZODone HCL 50 MG TABLET PO ×2 (00:50→23:17)
[2024-03-30] MEDS: chlorproMAZINE HCl 25 MG TABLET PO (00:50)
[2024-03-30 08:00] VITALS: BP 101/56; PULSE 71; RESP 16; TEMP 36.4; O2SAT 98
[2024-03-30] MEDS: Fluticasone Propionate 250 MCG BLST.W.DEV 1 PUFF INHALE ×2 (09:04→22:31)
[2024-03-30] MEDS: Topiramate 100 MG TABLET 200 MG PO (09:04)
[2024-03-30] MEDS: OLANZapine ODT 10 MG TAB.RAPDIS TRANSLINGU ×3 (09:05→23:15)
[2024-03-30] MEDS: polyethylene glycoL 3350 17 GM POWD.PACK PO (09:05)
[2024-03-30] MEDS: clonazePAM 0.5 MG TABLET PO ×2 (09:05→23:22)
[2024-03-30] MEDS: Sertraline HCL 50 MG TABLET PO (09:05)
[2024-03-30] MEDS: Thiamine HCL 100 MG TABLET PO (09:05)
[2024-03-30] MEDS: Nicotine 21 MG PATCH.TD24 TRANSDERMA (09:05)
[2024-03-30] MEDS: cefuroxime axetiL 250 MG TABLET PO ×2 (09:05→22:31)
[2024-03-30] MEDS: chlorproMAZINE HCl 10 MG TABLET PO ×2 (09:05→12:28)
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
--- NOTE | 2024-03-30 13:27 | MHC.SL.SWA ---
Speech Pathologist Impression: No oropharyngeal dysphagia Risk of Aspiration Due to: None Dysphasia Diet Status: Liquid Consistency and Strategies for Safe Swallow: Liquid Intake Recommendation: Thin Liquid Intake Strategies: Unrestricted Solid Food Consistency: Dietary Recommendations: Regular Additional Modifications to Solid Foods: Patient's swallow appears WFL in the oral and pharyngeal phases. Patient with timely oral transit and intact rotary chew, patient is able to manage regular textures well with good oral clearance, timely swallow trigger, and no overt s/s of aspiration. Patient does report pain with swallowing, as well as globus sensation, burning in her throat, and feeling like things are coming back up, particularly when swallowing solids. Recommend further workup with Gastroenterology, as her symptoms are suspicious for esophageal pathology. Recommend continue on REGULAR texture diet and THIN liquids with precautions for pharyngoesophageal dysphagia: take small bites, chew food well, alternate with sips of liquid, maintain upright position while eating and for at least 30 minutes afterwards. Recommendations communicated with MD via [employer] Message. Oral Medication Intake: Whole with Liquid Please contact the pharmacy regarding appropriate crushable or liquid drug formulations that are available whenever modified delivery is recommended. Compensatory Strategies and Precautions to be Taken for Safe Swallow: Sitting Upright (90 deg) Small Bites and Sips Alternate Liquids/Solids Rate of Ingestion Change Supervision While Eating and Drinking for Safe Swallow: Intermittent Supervision Foods to Avoid: Swallowing Recommended Treatments: Compens. Strategy Educat. Recommendation for Speech: Inpatient Speech Therapy Comment: Patient's swallow appears WFL in the oral and pharyngeal phases. Patient with timely oral transit and intact rotary chew, patient is able to manage regular textures well with good oral clearance, timely swallow trigger, and no overt s/s of aspiration. Patient does report pain with swallowing, as well as globus sensation, burning in her throat, and feeling like things are coming back up, particularly when swallowing solids. Recommend further workup with Gastroenterology, as her symptoms are suspicious for esophageal pathology. Recommend continue on REGULAR texture diet and THIN liquids with precautions for pharyngoesophageal dysphagia: take small bites, chew food well, alternate with sips of liquid, maintain upright position while eating and for at least 30 minutes afterwards. Recommendations communicated with MD via [employer] Message. 03/30 Pt seen for followup, oropharyngeal swallow continues to be unremarkable. Esophageal involvement current under evaluation, pt waiting for results of barium swallow and subsequent GI recommendations. No further ST indicated at this time, pt verbalizes understanding of safety recommendations such as upright positioning, slow pacing, alternating consistencies and remaining upright for 30 minutes after eating. Frequency/Duration: Date Range for Service Req: Timeline to reassess: Offset Press Operator Helper Clinican/Clinical Fellow: No Supervisory Statement: I have reviewed and agree with the student/clinical fellow's documentation: N/A Speech Language Pathologist: Celsa Palomino M.S. CCC-CUSTOMER SERVICES COORDINATOR
[2024-03-30 20:00] VITALS: BP 135/91; PULSE 100; RESP 18; TEMP 36.1; O2SAT 9
[2024-03-31 08:00] VITALS: BP 117/71; PULSE 84; TEMP 36.5; O2SAT 98
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
[2024-03-31] MEDS: Thiamine HCL 100 MG TABLET PO (08:48)
[2024-03-31] MEDS: cefuroxime axetiL 250 MG TABLET PO (08:48)
[2024-03-31] MEDS: polyethylene glycoL 3350 17 GM POWD.PACK PO (08:48)
[2024-03-31] MEDS: clonazePAM 0.5 MG TABLET PO (08:48)
[2024-03-31] MEDS: Omeprazole 40 MG CAPSULE.DR PO (08:48)
[2024-03-31] MEDS: Topiramate 100 MG TABLET 200 MG PO (08:50)
[2024-03-31] MEDS: chlorproMAZINE HCl 10 MG TABLET PO (08:51)
[2024-03-31] MEDS: Nicotine 21 MG PATCH.TD24 TRANSDERMA (08:52)
[2024-03-31] MEDS: Sertraline HCL 50 MG TABLET PO (08:55)
[2024-03-31] MEDS: OLANZapine ODT 10 MG TAB.RAPDIS TRANSLINGU (09:11)
[2024-03-31] MEDS: Fluticasone Propionate 250 MCG BLST.W.DEV 1 PUFF INHALE (09:11)
[2024-03-31] MEDS: Sodium Chloride 0.65 % Nasal 44 ML SPRBTL 1 SPRAY NOSTRIL-B (10:30)
== END 2024-03-31 11:10 | disposition home or self-care (01) | DRG 751 ==
LOC: HO.ED 16:56 → HO.PM5 17:18
PROVIDERS: Clinical Nurse Specialist Psychiatric/Mental Health, Adult; Admitting Provider Psychiatry & Neurology Psychiatry; Emergency Provider Emergency Medicine; PCP Internal Medicine; Visit Provider Psychiatry & Neurology Psychiatry
DX: F33.2 Major depressive disorder, recurrent severe without psychotic features (principal); R45.851 Suicidal ideations; I95.9 Hypotension, unspecified; R13.10 Dysphagia, unspecified; F43.12 Post-traumatic stress disorder, chronic; N39.0 Urinary tract infection, site not specified; B96.20 Unspecified Escherichia coli [E. coli] as the cause of diseases classified elsewhere; F17.210 Nicotine dependence, cigarettes, uncomplicated; Z71.6 Tobacco abuse counseling; Z59.811 Housing instability, housed, with risk of homelessness; Z79.899 Other long term (current) drug therapy
CPT/HCPCS: 36415; 74220; 80053; 80061; 80143; 80179; 80307; 81001; 81025; 83036; 83540; 85025; 90656; 92526; 92610; 99285

== ENCOUNTER 2024-03-22 17:06 | Outpatient (BNV) | payer OTHER, SELFPAY | END 2024-03-28 08:00 | PROVIDERS: Admitting Provider Psychiatry & Neurology Psychiatry; Emergency Provider Emergency Medicine; PCP Internal Medicine; Visit Provider Radiology Diagnostic Radiology | DX: R13.10 Dysphagia, unspecified (principal) | CPT/HCPCS: 74246 ==

== ENCOUNTER → 2024-03-22 17:06 | Outpatient (BNV) | payer OTHER, SELFPAY | PROVIDERS: Admitting Provider Psychiatry & Neurology Psychiatry; Emergency Provider Emergency Medicine; PCP Internal Medicine; Visit Provider Psychiatry & Neurology Psychiatry | DX: F39 Unspecified mood [affective] disorder (principal); F43.12 Post-traumatic stress disorder, chronic | CPT/HCPCS: 90792; 99231; 99232; 99239 ==

== ENCOUNTER → 2024-03-22 17:06 | Outpatient (BNV) | payer OTHER, SELFPAY | PROVIDERS: Admitting Provider Psychiatry & Neurology Psychiatry; Emergency Provider Emergency Medicine; PCP Internal Medicine; Visit Provider Internal Medicine Gastroenterology | DX: R13.14 Dysphagia, pharyngoesophageal phase (principal); K21.9 Gastro-esophageal reflux disease without esophagitis; F60.3 Borderline personality disorder; F43.12 Post-traumatic stress disorder, chronic; M25.561 Pain in right knee; Z59.00 Homelessness unspecified | CPT/HCPCS: 99222 ==

== ENCOUNTER 2024-04-04 06:18 | Emergency (ER) | payer OTHER, SELFPAY ==
--- NOTE | ~2024-04-04 | XR_ITS ---
EXAMINATION: XR ANKLE, RIGHT CLINICAL INFORMATION: Right ankle pain COMPARISON: Right foot of 02/18/2018 TECHNIQUE: AP, lateral, and mortise views of the right ankle. FINDINGS: Soft tissue swelling with ankle joint effusion. Alignment maintained. No displaced fracture appreciated. XR/XR ankle RT 2V IMPRESSION: 1. Soft tissue swelling with ankle joint effusion. No displaced fracture appreciated. 2. Recommend follow-up imaging in 10-14 days if fracture is suspected. 3. This study was presented today April 04, 2024 for interpretation. Stat results provided at this time as requested by referring provider. Electronically signed by: Courtney Amaral MD 04/04/2024 08:08 AM EDT
[2024-04-04 06:21] VITALS: BP 111/68; PULSE 102; O2SAT 98
[2024-04-04 06:36] VITALS: BP 105/56; PULSE 90; RESP 20; TEMP 36.3; O2SAT 98; BMI 22.8
--- NOTE | 2024-04-04 09:53 | ED_ITS ---
HPI - Extremity Problem General Chief complaint: Extremity Problem Stated complaint: RT ANKLE PAIN Time Seen by Provider: 04/04/24 09:53 Source: patient and RN notes reviewed Mode of arrival: ambulatory Limitations: no limitations History of Present Illness ED Provider: Priscila Spring PA-C HPI Narrative: This is a 38-year-old female who presents emergency department with complaints of right ankle pain x4 days. Patient is unsure the mechanism of injury however has noticed increased pain and swelling to her right ankle. Pain worsens with ambulation. No fevers or chills. No calf pain. No other complaints or concerns at this time. MD Complaint: extremity pain and extremity swelling Onset (ago): day(s) Pain Consistency: constant Location: right and lower extremity Quality: aching Radiation: none Relieving factors: nothing Exacerbating factors: nothing Related Data Previous Rx's ?Medication ?Instructions ?Recorded chlorpromazine 25 mg tablet 25 mg PO TID PRN agitation 30 days 03/30/24 #90 tabs fluticasone furoate 200 1 inh inhalation DAILY 30 days #30 03/30/24 mcg/actuation blister powder for ea inhalation (Arnuity Ellipta) nicotine 21 mg/24 hr daily 21 mg transdermal DAILY PRN 03/30/24 transdermal patch smoking cessation 28 days #28 ea olanzapine 10 mg disintegrating 10 mg translingual TID 30 days #90 03/30/24 tablet tabs omeprazole 40 mg capsule,delayed 40 mg PO DAILY@0900 30 days #30 03/30/24 release caps polyethylene glycol 3350 17 gram 17 g PO DAILY PRN constipation 30 03/30/24 oral powder packet days #30 ea sertraline 50 mg tablet 50 mg PO DAILY 30 days #30 tabs 03/30/24 topiramate 200 mg tablet 200 mg PO DAILY 30 days #30 tabs 03/30/24 trazodone 50 mg tablet 50 mg PO BEDTIME MRX1 PRN Insomnia 03/30/24 30 days #45 tabs clonazepam 0.5 mg tablet 0.5 mg PO BID 14 days #28 tabs 03/31/24 acetaminophen 500 mg tablet 500 mg PO Q6H PRN pain #30 tabs 04/04/24 (Tylenol Extra Strength) ibuprofen 600 mg tablet 600 mg PO Q6H PRN pain #30 tabs 04/04/24 Allergies Allergy/AdvReac Type Severity Reaction Status Date / Time stringer [CHERRIES] Allergy Severe ANAPHYLAXIS Verified 04/04/24 06:36 gabapentin [From NEURONTIN] Allergy Unknown MUSCLE Verified 04/04/24 06:36 SPASMS lamotrigine [From LAMICTAL] Allergy Unknown MUSCLE Verified 04/04/24 06:36 SPASMS oxcarbazepine Allergy Unknown MUSCLE Verified 04/04/24 06:36 [From TRILEPTAL] SPASMS Sulfa (Sulfonamide Allergy Unknown UNKNOWN Verified 04/04/24 06:36 Antibiotics) [SULFA (SULFONAMIDE ANTIBIOTICS)] coconut Allergy Anaphylaxis Verified 04/04/24 06:36 Review of Systems Review of Systems: Yes all other systems are reviewed and are negative Constitutional: Constitutional: Reports as per [facility] Past Medical History Attestation statement: The following information was validated with the patient. Medical History Borderline personality disorder Mood disorder Pain, dental Psychosis Psychosis Bipolar 1 disorder Circulation problem Asthma Surgical History Hx of tubal ligation Tubal ligation status Social History Social History Household Members: Spouse Household Members Other:: AND DOG Housing: Apartment Housing Other:: GETTING EVICTED ON 03/24/24 Do you presently have visiting nurse or other home services: No Alcohol intake: never Patient Tobacco Use Status: Current everyday Tobacco user Tobacco use type: Cigarette Cigarette Packs Per Day: 0.5 Cigarettes Per Day: 10.0 Years Smoked: 28 years e-Cigarette/Vaping Use: Never Used Second Hand Smoke Exposure: No Substance Use Type: Marijuana Advance Directives: Yes Advance Directives on File: Yes Advance Directives Date on File: 08/08/22 Do you have a plan to hurt others: No Plan service: No Current occupational status: 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 Sexual orientation: Straight/Heterosexual Physical Exam Vital Signs: Vital Signs: Last Vital Signs Temp 97.4 F 04/04/24 06:36 Pulse 90 04/04/24 06:36 Resp 20 04/04/24 06:36 BP 105/56 L 04/04/24 06:36 Pulse Ox 98 04/04/24 06:36 O2 Del Method Room Air 04/04/24 06:36 BMI result Body Mass Index 22.8 Const: General: cooperative, comfortable and no acute distress Orientation/consciousness: patient oriented x3 Limitations: no limitations HEENT: Head: Yes normal to inspection, Yes normocephalic and Yes atraumatic Ears: hearing grossly normal bilaterally General nose exam: Normal external nose present Face and sinus: Yes normal facial exam Mouth: Normal oral and palatal mucosa present, oropharynx normal and moist mucous membranes Throat: Yes posterior oropharynx normal Eyes: General: appearance normal, both eyes and all related structures Eyelids: Yes eyelids normal Conjunctivae: conjunctivae normal Sclerae: sclerae normal Pupils: Equal, round and reactive pupils present EOM: EOMs intact bilaterally Neck: Neck: Yes normal visual inspection, Yes full ROM and Yes no lymphadenopathy Lymphatic: no lymphadenopathy noted Chest: Chest palpation & inspection: normal inspection of the chest Resp: Effort & Inspection: normal respiratory effort and able to speak in complete sentences Auscultation: clear to auscultation bilaterally, no crackles, no rales, no rhonchi and no wheezes Cardio: Rate: regular rate Rhythm: regular rhythm Heart sounds: S1 normal heart sound present and S2 normal heart sound present GI: Inspection: Yes normal to inspection Skin: General skin exam: no rashes or lesions noted Trauma: no lacerations or abrasions Wounds: no wounds Neuro: General: patient oriented x3 and moves all extremities Cranial nerves: Yes Equal, round and reactive pupils present Extrem: Other: Right ankle with moderate edema noted to the lateral aspect with tenderness palpation along the lateral malleolus and inferior region of the lateral malleolus. Medial malleolus is nontender. Strong DP pulse. Able to plantar and dorsiflex. She is ambulatory with antalgic gait. General: Yes normal to inspection Right upper extremity: normal to inspection Left upper extremity: normal to inspection Left lower extremity: normal to inspection Medical Decision Making Medical Decision Making MDM Narrative: This is a 38-year-old female who presents emergency department complaints of right ankle pain for the last several days. No known trauma or injury. On arrival, vital signs within normal limits. She is speaking full sentences. No calf tenderness. She has tenderness along the lateral malleolus. Differential diagnoses include sprain, strain, fracture. X-rays performed revealing soft tissue swelling with ankle joint effusion, no displaced fracture. Recommending follow-up x-rays in 10-14 days. Discussed this with patient, she will follow-up with the improvement specialist, advised to call today to make an appointment. Given return precautions. Also place patient in Arpit wrap and crutches. She also requested having a Aircast, I discussed the importance of using Arpit wrap as Aircast can be less beneficial however she still would like to have a Aircast as well. Patient given strict return precautions. Patient stable for discharge. Differential Diagnosis Differential Diagnoses: The differential diagnosis associated with the presentation includes See above Radiology Impression Discussion of test interpretation with radiology: I have reviewed the radiologist's reading. Radiologist Impression: XR/XR ankle RT 2V IMPRESSION: 1. Soft tissue swelling with ankle joint effusion. No displaced fracture appreciated. 2. Recommend follow-up imaging in 10-14 days if fracture is suspected. 3. This study was presented today April 04, 2024 for interpretation. Stat results provided at this time as requested by referring provider. Electronically signed by: Courtney Amaral MD 04/04/2024 08:08 AM EDT RP Dictated By: Courtney Amaral MD Discharge Plan Discharge Clinical Impression: Right ankle sprain Patient Disposition: Home, Self-Care Instructions: Ankle Sprain (ED), Crutch Instructions (ED), R.I.C.E. Treatment (ED) Additional Instructions: You were seen in the emergency department after injuring her right ankle. Your x-ray does not show any broken bones. Please rest, ice, elevate, and use Arpit wrap. Use crutches until you are able to fully bear weight on your foot without pain. Alternate between ibuprofen and Tylenol as needed for pain. Follow-up with the orthopedic team, call to make an appointment. If any new or worsening symptoms occur including but not limited to severe pain, discoloration in your toes, please seek emergent care. Prescriptions: New ibuprofen 600 mg tablet 600 mg PO Q6H PRN (Reason: pain) Qty: 30 0RF acetaminophen [Tylenol Extra Strength] 500 mg tablet 500 mg PO Q6H PRN (Reason: pain) Qty: 30 0RF No Action olanzapine 10 mg Tablet,Disintegrating 10 mg translingual TID 30 Days Qty: 90 0RF chlorpromazine 25 mg Tablet 25 mg PO TID PRN (Reason: agitation) 30 Days Qty: 90 0RF nicotine 21 mg/24 hr Patch 24 Hour 21 mg transdermal DAILY PRN (Reason: smoking cessation) 28 Days Qty: 28 0RF trazodone 50 mg Tablet 50 mg PO BEDTIME MRX1 PRN (Reason: Insomnia) 30 Days Qty: 45 0RF omeprazole 40 mg Capsule,Delayed Release(Dr/Ec) 40 mg PO DAILY@0900 30 Days Qty: 30 0RF polyethylene glycol 3350 17 gram Powder In Packet 17 g PO DAILY PRN (Reason: constipation) 30 Days Qty: 30 0RF topiramate 200 mg tablet 200 mg PO DAILY 30 Days Qty: 30 0RF sertraline 50 mg Tablet 50 mg PO DAILY 30 Days Qty: 30 0RF Arnuity Ellipta 200 mcg/actuation blister with device 1 inh inhalation DAILY 30 Days Qty: 30 0RF clonazepam 0.5 mg tablet 0.5 mg PO BID 14 Days Qty: 28 1RF Referrals: [facility] [Provider Group] Print Language: Spanish
== END 2024-04-04 10:20 | disposition home or self-care (01) ==
PROVIDERS: Emergency Provider Emergency Medicine; PCP Internal Medicine
DX: S93.401A Sprain of unspecified ligament of right ankle, initial encounter (principal); X58.XXXA Exposure to other specified factors, initial encounter; Y93.9 Activity, unspecified; Y92.59 Other trade areas as the place of occurrence of the external cause; Y99.9 Unspecified external cause status
CPT/HCPCS: 73600; 99281; 99283

== ENCOUNTER 2024-04-12 14:10 | Emergency (ER) | payer OTHER, SELFPAY ==
[2024-04-12 14:45] VITALS: BP 126/69; BP 160/100; PULSE 83; PULSE 90; RESP 16; TEMP 37.3; O2SAT 99; BMI 22.8
[2024-04-12 15:32] LABS: Appearance Urine Clear; Color Urine Yellow; Glucose Urine UA Negative (Negative); Leukocyte Esterase Urine Negative (Negative); Nitrite Urine Positive (Negative); Specific Gravity - Urine 1.015 (1.005-1.025); UMIC TRIGGER UACC YES; Urine Blood Negative (Negative); Urine Ketones Negative (Negative); Urine Protein Negative (Neg-Trace)
--- NOTE | 2024-04-12 15:32 | ED.PSYCH ---
HPI - Psych General Chief Complaint: Psychiatric Symptoms Stated Complaint: SI THOUGHTS Time Seen by Provider: 04/12/24 15:32 Source: patient and EMS Mode of arrival: EMS Limitations: no limitations History of Present Illness ED Provider: Gale Hanna PA-C HPI Narrative: 38 y/o female with history of borderline personality disorder, depression, PTSD, GERD, bipolar disorder, asthma, who presetns to the ER from [facility] for evaluation of suicidal ideation. She reports plan to overdose on her prescription medications. She is very stressed because she is currently homeless with her and has no plan for future housing. She presents with several bottles of each of her medications. She reports taking them as directed. No HI or hallucinations. She uses marijuana but denies other drugs or alcohol. MD complaint: suicidal ideation and feels depressed History of same: Yes Relieving factors: none Exacerbating factors: none Context: significant life stressor Treatments prior to arrival: placed on mental health hold If self harm: admits thoughts of self harm Related Data Previous Rx's ?Medication ?Instructions ?Recorded chlorpromazine 25 mg tablet 25 mg PO TID PRN agitation 30 days 03/30/24 #90 tabs nicotine 21 mg/24 hr daily 21 mg transdermal DAILY PRN 03/30/24 transdermal patch smoking cessation 28 days #28 ea olanzapine 10 mg disintegrating 10 mg translingual TID 30 days #90 03/30/24 tablet tabs omeprazole 40 mg capsule,delayed 40 mg PO DAILY@0900 30 days #30 03/30/24 release caps sertraline 50 mg tablet 50 mg PO DAILY 30 days #30 tabs 03/30/24 topiramate 200 mg tablet 200 mg PO DAILY 30 days #30 tabs 03/30/24 trazodone 50 mg tablet 50 mg PO BEDTIME MRX1 PRN Insomnia 03/30/24 30 days #45 tabs clonazepam 0.5 mg tablet 0.5 mg PO BID 14 days #28 tabs 03/31/24 Allergies Allergy/AdvReac Type Severity Reaction Status Date / Time stringer [CHERRIES] Allergy Severe ANAPHYLAXIS Verified 04/12/24 14:47 gabapentin [From NEURONTIN] Allergy Unknown MUSCLE Verified 04/12/24 14:47 SPASMS lamotrigine [From LAMICTAL] Allergy Unknown MUSCLE Verified 04/12/24 14:47 SPASMS oxcarbazepine Allergy Unknown MUSCLE Verified 04/12/24 14:47 [From TRILEPTAL] SPASMS Sulfa (Sulfonamide Allergy Unknown UNKNOWN Verified 04/12/24 14:47 Antibiotics) [SULFA (SULFONAMIDE ANTIBIOTICS)] coconut Allergy Anaphylaxis Verified 04/12/24 14:47 fish derived [fish] Allergy Anaphylaxis Verified 04/12/24 14:47 Review of Systems Review of Systems: Yes all other systems are reviewed and are negative [facility] Past Medical History Medical History Borderline personality disorder Mood disorder Pain, dental Psychosis Psychosis Bipolar 1 disorder Circulation problem Asthma Surgical History Hx of tubal ligation Tubal ligation status Social History Social History Household Members: Spouse Household Members Other:: AND DOG Housing: Apartment Housing Other:: GETTING EVICTED ON 03/24/24 Do you presently have visiting nurse or other home services: No Alcohol intake: never Patient Tobacco Use Status: Current everyday Tobacco user Tobacco use type: Cigarette Cigarette Packs Per Day: 0.5 Cigarettes Per Day: 10.0 Years Smoked: 28 years Smoked in Last 30 Days: Yes e-Cigarette/Vaping Use: Never Used Second Hand Smoke Exposure: No Use of substances other than those prescribed or required for medical reasons: Yes Substance Use Type: Marijuana Advance Directives: Yes Advance Directives on File: Yes Advance Directives Date on File: 08/08/22 Do you have a plan to hurt others: No Plan Patient : No service: No Current occupational status: 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 Oriented X3. No acute distress. poorly kempt Head: normocephalic, atraumatic. Eyes: Pupils equal, round and reactive to light. ENT: Pharynx normal. No tonsillar swelling or exudate. Neck: Normal inspection. Neck supple. CVS: Normal heart rate and rhythm. Pulses normal. Respiratory: No respiratory distress. Breath sounds normal. Abdomen: Soft and nontender. +BS x4 Skin: Skin warm and dry. Normal skin color. Normal skin turgor. No rashes. Extremities: No lower extremity edema. No joint swelling. Neuro/psych: Oriented X 3. No motor deficit. No sensory deficit. CN II-XII intact. Normal speech and cognition. mood is depressed Course Reevaluation(s) Reevaluation #1: Patient is seen and evaluated by care team, patient will be an inpatient bed search, will be placed on a section 12. Reevaluation #2: Patient remain on Section 12 inpatient level of care for SI, no events reported overnight Time: 06:30 Reevaluation #3: seen again by crisis no SI OK to d/c Time: 11:50 Medications Administered Generic Name Dose Route Start Last Admin Trade Name Freq PRN Reason Stop Dose Admin Clonazepam 0.5 mg 04/12/24 21:00 04/13/24 08:29 Clonazepam 0.5 Mg Tablet PO 0.5 mg BID IVONNE Administration Nicotine 21 mg 04/12/24 19:07 04/13/24 09:45 Nicotine 21 Mg Patch.Td24 TRANSDERMA 21 mg DAILY PRN Administration smoking cessation Nitrofurantoin Macrocrystals 100 mg 04/12/24 21:00 04/13/24 09:37 Nitrofurantoin Monohyd/M-Cryst 100 Mg Capsule PO 04/15/24 09:01 100 mg BID IVONNE Administration Olanzapine 10 mg 04/12/24 21:00 04/13/24 08:29 Olanzapine Odt 10 Mg Tab.Rapdis TRANSLINGU 10 mg TID IVONNE Administration Omeprazole 40 mg 04/13/24 09:00 04/13/24 09:37 Omeprazole 40 Mg Capsule.Dr PO 40 mg DAILY@0900 IVONNE Administration Sertraline HCl 50 mg 04/13/24 09:00 04/13/24 08:29 Sertraline Hcl 50 Mg Tablet PO 50 mg DAILY IVONNE Administration Topiramate 200 mg 04/13/24 09:00 04/13/24 09:37 Topiramate 100 Mg Tablet PO 200 mg DAILY IVONNE Administration Trazodone HCl 50 mg 04/12/24 19:07 04/12/24 20:03 Trazodone Hcl 50 Mg Tablet PO 50 mg BEDTIME MRX1 PRN Administration Insomnia Discontinued Medications Generic Name Dose Route Start Last Admin Trade Name Jessica PRN Reason Stop Dose Admin Ibuprofen 400 mg 04/12/24 20:48 04/12/24 20:50 Ibuprofen 400 Mg Tablet PO 04/12/24 20:49 400 mg ONCE ONE Administration Medical Decision Making Medical Decision Making MDM Narrative: 38-year-old female with history of borderline personality disorder, PTSD, presenting to the ER from [facility] clinic for suicidal ideation. She is homeless and states this is the stem for her current suicidal ideation. She has had these thoughts for several weeks. She states she is planning to overdose on prescription medications. unclear if she came in as a bed search from the community. will discuss w/ care team. Urinalysis is positive for UTI. She denies any urinary tract symptoms. She has history of E coli UTI over the summer. Will empirically treat with 3 days of Macrobid while awaiting urine culture. will need to be seen by care team for possible inpatient psychiatric care Differential Diagnosis Differential Diagnoses: The differential diagnosis associated with the presentation includes substance induced mood disorder, acute psychosis, schizophrenia, schizoaffective disorder, PTSD, bipolar disorder, major depression with psychotic features Admission/Observation Consideration of admission/observation: Escalation of care including admission/observation considered Lab Data [facility] Lab Attestation statement: I reviewed the patient's lab results. +UTI 04/12/24 16:06 04/12/24 16:06 Labs: Lab Results 04/12/24 04/12/24 Range/Units 15:11 16:06 WBC 9.3 (4.8-10.8) X10*3/uL RBC 3.58 L (4.20-5.50) X10*6/uL Hgb 12.0 (12.0-16.0) g/dl Hct 34.4 L (37.0-47.0) % MCV 96.1 (80.0-98.0) fL MCH 33.5 H (27.0-33.0) pg MCHC 34.9 (31.0-35.0) g/dl RDW 16.2 H (11.0-16.0) % Plt Count 392 D (160-400) X10*3/uL MPV 9.7 (9.4-12.3) fL Immature Gran % (Auto) 0.6 H (0.0-0.4) % Neut % (Auto) 57.6 (45-73) % Lymph % (Auto) 30.2 (20-40) % [place] % (Auto) 7.8 (2-11) % Eos % (Auto) 2.9 (0-4) % Baso % (Auto) 0.9 (0-2) % Lymph # (Auto) 2.8 (1.2-4.9) X10*3/uL [place] # (Auto) 0.7 (0.1-1.2) X10*3/uL Eos # (Auto) 0.3 (0.0-0.4) X10*3/uL Baso # (Auto) 0.1 (0.0-0.2) X10*3/uL Abs Immat Gran (auto) 0.06 H (0.00-0.03) X10*3/uL Absolute Neuts (auto) 5.3 (2.0-8.3) x10*3/uL Absolute Nucleated RBC 0.000 (0.0-0.012) X10*3/uL Nucleated RBC % (auto) 0.0 (0.0-0.2) /100WBC Sodium 143 (135-145) mmol/L Potassium 3.5 (3.3-5.1) mmol/L Chloride 109 H (96-108) mmol/L Carbon Dioxide 26 (22-29) mmol/L Anion Gap 12 (12-20) BUN 11 (9-16) mg/dL Creatinine 0.70 (0.5-1.4) mg/dL Estim Creat Clear Calc 108.8 Estimated GFR > 60 Random Glucose 90 (60-115) mg/dL Calcium 9.1 D (8.4-10.2) mg/dL Magnesium 2.0 (1.6-2.6) mg/dL Total Bilirubin 0.1 (0.0-1.0) mg/dL Direct Bilirubin < 0.2 (0.0-0.5) mg/dL AST 32 H (5-31) U/L ALT 31 (0-31) U/L Alkaline Phosphatase 71 (39-117) U/L Total Protein 6.8 (6.5-8.0) g/dL Albumin 4.0 (3.5-5.0) g/dL Urine Color Yellow Urine Appearance Clear Urine pH 6.0 (5.0-9.0) Ur Specific [place] 1.015 (1.005-1.025) Urine Protein Negative (Neg-Trace) mg/dL Urine Glucose (UA) Negative (Negative) mg/dL Urine Ketones Negative (Negative) mg/dL Urine Blood Negative (Negative) Urine Nitrite Positive H (Negative) Ur Leukocyte Esterase Negative (Negative) Urine RBC 0-2 (0-2) /HPF Urine WBC 0-5 (0-5) /HPF Ur Squamous Epith Cells 0-2 (0-2) /HPF Urine Bacteria 4+ (None Seen) Hyaline Casts 0-2 (0-2) /LPF Urine Test NEGATIVE (NEGATIVE) Urine Opiates Screen Not Detected (Not Detect) Ur Buprenorphine Scrn Not Detected (Not Detect) ng/mL Ur Oxycodone Screen Not Detected (Not Detect) ng/mL Urine Methadone Screen Not Detected (Not Detect) ng/mL Urine Fentanyl Screen Not Detected (Not Detect) Ur Barbiturates Screen Not Detected (Not Detect) Ur Phencyclidine Scrn Not Detected (Not Detect) Ur Amphetamines Screen Not Detected (Not Detect) U Benzodiazepines Scrn Not Detected (Not Detect) Urine Cocaine Screen Not Detected (Not Detect) U Marijuana (THC) Screen POSITIVE H (Not Detect) Ethyl Alcohol < 10 mg/dL Independent Historian Clinical information obtained from an independent historian. History obtained from or confirmed by: EMS External Record Review External record reviewed: Inpatient record, Prior outpatient labs and Prior outpatient radiology Prescription Management I considered prescription management with: Antibiotic and Other (Antipsychotic) Chronic Conditions Patient?s care impacted by: Other (Borderline personality disorder) Social Determinants Patient?s care significantly limited by Social Determinants of Health including: Inadequate housing, Low income and Other Social Determinant of Health Critical Care Time Critical Care Time Critical Care Time: No Discharge Plan Discharge Clinical Impression: Suicidal ideation Patient Disposition: Still a Patient Prescriptions: No Action olanzapine 10 mg Tablet,Disintegrating 10 mg translingual TID 30 Days Qty: 90 0RF chlorpromazine 25 mg Tablet 25 mg PO TID PRN (Reason: agitation) 30 Days Qty: 90 0RF nicotine 21 mg/24 hr Patch 24 Hour 21 mg transdermal DAILY PRN (Reason: smoking cessation) 28 Days Qty: 28 0RF trazodone 50 mg Tablet 50 mg PO BEDTIME MRX1 PRN (Reason: Insomnia) 30 Days Qty: 45 0RF omeprazole 40 mg Capsule,Delayed Release(Dr/Ec) 40 mg PO DAILY@0900 30 Days Qty: 30 0RF topiramate 200 mg tablet 200 mg PO DAILY 30 Days Qty: 30 0RF sertraline 50 mg Tablet 50 mg PO DAILY 30 Days Qty: 30 0RF clonazepam 0.5 mg tablet 0.5 mg PO BID 14 Days Qty: 28 1RF Interventions: [place]-Suicide Risk Severity Scale Last Done: 04/12/24 16:54 Print Language: Maltese
[2024-04-12 15:34] LABS: Bacteria Urine 4+ (None Seen); Hyaline Casts Urine 0-2 /LPF (0-2); RBC Urine 0-2 /HPF (0-2); Squamous Epithelial Cell Urine 0-2 /HPF (0-2); UACC Culture Trigger YES; WBC Urine 0-5 /HPF (0-5)
[2024-04-12 15:38] LABS: UPreg QC Valid YES; Urine Pregnancy NEGATIVE (NEGATIVE)
[2024-04-12 16:13] LABS: MANUAL DIFF FLAG NO
[2024-04-12 16:30] LABS: Alanine Aminotransferase 31 U/L (0-31); Alkaline Phosphatase 71 U/L (39-117); Anion Gap 12 (12-20); Aspartate Amino Transferase 32 U/L (5-31); Bilirubin Direct < 0.2 mg/dL (0.0-0.5); Bilirubin Total 0.1 mg/dL (0.0-1.0); Blood Urea Nitrogen 11 mg/dL (9-16); Calcium 9.1 mg/dL (8.4-10.2); Carbon Dioxide 26 mmol/L (22-29); Chloride 109 mmol/L (96-108); Creatinine Clr Calc Pharmacy 108.8; Estimated Glomerular Filt Rate > 60; Ethanol < 10 mg/dL; Glucose Random 90 mg/dL (60-115); Potassium 3.5 mmol/L (3.3-5.1); Sodium 143 mmol/L (135-145); Total Protein 6.8 g/dL (6.5-8.0)
[2024-04-12 16:32] LABS: Hematocrit 34.4 % (37.0-47.0); Red Blood Count 3.58 X10*6/uL (4.20-5.50); White Blood Count 9.3 X10*3/uL (4.8-10.8)
[2024-04-12 16:33] LABS: Basophils Absolute Auto 0.1 X10*3/uL (0.0-0.2); Basophils Percent Auto 0.9 % (0-2); Eosinophils Absolute Auto 0.3 X10*3/uL (0.0-0.4); Eosinophils Percent Auto 2.9 % (0-4); Imm Gran Abs Auto 0.06 X10*3/uL (0.00-0.03); Imm Gran Pct Auto 0.6 % (0.0-0.4); Lymphocytes Absolute Auto 2.8 X10*3/uL (1.2-4.9); Lymphocytes Percent Auto 30.2 % (20-40); Mean Corpuscular HGB Conc 34.9 g/dl (31.0-35.0); Mean Corpuscular Hemoglobin 33.5 pg (27.0-33.0); Mean Corpuscular Volume 96.1 fL (80.0-98.0); Mean Platelet Volume 9.7 fL (9.4-12.3); Monocytes Absolute Auto 0.7 X10*3/uL (0.1-1.2); Monocytes Percent Auto 7.8 % (2-11); Neutrophils Absolute Auto 5.3 x10*3/uL (2.0-8.3); Neutrophils Percent Auto 57.6 % (45-73); Platelet Count 392 X10*3/uL (160-400); Red Cell Distribution Width 16.2 % (11.0-16.0)
[2024-04-12 16:54] VITALS: RESP 16
[2024-04-12] MEDS: Nicotine 21 MG PATCH.TD24 TRANSDERMA (19:11)
[2024-04-12 20:01] LABS: Amphetamine Screen Urine Not Detected (Not Detect); Barbiturates, Urine Not Detected (Not Detect); Benzodiazepines Screen Urine Not Detected (Not Detect); Buprenorphine Scr Not Detected (Not Detect); Cannabinoid Screen Urine POSITIVE (Not Detect); Cocaine Screen Urine Not Detected (Not Detect); Fentanyl, urine Not Detected (Not Detect); Methadone Screen, Urine Not Detected (Not Detect); Opiate Screen Urine Not Detected (Not Detect); Oxycodone Screen Urine Not Detected (Not Detect); Phencyclidine Screen Urine Not Detected (Not Detect)
[2024-04-12] MEDS: clonazePAM 0.5 MG TABLET PO (20:03)
[2024-04-12] MEDS: Nitrofurantoin Monohyd/M-Cryst 100 MG CAPSULE PO (20:03)
[2024-04-12] MEDS: OLANZapine ODT 10 MG TAB.RAPDIS TRANSLINGU (20:03)
[2024-04-12] MEDS: traZODone HCL 50 MG TABLET PO (20:03)
[2024-04-12] MEDS: Ibuprofen 400 MG TABLET PO (20:50)
--- NOTE | 2024-04-12 23:40 | PC.NURSE ---
took over care from Vick Kothari, pt is sleeping
--- NOTE | 2024-04-13 06:14 | PC.NURSE ---
pt sleeping at the time no sign of distress.
[2024-04-13] MEDS: OLANZapine ODT 10 MG TAB.RAPDIS TRANSLINGU (08:29)
[2024-04-13] MEDS: clonazePAM 0.5 MG TABLET PO (08:29)
[2024-04-13] MEDS: Sertraline HCL 50 MG TABLET PO (08:29)
--- NOTE | 2024-04-13 08:31 | PHA.MEDREC ---
Pharmacy Consult ? Medication Reconciliation Pharmacy has reviewed the medication reconciliation done by nursing. Claims match what was confirmed.
[2024-04-13] MEDS: Topiramate 100 MG TABLET 200 MG PO (09:37)
[2024-04-13] MEDS: Omeprazole 40 MG CAPSULE.DR PO (09:37)
[2024-04-13] MEDS: Nitrofurantoin Monohyd/M-Cryst 100 MG CAPSULE PO (09:37)
[2024-04-13] MEDS: Nicotine 21 MG PATCH.TD24 TRANSDERMA (09:45)
[2024-04-13 12:44] VITALS: BP 126/69; PULSE 83; RESP 16; TEMP 37.3; O2SAT 99
== END 2024-04-13 12:45 | disposition home or self-care (01) ==
PROVIDERS: Physician Assistant; Emergency Provider Emergency Medicine Emergency Medical Services; PCP Internal Medicine
DX: F33.1 Major depressive disorder, recurrent, moderate (principal); R45.851 Suicidal ideations; F17.210 Nicotine dependence, cigarettes, uncomplicated; Z51.81 Encounter for therapeutic drug level monitoring; Z79.899 Other long term (current) drug therapy
CPT/HCPCS: 36415; 80048; 80076; 80307; 81001; 81025; 83735; 85025; 87086; 87088; 87186; 99285; S9485

== ENCOUNTER 2024-04-13 20:37 | Emergency (ER) | payer OTHER, SELFPAY ==
[2024-04-13 21:00] VITALS: BP 113/77; BP 170/100; PULSE 92; PULSE 94; RESP 18; TEMP 36.6; O2SAT 97; O2SAT 98; BMI 25.8
--- NOTE | 2024-04-13 21:12 | PC.NURSE ---
patient searched and no evidence of abrasions or lacerationis patient did report ankle strain for which aircast was proided previously and maintained. bralette was allowed to be kept by patient removed and searched personally. underwear put in belongings no presence of contraband
--- NOTE | 2024-04-13 23:02 | PC.NURSE ---
continued on close obs status due to aircast on r ankle (from 04/04 presentation)
--- NOTE | 2024-04-14 00:05 | ED_ITS ---
HPI - General Adult General Chief complaint: Psychiatric Symptoms Stated complaint: SI W/ PLAN Time Seen by Provider: 04/14/24 00:05 History of Present Illness ED Provider: Angelina BOWERS narrative: The patient is a 38-year-old woman who had come to the emergency room yesterday on April 12 complaining of suicidality. She was medically cleared and seen by the care team. The initial recommendation was for inpatient hospitalization but after spending the night in the emergency room the patient recanted her suicidality and was seen again by the care team and was cleared for discharge. She left the hospital at around noon. She now returns to the hospital this evening, approximately 8 hours after being discharged from the emergency room. Apparently she or her called 911. Paramedics found her outside a [employer] stating that she had a plan to jump off a bridge because she is feeling depressed because her dog is being held by animal control. Apparently she and her has been homeless recently and she finds this very depressing as well. The patient was seen here 1 week ago on April 04 and was diagnosed with a right ankle sprain and was given an Arpit wrap and an Aircast. The patient has not done anything to harm herself to this point. No complaint of fever, sweats, or chills. She says that she has persistent discomfort in the right ankle despite wearing the Aircast. She says she has not been able to stay off the ankle. Related Data Home Medications ?Medication ?Instructions ?Recorded ?Confirmed fluticasone furoate 200 1 inh inhalation DAILY 04/14/24 04/14/24 mcg/actuation blister powder for inhalation (Arnuity Ellipta) polyethylene glycol 3350 17 gram 17 g PO DAILY PRN constipation 04/14/24 04/14/24 oral powder packet Previous Rx's ?Medication ?Instructions ?Recorded chlorpromazine 25 mg tablet 25 mg PO TID PRN agitation 30 days 03/30/24 #90 tabs nicotine 21 mg/24 hr daily 21 mg transdermal DAILY PRN 03/30/24 transdermal patch smoking cessation 28 days #28 ea olanzapine 10 mg disintegrating 10 mg translingual TID 30 days #90 03/30/24 tablet tabs omeprazole 40 mg capsule,delayed 40 mg PO DAILY@0900 30 days #30 03/30/24 release caps sertraline 50 mg tablet 50 mg PO DAILY 30 days #30 tabs 03/30/24 topiramate 200 mg tablet 200 mg PO DAILY 30 days #30 tabs 03/30/24 trazodone 50 mg tablet 50 mg PO BEDTIME MRX1 PRN Insomnia 03/30/24 30 days #45 tabs clonazepam 0.5 mg tablet 0.5 mg PO BID 14 days #28 tabs 03/31/24 Allergies Allergy/AdvReac Type Severity Reaction Status Date / Time stringer [CHERRIES] Allergy Severe ANAPHYLAXIS Verified 04/13/24 21:11 gabapentin [From NEURONTIN] Allergy Unknown MUSCLE Verified 04/13/24 21:11 SPASMS lamotrigine [From LAMICTAL] Allergy Unknown MUSCLE Verified 04/13/24 21:11 SPASMS oxcarbazepine Allergy Unknown MUSCLE Verified 04/13/24 21:11 [From TRILEPTAL] SPASMS Sulfa (Sulfonamide Allergy Unknown UNKNOWN Verified 04/13/24 21:11 Antibiotics) [SULFA (SULFONAMIDE ANTIBIOTICS)] coconut Allergy Anaphylaxis Verified 04/13/24 21:11 fish derived [fish] Allergy Anaphylaxis Verified 04/13/24 21:11 Review of Systems 2 Review of Systems: Yes all other systems are reviewed and are negative [facility] Past Medical History Medical History Borderline personality disorder Mood disorder Pain, dental Psychosis Psychosis Bipolar 1 disorder Circulation problem Asthma Surgical History Hx of tubal ligation Tubal ligation status Social History Social History Household Members: Spouse Household Members Other:: AND DOG Housing: Apartment Housing Other:: GETTING EVICTED ON 03/24/24 Do you presently have visiting nurse or other home services: No Alcohol intake: never Patient Tobacco Use Status: Current everyday Tobacco user Tobacco use type: Cigarette Cigarette Packs Per Day: 0.5 Cigarettes Per Day: 10.0 Years Smoked: 28 years e-Cigarette/Vaping Use: Never Used Second Hand Smoke Exposure: No Substance Use Type: Marijuana Advance Directives: Yes Advance Directives on File: Yes Advance Directives Date on File: 08/08/22 Do you have a plan to hurt others: No Plan service: No Current occupational status: 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 She looks somewhat older than her age and somewhat chronically ill. HENMT Other: Face is symmetrical. Mucous membranes moist. Eyes General: appearance normal, both eyes and all related structures Neck Neck: Yes full ROM Resp Effort & Inspection: normal respiratory effort Auscultation: clear to auscultation bilaterally Cardio Rate: regular rate Rhythm: regular rhythm Heart sounds: S1 normal heart sound present and S2 normal heart sound present GI Other: Abdomen is soft and nontender Skin Other: Skin is dry and unremarkable Neuro Other: The patient was sleeping when I first went to see her. Later she was awake and alert with a normal mental status. Cranial nerves 2-12 are intact. She moves her extremities symmetrically and appropriately. She is neurologically intact. Extrem Other: The patient has an Aircast on the right ankle. Calves are soft and nontender. Psych Other: The patient has no obvious thought disorder. Medications Administered Generic Name Dose Route Start Last Admin Trade Name Freq PRN Reason Stop Dose Admin Clonazepam 0.5 mg 04/14/24 03:00 04/14/24 02:59 Clonazepam 0.5 Mg Tablet PO 0.5 mg BID IVONNE Administration Olanzapine 10 mg 04/14/24 03:00 04/14/24 02:59 Olanzapine Odt 10 Mg Tab.Rapdis TRANSLINGU 10 mg TID IVONNE Administration Trazodone HCl 50 mg 04/14/24 02:48 04/14/24 03:00 Trazodone Hcl 50 Mg Tablet PO 50 mg BEDTIME MRX1 PRN Administration Insomnia Medical Decision Making Medical Decision Making MDM Narrative: The patient is a 38-year-old female with a history of chronic mental illness and homelessness. She has a history of multiple emergency room visits. She returns to the emergency room approximately 8 hours after having been discharged after spinning the previous night in the emergency room. She returns stating that she is having worsening suicidal thoughts. She has not done anything to harm herself to this point. The patient has been placed in our psychiatric thought to be evaluated again by the crisis team. I think she is medically clear for evaluation by the crisis team. The patient will be placed in physician observation. Lab Data 04/14/24 02:44 04/14/24 02:44 Labs: Lab Results 04/14/24 Range/Units 02:44 WBC 9.4 (4.8-10.8) X10*3/uL RBC 3.46 L (4.20-5.50) X10*6/uL Hgb 11.3 L (12.0-16.0) g/dl Hct 33.3 L (37.0-47.0) % MCV 96.2 (80.0-98.0) fL MCH 32.7 (27.0-33.0) pg MCHC 33.9 (31.0-35.0) g/dl RDW 16.1 H (11.0-16.0) % Plt Count 370 (160-400) X10*3/uL MPV 9.4 (9.4-12.3) fL Immature Gran % (Auto) 0.4 (0.0-0.4) % Neut % (Auto) 55.9 (45-73) % Lymph % (Auto) 30.6 (20-40) % [place] % (Auto) 8.8 (2-11) % Eos % (Auto) 3.6 (0-4) % Baso % (Auto) 0.7 (0-2) % Lymph # (Auto) 2.9 (1.2-4.9) X10*3/uL [place] # (Auto) 0.8 (0.1-1.2) X10*3/uL Eos # (Auto) 0.3 (0.0-0.4) X10*3/uL Baso # (Auto) 0.1 (0.0-0.2) X10*3/uL Abs Immat Gran (auto) 0.04 H (0.00-0.03) X10*3/uL Absolute Neuts (auto) 5.2 (2.0-8.3) x10*3/uL Absolute Nucleated RBC 0.000 (0.0-0.012) X10*3/uL Nucleated RBC % (auto) 0.0 (0.0-0.2) /100WBC Sodium 142 (135-145) mmol/L Potassium 3.8 (3.3-5.1) mmol/L Chloride 110 H (96-108) mmol/L Carbon Dioxide 23 (22-29) mmol/L Anion Gap 13 (12-20) BUN 13 (9-16) mg/dL Creatinine 0.71 (0.5-1.4) mg/dL Estim Creat Clear Calc 112.3 Estimated GFR > 60 Random Glucose 109 (60-115) mg/dL Calcium 8.9 (8.4-10.2) mg/dL Total Bilirubin 0.3 (0.0-1.0) mg/dL Direct Bilirubin 0.1 (0.0-0.5) mg/dL AST 40 H (5-31) U/L ALT 40 H (0-31) U/L Alkaline Phosphatase 72 (39-117) U/L Total Protein 6.4 L (6.5-8.0) g/dL Albumin 3.8 (3.5-5.0) g/dL Beta HCG, Quant < 2 mIU/mL Ethyl Alcohol < 10 mg/dL Discharge Plan Discharge Clinical Impression: Depression Patient Disposition: Still a Patient Prescriptions: No Action olanzapine 10 mg Tablet,Disintegrating 10 mg translingual TID 30 Days Qty: 90 0RF chlorpromazine 25 mg Tablet 25 mg PO TID PRN (Reason: agitation) 30 Days Qty: 90 0RF nicotine 21 mg/24 hr Patch 24 Hour 21 mg transdermal DAILY PRN (Reason: smoking cessation) 28 Days Qty: 28 0RF trazodone 50 mg Tablet 50 mg PO BEDTIME MRX1 PRN (Reason: Insomnia) 30 Days Qty: 45 0RF omeprazole 40 mg Capsule,Delayed Release(Dr/Ec) 40 mg PO DAILY@0900 30 Days Qty: 30 0RF topiramate 200 mg tablet 200 mg PO DAILY 30 Days Qty: 30 0RF sertraline 50 mg Tablet 50 mg PO DAILY 30 Days Qty: 30 0RF clonazepam 0.5 mg tablet 0.5 mg PO BID 14 Days Qty: 28 1RF polyethylene glycol 3350 17 gram powder in packet 17 g PO DAILY PRN (Reason: constipation) Arnuity Ellipta 200 mcg/actuation blister with device 1 inh inhalation DAILY Interventions: [place]-Suicide Risk Severity Scale Last Done: 04/13/24 21:48 Print Language: Bengali
[2024-04-14 02:49] LABS: MANUAL DIFF FLAG NO
[2024-04-14 02:50] LABS: Basophils Absolute Auto 0.1 X10*3/uL (0.0-0.2); Basophils Percent Auto 0.7 % (0-2); Eosinophils Absolute Auto 0.3 X10*3/uL (0.0-0.4); Eosinophils Percent Auto 3.6 % (0-4); Hematocrit 33.3 % (37.0-47.0); Hemoglobin 11.3 g/dl (12.0-16.0); Imm Gran Abs Auto 0.04 X10*3/uL (0.00-0.03); Imm Gran Pct Auto 0.4 % (0.0-0.4); Lymphocytes Absolute Auto 2.9 X10*3/uL (1.2-4.9); Lymphocytes Percent Auto 30.6 % (20-40); Mean Corpuscular HGB Conc 33.9 g/dl (31.0-35.0); Mean Corpuscular Hemoglobin 32.7 pg (27.0-33.0); Mean Corpuscular Volume 96.2 fL (80.0-98.0); Mean Platelet Volume 9.4 fL (9.4-12.3); Monocytes Absolute Auto 0.8 X10*3/uL (0.1-1.2); Monocytes Percent Auto 8.8 % (2-11); Neutrophils Absolute Auto 5.2 x10*3/uL (2.0-8.3); Neutrophils Percent Auto 55.9 % (45-73); Platelet Count 370 X10*3/uL (160-400); Red Blood Count 3.46 X10*6/uL (4.20-5.50); Red Cell Distribution Width 16.1 % (11.0-16.0); White Blood Count 9.4 X10*3/uL (4.8-10.8)
[2024-04-14] MEDS: OLANZapine ODT 10 MG TAB.RAPDIS TRANSLINGU ×3 (02:59→16:15)
[2024-04-14] MEDS: clonazePAM 0.5 MG TABLET PO ×2 (02:59→08:03)
[2024-04-14] MEDS: traZODone HCL 50 MG TABLET PO (03:00)
[2024-04-14 03:13] LABS: Alanine Aminotransferase 40 U/L (0-31); Albumin Level 3.8 g/dL (3.5-5.0); Alkaline Phosphatase 72 U/L (39-117); Anion Gap 13 (12-20); Aspartate Amino Transferase 40 U/L (5-31); Bilirubin Direct 0.1 mg/dL (0.0-0.5); Bilirubin Total 0.3 mg/dL (0.0-1.0); Blood Urea Nitrogen 13 mg/dL (9-16); Calcium 8.9 mg/dL (8.4-10.2); Carbon Dioxide 23 mmol/L (22-29); Chloride 110 mmol/L (96-108); Creatinine Clr Calc Pharmacy 112.3; Estimated Glomerular Filt Rate > 60; Ethanol < 10 mg/dL; Glucose Random 109 mg/dL (60-115); HCG Quantitative < 2 mIU/mL; Potassium 3.8 mmol/L (3.3-5.1); Sodium 142 mmol/L (135-145); Total Protein 6.4 g/dL (6.5-8.0)
[2024-04-14 07:57] LABS: Appearance Urine Clear; Color Urine Yellow; Glucose Urine UA Negative (Negative); Leukocyte Esterase Urine Negative (Negative); Nitrite Urine Negative (Negative); Urine Blood Negative (Negative); Urine Ketones Negative (Negative); Urine Protein Negative (Neg-Trace)
[2024-04-14 07:58] LABS: UPreg QC Valid YES; Urine Pregnancy NEGATIVE (NEGATIVE)
[2024-04-14 08:03] LABS: Amphetamine Screen Urine Not Detected (Not Detect); Barbiturates, Urine Not Detected (Not Detect); Benzodiazepines Screen Urine Not Detected (Not Detect); Buprenorphine Scr Not Detected (Not Detect); Cannabinoid Screen Urine POSITIVE (Not Detect); Cocaine Screen Urine Not Detected (Not Detect); Fentanyl, urine Not Detected (Not Detect); Methadone Screen, Urine Not Detected (Not Detect); Opiate Screen Urine Not Detected (Not Detect); Oxycodone Screen Urine Not Detected (Not Detect); Phencyclidine Screen Urine Not Detected (Not Detect)
[2024-04-14] MEDS: Nicotine 21 MG PATCH.TD24 TRANSDERMA (08:03)
[2024-04-14] MEDS: Sertraline HCL 50 MG TABLET PO (08:03)
[2024-04-14] MEDS: Topiramate 100 MG TABLET 200 MG PO (10:40)
[2024-04-14] MEDS: Omeprazole 40 MG CAPSULE.DR PO (10:40)
--- NOTE | 2024-04-14 13:52 | MHC.CARE ---
Patient seen by hospital psychiatry team Uyen Reddy NP who is recommending [facility]S level of care, provider has asked to be notified if patient is no longer voluntary for this level of care prior to any discharge from ED.
--- NOTE | 2024-04-14 14:10 | MHC.CARE ---
[facility] reports they have a female bed available, referral was faxed over, activated and is under review currently.
--- NOTE | 2024-04-14 16:06 | MHC.CARE ---
Pt was declined from [facility] due to a person who is a conflict of interest to patient. [facility] reports they have female bed and referral faxed to [facility] for possible placement.
--- NOTE | 2024-04-14 16:25 | MHC.CARE ---
Patient referred to [facility], they have the assessment, it will be reviewed and they will notify CARE team of determination.
[2024-04-14 16:33] VITALS: BP 128/77; PULSE 90; RESP 18; TEMP 36.9; O2SAT 98
[2024-04-14 16:59] VITALS: BP 128/77; PULSE 90; RESP 18; TEMP 36.9; O2SAT 98
== END 2024-04-14 17:05 | disposition other institution (70) ==
PROVIDERS: Emergency Provider Emergency Medicine
DX: F32.A Depression, unspecified (principal); F60.3 Borderline personality disorder; F43.12 Post-traumatic stress disorder, chronic; F31.9 Bipolar disorder, unspecified; J45.909 Unspecified asthma, uncomplicated; Z59.00 Homelessness unspecified; F17.210 Nicotine dependence, cigarettes, uncomplicated; Z79.899 Other long term (current) drug therapy
CPT/HCPCS: 36415; 80048; 80076; 80307; 81003; 81025; 84702; 85025; 99284; S9485

== ENCOUNTER 2024-04-24 11:14 | Emergency (ER) | payer OTHER, SELFPAY ==
--- NOTE | 2024-04-24 11:18 | MHC.CARE ---
Pt was discharged from [facility] 30 minutes ago.
--- NOTE | 2024-04-24 11:29 | ED.GENADULT ---
HPI - General Adult General Chief complaint: Psychiatric Symptoms Stated complaint: crisis Time Seen by Provider: 04/24/24 11:29 Source: patient Mode of arrival: ambulatory Limitations: no limitations History of Present Illness ED Provider: Monica Ortiz PA-C HPI narrative: Patient is a 38 year old assigned female at with a history of GERD, bipolar disorder, and depression presenting to the emergency department today with suicidal ideation. Patient states that she has been having suicidal ideation with thoughts of slitting her wrists. Patient denies any dizziness, lightheadedness, abdominal pain, nausea, vomiting, fever, chills, blurry vision, double vision, loss of vision, chest pain, difficulty breathing, shortness of breath, back pain, night sweats, pain with urination, increased urinary frequency, increased urinary urgency, blood in her urine or stool, syncope or a near syncopal episode, recent trauma or falls, bowel incontinence, bladder incontinence, or any other complaints at this time. Relieving factors: none Exacerbating factors: none Associated symptoms: denies other symptoms Treatments prior to arrival: none Related Data Home Medications ?Medication ?Instructions ?Recorded ?Confirmed fluticasone furoate 200 1 inh inhalation DAILY 04/14/24 04/24/24 mcg/actuation blister powder for inhalation (Arnuity Ellipta) polyethylene glycol 3350 17 gram 17 g PO DAILY PRN constipation 04/14/24 04/24/24 oral powder packet acetaminophen 500 mg tablet PO 04/24/24 ibuprofen 600 mg tablet 600 mg PO Q6H PRN Pain 04/24/24 04/24/24 Previous Rx's ?Medication ?Instructions ?Recorded chlorpromazine 25 mg tablet 25 mg PO TID PRN agitation 30 days 03/30/24 #90 tabs nicotine 21 mg/24 hr daily 21 mg transdermal DAILY PRN 03/30/24 transdermal patch smoking cessation 28 days #28 ea olanzapine 10 mg disintegrating 10 mg translingual TID 30 days #90 03/30/24 tablet tabs omeprazole 40 mg capsule,delayed 40 mg PO DAILY@0900 30 days #30 03/30/24 release caps sertraline 50 mg tablet 50 mg PO DAILY 30 days #30 tabs 03/30/24 topiramate 200 mg tablet 200 mg PO DAILY 30 days #30 tabs 03/30/24 trazodone 50 mg tablet 50 mg PO BEDTIME MRX1 PRN Insomnia 03/30/24 30 days #45 tabs clonazepam 0.5 mg tablet 0.5 mg PO BID 14 days #28 tabs 03/31/24 nitrofurantoin 100 mg PO Q12H 7 days #14 caps 04/14/24 monohydrate/macrocrystals 100 mg capsule (Macrobid) Allergies Allergy/AdvReac Type Severity Reaction Status Date / Time stringer [CHERRIES] Allergy Severe ANAPHYLAXIS Verified 04/24/24 12:57 gabapentin [From NEURONTIN] Allergy Unknown MUSCLE Verified 04/24/24 12:57 SPASMS lamotrigine [From LAMICTAL] Allergy Unknown MUSCLE Verified 04/24/24 12:57 SPASMS oxcarbazepine Allergy Unknown MUSCLE Verified 04/24/24 12:57 [From TRILEPTAL] SPASMS Sulfa (Sulfonamide Allergy Unknown UNKNOWN Verified 04/24/24 12:57 Antibiotics) [SULFA (SULFONAMIDE ANTIBIOTICS)] coconut Allergy Anaphylaxis Verified 04/24/24 12:57 fish derived [fish] Allergy Anaphylaxis Verified 04/24/24 12:57 Review of Systems Constitutional: Constitutional: Reports no additional constitutional complaints, Denies chills, Denies fever(s) and Denies night sweats Eyes: Eyes: Reports no additional eye complaints, Denies blurry vision, Denies change in vision, Denies diplopia, Denies eye discharge, Denies loss of vision and Denies eye pain ENT: Denies dizziness Cardiovascular: Cardiovascular: Reports no additional cardiovascular complaints, Denies chest pain, Denies lightheadedness, Denies Loss of Consciousness and Denies dyspnea Respiratory: Respiratory: Reports no additional respiratory complaints and Denies dyspnea Gastrointestinal: Gastrointestinal: Reports no additional gastrointestinal complaints, Denies abdominal pain, Denies melena, Denies hematochezia, Denies change in bowel habits and Denies change in stool character Genitourinary: Genitourinary: Denies hematuria, Denies urinary frequency, Denies dysuria, Denies urinary incontinence, Denies urinary hesitancy and Denies urinary urgency Musculoskeletal: Musculoskeletal: Reports no additional musculoskeletal complaints, Denies numbness and Denies tingling Neurologic: Denies dizziness, Denies loss of vision, Denies numbness and Denies tingling Psychiatric: Psychiatric: Denies homicidal ideation and Reports suicidal ideation Endocrine: Endocrine: Reports no additional endocrine complaints Hematologic/Lymphatic: Hematologic/Lymphatic: Reports no additional hematologic/lymphatic complaints Allergic/Immunologic: Allergic/Immunologic: Reports no additional allergic/immunologic complaints [facility] Past Medical History Attestation statement: The following information was validated with the patient. Source: old records reviewed and nursing notes reviewed Medical History Borderline personality disorder Mood disorder Pain, dental Psychosis Psychosis Bipolar 1 disorder Circulation problem Asthma Surgical History Hx of tubal ligation Tubal ligation status Social History Social History Household Members: Spouse Household Members Other:: AND DOG Housing: Apartment Housing Other:: GETTING EVICTED ON 03/24/24 Do you presently have visiting nurse or other home services: No Alcohol intake: never Patient Tobacco Use Status: Current everyday Tobacco user Tobacco use type: Cigarette Cigarette Packs Per Day: 0.5 Cigarettes Per Day: 10.0 Years Smoked: 28 years Smoked in Last 30 Days: Yes e-Cigarette/Vaping Use: Never Used Second Hand Smoke Exposure: No Substance Use Type: Marijuana Advance Directives: Yes Advance Directives on File: Yes Advance Directives Date on File: 08/08/22 Do you have a plan to hurt others: No Plan service: No Current occupational status: 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 Sexual orientation: Straight/Heterosexual Physical Exam ED Vital Signs: Vital Signs - 24 hr 04/24/24 12:10 Temperature 98.2 F Pulse Rate 95 Respiratory Rate 18 Blood Pressure 128/82 Pulse Oximetry 98 Oxygen Delivery Method Room Air BMI result Body Mass Index 23.6 Const General: cooperative, no acute distress, alert and awake Nutritional Appearance: well nourished Orientation/consciousness: patient oriented x3 Limitations: no limitations HENMT Head: Yes normal to inspection and Yes atraumatic Ears: hearing grossly normal bilaterally and external ears normal General nose exam: Normal external nose present, no nasal discharge noted and no epistaxis Face and sinus: Yes normal facial exam, No abrasion and No laceration Mouth: Normal oral and palatal mucosa present, no drooling and no muffled voice Eyes General: appearance normal, both eyes and all related structures Periorbital: periorbital findings normal Eyelids: Yes eyelids normal Conjunctivae: conjunctivae normal Pupils: Equal, round and reactive pupils present EOM: EOMs intact bilaterally Neck Neck: Yes normal visual inspection, Yes full ROM and Yes no lymphadenopathy Chest Chest palpation & inspection: normal inspection of the chest Resp Effort & Inspection: normal respiratory effort and able to speak in complete sentences GI Inspection: Yes normal to inspection Neuro General: patient oriented x3 and moves all extremities Cranial nerves: Yes Equal, round and reactive pupils present Cognition (Neuro): normal cognition Extrem General: Yes normal to inspection, Yes full ROM and Yes capillary refill normal Psych Appearance: grossly normal Mental Status: mental status grossly normal Affect: normal affect Attitude: cooperative Thought process: Normal thought process present Thought content: Normal thought content present Insight: Good insight present (Psych) Medical Decision Making Medical Decision Making MDM Narrative: Patient is a 38 year old assigned female at with a history of GERD, bipolar disorder, and depression presenting to the emergency department today with suicidal ideation. Patient's physical exam was unremarkable. Patient's blood work was unremarkable. Patient's urine showed no acute process. I explained my physical exam findings as well as all test results to the patient. I answered all questions asked by the patient. CARE team examined the patient and initially recommended discharge however, the patient escalated and they determined a psychiatry consult would be appropriate to determine if there is true psychiatric pathology or if this presentation is for secondary gain. Patient is currently awaiting psychiatric evaluation. Differential Diagnosis Differential Diagnoses: The differential diagnosis associated with the presentation includes Depression Suicidal ideation Admission/Observation Consideration of admission/observation: Escalation of care including admission/observation considered Patient's disposition will be determined after psychiatric evaluation Consult Healthcare Provider Management of the patient was discussed with: Behavioral Health Provider (spoke to the CARE team as noted in the MDM Rationale portion of this note.) Lab Data [facility] Lab Attestation statement: I reviewed the patient's lab results. My interpretation of these results are in the MDM Rationale portion of this note. 04/24/24 13:10 04/24/24 13:10 Labs: Lab Results 04/24/24 04/24/24 Range/Units 12:57 13:10 WBC 9.4 (4.8-10.8) X10*3/uL RBC 3.82 L (4.20-5.50) X10*6/uL Hgb 12.1 (12.0-16.0) g/dl Hct 37.1 (37.0-47.0) % MCV 97.1 (80.0-98.0) fL MCH 31.7 (27.0-33.0) pg MCHC 32.6 (31.0-35.0) g/dl RDW 15.7 (11.0-16.0) % Plt Count 317 (160-400) X10*3/uL MPV 10.0 (9.4-12.3) fL Immature Gran % (Auto) 1.4 H (0.0-0.4) % Neut % (Auto) 56.6 (45-73) % Lymph % (Auto) 29.1 (20-40) % [place] % (Auto) 8.7 (2-11) % Eos % (Auto) 2.9 (0-4) % Baso % (Auto) 1.3 (0-2) % Lymph # (Auto) 2.7 (1.2-4.9) X10*3/uL [place] # (Auto) 0.8 (0.1-1.2) X10*3/uL Eos # (Auto) 0.3 (0.0-0.4) X10*3/uL Baso # (Auto) 0.1 (0.0-0.2) X10*3/uL Abs Immat Gran (auto) 0.13 H (0.00-0.03) X10*3/uL Absolute Neuts (auto) 5.3 (2.0-8.3) x10*3/uL Absolute Nucleated RBC 0.000 (0.0-0.012) X10*3/uL Nucleated RBC % (auto) 0.0 (0.0-0.2) /100WBC Sodium 138 (135-145) mmol/L Potassium 4.3 (3.3-5.1) mmol/L Chloride 107 (96-108) mmol/L Carbon Dioxide 24 (22-29) mmol/L Anion Gap 11 L (12-20) BUN 17 H (9-16) mg/dL Creatinine 0.74 (0.5-1.4) mg/dL Estim Creat Clear Calc 102.9 Estimated GFR > 60 Random Glucose 112 (60-115) mg/dL Calcium 9.3 (8.4-10.2) mg/dL Total Bilirubin 0.2 (0.0-1.0) mg/dL AST 71 H (5-31) U/L ALT 102 H (0-31) U/L Alkaline Phosphatase 99 (39-117) U/L Total Protein 7.4 (6.5-8.0) g/dL Albumin 4.5 (3.5-5.0) g/dL Urine Color Yellow Urine Appearance Clear Urine pH 7.0 (5.0-9.0) Ur Specific [place] 1.010 (1.005-1.025) Urine Protein Negative (Neg-Trace) mg/dL Urine Glucose (UA) Negative (Negative) mg/dL Urine Ketones Negative (Negative) mg/dL Urine Blood Negative (Negative) Urine Nitrite Negative (Negative) Ur Leukocyte Esterase Negative (Negative) Urine Test NEGATIVE (NEGATIVE) Salicylates < 5.0 L (15-30) mg/dL Urine Opiates Screen Not Detected (Not Detect) Ur Buprenorphine Scrn Not Detected (Not Detect) ng/mL Ur Oxycodone Screen Not Detected (Not Detect) ng/mL Urine Methadone Screen Not Detected (Not Detect) ng/mL Urine Fentanyl Screen Not Detected (Not Detect) Acetaminophen < 3 (<30) mcg/mL Ur Barbiturates Screen Not Detected (Not Detect) Ur Phencyclidine Scrn Not Detected (Not Detect) Ur Amphetamines Screen Not Detected (Not Detect) U Benzodiazepines Scrn Not Detected (Not Detect) Urine Cocaine Screen Not Detected (Not Detect) U Marijuana (THC) Screen POSITIVE H (Not Detect) Ethyl Alcohol < 10 mg/dL COVID-19 (PRETTY) Negative (Negative) COVID-19 Clin Com See Note Discharge Plan Discharge Clinical Impression: Suicidal ideation Patient Disposition: Still a Patient Prescriptions: No Action olanzapine 10 mg Tablet,Disintegrating 10 mg translingual TID 30 Days Qty: 90 0RF chlorpromazine 25 mg Tablet 25 mg PO TID PRN (Reason: agitation) 30 Days Qty: 90 0RF nicotine 21 mg/24 hr Patch 24 Hour 21 mg transdermal DAILY PRN (Reason: smoking cessation) 28 Days Qty: 28 0RF trazodone 50 mg Tablet 50 mg PO BEDTIME MRX1 PRN (Reason: Insomnia) 30 Days Qty: 45 0RF omeprazole 40 mg Capsule,Delayed Release(Dr/Ec) 40 mg PO DAILY@0900 30 Days Qty: 30 0RF topiramate 200 mg tablet 200 mg PO DAILY 30 Days Qty: 30 0RF sertraline 50 mg Tablet 50 mg PO DAILY 30 Days Qty: 30 0RF clonazepam 0.5 mg tablet 0.5 mg PO BID 14 Days Qty: 28 1RF acetaminophen 500 mg tablet PO ibuprofen 600 mg tablet 600 mg PO Q6H PRN (Reason: Pain) polyethylene glycol 3350 17 gram powder in packet 17 g PO DAILY PRN (Reason: constipation) Arnuity Ellipta 200 mcg/actuation blister with device 1 inh inhalation DAILY nitrofurantoin monohyd/m-cryst [Macrobid] 100 mg capsule 100 mg PO Q12H 7 Days Qty: 14 0RF Rx Instructions: must administer with a meal/food. pt states last dose today Interventions: [place]-Suicide Risk Severity Scale Last Done: 04/24/24 12:58 Print Language: Maltese
--- NOTE | 2024-04-24 11:46 | PC.NURSE ---
pt never in the pod- placed in bed 10 on bed board by someone accidentally.
--- NOTE | 2024-04-24 11:56 | MHC.CARE ---
Addendum entered by Cari Andre 04/24/24 12:00: Accidental entry- see next note Original Note: d/c 10:15 , met with prescriber due to d/c, Katia wanted to stay but no clinical need,
--- NOTE | 2024-04-24 11:57 | MHC.CARE ---
TW spoke to [facility] Director, Polina . [facility] reports Katia was admitted to [facility] on 04/19, she completed stay with respite, wanted to stay but there was no clinical need for her to stay, was discharged this morning around 10:15 and amenable to discharge, met with medication prescriber this morning, discharged with medication. Pt discharge plan was to follow up with current providers.
[2024-04-24 12:10] VITALS: BP 128/82; PULSE 95; RESP 18; TEMP 36.8; O2SAT 98; BMI 23.6
--- NOTE | 2024-04-24 13:04 | PC.NURSE ---
meds inventoried with dorys albarado- all sent to pharmacy w rn and documented. all belongings in closet locked by electronic security technician tati. pt calm, in common room, eating. watching tv. no distress.
[2024-04-24 13:05] LABS: Appearance Urine Clear; Color Urine Yellow; Glucose Urine UA Negative (Negative); Leukocyte Esterase Urine Negative (Negative); Nitrite Urine Negative (Negative); Urine Blood Negative (Negative); Urine Ketones Negative (Negative); Urine Protein Negative (Neg-Trace)
--- OUTSIDE RECORDS SUMMARY | 2024-04-24 13:05 | XMS_ITS | Continuity of Care Document ---
Author Organization [facility] Address [address] [place] [address]- Care Team Providers Care Planning Intern Name Role Phone Lissy Burrows MD Primary Care Physician Encounter [facility] Date(s): 04/17/24 - 04/18/[address] [address]- Encounter Diagnosis Ankle sprain(Final) - 04/18/24 Suicidal ideation(Final) - 04/18/24 Discharge Disposition: A-D/C Home Attending Physician: Te Khan DO Admitting Physician: Te Khan DO Referring Physician: Not on Staff, Referring MD Allergies, Adverse Reactions, Alerts Substance Reaction Severity Status sulfADIAZINE Anaphylaxis Hives Active shellfish ALL FISH, ANAPHYLAXI S Hives Active Mulligan Anaphylaxis Hives Active Immunizations Given and Recorded Vaccine Date Status Refusal Reason influenza virus vaccine, inactivated 1 04/14/19 Gi karl influenza virus vaccine, inactivated 04/12/17 Give n influenza virus vaccine, inactivated 05/06/16 Dimitri rded influenza virus vaccine, inactivated 05/08/15 Give n influenza virus vaccine, inactivated 04/05/14 Give n influenza virus vaccine, inactivated 04/12/13 Give n pneumococcal 13-valent vaccine 01/19/17 Recorded tetanus/diphtheria/pertussis, acel(Tdap) 05/08/15 Given Pneumovax 23 (oldterm) 2 05/19/11 Given Influenza Inactive (IM) (oldterm) 3 05/19/11 Given tetanus-diphtheria toxoids (Td) 4 10/10/10 Given 1Result Comment: [facility] [id number] 2Admin Note: vis 10/12/08 3Admin Note: vis 4Admin Note: VIS 05/16/2008 Medications AirDuo RespiClick 113 mcg-14 mcg/inh inhalation powder 1, puffs, Inhalation, 2 times a day, # 1 each, Refills 0, Tot. Refills 0, Maintenance, 01/12/19 10:50:33 EDT, Powder, Route to Pharmacy Electronically, [id number], [facility] Start Date: 01/12/19 Status: Ordered albuterol CFC free 90 mcg/inh inhalation aerosol 2, puffs, Inhalation, Every 4 hours, PRN, # 18 Gm, Refills 5, Tot. Refills 5, Maintenance, 10/20/1813:56:28 EDT, Aerosol, Route to Pharmacy Electronically, [id number], [facility] Start Date: 10/20/17 Stop Date: 04/18/18 Status: Ordered clonazePAM 1 mg oral tablet 1 tablet = 1 mg, By Mouth, Daily, PRN Anxiety, # 14 tablet, 0 Refills, Maintenance, 05/12/19 15:36:00 EST, Tablet, Do not fill until 05/14/2019; No future refills with [facility] Start Date: 05/12/19 Stop Date: 05/26/19 Status: Ordered Colace sodium 100 mg oral capsule 100 mg, 1, capsule, By Mouth, Daily, PRN, # 60 capsule, Refills 11, Tot. Refills 11, Maintenance, as needed for constipation, 11/19/16 10:44:35, Print Requisition Start Date: 11/19/16 Stop Date: 11/09/18 Status: Ordered PARoxetine 30 mg oral tablet 1 tablet = 30 mg, By Mouth, Daily, LAST REFILL FOR [facility], # 30 tablet, 1 Refills, Maintenance, 07/07/19 9:51:00 EST, Tablet, [facility], 166, cm, 04/27/19 13:45:00 EDT, Height Start Date: 07/07/19 Stop Date: 09/05/19 Status: Ordered QUEtiapine 400 mg oral tablet 1 tablet = 400 mg, By Mouth, Daily at bedtime, # 30 tablet, 1 Refills, Maintenance, 04/27/19 14:01:17 EDT, Tablet Start Date: 04/27/19 Stop Date: 06/26/19 Status: Ordered Vistaril pamoate 50 mg oral capsule 1 capsule = 50 mg, By Mouth, 4 times a day, PRN for anxiety, # 120 capsule, 5 Refills, Maintenance,02/17/19 16:12:53 EDT, Capsule Start Date: 02/17/19 Stop Date: 08/16/19 Status: Ordered Problem List Condition Confirmation Course Effective Dates Status H ealth Status Informant Asthma Confirmed Active Bipolar 1 disorder Confirmed Active Depression Confirmed Active Goal-lose weight Confirmed Active Hyperlipidemia Confirmed Active Insomnia, Unspecified Confirmed Active Obesity Confirmed Active Tobacco use Confirmed Active Results Radiology Reports * Exam Date Time Procedure Performing Provider Status 04/18/24 3:[address] Ext Lower W/O Contrast Right Clemente Bello; Auth (Verified) Notes: (CT Ext Lower W/O Contrast Right) Reason For Exam: Fracture RESULT: CT Ext Lower W/O Contrast Right CT Ext Lower W/O Contrast Right Hx of Present Illness: states she does not remember injuring rt ankle last week, seen and no fracture, reports no decrease in pain or swelling; Reason: Fracture; Clinical Question(s): Ankle TECHNIQUE: Helical CT without contrast formatted in 3 planes. Weight-based protocol using automatictube modulation was used to optimize exposure parameters. CTDIvol Body: 10.90 mGy, DLP Body: 281 mGy*cm. COMPARISONS: Multiple priors, most recent right ankle radiographs performed a few hours prior. FINDINGS: Bones and joints: No fracture or dislocation is present. No erosions, productive changes or abnormal calcifications are noted. Soft Tissues: No acute abnormality. Minimal subcutaneous edema at the ankle. IMPRESSION: No evidence of ankle fracture. Minimal subcutaneous edema at the ankle. I have personally reviewed the images and I agree with this report. WSN: [id number] Ordering Physician: Macie Valentine Dictated By: Deidra Hu MD Dictated Date/Time: 04/18/24 7:46 am Reviewed By: Craig Preciado MD Signed By: Craig Preciado MD Signed Date/Time: 04/18/24 7:51 am Transcribed By: DEBBY Transcribed Date/Time: 04/18/24 5:26 am * Exam Date Time Procedure Performing Provider Status 04/17/24 10:48 PM Ankle Min 3 Views Right Grilli , Lyndsay na; Auth (Verified) Notes: (Ankle Min 3 Views Right) Reason For Exam: with Pain;Trauma RESULT: Ankle Min 3 Views Right Ankle Min 3 Views Right Hx of Present Illness: states she does not remember injuring rt ankle last week, seen and no fracture,reports no decrease in pain aor swelling; Reason: Trauma; with Pain; Clinical Question(s): Fracture; Special Instructions: This is a protocol film and radiologist should call any findings to the Charge Nurse COMPARISON: None. FINDINGS: No evidence of acute or healing fracture or bone lesion. Intact ankle mortise and talar dome. No arthritic changes. Normal soft tissues. IMPRESSION: No acute abnormality. WSN: [id number] Ordering Physician: Donaldo Lopez MD Dictated By: Pollo Silva MD Dictated Date/Time: 04/17/24 11:03 p Reviewed By: Pollo Silva MD Signed By: Pollo Silva MD Signed Date/Time: 04/17/24 11:03 pm Transcribed By: DEBBY Transcribed Date/Time: 04/17/24 11:03 pm Vital Signs Most recent to oldest [Reference Range]: 1 2 3 Height 173 cm (04/18/24 12:06 PM) 173 cm (04/18/24 1:15 AM) 173 cm (04/17/24 9:38 PM) Oxygen Saturation [94-100 %] 99 % (04/18/24 8:16 AM) 99 % (04/18/24 6:34 AM) 99 % (04/18/24 5:35 AM) Pulse Rate [55-90 bpm] 84 bpm (04/18/24 8:16 AM) 83 bpm (04/18/24 6:34 AM) 69 bpm (04/18/24 5:35 AM) Blood Pressure [90-138/55-84 mm Hg] 115/63mm Hg (04/18/24 8:16 AM) 110/63mm Hg (04/18/24 6:34 AM) 101/69mm Hg (04/18/24 5:35 AM) Respiratory Rate [16-30 br/min] 17 br/min (04/18/24 8:16 AM) 19 br/min (04/18/24 6:34 AM) 19 br/min (04/18/24 5:35 AM) Temperature [96.8-100.4 DegF] 97.7 DegF (04/18/24 8:16 AM) 98.1 DegF (04/18/24 6:34 AM) 98.3 DegF (04/18/24 3:27 AM) Mode of Delivery (Oxygen) Room air (04/18/24 8:16 AM) Room air (04/18/24 6:34 AM) Room air (04/18/24 5:35 AM) Blood pressure sites Arm, left (04/18/24 8:16 AM) Arm, left (04/18/24 6:34 AM) Arm, left (04/18/24 5:35 AM) Temperature Route Oral (04/18/24 8:16 AM) Oral (04/18/24 6:34 AM) Oral (04/18/24 3:27 AM) Weight Obtained Via Standing scale (04/17/24 9:38 PM) Dry Weight Obtained Via Standing scale (04/17/24 9:38 PM) Social History Social History Type Response Smoking Status Current every day bee so entered on: 08/08/14 Sex Note * Te Khan DO: PERFORM Event Display: Patient Education Leaflets Authored Date: [id number] [facility] - Shelters ?? 35 [facility] Emergency Department Community [facility] Directory ?? EMERGENCY Shelters Important: Alcohol and drugs are absolutely forbidden in all shelters. ?? [facility] ([facility]) [address] [place] [address] Adult men and women only- no children 3 meals day served-health care and dental clinic Referral: Walk-ins are accepted/ phone calls are preferred ?? [facility] Emergency [facility] [address] [place], [place] [phone] Men only- Yarsani based emergency intermediate- reopening 08/2012 Referrals: Must line up by 3pm. sales and business development manager for intake. ?? [facility] [address] [place] [address] Adult men and women 2 meals per day/health care nurse Referral: Must contact intake by phone before coming ?? [facility] [address] [place] [address] Adult men and women open Apr 29-October 27 3 meals day-must leave intermediate by 7am Referral: First come, first serve line up begins at 5:30pm ?? [facility] Emergency [facility] [address] [place], [place] [phone] Adult men and women (one room for families with children) Referral: First come, first serve lineup begins at 3:30pm ?? [facility] [address] [place], [place]?? [address] Men only Referral:?? $300.00/month fee (1st??month kervin period available) ?? [facility] [address] [place], [place]?? [address] Men only ?? Naomi [place], [place] [address] [facility] ?? [place] [address] Women and children ?? [facility] Women???s [facility] [address] [place] [address]?? Women and children ?? [facility] (relocation and support) [place], [place] (Hotline) Emergency Abuse and Rape crises support, intermediate ?? [facility] Rape/Domestic Violence Hotline [facility] referral ? [facility]) [address] [place], [place]?? [address] Lunch and Dinner provided (Mon ???Sat: Noon and 5pm; Sun: 1 and 5pm) ?? Additional [facility] Options ?? [facility] Emergency [facility] [address] [facility] [phone] Male + [place] [address] ? [facility] [address] [phone] Male + Female Beds [facility] [address] [address] [facility] [address] [phone] ?? [facility] [address] ? [facility] [address] [facility] [phone] ?? [facility] [address] ?[place] Emergency [facility] 17 [facility] [phone] ?? [facility] [address] ? [facility] [address] [facility] [phone] By Application Only/Must Call [facility] [address] ? [facility] [address]?? [facility] [phone] ? [facility] [address] [address] [facility] [address] [facility] [phone] ?? [facility] [address] ? [facility] 43 [facility] [phone] ?? [employer] [facility] [address] ?[facility] [place] ?? [phone] ?[facility]? [place], [place]?? [phone]? Emergency short stay, women, men, families ? [place], [place]?? [phone] Families, adults, men, LGBTQ ? [address] Emergency [facility]?[place],??[place]?[phone]?[facility] ??[place] [address]?[phone]?[facility] [place] [phone] ?[place], [place] ??[phone] ? [place], [place] [phone] ? [facility] [place], [place] [phone] ? [address] [facility] [place], [place] [phone] ? [facility] [place]ius [place] [phone] ?[facility] ??[place] ??[phone] ? * Te Khan DO: PERFORM Event Display: Patient Education Leaflets Authored Date: Ankle Sprain (Adult) ?? [id number] Ankle Sprain (Adult) An ankle sprain is a stretching or tearing of the ligaments that hold the ankle joint together. There are no broken bones. An ankle sprain is a common injury for both children and adults. It happens when the ankle turns, twists, or rolls in an awkward way. This can be caused by a sports injury. Or it can happen from doing something as simple as stepping on an uneven surface. Ligaments are made of tough connective tissue. Normally, ligaments stretch a certain amount and then go back to their normal place. A sprain happens when a ligament is forced to stretch more than thenormal amount. A severe sprain can actually tear the ligaments. If you have a severe sprain, you may have felt or heard something like a pop when you were injured. Ankle sprains are given a grade depending on whether they are mild, moderate, or severe: ??? Grade 1 sprain. A mild sprain with minor stretching and damage to the ligament. ??? Grade 2 sprain. A moderate sprain where the ligament is partly torn. ??? Grade 3 sprain. The most severe kind of sprain. The ligament is completely torn. Most sprains??take about 4 to 6 weeks to heal. A severe sprain can take several months to recover. Your healthcare provider may order X-rays to be sure you don???t have a fracture, or broken bone. The injured area will feel sore. Swelling and pain may make it hard to walk. You may need crutches if walking is painful. Or your provider may have you use a cast boot or air splint. This will dependon the grade of ankle sprain that you have. Home care ??? For a Grade 1 sprain, use RICE (rest, ice, compression, and elevation): ??? Rest your ankle. Don???t walk on it. ??? Ice should be used right away to help control swelling. Place an ice pack overthe injured area for 20 minutes. Do this every??3 to 6??hours??for the first??24 to 48 hours.??Keepusing ice packs to ease pain and swelling as needed. To make an ice pack, put ice cubes in a plastic??bag that seals at the top. Wrap the bag in a??clean, thin??towel or cloth. Never put ice or an ice pack directly on the skin. The ice pack can be put right on the cast, bandage, or splint. As the ice melts, be careful that the cast, bandage, or splint doesn???t get wet. If you have a boot, open it to apply an ice pack, unless told otherwise by your provider. ??? Compression devices help to control swelling. They also keep the ankle from moving and support your injured ankle. These devices include dressings, elastic bandages, and wraps. ??? Elevate or raise your ankle above the level of yourheart when sitting or lying down. This is very important for the first 48 hours. ??? Follow the RICE guidelines for a Grade 2 sprain. This type of sprain will take longer to heal. Your provider may have you wear a splint, cast, or brace to keep your ankle from moving. ?If you have a Grade 3 sprain, you are at risk for long-term ankle instability. In rare cases, surgery may be needed. Your provider may have you wear a short leg cast or a walking boot for 2 to 3 weeks. ??? After 48 hours, it may be helpful to apply heat??for 20 minutes several times a day. You can do this with a heating pad or warm compress. Or you may want to go back and forth between using ice and heat. Never apply heat directly to the skin. Always wrap the heating pad or warm compress in a clean, thin towel or cloth. ??? You may use??dpye-tim-gallkse pain medicine??(NSAIDS or nonsteroidal anti-inflammatory drugs) to control pain, unless another pain medicine was prescribed. Talk with your provider before using these medicines if you have chronic liver or kidney disease, stomach ulcer or gastrointestinal bleeding, or if you take a blood thinner. ??? Follow any rehabilitation exercises your provider gives you.These can help you be more flexible and improve your balance and coordination. This is helpful in preventing long-term ankle problems. Prevention To help prevent ankle sprains, it???s important to have good strength, balance, and flexibility. Besure to: ??? Always warm up before you exercise or do something very active ??? Be careful when walking or running on uneven or cracked surfaces ??? Wear shoes that are in good condition and fit well??? Listen to your body???s signals to slow down when you are in pain or tired ?? Follow-up care Any X-rays you had today don???t show any broken bones, breaks, or fractures. Sometimes fractures don???t show up on the first X-ray. Bruises and sprains can sometimes hurt as much as a fracture. These injuries can take time to heal completely. If your symptoms don???t get better or they get worse,talk with your healthcare provider. You may need a repeat X-ray. Follow up with your healthcare provider, or as advised. Check for any warning signs listed below. ?? When to get medical advice Call your healthcare provider right away??if any of these occur: ??? Fever of 100.4 F (38 C) or higher, or as directed by your provider ??? Chills ??? The injury doesn???t seem to be healing ??? The swelling comes back ??? The cast or splint has a bad smell ??? The plaster cast or splint gets wet or soft ??? The fiberglass cast or splint gets wet and doesn't dry for 24 hours ??? Pain or swelling gets worse, or redness appears ??? Your toes become cold, blue, numb, or tingly ??? The skin is discolored (looks blue, purple, or jama), has blisters, or is irritated ??? You re-injure your ankle ?? Last Reviewed Date: 2021 ?? [id number] [employer]. All rights reserved. This information is not intended as a substitute for professional medical care. Always follow your healthcare professional's instructions. ?? Patient Care team information Care Team Personnel Name: Lissy Burrows MD Position: [facility] Outreach Member Role: PCP Address: Address: [address] [place] [address]- Care Team Related Persons Name: CHAS SAUCEDA Address: home [address] [facility] [address] [place] [address] Name: AUGUSTIN SAUCEDA Address: home [address] [place] [address]
[2024-04-24 13:08] LABS: UPreg QC Valid YES; Urine Pregnancy NEGATIVE (NEGATIVE)
--- NOTE | 2024-04-24 13:13 | PC.NURSE ---
called [facility] to verify meds at pharmacy
[2024-04-24 13:16] LABS: MANUAL DIFF FLAG NO
[2024-04-24 13:17] LABS: Amphetamine Screen Urine Not Detected (Not Detect); Barbiturates, Urine Not Detected (Not Detect); Benzodiazepines Screen Urine Not Detected (Not Detect); Buprenorphine Scr Not Detected (Not Detect); Cannabinoid Screen Urine POSITIVE (Not Detect); Cocaine Screen Urine Not Detected (Not Detect); Fentanyl, urine Not Detected (Not Detect); Methadone Screen, Urine Not Detected (Not Detect); Opiate Screen Urine Not Detected (Not Detect); Oxycodone Screen Urine Not Detected (Not Detect); Phencyclidine Screen Urine Not Detected (Not Detect)
[2024-04-24 13:19] LABS: Basophils Absolute Auto 0.1 X10*3/uL (0.0-0.2); Basophils Percent Auto 1.3 % (0-2); Eosinophils Absolute Auto 0.3 X10*3/uL (0.0-0.4); Eosinophils Percent Auto 2.9 % (0-4); Hematocrit 37.1 % (37.0-47.0); Hemoglobin 12.1 g/dl (12.0-16.0); Imm Gran Abs Auto 0.13 X10*3/uL (0.00-0.03); Imm Gran Pct Auto 1.4 % (0.0-0.4); Lymphocytes Absolute Auto 2.7 X10*3/uL (1.2-4.9); Lymphocytes Percent Auto 29.1 % (20-40); Mean Corpuscular HGB Conc 32.6 g/dl (31.0-35.0); Mean Corpuscular Hemoglobin 31.7 pg (27.0-33.0); Mean Corpuscular Volume 97.1 fL (80.0-98.0); Monocytes Absolute Auto 0.8 X10*3/uL (0.1-1.2); Monocytes Percent Auto 8.7 % (2-11); Neutrophils Absolute Auto 5.3 x10*3/uL (2.0-8.3); Neutrophils Percent Auto 56.6 % (45-73); Platelet Count 317 X10*3/uL (160-400); Red Blood Count 3.82 X10*6/uL (4.20-5.50); Red Cell Distribution Width 15.7 % (11.0-16.0); White Blood Count 9.4 X10*3/uL (4.8-10.8)
--- NOTE | 2024-04-24 13:26 | PC.NURSE ---
[facility] to verify meds.
[2024-04-24 13:33] LABS: Acetaminophen LAB < 3 mcg/mL (<30); Salicylate < 5.0 mg/dL (15-30)
[2024-04-24 13:34] LABS: COVID-19 Test Negative (Negative); IDNOW Serial# 08D9AD1C
--- NOTE | 2024-04-24 13:34 | PC.NURSE ---
labs taken and sent by tech. eating lunch. talking w care team in room. calm
[2024-04-24 13:35] LABS: Alanine Aminotransferase 102 U/L (0-31); Albumin Level 4.5 g/dL (3.5-5.0); Alkaline Phosphatase 99 U/L (39-117); Anion Gap 11 (12-20); Aspartate Amino Transferase 71 U/L (5-31); Bilirubin Total 0.2 mg/dL (0.0-1.0); Blood Urea Nitrogen 17 mg/dL (9-16); Calcium 9.3 mg/dL (8.4-10.2); Carbon Dioxide 24 mmol/L (22-29); Chloride 107 mmol/L (96-108); Creatinine Clr Calc Pharmacy 102.9; Estimated Glomerular Filt Rate > 60; Ethanol < 10 mg/dL; Glucose Random 112 mg/dL (60-115); Potassium 4.3 mmol/L (3.3-5.1); Sodium 138 mmol/L (135-145); Total Protein 7.4 g/dL (6.5-8.0)
--- NOTE | 2024-04-24 13:40 | PC.NURSE ---
alma barnett made aware med rec done
--- NOTE | 2024-04-24 13:53 | PC.NURSE ---
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 alma barnett notified. calm, cooperative.
[2024-04-24] MEDS: OLANZapine ODT 10 MG TAB.RAPDIS TRANSLINGU ×2 (15:21→20:10)
--- NOTE | 2024-04-24 15:28 | PC.NURSE ---
pt requesting snacks. pt provided w/ oswaldo crackers, peanut butter, apple juice and milk. resting in room in no apparent distress. no sob/wob noted. respirations even/unlabored. pt awaiting psych consult at this time. plan of care ongoing.
--- NOTE | 2024-04-24 18:39 | PC.NURSE ---
pt's visiting at this time.
--- NOTE | 2024-04-24 19:13 | PC.NURSE ---
patient appears to remain at rest at present respirations are even and unlabored patient appears in no distress.
[2024-04-24] MEDS: clonazePAM 0.5 MG TABLET PO (20:10)
[2024-04-24] MEDS: chlorproMAZINE HCl 25 MG TABLET PO (20:14)
[2024-04-24] MEDS: Nicotine 21 MG PATCH.TD24 TRANSDERMA (20:41)
[2024-04-24] MEDS: traZODone HCL 50 MG TABLET PO (23:57)
[2024-04-25 05:13] VITALS: BP 136/82; PULSE 104; RESP 18; TEMP 37.4; O2SAT 98
--- NOTE | 2024-04-25 05:26 | PC.NURSE ---
client asked t/w for saline spray, to minimize sound in the environment i asked her to ask the following nurse. patient seemingly perceives this as me not serving her needs, clin coordinator notified.
--- NOTE | 2024-04-25 07:35 | PC.NURSE ---
Assumed care of patient at 0645, patient is sitting in common area, eating breakfast with another patient. Patient appears to be acting at baseline this morning, calm and cooperative, making needs known without issue, requesting shower after calling her . Patient aware of plan of care for psych consult dispo at this time
[2024-04-25 07:36] VITALS: PULSE 94; RESP 16; O2SAT 96
[2024-04-25] MEDS: Omeprazole 40 MG CAPSULE.DR PO (08:15)
[2024-04-25] MEDS: clonazePAM 0.5 MG TABLET PO (08:15)
[2024-04-25] MEDS: OLANZapine ODT 10 MG TAB.RAPDIS TRANSLINGU (08:15)
[2024-04-25] MEDS: Sertraline HCL 50 MG TABLET PO (08:15)
[2024-04-25] MEDS: Topiramate 100 MG TABLET 200 MG PO (08:15)
[2024-04-25] MEDS: polyethylene glycoL 3350 17 GM POWD.PACK PO (08:17)
--- NOTE | 2024-04-25 08:48 | PC.NURSE ---
pt verbalizes frustrations regarding staying in the pod at this time, patient aware of plan of care for psych dispo still at this time
[2024-04-25] MEDS: Fluticasone Propionate 250 MCG BLST.W.DEV 1 PUFF INHALE (08:50)
--- NOTE | 2024-04-25 08:59 | PC.NURSE ---
Pt yelling at staff, screaming that she wants to be discharged, stating I aint waiting to see the psychiatrist, I want out of this fucking place . MD Sims at bedside at this time
--- NOTE | 2024-04-25 12:29 | PC.NURSE ---
Pt again became agitated that psychiatry was not speaking with her right away. Dr. Saxena met with patient and explained that she does not meet [facility] and we can potentially look for a respite option
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
[2024-04-25 12:52] VITALS: BP 134/87; PULSE 87; RESP 16; TEMP 36.6; O2SAT 97
== END 2024-04-25 12:55 | disposition home or self-care (01) ==
PROVIDERS: Physician Assistant Medical; Emergency Provider Emergency Medicine; PCP Internal Medicine
DX: F33.1 Major depressive disorder, recurrent, moderate (principal); R45.851 Suicidal ideations; F60.3 Borderline personality disorder; F17.210 Nicotine dependence, cigarettes, uncomplicated; Z59.00 Homelessness unspecified; Z79.899 Other long term (current) drug therapy; Z11.52 Encounter for screening for COVID-19; Z51.81 Encounter for therapeutic drug level monitoring
CPT/HCPCS: 36415; 80053; 80143; 80179; 80307; 81003; 81025; 85025; 87635; 99285; S9485

== ENCOUNTER → 2024-04-24 13:01 | Outpatient (BNV) | payer OTHER, SELFPAY | PROVIDERS: Emergency Provider Emergency Medicine; PCP Internal Medicine; Visit Provider Psychiatry & Neurology Psychiatry | DX: F60.3 Borderline personality disorder (principal); Z76.5 Malingerer [conscious simulation]; Z59.00 Homelessness unspecified | CPT/HCPCS: 99282 ==

== ENCOUNTER 2024-04-25 18:20 | Emergency (ER) | payer OTHER, SELFPAY ==
[2024-04-25 18:29] VITALS: BP 122/78; BP 162/98; PULSE 103; PULSE 108; RESP 16; TEMP 37.1; O2SAT 98; O2SAT 99; BMI 22.8
[2024-04-25 18:33] VITALS: RESP 14
--- NOTE | 2024-04-25 19:00 | PC.NURSE ---
patient appears to remain relaxed, alone and seated in [employer] aREA, patient represented from about 6 hrs ago.
--- NOTE | 2024-04-25 19:50 | PC.NURSE ---
t/w and tech seated at rn station audibly heard patient walking by unclear what sound was, t/w discussed with tech to search patient...come to discover as client had presented prior to 04/22 patient had ankle brace for comfort- patient had been kept on close obs status last week in this condition as to promote client and staff safety in this environment. when this came to light, pa was present and discussed with provider, notified charge staff and documenting in client record.
[2024-04-25 20:05] LABS: MANUAL DIFF FLAG NO
--- NOTE | 2024-04-25 20:11 | MHC.EDTECH ---
Patient was observed walking in ribera of the POD and this staff could hear a clunking noise when Pt walked to the phone. This staff questioned the RN, Xiomara and she remembered the patient from past visits having an air cast that required the patient to be on a 1:1. RN called charge and requested a patient sitter for the 1:1 that came within a few minutes. Nothing was mentioned about the air cast on shift change.
[2024-04-25 20:12] LABS: Basophils Absolute Auto 0.1 X10*3/uL (0.0-0.2); Basophils Percent Auto 1.1 % (0-2); Eosinophils Absolute Auto 0.5 X10*3/uL (0.0-0.4); Eosinophils Percent Auto 3.6 % (0-4); Hematocrit 35.7 % (37.0-47.0); Hemoglobin 11.7 g/dl (12.0-16.0); Imm Gran Abs Auto 0.14 X10*3/uL (0.00-0.03); Imm Gran Pct Auto 1.1 % (0.0-0.4); Lymphocytes Absolute Auto 3.4 X10*3/uL (1.2-4.9); Lymphocytes Percent Auto 26.6 % (20-40); Mean Corpuscular HGB Conc 32.8 g/dl (31.0-35.0); Mean Corpuscular Volume 97.5 fL (80.0-98.0); Mean Platelet Volume 10.4 fL (9.4-12.3); Monocytes Absolute Auto 1.2 X10*3/uL (0.1-1.2); Monocytes Percent Auto 9.1 % (2-11); Neutrophils Absolute Auto 7.4 x10*3/uL (2.0-8.3); Neutrophils Percent Auto 58.5 % (45-73); Platelet Count 307 X10*3/uL (160-400); Red Blood Count 3.66 X10*6/uL (4.20-5.50); Red Cell Distribution Width 15.8 % (11.0-16.0); White Blood Count 12.7 X10*3/uL (4.8-10.8)
[2024-04-25 20:14] LABS: Appearance Urine Clear; Color Urine Yellow; Glucose Urine UA Negative (Negative); Leukocyte Esterase Urine Trace (Negative); Nitrite Urine Negative (Negative); PH 6.5 (5.0-9.0); UMIC TRIGGER UACC YES; Urine Blood Negative (Negative); Urine Ketones Negative (Negative); Urine Protein Negative (Neg-Trace)
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
[2024-04-25 20:24] LABS: Calcium 9.5 mg/dL (8.4-10.2)
[2024-04-25 20:27] LABS: Alanine Aminotransferase 83 U/L (0-31); Albumin Level 4.4 g/dL (3.5-5.0); Alkaline Phosphatase 97 U/L (39-117); Anion Gap 10 (12-20); Aspartate Amino Transferase 47 U/L (5-31); Bilirubin Total 0.2 mg/dL (0.0-1.0); Blood Urea Nitrogen 24 mg/dL (9-16); Carbon Dioxide 24 mmol/L (22-29); Chloride 108 mmol/L (96-108); Creatinine Clr Calc Pharmacy 105.7; Estimated Glomerular Filt Rate > 60; Ethanol < 10 mg/dL; Glucose Random 95 mg/dL (60-115); Potassium 4.1 mmol/L (3.3-5.1); Sodium 138 mmol/L (135-145); Total Protein 7.4 g/dL (6.5-8.0)
[2024-04-25 20:35] LABS: Bacteria Urine None Seen (None Seen); Hyaline Casts Urine 0-2 /LPF (0-2); RBC Urine 0-2 /HPF (0-2); WBC Urine 0-5 /HPF (0-5)
[2024-04-25 21:04] LABS: Amphetamine Screen Urine Not Detected (Not Detect); Barbiturates, Urine Not Detected (Not Detect); Benzodiazepines Screen Urine Not Detected (Not Detect); Buprenorphine Scr Not Detected (Not Detect); Cannabinoid Screen Urine POSITIVE (Not Detect); Cocaine Screen Urine Not Detected (Not Detect); Fentanyl, urine Not Detected (Not Detect); Methadone Screen, Urine Not Detected (Not Detect); Opiate Screen Urine Not Detected (Not Detect); Oxycodone Screen Urine Not Detected (Not Detect); Phencyclidine Screen Urine Not Detected (Not Detect)
[2024-04-25] MEDS: Bacitracin Oint 0.9 GM PACKET 1 APPL TOPICAL (22:33)
[2024-04-25] MEDS: clonazePAM 0.5 MG TABLET PO (22:35)
[2024-04-25] MEDS: OLANZapine ODT 10 MG TAB.RAPDIS TRANSLINGU (22:35)
[2024-04-26] MEDS: traZODone HCL 50 MG TABLET PO (03:46)
[2024-04-26 03:54] VITALS: BP 111/73; PULSE 93; RESP 16; TEMP 36.9; O2SAT 99
[2024-04-26] MEDS: Bacitracin Oint 0.9 GM PACKET 1 APPL TOPICAL (08:04)
[2024-04-26] MEDS: OLANZapine ODT 10 MG TAB.RAPDIS TRANSLINGU (08:05)
[2024-04-26] MEDS: Sertraline HCL 50 MG TABLET PO (08:05)
[2024-04-26] MEDS: clonazePAM 0.5 MG TABLET PO (08:05)
--- NOTE | 2024-04-26 08:28 | PHA.MEDREC ---
Pharmacy Consult ? Medication Reconciliation Pharmacy has reviewed the medication reconciliation.
[2024-04-26] MEDS: Omeprazole 40 MG CAPSULE.DR PO (09:40)
[2024-04-26] MEDS: Fluticasone Propionate 250 MCG BLST.W.DEV 1 PUFF INHALE (09:40)
[2024-04-26] MEDS: Topiramate 100 MG TABLET 200 MG PO (09:40)
[2024-04-26 10:13] VITALS: BP 111/73; PULSE 93; RESP 16; TEMP 36.9; O2SAT 99
== END 2024-04-26 10:14 | disposition home or self-care (01) ==
PROVIDERS: Emergency Provider Internal Medicine; PCP Internal Medicine
DX: S51.811A Laceration without foreign body of right forearm, initial encounter (principal); X78.8XXA Intentional self-harm by other sharp object, initial encounter; R45.851 Suicidal ideations; F60.3 Borderline personality disorder; F43.12 Post-traumatic stress disorder, chronic; F31.9 Bipolar disorder, unspecified; Z59.00 Homelessness unspecified; Z79.899 Other long term (current) drug therapy; F17.210 Nicotine dependence, cigarettes, uncomplicated; Y93.9 Activity, unspecified; Y92.410 Unspecified street and highway as the place of occurrence of the external cause; Y99.9 Unspecified external cause status
CPT/HCPCS: 36415; 80053; 80307; 81001; 85025; 99284; 99285; S9485

== ENCOUNTER 2024-05-13 10:13 | Emergency (ER) | payer OTHER, SELFPAY ==
[2024-05-13 10:19] VITALS: BP 119/80; BP 140/80; PULSE 82; PULSE 91; RESP 18; TEMP 36.7; O2SAT 98; O2SAT 99; BMI 32.6
--- NOTE | 2024-05-13 10:43 | ED.GENADULT ---
HPI - General Adult General Chief complaint: Psychiatric Symptoms Stated complaint: SI, PT REQUESTING TO BE CHECKED OUT Time Seen by Provider: 05/13/24 10:39 Source: patient and EMS Mode of arrival: EMS Limitations: no limitations History of Present Illness ED Provider: ADI Rivera HPI narrative: 38-year-old female history of borderline personality disorder, dysphagia, GERD, depression, bipolar, presents with suicidal ideation with plan to cut her wrist, patient was seen in the community by [facility] where they advised her to come into the emergency department. She did cut her wrist bilaterally, they were bleeding, wrapped up. Unclear of tetanus status. Denies visual, auditory and tactile hallucinations. Denies drugs, alcohol and tobacco. Denies any medical complaints at this time Related Data Home Medications ?Medication ?Instructions ?Recorded ?Confirmed fluticasone furoate 200 1 inh inhalation DAILY 04/14/24 05/13/24 mcg/actuation blister powder for inhalation (Arnuity Ellipta) chlorpromazine 25 mg tablet 25 mg PO BID PRN agitation 04/25/24 05/13/24 Previous Rx's ?Medication ?Instructions ?Recorded nicotine 21 mg/24 hr daily 21 mg transdermal DAILY PRN 03/30/24 transdermal patch smoking cessation 28 days #28 ea olanzapine 10 mg disintegrating 10 mg translingual TID 30 days #90 03/30/24 tablet tabs omeprazole 40 mg capsule,delayed 40 mg PO DAILY@0900 30 days #30 03/30/24 release caps sertraline 50 mg tablet 50 mg PO DAILY 30 days #30 tabs 03/30/24 topiramate 200 mg tablet 200 mg PO DAILY 30 days #30 tabs 03/30/24 trazodone 50 mg tablet 50 mg PO BEDTIME MRX1 PRN Insomnia 03/30/24 30 days #45 tabs clonazepam 0.5 mg tablet 0.5 mg PO BID 14 days #28 tabs 03/31/24 Allergies Allergy/AdvReac Type Severity Reaction Status Date / Time stringer [CHERRIES] Allergy Severe ANAPHYLAXIS Verified 05/13/24 10:23 gabapentin [From NEURONTIN] Allergy Unknown MUSCLE Verified 05/13/24 10:23 SPASMS lamotrigine [From LAMICTAL] Allergy Unknown MUSCLE Verified 05/13/24 10:23 SPASMS oxcarbazepine Allergy Unknown MUSCLE Verified 05/13/24 10:23 [From TRILEPTAL] SPASMS Sulfa (Sulfonamide Allergy Unknown UNKNOWN Verified 05/13/24 10:23 Antibiotics) [SULFA (SULFONAMIDE ANTIBIOTICS)] coconut Allergy Anaphylaxis Verified 05/13/24 10:23 fish derived [fish] Allergy Anaphylaxis Verified 05/13/24 10:23 Review of Systems Review of Systems: Yes all other systems are reviewed and are negative PMFSH Past Medical History Attestation statement: The following information was validated with the patient. Source: old records reviewed and nursing notes reviewed Medical History Borderline personality disorder Mood disorder Pain, dental Psychosis Psychosis Bipolar 1 disorder Circulation problem Asthma Surgical History Hx of tubal ligation Tubal ligation status Social History Social History Household Members: Spouse Household Members Other:: AND DOG Housing: Apartment Housing Other:: GETTING EVICTED ON 03/24/24 Do you presently have visiting nurse or other home services: No Alcohol intake: current Alcohol intake frequency: does not drink Patient Tobacco Use Status: Current everyday Tobacco user Tobacco use type: Cigarette Cigarette Packs Per Day: 0.5 Cigarettes Per Day: 10.0 Years Smoked: 28 years Smoked in Last 30 Days: Yes e-Cigarette/Vaping Use: Never Used Second Hand Smoke Exposure: No Use of substances other than those prescribed or required for medical reasons: No Substance Use Type: Marijuana Advance Directives: Yes Advance Directives on File: Yes Advance Directives Date on File: 08/08/22 Do you have a plan to hurt others: No Plan Patient : No service: No Current occupational status: 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 Oriented X3.? No acute distress.? Head: Normocephalic, atraumatic, no step-offs or deformities Eyes: Pupils equal, round and reactive to light.? ENT: Pharynx normal.? Neck: Normal inspection.? Neck supple.? CVS: Normal heart rate and rhythm.? Pulses normal.? Respiratory: No respiratory distress.? Breath sounds normal.? Abdomen: Soft and nontender.? Skin: Skin warm and dry.? Normal skin color.? Normal skin turgor.?+ b/l superficial self inflicted wounds to volar wrist. Extremities: No lower extremity edema.? No calf ttp. 5/5 strength to bilateral upper and lower extremities Back: No midline tenderness, no C-spine tenderness, full range of motion, no CVA tenderness bilaterally Neuro: Oriented X 3.? No motor deficit.? No sensory deficit. CN 2-12 intact Course Reevaluation(s) Reevaluation #1: Patient feels better. Seen and cleared by care team. Feeling well. cbc w/ macrocytic anemia. Chemistry unremarkable. UA clean. Preg negative.. Plan- dc home with w/ strict return percautions. Educated patient on diagnosis and treatment plan, answered all question, patient verbalizes understanding. At this time patient will be discharged home, advised to return with new or worsening symptoms. Educated on worrisome signs and symptoms and when to return. At this time I feel comfortable discharge home. Time: 13:45 Reevaluation #2: I did revaluate paitent, not si not hi Medications Administered Discontinued Medications Generic Name Dose Route Start Last Admin Trade Name Freq PRN Reason Stop Dose Admin Diphtheria/Tetanus/Acell Pertussis 0.5 ml 05/13/24 10:44 05/13/24 13:20 Diphth,Pertus(Acell),Tet Adult 0.5 Ml Syringe IM 05/13/24 10:45 Not Given .ONCE ONE Medical Decision Making Medical Decision Making [facility] Narrative: 38-year-old female presents with suicidal ideation with plan to cut her wrist and . Was seen in the community by [facility]. Physical exam bilateral self-inflicted wounds ventral aspect of wrist, superficial. History and physical exam concerning for anxiety, depression, suicidal ideation with plan and self-harm behavior. Will rule out metabolic derangements although unlikely. Plan medical clearance evaluation by crisis team. Will also give her tetanus shot Differential Diagnosis Differential Diagnoses: The differential diagnosis associated with the presentation includes (History and physical exam concerning for anxiety, depression, suicidal ideation with plan and self-harm behavior. Will rule out metabolic derangements although unlikely.) Admission/Observation Consideration of admission/observation: Escalation of care including admission/observation considered Lab Data MDM Lab Attestation statement: I reviewed the patient's lab results. 05/13/24 11:22 05/13/24 11:22 Labs: Lab Results 05/13/24 05/13/24 Range/Units 11:22 12:20 WBC 8.6 (4.8-10.8) X10*3/uL RBC 3.66 L (4.20-5.50) X10*6/uL Hgb 11.6 L (12.0-16.0) g/dl Hct 36.4 L (37.0-47.0) % MCV 99.5 H (80.0-98.0) fL MCH 31.7 (27.0-33.0) pg MCHC 31.9 (31.0-35.0) g/dl RDW 14.6 (11.0-16.0) % Plt Count 365 (160-400) X10*3/uL MPV 9.3 L (9.4-12.3) fL Absolute Nucleated RBC 0.000 (0.0-0.012) X10*3/uL Nucleated RBC % (auto) 0.0 (0.0-0.2) /100WBC Sodium 139 (135-145) mmol/L Potassium 3.9 (3.3-5.1) mmol/L Chloride 110 H (96-108) mmol/L Carbon Dioxide 23 (22-29) mmol/L Anion Gap 10 L (12-20) BUN 12 (9-16) mg/dL Creatinine 0.68 (0.5-1.4) mg/dL Estim Creat Clear Calc 118.0 Estimated GFR > 60 Random Glucose 78 (60-115) mg/dL Calcium 8.6 D (8.4-10.2) mg/dL Total Bilirubin 0.1 (0.0-1.0) mg/dL AST 45 H (5-31) U/L ALT 45 H (0-31) U/L Alkaline Phosphatase 93 (39-117) U/L Total Protein 6.8 (6.5-8.0) g/dL Albumin 4.0 (3.5-5.0) g/dL Urine Color Yellow Urine Appearance Clear Urine pH 8.5 (5.0-9.0) Ur Specific [place]el 1.010 (1.005-1.025) Urine Protein Negative (Neg-Trace) mg/dL Urine Glucose (UA) Negative (Negative) mg/dL Urine Ketones Negative (Negative) mg/dL Urine Blood Negative (Negative) Urine Nitrite Negative (Negative) Ur Leukocyte Esterase Trace H (Negative) Urine RBC 0-2 (0-2) /HPF Urine WBC 0-5 (0-5) /HPF Ur Squamous Epith Cells 3-5 (0-2) /HPF Urine Bacteria None Seen (None Seen) Hyaline Casts 0-2 (0-2) /LPF Urine Test NEGATIVE (NEGATIVE) Salicylates < 5.0 L (15-30) mg/dL Urine Opiates Screen Not Detected (Not Detect) Ur Buprenorphine Scrn Not Detected (Not Detect) ng/mL Ur Oxycodone Screen Not Detected (Not Detect) ng/mL Urine Methadone Screen Not Detected (Not Detect) ng/mL Urine Fentanyl Screen Not Detected (Not Detect) Ur Barbiturates Screen Not Detected (Not Detect) Ur Phencyclidine Scrn Not Detected (Not Detect) Ur Amphetamines Screen Not Detected (Not Detect) U Benzodiazepines Scrn Not Detected (Not Detect) Urine Cocaine Screen Not Detected (Not Detect) U Marijuana (THC) Screen POSITIVE H (Not Detect) Ethyl Alcohol < 10 mg/dL External Record Review External record reviewed: Inpatient record, Office record, Outpatient record, Prior outpatient labs, Prior outpatient radiology, Primary care record and Outside ED record Chronic Conditions Patient?s care impacted by: Other (SEE HPI ) Discharge Plan Discharge Clinical Impression: Anxiety, Depression, Self-inflicted laceration of wrist Patient Disposition: Home, Self-Care Instructions: Laceration (ED), Depression (ED), Anxiety (ED), Laceration Without Closure (ED) Additional Instructions: Take your medications as prescribed. If you were prescribed antibiotics today, it is important that you take your medication to their entirety, do not skip any doses, do not finish them early. Follow-up with your primary care provider this week. Return to the emergency department with new or worsening symptoms. In case of emergency call 911 Prescriptions: No Action olanzapine 10 mg Tablet,Disintegrating 10 mg translingual TID 30 Days Qty: 90 0RF nicotine 21 mg/24 hr Patch 24 Hour 21 mg transdermal DAILY PRN (Reason: smoking cessation) 28 Days Qty: 28 0RF trazodone 50 mg Tablet 50 mg PO BEDTIME MRX1 PRN (Reason: Insomnia) 30 Days Qty: 45 0RF omeprazole 40 mg Capsule,Delayed Release(Dr/Ec) 40 mg PO DAILY@0900 30 Days Qty: 30 0RF topiramate 200 mg tablet 200 mg PO DAILY 30 Days Qty: 30 0RF sertraline 50 mg Tablet 50 mg PO DAILY 30 Days Qty: 30 0RF clonazepam 0.5 mg tablet 0.5 mg PO BID 14 Days Qty: 28 1RF Arnuity Ellipta 200 mcg/actuation blister with device 1 inh inhalation DAILY chlorpromazine 25 mg tablet 25 mg PO BID PRN (Reason: agitation) Referrals: Lissy Burrows MD [Primary Care Provider] - 2 days Interventions: [place]-Suicide Risk Severity Scale Last Done: 05/13/24 10:24 Print Language: Wallisian
--- NOTE | 2024-05-13 10:56 | PC.NURSE ---
Assumed care of patient 1045, patient appears to be in no apparent distress, sitting in common area watching TV at this time. Pending CARE eval
[2024-05-13 10:57] VITALS: RESP 16
[2024-05-13 11:30] LABS: Hematocrit 36.4 % (37.0-47.0); Hemoglobin 11.6 g/dl (12.0-16.0); Mean Corpuscular HGB Conc 31.9 g/dl (31.0-35.0); Mean Corpuscular Hemoglobin 31.7 pg (27.0-33.0); Mean Corpuscular Volume 99.5 fL (80.0-98.0); Mean Platelet Volume 9.3 fL (9.4-12.3); Platelet Count 365 X10*3/uL (160-400); Red Blood Count 3.66 X10*6/uL (4.20-5.50); Red Cell Distribution Width 14.6 % (11.0-16.0); White Blood Count 8.6 X10*3/uL (4.8-10.8)
[2024-05-13 11:44] LABS: Alanine Aminotransferase 45 U/L (0-31); Alkaline Phosphatase 93 U/L (39-117); Anion Gap 10 (12-20); Aspartate Amino Transferase 45 U/L (5-31); Bilirubin Total 0.1 mg/dL (0.0-1.0); Blood Urea Nitrogen 12 mg/dL (9-16); Calcium 8.6 mg/dL (8.4-10.2); Carbon Dioxide 23 mmol/L (22-29); Chloride 110 mmol/L (96-108); Estimated Glomerular Filt Rate > 60; Glucose Random 78 mg/dL (60-115); Potassium 3.9 mmol/L (3.3-5.1); Sodium 139 mmol/L (135-145); Total Protein 6.8 g/dL (6.5-8.0)
[2024-05-13 11:46] LABS: Ethanol < 10 mg/dL
[2024-05-13 12:19] LABS: Salicylate < 5.0 mg/dL (15-30)
[2024-05-13 12:28] LABS: Appearance Urine Clear; Color Urine Yellow; Glucose Urine UA Negative (Negative); Leukocyte Esterase Urine Trace (Negative); Nitrite Urine Negative (Negative); PH 8.5 (5.0-9.0); UMIC TRIGGER UACC YES; UPreg QC Valid YES; Urine Blood Negative (Negative); Urine Ketones Negative (Negative); Urine Protein Negative (Neg-Trace)
[2024-05-13 12:29] LABS: Urine Pregnancy NEGATIVE (NEGATIVE)
[2024-05-13 12:33] LABS: Bacteria Urine None Seen (None Seen); Hyaline Casts Urine 0-2 /LPF (0-2); RBC Urine 0-2 /HPF (0-2); WBC Urine 0-5 /HPF (0-5)
[2024-05-13 12:40] LABS: Amphetamine Screen Urine Not Detected (Not Detect); Barbiturates, Urine Not Detected (Not Detect); Benzodiazepines Screen Urine Not Detected (Not Detect); Buprenorphine Scr Not Detected (Not Detect); Cannabinoid Screen Urine POSITIVE (Not Detect); Cocaine Screen Urine Not Detected (Not Detect); Fentanyl, urine Not Detected (Not Detect); Methadone Screen, Urine Not Detected (Not Detect); Opiate Screen Urine Not Detected (Not Detect); Oxycodone Screen Urine Not Detected (Not Detect); Phencyclidine Screen Urine Not Detected (Not Detect)
--- NOTE | 2024-05-13 13:20 | PC.NURSE ---
Patient reports she does not want to get the Tetanus shot today. This RN educated patient on risks of not receiving medication, pt continues to decline
[2024-05-13 13:48] VITALS: BP 106/71; PULSE 65; RESP 14; TEMP 36.4; O2SAT 99
--- NOTE | 2024-05-13 13:49 | PC.NURSE ---
Pt demanding to go home if there is no inpatient bed available for her at this time. SHAREE Thakkar spoke with patient, it was determined patient could be a safe discharge, ADI Fenton came to speak with patient as well.
--- NOTE | 2024-05-13 14:03 | MHC.CARE ---
Pt declined to engage in safety planning. CARE Team notified co-response of pt's discharge. Co-response stated they would check in on her.
--- OUTSIDE RECORDS SUMMARY | 2024-05-20 11:52 | XMS_ITS | Continuity of Care Document ---
Author Organization [facility] Address [address] [place] [address]- Care Team Providers Care Utility Division Project Manager Name Role Phone Lissy Burrows MD Primary Care Physician Encounter [facility] Date(s): 04/26/24 - 04/27/[address] [address]- Encounter Diagnosis Depression(Final) - 04/26/24 Discharge Disposition: Transfer to [facility] Facility Attending Physician: Luis Kirkland MD Admitting Physician: Luis Kirkland MD Referring Physician: Not on Staff, Referring MD [...] toxoids (Td) 4 10/10/10 Given 1Result Comment: [facility] [id number] 2Admin Note: vis 10/12/08 3Admin Note: vis 4Admin Note: VIS 05/16/2008 Medications AirDuo RespiClick 113 mcg-14 mcg/inh inhalation powder 1, puffs, Inhalation, 2 times a day, # 1 each, Refills 0, Tot. Refills 0, Maintenance, 01/12/19 10:50:33 EDT, Powder, Route to Pharmacy Electronically, [id number], [facility] Start Date: 01/12/19 Status: Ordered albuterol CFC free 90 mcg/inh inhalation aerosol 2, puffs, Inhalation, Every 4 hours, PRN, # 18 Gm, Refills 5, Tot. Refills 5, Maintenance, 10/20/1813:56:28 EDT, Aerosol, Route to Pharmacy Electronically, [id number], [facility] Start Date: 10/20/17 Stop Date: [...] Maintenance, 07/07/19 9:51:00 EST, Tablet, [facility], 166, cm, 04/27/19 13:45:00 EDT, [...] Obesity Confirmed Active Tobacco use Confirmed Active Vital Signs Most recent to oldest [Reference Range]: 1 2 3 Height 170 cm (04/27/24 9:21 AM) 170 cm (04/26/24 6:11 PM) 170 cm (04/26/24 6:06 PM) Oxygen Saturation [94-100 %] 99 % (04/27/24 12:08 PM) 99 % (04/27/24 9:21 AM) 100 % (04/26/24 8:10 PM) Pulse Rate [55-90 bpm] 90 bpm (04/27/24 12:08 PM) 88 bpm (04/27/24 9:21 AM) 92 bpm *H* (04/26/24 8:10 PM) Blood Pressure [90-138/55-84 mm Hg] 135/79mm Hg (04/27/24 12:08 PM) 107/69mm Hg (04/27/24 9:21 AM) 98/64mm Hg (04/26/24 8:10 PM) Respiratory Rate [16-30 br/min] 16 br/min (04/27/24 12:08 PM) 18 br/min (04/27/24 9:21 AM) 20 br/min (04/26/24 8:10 PM) Temperature [96.8-100.4 DegF] 98 DegF (04/27/24 12:08 PM) 97.9 DegF (04/27/24 9:21 AM) 98.2 DegF (04/26/24 8:10 PM) Mode of Delivery (Oxygen) Room air (04/27/24 12:08 PM) Room air (04/27/24 9:21 AM) Room air (04/26/24 8:10 PM) Blood pressure sites Arm, right (04/27/24 12:08 PM) Arm, right (04/27/24 9:21 AM) Arm, right (04/26/24 8:10 PM) Temperature Route Axillary (04/27/24 12:08 PM) Oral (04/27/24 9:21 AM) Oral (04/26/24 8:10 PM) Dry Weight 73 kg (04/27/24 9:21 AM) 73 kg (04/26/24 6:11 PM) 73 kg (04/26/24 6:06 PM) Dry Weight Obtained Via Patient/family s tated (04/26/24 6:06 PM) Social History Social History Type Response Smoking Status Current every day bee so entered on: 08/08/14 Sex Patient Care team information Care Team Personnel Name: Lissy Burrows MD Position: [facility] Outreach Member Role: PCP Address: Address: [address] [place] [address]- Care Team Related Persons Name: CHAS SAUCEDA Address: home [address] [place] [address] Name: AUGUSTIN SAUCEDA Address: home [address] [place] [address]
== END 2024-05-13 13:56 | disposition home or self-care (01) ==
PROVIDERS: Emergency Provider Student in an Organized Health Care Education/Training Program; PCP Internal Medicine
DX: F41.8 Other specified anxiety disorders (principal); S61.519A Laceration without foreign body of unspecified wrist, initial encounter; X78.9XXA Intentional self-harm by unspecified sharp object, initial encounter; Y93.9 Activity, unspecified; Y92.9 Unspecified place or not applicable; Y99.9 Unspecified external cause status; R45.851 Suicidal ideations; D53.9 Nutritional anemia, unspecified; Z79.899 Other long term (current) drug therapy
CPT/HCPCS: 36415; 80053; 80179; 80307; 81001; 81025; 85027; 99284; 99285; S9485

== ENCOUNTER 2024-05-28 07:06 | Emergency (ER) | payer OTHER, SELFPAY ==
--- NOTE | ~2024-05-28 | XR_ITS ---
EXAMINATION: XR ANKLE, RIGHT CLINICAL INFORMATION: pain fall COMPARISON: None available. TECHNIQUE: AP, lateral, and mortise views of the right ankle. FINDINGS: No fracture. Alignment is anatomic. No erosions. Joint spaces are maintained. Tissue swelling overlying the lateral malleolus. XR/XR ankle RT min 3V IMPRESSION: Soft tissue swelling overlying the lateral malleolus. Electronically signed by: Tali Mcallister MD 05/28/2024 07:53 AM [facility]
--- NOTE | 2024-05-28 07:20 | ED.EXTPRO ---
HPI - Extremity Problem General Chief complaint: Extremity Injury, Lower Stated complaint: ankle injury 1 week ago pain Source: patient and EMS Mode of arrival: EMS Limitations: no limitations History of Present Illness ED Provider: RICARDO HPI Narrative: 38 yo female with PMH Of GERD, bipolar, PTSD, BPD, seizures here with c/o fall one week ago and injured R ankle since then she has been walking on it. She denies any other injuries. She reports not seeking care either. She also reports L ear pain and feels it is full. She denies IVDA. MD Complaint: joint pain Onset (ago): week(s) (1) Pain Consistency: constant Location: right and lower extremity Quality: aching Radiation: none Relieving factors: immobilization Exacerbating factors: weight bearing and palpation Associated symptoms: denies other symptoms Related Data Home Medications ?Medication ?Instructions ?Recorded ?Confirmed fluticasone furoate 200 1 inh inhalation DAILY 04/14/24 05/13/24 mcg/actuation blister powder for inhalation (Arnuity Ellipta) chlorpromazine 25 mg tablet 25 mg PO BID PRN agitation 04/25/24 05/13/24 Previous Rx's ?Medication ?Instructions ?Recorded nicotine 21 mg/24 hr daily 21 mg transdermal DAILY PRN 03/30/24 transdermal patch smoking cessation 28 days #28 ea olanzapine 10 mg disintegrating 10 mg translingual TID 30 days #90 03/30/24 tablet tabs omeprazole 40 mg capsule,delayed 40 mg PO DAILY@0900 30 days #30 03/30/24 release caps sertraline 50 mg tablet 50 mg PO DAILY 30 days #30 tabs 03/30/24 topiramate 200 mg tablet 200 mg PO DAILY 30 days #30 tabs 03/30/24 trazodone 50 mg tablet 50 mg PO BEDTIME MRX1 PRN Insomnia 03/30/24 30 days #45 tabs clonazepam 0.5 mg tablet 0.5 mg PO BID 14 days #28 tabs 03/31/24 amoxicillin 875 mg-potassium 1 tab PO BID #13 tabs 05/28/24 clavulanate 125 mg tablet ofloxacin 0.3 % ear drops 10 drp otic (ears) DAILY 7 days #5 05/28/24 mL Allergies Allergy/AdvReac Type Severity Reaction Status Date / Time stringer [CHERRIES] Allergy Severe ANAPHYLAXIS Verified 05/28/24 07:23 gabapentin [From NEURONTIN] Allergy Unknown MUSCLE Verified 05/28/24 07:23 SPASMS lamotrigine [From LAMICTAL] Allergy Unknown MUSCLE Verified 05/28/24 07:23 SPASMS oxcarbazepine Allergy Unknown MUSCLE Verified 05/28/24 07:23 [From TRILEPTAL] SPASMS Sulfa (Sulfonamide Allergy Unknown UNKNOWN Verified 05/28/24 07:23 Antibiotics) [SULFA (SULFONAMIDE ANTIBIOTICS)] coconut Allergy Anaphylaxis Verified 05/28/24 07:23 fish derived [fish] Allergy Anaphylaxis Verified 05/28/24 07:23 Review of Systems Review of Systems: Constitutional : No Fever, No Chills ENT/Mouth : pos Ear Pain, No Hoarseness, No sore throat Eyes: No Eye Pain, No Swelling, No Redness, No Foreign Body Cardiovascular : No Chest Pain, No SOB Respiratory : No Cough, No Dyspnea Gastrointestinal : No Nausea, No Vomiting, No Diarrhea, No abdominal Pain Genitourinary : No Dysuria, No Hematuria Musculoskeletal : positive joint pain, No Myalgias, pos Joint Swelling Skin : No Skin lacerations, No rash Neuro : No Weakness, No Numbness, No Loss of Consciousness, No Dizziness, No Headache All other systems reviewed and are negative COUNT INCLUDES THE [facility] Past Medical History Attestation statement: The following information was validated with the patient. Source: old records reviewed Medical History Borderline personality disorder Mood disorder Pain, dental Psychosis Psychosis Bipolar 1 disorder Circulation problem Asthma Surgical History Hx of tubal ligation Tubal ligation status Social History Social History Household Members: Spouse Household Members Other:: AND DOG Housing: Apartment Housing Other:: GETTING EVICTED ON 03/24/24 Do you presently have visiting nurse or other home services: No Alcohol intake: current Alcohol intake frequency: does not drink Patient Tobacco Use Status: Current everyday Tobacco user Tobacco use type: Cigarette Cigarette Packs Per Day: 0.5 Cigarettes Per Day: 10.0 Years Smoked: 28 years Smoked in Last 30 Days: Yes e-Cigarette/Vaping Use: Never Used Second Hand Smoke Exposure: No Use of substances other than those prescribed or required for medical reasons: No Substance Use Type: Marijuana Advance Directives: Yes Advance Directives on File: Yes Advance Directives Date on File: 08/08/22 Do you have a plan to hurt others: No Plan Patient : No service: No Current occupational status: 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 Oriented X3. No acute distress. Eyes: Pupils equal, round and reactive to light. ENT: Pharynx normal. L TM red and bulging, canal moderate swelling scant yellow drainage - no mastoid ttp Neck: Normal inspection. Neck supple. CVS: Normal heart rate and rhythm. Pulses normal. Respiratory: No respiratory distress. Breath sounds normal. Abdomen: Soft and nontender. Skin: Skin warm and dry. Normal skin color. Normal skin turgor. Extremities: No lower extremity edema. R ankle mild swelling lateral malleolus with one 1cm area on lateral bone that is mildly red but no swollen Neuro: Oriented X 3. No motor deficit. No sensory deficit. Medical Decision Making Medical Decision Making MDM Narrative: 38 yo female with PMH Of GERD, bipolar, PTSD, BPD, seizures here with c/o traumatic R ankle pain she is NV intact no other injuries there is one small area of redness but no joint effusion normal ROM of joint and it is localized to 1cm could be related to her shoe vs early skin infection. L ear pain as well she has no mastoid ttp but has external otitis and AOM - no perf started on augmentin and drops Differential Diagnosis Differential Diagnoses: The differential diagnosis associated with the presentation includes sprain, fracture, cellulitis, AOM Admission/Observation Consideration of admission/observation: Escalation of care including admission/observation considered not toxic stable for DC Independent Interpretation I performed an independent interpretation of an: Plain X-Ray (normal) Radiology Impression Discussion of test interpretation with radiology: I have reviewed the radiologist's reading. Independent Historian Clinical information obtained from an independent historian. History obtained from or confirmed by: EMS External Record Review External record reviewed: Inpatient record Prescription Management I considered prescription management with: Antibiotic Procedures Orthopedic Splinting/Casting Injury #1: Side: right Lower Extremity Injury Location: ankle Lower Extremity Immobilizer: AirCast Other Orthopedic Equipment: crutches Discharge Plan Discharge Clinical Impression: Ankle sprain Qualifiers: Encounter type: initial encounter Involved ligament of ankle: unspecified ligament Laterality: right Qualified Code(s): S93.401A - Sprain of unspecified ligament of right ankle, initial encounter Acute otitis media Qualifiers: Otitis media type: suppurative Laterality: left Recurrence: non-recurrent Spontaneous tympanic membrane rupture: without spontaneous rupture Qualified Code(s): H66.002 - Acute suppurative otitis media without spontaneous rupture of ear drum, left ear Otitis externa Qualifiers: Otitis externa type: diffuse Chronicity: acute Laterality: left Qualified Code(s): H60.312 - Diffuse otitis externa, left ear Patient Disposition: Home, Self-Care Instructions: Ankle Sprain (ED), Ear Infection (ED) Additional Instructions: aircast for one weeks crutches for 5 days follow up with orthopedics if you still have no improvement on day 10 take antibiotics and drops for your ear return for no improvement or worsening of symptoms after 48 hours of treatment On amoxicillin-clavulanate, softer bowel movements are to be expected. Call your provider if you move your bowels more than 4 times a day, your bowel movements are almost all liquid, or you get a rash.? Prescriptions: New amoxicillin-pot clavulanate 875-125 mg tablet 1 tab PO BID Qty: 13 0RF ofloxacin 0.3 % drops 10 drp otic (ears) DAILY 7 Days Qty: 5 0RF No Action olanzapine 10 mg Tablet,Disintegrating 10 mg translingual TID 30 Days Qty: 90 0RF nicotine 21 mg/24 hr Patch 24 Hour 21 mg transdermal DAILY PRN (Reason: smoking cessation) 28 Days Qty: 28 0RF trazodone 50 mg Tablet 50 mg PO BEDTIME MRX1 PRN (Reason: Insomnia) 30 Days Qty: 45 0RF omeprazole 40 mg Capsule,Delayed Release(Dr/Ec) 40 mg PO DAILY@0900 30 Days Qty: 30 0RF topiramate 200 mg tablet 200 mg PO DAILY 30 Days Qty: 30 0RF sertraline 50 mg Tablet 50 mg PO DAILY 30 Days Qty: 30 0RF clonazepam 0.5 mg tablet 0.5 mg PO BID 14 Days Qty: 28 1RF Arnuity Ellipta 200 mcg/actuation blister with device 1 inh inhalation DAILY chlorpromazine 25 mg tablet 25 mg PO BID PRN (Reason: agitation) Print Language: Estonian
[2024-05-28 07:21] VITALS: BP 124/84; BP 130/94; PULSE 88; PULSE 96; RESP 16; TEMP 36.9; O2SAT 100; O2SAT 98; BMI 28.8
[2024-05-28 07:24] VITALS: BP 124/84; PULSE 96; RESP 16; TEMP 36.9; O2SAT 98
--- OUTSIDE RECORDS SUMMARY | 2024-05-28 07:30 | XMS_ITS | Continuity of Care Document ---
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 Name Role Phone Not on Staff, PCP Primary Care Physician Unavail able [place] [facility] [place]13[place]24 - 05/14/[address] [address]- Encounter Diagnosis Suicidal ideation(Final) - 05/14/24 Intentional self-harm by razor blade(Final) - 05/14/24 Discharge Disposition: Transfer to Psych Facility Attending Physician: Donaldo Kay DO Admitting Physician: Donaldo Kay DO Referring Physician: Not on Staff, Referring MD Encounter Type: Disch ES Allergies, Adverse Reactions, Alerts Substance Criticality Severity Reaction Reaction Severity Status sulfADIAZINE Anaphylaxis Hives Active shellfish ALL FISH, ANAPH YLAXIS Hives Active Mulligan Anaphylaxis Hives Active Coconut Active Immunizations Given and Recorded Vaccine Date [...] toxoids (Td) 4 10/10/10 Given 1Result Comment: [facility] [id number] 2Admin Note: vis 10/12/08 3Admin Note: vis 4Admin Note: VIS 05/16/2008 Medications AirDuo RespiClick 113 mcg-14 mcg/inh inhalation powder 1, puffs, Inhalation, 2 times a day, # 1 each, Refills 0, Tot. Refills 0, Maintenance, 01/12/19 10:50:33 AM EDT, Powder, Route to Pharmacy Electronically, [id number], [facility] Start Date: 01/12/19 Status: Ordered Quantity: 1.0 Unit: each Repeat number: 1 albuterol CFC free 90 mcg/inh inhalation aerosol 2, puffs, Inhalation, Every 4 hours, PRN, # 18 Gm, Refills 5, Tot. Refills 5, Maintenance, 10/20/17 2:56:28 PM EDT, Aerosol, Route to Pharmacy Electronically, [id number], [facility] Start Date: 10/20/17 Stop Date: 04/18/18 Status: Ordered Quantity: 18.0 Unit: g Repeat number: 6 clonazePAM 1 mg oral tablet 1 tablet = 1 mg, By Mouth, Daily, PRN Anxiety, # 14 tablet, 0 Refills, Maintenance, 05/12/19 3:36:00 PM EST, Tablet, [facility], Do not fill until 05/14/2019; No future refills with [facility] Start Date: 05/12/19 Stop Date: 05/26/19 Status: Ordered Quantity: 14.0 Unit: tablet Repeat number: 1 Colace sodium 100 mg oral capsule 100 mg, 1, capsule, By Mouth, Daily, PRN, # 60 capsule, Refills 11, Tot. Refills 11, Maintenance, as needed for constipation, 11/19/16 10:44:35 AM EDT, Print Requisition Start Date: 11/19/16 Stop Date: 11/09/18 Status: Ordered Quantity: 60.0 Unit: capsule Repeat number: 12 PARoxetine 30 mg oral tablet 1 tablet = 30 mg, By Mouth, Daily, LAST REFILL FOR [facility], # 30 tablet, 1 Refills, Maintenance, 07/07/19 9:51:00 AM EST, Tablet, [facility], 166, cm, 04/27/19 13:45:00 EDT, Height Start Date: 07/07/19 Stop Date: 09/05/19 Status: Ordered Quantity: 30.0 Unit: tablet Repeat number: 2 QUEtiapine 400 mg oral tablet 1 tablet = 400 mg, By Mouth, Daily at bedtime, # 30 tablet, 1 Refills, Maintenance, 04/27/19 2:01:17 PM EDT, Tablet, [facility] Start Date: 04/27/19 Stop Date: 06/26/19 Status: Ordered Quantity: 30.0 Unit: tablet Repeat number: 2 Vistaril pamoate 50 mg oral capsule 1 capsule = 50 mg, By Mouth, 4 times a day, PRN for anxiety, # 120 capsule, 5 Refills, Maintenance,02/17/19 4:12:53 PM EDT, Capsule, [facility] Start Date: 02/17/19 Stop Date: 08/16/19 Status: Ordered Quantity: 120.0 Unit: capsule Repeat number: 6 Problem List Condition Confirmation Course Effective Dates Status H ealth Status Informant Asthma Confirmed Active Bipolar 1 disorder Confirmed Active Depression Confirmed Active Goal-lose weight Confirmed Active Hyperlipidemia Confirmed Active Insomnia, Unspecified Confirmed Active Obesity Confirmed Active Tobacco use Confirmed Active Vital Signs Most recent to oldest [Reference Range]: 1 2 3 Height 173 cm (05/14/24 12:13 PM) 173 cm (05/14/24 7:50 AM) 173 cm (05/14/24 12:36 AM) Weight 86 kg (05/14/24 12:13 PM) 86 kg (05/14/24 7:50 AM) 86 kg (05/14/24 12:36 AM) Oxygen Saturation [94-100 %] 100 % (05/14/24 7:50 AM) 98 % (05/14/24 12:36 AM) 100 % (05/13/24 9:25 PM) Pulse Rate [55-90 bpm] 73 bpm (05/14/24 7:50 AM) 87 bpm (05/14/24 12:36 AM) 86 bpm (05/13/24 9:25 PM) Body Mass Index [18.5-24.99 kg/m2] 28.73 kg/m2 *H* (05/14/24 7:50 AM) 28.73 kg/m2 *H* (05/14/24 12:36 AM) 28.73 kg/m2 *H* (05/13/24 9:25 PM) Blood Pressure [90-138/55-84 mm Hg] 127/86mm Hg (05/14/24 7:50 AM) 114/74mm Hg (05/14/24 12:36 AM) 125/78mm Hg (05/13/24 9:25 PM) Respiratory Rate [16-30 br/min] 16 br/min (05/14/24 7:50 AM) 18 br/min (05/14/24 12:36 AM) 15 br/min *L* (05/13/24 9:25 PM) Temperature [96.8-100.4 DegF] 97.8 DegF (05/14/24 7:50 AM) 97.5 DegF (05/14/24 12:36 AM) 98.5 DegF (05/13/24 7:13 PM) Mode of Delivery (Oxygen) Room air (05/14/24 7:50 AM) Room air (05/14/24 12:36 AM) Room air (05/13/24 9:25 PM) Blood pressure sites Arm, right (05/14/24 7:50 AM) Arm, right (05/14/24 12:36 AM) Arm, left (05/13/24 9:25 PM) Temperature Route Oral (05/14/24 7:50 AM) Oral (05/14/24 12:36 AM) Oral (05/13/24 7:13 PM) Dry Weight 86 kg (05/14/24 12:13 PM) 86 kg (05/14/24 7:50 AM) 86 kg (05/14/24 12:36 AM) Weight Obtained Via Patient/family state d (05/13/24 7:13 PM) Dry Weight Obtained Via Patient/family s tated (05/13/24 7:13 PM) Social History Social History Type Response Smoking Status Current every day bee so entered on: 08/08/14 Sex Sex Representation Female (finding) Patient Care team information Care Team Personnel Name: Not on Staff, PCP Position: S Physician (General Medicine) Member Role: PCP Care Team Related Persons Name: CHAS SAUCEDA Name: AUGUSTIN SAUCEDA Name: CHAS BRADLEY JR Insurance Providers Guarantor name: [facility] [employer] [facility] Information #: 1 Payer: [employer] [facility] Member Number: [id number] Policy Number: NA Group Number: [id number] Health Plan Information #: 2 Payer: [employer] Member Number: [id number] Policy Number: NA Group Number: NA
--- OUTSIDE RECORDS SUMMARY | 2024-05-28 07:30 | XMS_ITS | Continuity of Care Document ---
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 Name Role Phone Lissy Burrows MD [id number] - 05/21/[address] [address]- Encounter Diagnosis Abdominal pain(Final) - 05/21/24 Pancreatic cyst(Final) - 05/21/24 Discharge Disposition: A-D/C Home Attending Physician: Remi Sanchez MD Admitting Physician: Remi Sanchez MD Referring Physician: Not on Staff, Referring MD Encounter Type: Disch ES Allergies, Adverse Reactions, Alerts Substance Criticality Severity Reaction Reaction Severity Status sulfADIAZINE Anaphylaxis Hives Active shellfish ALL FISH, ANAPH YLAXIS Hives Active Coconut Active Mulligan Anaphylaxis Hives Active Immunizations Given [...] toxoids (Td) 4 10/10/10 Given 1Result Comment: [facility] [id number] 2Admin Note: vis 10/12/08 3Admin Note: vis 4Admin Note: VIS 05/16/2008 Medications AirDuo RespiClick 113 mcg-14 mcg/inh inhalation powder 1, puffs, Inhalation, 2 times a day, # 1 each, Refills 0, Tot. Refills 0, Maintenance, 01/12/19 10:50:33 AM EDT, Powder, Route to Pharmacy Electronically, [id number], [facility] Start Date: 01/12/19 Status: Ordered Quantity: 1.0 Unit: each Repeat number: 1 albuterol CFC free 90 mcg/inh inhalation aerosol 2, puffs, Inhalation, Every 4 hours, PRN, # 18 Gm, Refills 5, Tot. Refills 5, Maintenance, 10/20/17 2:56:28 PM EDT, Aerosol, Route to Pharmacy Electronically, [id number], [facility] Start Date: 10/20/17 Stop Date: 04/18/18 Status: Ordered Quantity: 18.0 Unit: g Repeat number: 6 clonazePAM 1 mg oral tablet 1 tablet = 1 mg, By Mouth, Daily, PRN Anxiety, # 14 tablet, 0 Refills, Maintenance, 05/12/19 3:36:00 PM EST, Tablet, [facility], Do not fill until 05/14/2019; [...] Quantity: 60.0 Unit: capsule Repeat number: 12 Dilaudid Inj 1 mg, Injection, IV Push Slowly, Every 15 minutes for 3 doses/times, PRN for Pain , Moderate, and SBP greater than 100, STAT, 05/21/24 7:36:00 PM EST Start Date: 05/21/24 Status: Ordered Repeat number: 1 morphine 15 mg oral tablet, immediate release 1 tablet = 15 mg, By Mouth, Every 4 hours, PRN for pain, # 10 tablet, 0 Refills, Acute 05/22/24 10:11:00 PM EST, 05/21/24 10:11:00 PM EST, Tablet, [facility], Partial fill upon patient request if the prescription is for a schedule II opioid drug., 168, cm, 05/21/24 18:01:00 EST, Height, 85, kg, 05/21/24 18:01:00 EST, Dry Weight Start Date: 05/21/24 Stop Date: 05/22/24 Status: Ordered Quantity: 10.0 Unit: tablet Repeat number: 1 PARoxetine 30 mg oral tablet 1 tablet = 30 mg, By Mouth, Daily, LAST REFILL FOR [facility], # 30 tablet, 1 Refills, Maintenance, 07/07/19 9:51:00 AM EST, Tablet, [facility], 166, cm, 04/27/19 13:45:00 EDT, Height Start Date: 07/07/19 Stop Date: 09/05/19 Status: Ordered Quantity: 30.0 Unit: tablet Repeat number: 2 QUEtiapine 400 mg oral tablet 1 tablet = 400 mg, By Mouth, Daily at bedtime, # 30 tablet, 1 Refills, Maintenance, 04/27/19 2:01:17 PM EDT, Tablet, [facility] Start Date: 04/27/19 Stop Date: [...] Hyperlipidemia Confirmed Active Insomnia, Unspecified Confirmed Active Obese class I Confirmed Active Obesity Confirmed Active Tobacco use Confirmed Active Results Radiology Reports * Exam Date Time Procedure Performing Provider Status 05/21/24 9:[address] Abd/Pelvis W/ IV Contrast Only Hermelindo Luna; Auth (Verified) Notes: (CT Abd/Pelvis W/ IV Contrast Only) Reason For Exam: upper abdominal pain;Other: RESULT: CT Abd/Pelvis W/ IV Contrast Only CT Abd/Pelvis W/ IV Contrast Only Indication: back pain r t pancreatic cyst; Reason: Other:; upper abdominal pain; Clinical Question(s): Pancreatitis; Order Comment: TECHNIQUE: Spiral CT through the abdomen and pelvis with IV contrast formatted in 3 planes. 100 cc of Isovue 300 was administered intravenously. This study was performed without oral contrast. Weight-based protocol using automatic tube modulation was used to optimize exposure parameters. CTDIvol Body: 15.40 mGy, DLP Body: 800 mGy*cm. COMPARISON: 05/16/11 FINDINGS: Eap Consultant View Findings, Lines and Tubes: None. Visualized Chest: Lung bases are clear. No pleural effusion. The heart is normal in size. No pericardial effusion. Diaphragm: Normal. Liver: Diffuse low-attenuation throughout the liver parenchyma consistent with hepatic steatosis. No evidence of mass. Gallbladder: No CT evidence of gallbladder pathology. Bile ducts: No biliary ductal dilation. Spleen: Normal. Pancreas: Normal. Adrenal glands: Normal. Kidneys and ureters: No hydronephrosis, stones, or suspicious masses. Bladder: Normal. Reproductive organs: Unremarkable. Stomach, small bowel, and large bowel: Normal. Appendix: Normal. Peritoneum and retroperitoneum: No ascites or pneumoperitoneum. No omental or mesenteric lesions. 2.7 x 6.7 cm lobulated low density structure again noted posterior to the pancreas. Lymph nodes: No enlarged lymph nodes. Blood vessels: Normal. No aneurysm. No evidence of venous thrombosis. Abdominal and pelvic wall: Unremarkable. Bones: No acute abnormality. IMPRESSION: 6.7 x 2.7 cm lobulated low-density structure again noted posterior to the pancreas is largely unchanged from prior study dated 05/16/2011. No acute pathology. I have personally reviewed the images and I agree with this report. WSN: [id number] Ordering Physician: Remi Sanchez Dictated By: Jose Roberto Henderson MD Dictated Date/Time: 05/21/24 9:39 pm Reviewed By: Ulises Trujillo MD Signed By: Ulises Trujillo MD Signed Date/Time: 05/21/24 9:44 pm Transcribed By: DEBBY Transcribed Date/Time: 05/21/24 9:30 pm Vital Signs Most recent to oldest [Reference Range]: 1 2 3 Height 168 cm (05/21/24 10:30 PM) 168 cm (05/21/24 6:01 PM) 168 cm (05/21/24 5:56 PM) Weight 85 kg (05/21/24 10:30 PM) 85 kg (05/21/24 6:01 PM) Oxygen Saturation [94-100 %] 100 % (05/21/24 10:30 PM) 99 % (05/21/24 5:56 PM) Pulse Rate [55-90 bpm] 80 bpm (05/21/24 10:30 PM) 96 bpm *H* (05/21/24 5:56 PM) Body Mass Index [18.5-24.99 kg/m2] 30.12 kg/m2 *>HHI* (05/21/24 10:30 PM) Blood Pressure [90-138/55-84 mm Hg] 127/75mm Hg (05/21/24 10:30 PM) 125/74mm Hg (05/21/24 5:56 PM) Respiratory Rate [16-30 br/min] 18 br/min (05/21/24 10:30 PM) 18 br/min (05/21/24 8:31 PM) 20 br/min (05/21/24 5:56 PM) Temperature [96.8-100.4 DegF] 98.8 DegF (05/21/24 5:56 PM) Mode of Delivery (Oxygen) Room air (05/21/24 10:30 PM) Room air (05/21/24 5:56 PM) Blood pressure sites Arm, right (05/21/24 10:30 PM) Arm, left (05/21/24 5:56 PM) Temperature Route Oral (05/21/24 5:56 PM) Dry Weight 85 kg (05/21/24 10:30 PM) 85 kg (05/21/24 6:01 PM) 85 kg (05/21/24 5:56 PM) Dry Weight Obtained Via Patient/family s tated (05/21/24 5:56 PM) Social History Social History Type Response Smoking Status Current every day bee so entered on: 08/08/14 Sex Sex Representation Female (finding) Note * Remi Sanchez MD: PERFORM Event Display: Patient Education Leaflets Authored Date: [id number] Unknown Causes of Abdominal Pain (Adult) ?? [id number] Unknown Causes of Abdominal Pain (Adult) The exact cause of your belly (abdominal) pain is not clear. Your exam and tests don't suggest a dangerous cause at this time. This does not mean that this is something to worry about. Everyone likesto know the exact cause of the problem. But sometimes with belly pain, there is no clear-cut cause,and this could be a good thing. Your symptoms can be treated, and you should feel better.?? Your condition does not seem serious now. But sometimes the signs of a serious problem may take more time to appear. For this reason,??it's important for you to watch for any new symptoms, problems,??or if your condition gets worse. Over the next few days, the abdominal pain may come and go. Or it may be constant. Other common symptoms can include nausea and vomiting. Sometimes it can be difficult to tell if you feel nauseous. You may just feel bad and not connect that feeling to nausea. Constipation, diarrhea, and a fever maygo along with the pain. The pain may continue even if treated correctly over the following days. Depending on how things go, sometimes the cause can become clear and you may need more??or different treatment. You may also need other evaluations, medicines, or tests. Home care Your healthcare provider may prescribe medicine for pain, symptoms, or an infection. ??Follow the healthcare provider's instructions for taking these medicines. General care ??? Rest as much as you can until your next exam. No strenuous activities. ??? Try to not do anything that may have caused your symptoms. This might be not taking any medicines unless otherwise directed by your healthcare provider. It might be not eating certain foods or doing certain activities. ??? Find positions that ease discomfort. A small pillow placed on your belly may help relieve pain. ??? Something warm on your belly, such as a heating pad, may help, but be careful not to burn yourself. Diet ??? Don???t??force yourself to eat, especially if having cramps, vomiting, or diarrhea. ??? Water is important so you don't get dehydrated. Soup may also be good. Sports drinks may also help, especially if they are not too acidic. Don't drink sugary drinks as this can make things worse. Take liquids in small amounts. Don???t??guzzle them. ??? Caffeine sometimes makes the pain and cramping worse. ??? Don???t take??dairy products if you have vomiting or diarrhea. ??? Don't eat large amounts at a time. Eat several small meals during the day instead of 2 or 3 larger meals. Wait a few minutesbetween bites. ??? Eat a diet low in fiber (called a low-residue diet). Foods allowed include refined breads, white rice, fruit and vegetable juices without pulp, tender meats. These foods will pass more easily through the intestine. ??? Don???t have??whole-grain foods, whole fruits and vegetables,meats, seeds, and nuts, fried or fatty foods, dairy, alcohol and spicy foods until your symptoms goaway. ?? Follow-up care Follow up with your healthcare provider, or as advised, if your pain does not begin to improve in the next 24 hours. ?? Call 911 Call?? 911 if any of these occur: ??? Trouble breathing ??? Confusion ??? Fainting or loss of consciousness ??? Rapid heart rate ??? Seizure ?? When to get medical advice Call your healthcare provider right away if any of these occur: ??? Pain gets worse or moves to theright lower abdomen ??? Vomiting or diarrhea that is new or gets worse ??? Swelling of the abdomen ??? Unable to pass stool for more than??3 days ??? Fever of 100.4??F (38??C) or higher, or as directed by your healthcare provider ??? Blood in vomit or bowel movements (dark red or black color) ??? Ye llow color of eyes and skin (jaundice) ??? Weakness, dizziness ??? Chest, arm, back, neck, or jaw pain ??? Can't keep down medicines, liquids, or water because of too much vomiting ??? If you have a vagina: unexpected vaginal bleeding or missed period ?? Last Reviewed Date: 2024 ?? [employer]. All rights reserved. This information is not intended as a substitute for professional medical care. Always follow your healthcare professional's instructions. ?? Patient Care team information Care Team Personnel Name: Lissy Burrows MD Position: [facility] Outreach Member Role: PCP Address: [address] [place] [address] [address] Lissy Burrows MD [address] Telecom: Care Team Related Persons Name: CHAS SAUCEDA Name: AUGUSTIN SAUCEDA Name: CHAS BRADLEY JR Insurance Providers Guarantor name: MATTHEW LONG Health Plan Information #: 1 Payer: [employer] Member Number: [id number] Policy Number: NA Group Number: [id number] Health Plan Information #: 2 Payer: [employer] Member Number: [id number] Policy Number: NA Group Number: NA
--- NOTE | 2024-05-28 07:31 | PC.NURSE ---
Pt comes to ED today to for c/o R ankle pain and L ear pain/blockage. A&Ox3, VSS, afebrile. R ankle presents with moderate swelling, erythema, and scant bruising. Pt reports 9/10 throbbing pain. Pt reports L ear feels clogged and is painful. Pt seen by ED provider and imaging completed--results and dispo pending.
[2024-05-28] MEDS: Amoxicillin/Potassium Clav 875 MG TABLET PO (07:58)
[2024-05-28 08:23] VITALS: BP 124/84; PULSE 96; RESP 16; TEMP 36.9; O2SAT 98
== END 2024-05-28 08:44 | disposition home or self-care (01) ==
PROVIDERS: Emergency Provider Emergency Medicine; PCP Internal Medicine
DX: S93.401A Sprain of unspecified ligament of right ankle, initial encounter (principal); W19.XXXA Unspecified fall, initial encounter; H66.002 Acute suppurative otitis media without spontaneous rupture of ear drum, left ear; H60.312 Diffuse otitis externa, left ear; H92.02 Otalgia, left ear; F17.210 Nicotine dependence, cigarettes, uncomplicated; F12.90 Cannabis use, unspecified, uncomplicated; Y93.9 Activity, unspecified; Y92.9 Unspecified place or not applicable; Y99.9 Unspecified external cause status
CPT/HCPCS: 73610; 99283; 99284

== ENCOUNTER → 2024-07-11 12:23 | Outpatient (BNV) | payer OTHER, SELFPAY | PROVIDERS: PCP Internal Medicine; Visit Provider Radiology Diagnostic Radiology | DX: K86.2 Cyst of pancreas (principal) | CPT/HCPCS: 74183 ==

== ENCOUNTER 2024-07-11 12:24 | Outpatient (REF) | payer OTHER, SELFPAY ==
--- NOTE | ~2024-07-11 | MR_ITS ---
EXAMINATION: MRI Abdomen without and with contrast HISTORY: K86.2 - Cyst of pancreas COMPARISON: Comparison is made with the prior examination dated 08/05/2022. TECHNIQUE: Axial in and out of phase T1-weighted gradient echo, axial diffusion weighted, and axial and coronal haste T2 with fat saturation images were obtained through the abdomen. 3D MRCP Reconstructed images and thick slab imaging of the biliary tree were obtained. Subsequently, fat suppressed axial and coronal T1-weighted images were obtained after the intravenous administration of 8.5 mL Gadavist. FINDINGS: The examination is markedly limited by patient motion on all sequences. There is no significant loss of signal intensity within the liver on opposed phase imaging to suggest steatosis. There is no intra or extrahepatic biliary ductal dilatation. No enhancing liver mass is identified. The hepatic and portal veins are patent. Again seen is a fluid collection in the left upper quadrant between the pancreatic tail, spleen, and upper pole of the left kidney. This measures approximately 5.6 x 4.4 x 2.1 cm and may contain internal debris. No definite enhancement is seen, although evaluation is limited by patient motion. The pancreas itself is unremarkable, demonstrating homogeneous enhancement. No enhancing masses are identified. There is no pancreatic ductal dilatation. The gallbladder, spleen, adrenals, and kidneys are unremarkable. No retroperitoneal lymphadenopathy or ascites is identified in the upper abdomen. MR/MR abdomen wo/w con IMPRESSION: Markedly limited examination due to patient motion. 5.6 x 4.4 x 2.1 cm fluid collection in the left upper quadrant, suggestive of a pseudocyst. Continued follow-up is suggested. Electronically signed by: Angel Mathews MD 07/13/2024 07:47 AM [facility]
[2024-07-11] MEDS: gadobutroL 10 ML VIAL IVPUSH (13:29)
== END 2024-07-11 12:25 | disposition home or self-care (01) ==
LOC: HO.MRI 12:24
PROVIDERS: PCP Internal Medicine; Visit Provider Internal Medicine Gastroenterology
DX: K86.2 Cyst of pancreas (principal)
CPT/HCPCS: 74183; A9585

== ENCOUNTER 2024-10-17 19:22 | Inpatient (IN) | payer OTHER, SELFPAY ==
[2024-10-17 19:37] VITALS: BP 117/56; PULSE 79; RESP 16; TEMP 36.8; O2SAT 98; BMI 30.8
[2024-10-17 19:56] LABS: MANUAL DIFF FLAG NO
[2024-10-17 20:06] LABS: Basophils Absolute Auto 0.1 X10*3/uL (0.0-0.2); Basophils Percent Auto 0.7 % (0-2); Eosinophils Absolute Auto 0.1 X10*3/uL (0.0-0.4); Eosinophils Percent Auto 0.8 % (0-4); Hematocrit 35.5 % (37.0-47.0); Hemoglobin 11.7 g/dl (12.0-16.0); Imm Gran Abs Auto 0.04 X10*3/uL (0.00-0.03); Imm Gran Pct Auto 0.4 % (0.0-0.4); Lymphocytes Absolute Auto 2.4 X10*3/uL (1.2-4.9); Lymphocytes Percent Auto 21.9 % (20-40); Mean Corpuscular Volume 93.9 fL (80.0-98.0); Monocytes Absolute Auto 0.7 X10*3/uL (0.1-1.2); Monocytes Percent Auto 6.1 % (2-11); Neutrophils Absolute Auto 7.7 x10*3/uL (2.0-8.3); Neutrophils Percent Auto 70.1 % (45-73); Platelet Count 229 X10*3/uL (160-400); Red Blood Count 3.78 X10*6/uL (4.20-5.50); Red Cell Distribution Width 16.4 % (11.0-16.0); White Blood Count 10.9 X10*3/uL (4.8-10.8)
[2024-10-17 20:14] LABS: Alanine Aminotransferase 11 U/L (0-31); Albumin Level 4.2 g/dL (3.5-5.0); Alkaline Phosphatase 65 U/L (39-117); Anion Gap 13 (12-20); Aspartate Amino Transferase 21 U/L (5-31); Bilirubin Total 0.2 mg/dL (0.0-1.0); Blood Urea Nitrogen 12 mg/dL (9-16); Calcium 8.8 mg/dL (8.4-10.2); Carbon Dioxide 23 mmol/L (22-29); Chloride 108 mmol/L (96-108); Creatinine Clr Calc Pharmacy 121.9; Estimated Glomerular Filt Rate > 60; Ethanol < 10 mg/dL; Glucose Random 98 mg/dL (60-115); Potassium 3.8 mmol/L (3.3-5.1); Sodium 140 mmol/L (135-145); Total Protein 6.6 g/dL (6.5-8.0)
[2024-10-17 20:16] LABS: Acetaminophen LAB < 3 mcg/mL (<30); Salicylate < 5.0 mg/dL (15-30)
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
[2024-10-18 06:11] VITALS: BP 126/83; PULSE 87; RESP 16; TEMP 36.9; O2SAT 98
[2024-10-18 06:15] LABS: Appearance Urine Cloudy; Color Urine Dark Yellow; Glucose Urine UA Negative (Negative); Leukocyte Esterase Urine Negative (Negative); Nitrite Urine Positive (Negative); PH 5.5 (5.0-9.0); Specific Gravity - Urine >= 1.030 (1.005-1.025); UMIC TRIGGER UA YES; Urine Blood Negative (Negative); Urine Ketones Trace mg/dL (Negative); Urine Protein Trace mg/dL (Neg-Trace)
[2024-10-18 06:16] LABS: UPreg QC Valid YES; Urine Pregnancy NEGATIVE (NEGATIVE)
[2024-10-18 06:20] LABS: Bacteria Urine 4+ (None Seen); Hyaline Casts Urine 0-2 /LPF (0-2); RBC Urine 0-2 /HPF (0-2); WBC Urine 0-5 /HPF (0-5)
[2024-10-18 06:23] LABS: Amphetamine Screen Urine Not Detected (Not Detect); Barbiturates, Urine Not Detected (Not Detect); Benzodiazepines Screen Urine Not Detected (Not Detect); Buprenorphine Scr Not Detected (Not Detect); Cannabinoid Screen Urine POSITIVE (Not Detect); Cocaine Screen Urine Not Detected (Not Detect); Fentanyl, urine Not Detected (Not Detect); Methadone Screen, Urine Not Detected (Not Detect); Opiate Screen Urine POSITIVE (Not Detect); Oxycodone Screen Urine Not Detected (Not Detect); Phencyclidine Screen Urine Not Detected (Not Detect)
--- NOTE | 2024-10-18 06:33 | PC.NURSE ---
Patient slept through the night, no distress observed/reported, med rec completed/approved, disposition per care team is section 12 inpatient bed search, no behavior and safety concerns at this time, will continue to monitor.
--- NOTE | 2024-10-18 09:04 | ECG_ITS ---
Test Reason : check qt interval Blood Pressure : */* mmHG Vent. Rate : 54 BPM Atrial Rate : 54 BPM P-R Int : 154 ms QRS Dur : 78 ms QT Int : 422 ms P-R-T Axes : 66 91 69 degrees QTcB Int : 400 ms Sinus bradycardia with sinus arrhythmia Rightward axis Low voltage QRS Septal infarct , age undetermined Abnormal ECG When compared with ECG of 23-Jan-2024 20:37, No significant change was found Referred By: Leann Pham Electronically Signed By: HAIR PALMER
[2024-10-18] MEDS: Omeprazole 20 MG CAPSULE.DR PO (09:16)
[2024-10-18] MEDS: Topiramate 100 MG TABLET 200 MG PO ×2 (09:16→22:36)
--- NOTE | 2024-10-18 09:26 | PC.NURSE ---
patient medicated per AUG, calm and cooperative at this time, sitting and watching tv in community area.
[2024-10-18 14:50] VITALS: BP 134/69; PULSE 69; RESP 16; TEMP 37; O2SAT 96; BMI 29.7
--- NOTE | 2024-10-18 15:47 | PC.NURSE ---
pt declined need to access cell phone to obtained telephone #s
--- NOTE | 2024-10-18 16:18 | PC.ADMIT ---
Katia is a 39yr old female, previously known to [facility], admitted for SI w/ plan to cut her wrists. She arrived at 1440 via wheelchair. Skin/safety check performed, vitals obtained and pt oriented to unit. Admission paperwork complete. Pt declined to sign ROIs at this time.? Pt reports a recent breakup with her boyfriend of 6months and homelessness as precipitating factors to her suicide attempt. ?I just can;t keep living like this?. Pt reports she called 911 and was BIBA when she reported ?I just want to kill myself?. Pt has numerous self-inflicted, superficial wounds to right forearm as well as scars of the same on left forearm. Pt reports previous suicide attempts. Pt denies drug/alcohol use to TW other than marijuana. Pt states her sleep and appetite have been poor and she is non-med compliant. Pt was unable to remember the name of her prescriber and denies a current PCP or therapist, however this information was found in the crisis evaluation.? Pt has PMH of asthma, Bipolar d/o, BPD, & psychosis. Pt states she also has seizure d/o and is prescribed Topamax.? Tox screen positive for marijuana and opiates. Pt reports depression/anxiety 10/10, endorses SI, however reports she feels safe on the unit, and denies any perceptual disturbances. She has a signed and accepted CV and placed on 15 min checks for safety.
[2024-10-18 20:00] VITALS: BP 132/62; PULSE 68; RESP 16; TEMP 37.1; O2SAT 96
[2024-10-18] MEDS: OLANZapine ODT 10 MG TAB.RAPDIS TRANSLINGU (22:36)
[2024-10-18] MEDS: Melatonin 3 MG TABLET PO (22:36)
[2024-10-18] MEDS: traZODone HCL 50 MG TABLET PO (22:36)
[2024-10-19 08:04] VITALS: BP 96/55; PULSE 48; TEMP 36.4; O2SAT 99
[2024-10-19] MEDS: Topiramate 100 MG TABLET 200 MG PO ×2 (08:56→20:29)
[2024-10-19] MEDS: Omeprazole 20 MG CAPSULE.DR PO (08:56)
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
[2024-10-19] MEDS: hydrOXYzine HCL 25 MG TABLET PO (16:49)
[2024-10-19 20:00] VITALS: BP 134/90; PULSE 95; RESP 16; TEMP 36.6; O2SAT 99
[2024-10-19] MEDS: Melatonin 3 MG TABLET PO (20:29)
[2024-10-19] MEDS: OLANZapine ODT 10 MG TAB.RAPDIS TRANSLINGU (20:29)
[2024-10-19] MEDS: traZODone HCL 50 MG TABLET PO (20:29)
[2024-10-20 08:00] VITALS: BP 105/59; PULSE 55; RESP 16; TEMP 36.4; O2SAT 94
[2024-10-20] MEDS: Topiramate 100 MG TABLET 200 MG PO ×2 (08:47→21:58)
[2024-10-20] MEDS: Omeprazole 20 MG CAPSULE.DR PO (08:48)
[2024-10-20 20:00] VITALS: BP 135/80; PULSE 85; RESP 16; TEMP 37.1; O2SAT 97
--- NOTE | 2024-10-20 21:20 | P.PNPSI_ITS ---
Subjective Subjective Date of Service: 10/20/24 Reason For Visit: PTSD Bipolar Disorder Borderline Personality Disor Subjective Notes: Conditional Voluntary and 3 Day Healthcare Proxy: No Guardianship: No Medical Problems Affecting Mental Status: No Interim History: Pt visable in milieu. Much time on the phone. Visited by partner. It appears they have reconciled. Denies SI,HI, AH,VH. No sx of acute dave or psychosis. Has signed a three day notice of intent. Declines med changes today. Medication Compliance: Yes Side effects from medications: No Attending Groups: No Review of Systems Acute medical concerns: No Review of Systems Review of Systems Denies Mental Status Exam Mental Status Exam Patient Appearance: Appropriate Patient Orientation: Person, Place, Time and Situation Level of Consciousness: Alert Patient Behavior: Talkative and Good Eye Contact Mood Description: Appropriate Affect Description: Appropriate Patient Cognition Impaired: No Ability to Follow Directions: Good Speech Pattern: Spontaneous Speech Memory Description: Intact Hallucinations: None Delusions: Not Present Thought Process: Intact Thought Content: positive for Intact and positive for Circumstantial Judgement: Good Diagnostics Vital Signs (24Hr): Vital Signs - 24 hr 10/20/24 08:00 10/20/24 20:00 Temperature 97.5 F 98.8 F Pulse Rate 55 85 Respiratory Rate 16 16 Blood Pressure 105/59 L 135/80 Pulse Oximetry 94 97 Oxygen Delivery Method Room Air Room Air BMI result Body Mass Index 29.7 Labs 10/17/24 19:50 10/17/24 19:50 Medications Medications Current Medications Acetaminophen (Acetaminophen 325 Mg Tablet) 650 mg PO Q6H PRN PRN Reason: Headache/Pain, Scale 1-10 Al Hydroxide/Mg Hydroxide (Magnesium Hydrox/Alum Hydrox 30 Ml Oral.Susp) 30 ml PO Q6H PRN PRN Reason: Heartburn/Nausea Hydrocortisone (Hydrocortisone 1 % Cream 28.35 Gm Tube) 1 appl TOPICAL BID PRN; Protocol PRN Reason: Rash Hydroxyzine HCl (Hydroxyzine Hcl 25 Mg Tablet) 25 mg PO Q6H PRN PRN Reason: mild anxiety Last Admin: 10/19/24 16:49 Dose: 25 mg Magnesium Hydroxide (Milk Of Magnesia 30 Ml Oral.Susp) 30 ml PO DAILY PRN PRN Reason: Constipation Melatonin (Melatonin 3 Mg Tablet) 3 mg PO BEDTIME IVONNE Last Admin: 10/19/24 20:29 Dose: 3 mg Nicotine (Nicotine 21 Mg Patch.Td24) 21 mg TRANSDERMA DAILY PRN PRN Reason: smoking cessation Nicotine Polacrilex (Nicotine Polacrilex 2 Mg Gum) 4 mg BUCCAL Q2H PRN PRN Reason: Nicotine Cravings Olanzapine (Olanzapine Odt 10 Mg Tab.Rapdis) 10 mg TRANSLINGU BEDTIME [facility] Last Admin: 10/19/24 20:29 Dose: 10 mg Omeprazole (Omeprazole 20 Mg Capsule.Dr) 20 mg PO DAILY [facility] Last Admin: 10/20/24 08:48 Dose: 20 mg Topiramate (Topiramate 100 Mg Tablet) 200 mg PO BID [facility] Last Admin: 10/20/24 08:47 Dose: 200 mg Trazodone HCl (Trazodone Hcl 50 Mg Tablet) 50 mg PO BEDTIME [facility] Last Admin: 10/19/24 20:29 Dose: 50 mg Allergies Allergies Allergy/AdvReac Type Severity Reaction Status Date / Time stringer [CHERRIES] Allergy Severe ANAPHYLAXIS Verified 10/17/24 19:41 gabapentin [From NEURONTIN] Allergy Unknown MUSCLE Verified 10/17/24 19:41 SPASMS lamotrigine [From LAMICTAL] Allergy Unknown MUSCLE Verified 10/17/24 19:41 SPASMS oxcarbazepine Allergy Unknown MUSCLE Verified 10/17/24 19:41 [From TRILEPTAL] SPASMS Sulfa (Sulfonamide Allergy Unknown UNKNOWN Verified 10/17/24 19:41 Antibiotics) [SULFA (SULFONAMIDE ANTIBIOTICS)] coconut Allergy Anaphylaxis Verified 10/17/24 19:41 fish derived [fish] Allergy Anaphylaxis Verified 10/17/24 19:41 Assessment & Plan Assessment & Plan (1) PTSD (post-traumatic stress disorder): Status: Acute Code(s): F43.10 - Post-traumatic stress disorder, unspecified (2) Personality disorder: Status: Acute Code(s): F60.9 - Personality disorder, unspecified (3) Bipolar 1 disorder: Status: Acute Code(s): F31.9 - Bipolar disorder, unspecified Plan Admit, CV, 5 minute checks due to SI Continue current regime Collateral Contact Diagnostics as needed Encourage full milieu Discharge planning. 10/20: Continue to monitor-it appears today pt has resolved her relationship conflict in a satisfactory manner. Informed Consent: understands Reason for continued inpatient stay Substantial Risk for: rapid decompensation Time Spent With Patient Time: Total time managing care of this patient today ____ minutes.
[2024-10-20] MEDS: OLANZapine ODT 10 MG TAB.RAPDIS TRANSLINGU (21:58)
[2024-10-20] MEDS: Melatonin 3 MG TABLET PO (21:58)
[2024-10-20] MEDS: traZODone HCL 50 MG TABLET PO (21:58)
[2024-10-21 08:10] VITALS: BP 97/54; PULSE 77; RESP 16; TEMP 36.3; O2SAT 99
[2024-10-21 08:30] VITALS: BP 116/81; PULSE 102; RESP 16; TEMP 36.4; O2SAT 95
[2024-10-21] MEDS: Topiramate 100 MG TABLET 200 MG PO ×2 (08:59→22:41)
[2024-10-21] MEDS: Omeprazole 20 MG CAPSULE.DR PO (08:59)
[2024-10-21 09:28] LABS: Estimated Average Glucose 114 mg/dL; Hemoglobin A1C 143.8759 umol/L; Hemoglobin A1c % 5.6 % (<6.0); Total Hemoglobin (HGBA1C) 3870.8623 umol/L
[2024-10-21 09:41] LABS: Cholesterol 189 mg/dL (<200); HDL Cholesterol 54 mg/dL (>40); LDL Cholesterol Calculated 122 mg/dL (<100); Triglycerides 67 mg/dL (<150)
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
[2024-10-21 09:47] LABS: Free T4 (Free Thyroxine) 1.01 ng/dL (0.71-1.85); Thyroid Stimulating Hormone 1.99 uIU/mL (0.32-4.0)
[2024-10-21 10:10] LABS: Folate 13.6 ng/mL (> or = 4.0); Vitamin B12 423 pg/mL (200-900)
[2024-10-21 20:00] VITALS: BP 122/73; PULSE 74; RESP 17; TEMP 36.3; O2SAT 97
[2024-10-21] MEDS: Melatonin 3 MG TABLET PO (22:41)
[2024-10-21] MEDS: traZODone HCL 50 MG TABLET PO (22:41)
[2024-10-22 08:29] VITALS: BP 131/95; PULSE 113; RESP 20; TEMP 36.7; O2SAT 98
--- NOTE | 2024-10-22 09:06 | HO.PSYCHPN ---
Subjective Subjective Date of Service: 10/22/24 Reason For Visit: PTSD Bipolar Disorder Borderline Personality Disor Interim History: met with patient; discussed with team; reviewed chart pt says she wants to discharge; she's upset with boyfriend... refused Zydis last night; refused topimax today Mental Status Exam Mental Status Exam Patient Appearance: Appropriate Patient Orientation: Person, Place, Time and Situation Level of Consciousness: Alert Patient Behavior: Talkative and Good Eye Contact Mood Description: Appropriate Affect Description: Appropriate Patient Cognition Impaired: No Ability to Follow Directions: Good Speech Pattern: Spontaneous Speech Memory Description: Intact Hallucinations: None Delusions: Not Present Thought Process: Intact Thought Content: positive for Intact and positive for Circumstantial Judgement: Fair Diagnostics Vital Signs (24Hr): Vital Signs - 24 hr 10/21/24 20:00 10/22/24 08:29 Temperature 97.4 F 98.1 F Pulse Rate 74 113 H Respiratory Rate 17 20 Blood Pressure 122/73 131/95 H Pulse Oximetry 97 98 Oxygen Delivery Method Room Air Room Air BMI result Body Mass Index 29.7 Labs 10/17/24 19:50 10/17/24 19:50 Labs: Laboratory Results - last 48 hr 10/21/24 08:37 Estimat Average Glucose 114 Hemoglobin A1c % 5.6 Magnesium 2.0 Triglycerides 67 Cholesterol 189 LDL Cholesterol, Calc 122 H HDL Cholesterol 54 Vitamin B12 423 Folate 13.6 TSH 1.99 Free T4 1.01 Medications Medications Current Medications Acetaminophen (Acetaminophen 325 Mg Tablet) 650 mg PO Q6H PRN PRN Reason: Headache/Pain, Scale 1-10 Al Hydroxide/Mg Hydroxide (Magnesium Hydrox/Alum Hydrox 30 Ml Oral.Susp) 30 ml PO Q6H PRN PRN Reason: Heartburn/Nausea Hydrocortisone (Hydrocortisone 1 % Cream 28.35 Gm Tube) 1 appl TOPICAL BID PRN; Protocol PRN Reason: Rash Hydroxyzine HCl (Hydroxyzine Hcl 25 Mg Tablet) 25 mg PO Q6H PRN PRN Reason: mild anxiety Last Admin: 10/19/24 16:49 Dose: 25 mg Magnesium Hydroxide (Milk Of Magnesia 30 Ml Oral.Susp) 30 ml PO DAILY PRN PRN Reason: Constipation Melatonin (Melatonin 3 Mg Tablet) 3 mg PO BEDTIME [facility] Last Admin: 10/21/24 22:41 Dose: 3 mg Nicotine (Nicotine 21 Mg Patch.Td24) 21 mg TRANSDERMA DAILY PRN PRN Reason: smoking cessation Nicotine Polacrilex (Nicotine Polacrilex 2 Mg Gum) 4 mg BUCCAL Q2H PRN PRN Reason: Nicotine Cravings Olanzapine (Olanzapine Odt 10 Mg Tab.Rapdis) 10 mg TRANSLINGU BEDTIME [facility] Last Admin: 10/21/24 22:41 Dose: Not Given Omeprazole (Omeprazole 20 Mg Capsule.Dr) 20 mg PO DAILY [facility] Last Admin: 10/21/24 08:59 Dose: 20 mg Topiramate (Topiramate 100 Mg Tablet) 200 mg PO BID [facility] Last Admin: 10/21/24 22:41 Dose: 200 mg Trazodone HCl (Trazodone Hcl 50 Mg Tablet) 50 mg PO BEDTIME [facility] Last Admin: 10/21/24 22:41 Dose: 50 mg Allergies Allergies Allergy/AdvReac Type Severity Reaction Status Date / Time stringer [CHERRIES] Allergy Severe ANAPHYLAXIS Verified 10/17/24 19:41 gabapentin [From NEURONTIN] Allergy Unknown MUSCLE Verified 10/17/24 19:41 SPASMS lamotrigine [From LAMICTAL] Allergy Unknown MUSCLE Verified 10/17/24 19:41 SPASMS oxcarbazepine Allergy Unknown MUSCLE Verified 10/17/24 19:41 [From TRILEPTAL] SPASMS Sulfa (Sulfonamide Allergy Unknown UNKNOWN Verified 10/17/24 19:41 Antibiotics) [SULFA (SULFONAMIDE ANTIBIOTICS)] coconut Allergy Anaphylaxis Verified 10/17/24 19:41 fish derived [fish] Allergy Anaphylaxis Verified 10/17/24 19:41 Assessment & Plan Assessment & Plan (1) PTSD (post-traumatic stress disorder): Status: Acute Code(s): F43.10 - Post-traumatic stress disorder, unspecified (2) Personality disorder: Status: Acute Code(s): F60.9 - Personality disorder, unspecified (3) Bipolar 1 disorder: Status: Acute Code(s): F31.9 - Bipolar disorder, unspecified Plan Admit, CV, 5 minute checks due to SI Continue current regime Collateral Contact Diagnostics as needed Encourage full milieu Discharge planning. 10/21- Continue current regime Continue behavioral observation. 10/22 pt says she wants to discharge; she's upset with boyfriend... refused Zydis last night; refused topimax today Patient educated on: diagnosis and medication risk/benefits Informed Consent: understands Reason for continued inpatient stay Substantial Risk for: stable for discharge Time Spent With Patient Time: Total time managing care of this patient today ____ minutes.
[2024-10-22 19:54] VITALS: BP 152/89; PULSE 115; RESP 15; TEMP 36.4; O2SAT 97
[2024-10-22] MEDS: traZODone HCL 50 MG TABLET PO (22:16)
[2024-10-22] MEDS: Melatonin 3 MG TABLET PO (22:16)
[2024-10-22] MEDS: Topiramate 100 MG TABLET 200 MG PO (22:16)
[2024-10-23] MEDS: Topiramate 100 MG TABLET 200 MG PO ×2 (08:46→22:01)
[2024-10-23] MEDS: Omeprazole 20 MG CAPSULE.DR PO (08:46)
[2024-10-23 08:56] VITALS: BP 132/69; PULSE 68; RESP 18; TEMP 36.8; O2SAT 98
[2024-10-23 19:45] VITALS: BP 145/60; PULSE 86; RESP 15; TEMP 36.4; O2SAT 96
[2024-10-23] MEDS: traZODone HCL 50 MG TABLET PO (22:00)
[2024-10-23] MEDS: Melatonin 3 MG TABLET PO (22:01)
--- NOTE | 2024-10-24 00:25 | P.PNPSI_ITS ---
Subjective Subjective Date of Service: 10/23/24 Reason For Visit: PTSD Bipolar Disorder Borderline Personality Disor Interim History: late entry note for pt seen on 10/23; discussed with team pt says she's good and ready for discharge; reconcilled with her boyfriend. Pt denies psych symptoms, AVH and says she does not want or need zyprexa. Mental Status Exam Mental Status Exam Patient Appearance: Appropriate Patient Orientation: Person, Place, Time and Situation Level of Consciousness: Alert Patient Behavior: Talkative and Good Eye Contact Behavior Comments: intermittently provocative to peers Mood Description: Appropriate Affect Description: Appropriate Patient Cognition Impaired: No Ability to Follow Directions: Fair Speech Pattern: Spontaneous Speech Memory Description: Intact Hallucinations: None Delusions: Not Present Thought Process: Intact Thought Content: positive for Intact (no si/hi) and positive for Circumstantial Judgement: Fair Diagnostics Vital Signs (24Hr): Vital Signs - 24 hr 10/23/24 08:56 10/23/24 19:45 Temperature 98.2 F 97.5 F Pulse Rate 68 86 Respiratory Rate 18 15 Blood Pressure 132/69 145/60 H Pulse Oximetry 98 96 Oxygen Delivery Method Room Air BMI result Body Mass Index 29.7 Labs 10/17/24 19:50 10/17/24 19:50 Medications Medications Current Medications Acetaminophen (Acetaminophen 325 Mg Tablet) 650 mg PO Q6H PRN PRN Reason: Headache/Pain, Scale 1-10 Al Hydroxide/Mg Hydroxide (Magnesium Hydrox/Alum Hydrox 30 Ml Oral.Susp) 30 ml PO Q6H PRN PRN Reason: Heartburn/Nausea Clonidine HCl (Clonidine Hcl 0.1 Mg Tablet) 0.1 mg PO Q4H PRN; Protocol PRN Reason: moderate anxiety Hydrocortisone (Hydrocortisone 1 % Cream 28.35 Gm Tube) 1 appl TOPICAL BID PRN; Protocol PRN Reason: Rash Hydroxyzine HCl (Hydroxyzine Hcl 25 Mg Tablet) 25 mg PO Q6H PRN PRN Reason: mild anxiety Last Admin: 10/19/24 16:49 Dose: 25 mg Magnesium Hydroxide (Milk Of Magnesia 30 Ml Oral.Susp) 30 ml PO DAILY PRN PRN Reason: Constipation Melatonin (Melatonin 3 Mg Tablet) 3 mg PO BEDTIME [facility]ON[facility] Last Admin: 10/23/24 22:01 Dose: 3 mg Nicotine (Nicotine 21 Mg Patch.Td24) 21 mg TRANSDERMA DAILY PRN PRN Reason: smoking cessation Nicotine Polacrilex (Nicotine Polacrilex 2 Mg Gum) 4 mg BUCCAL Q2H PRN PRN Reason: Nicotine Cravings Olanzapine (Olanzapine Odt 10 Mg Tab.Rapdis) 10 mg TRANSLINGU BEDTIME [facility] Last Admin: 10/23/24 22:05 Dose: Not Given Omeprazole (Omeprazole 20 Mg Capsule.Dr) 20 mg PO DAILY [facility] Last Admin: 10/23/24 08:46 Dose: 20 mg Topiramate (Topiramate 100 Mg Tablet) 200 mg PO BID [facility] Last Admin: 10/23/24 22:01 Dose: 200 mg Trazodone HCl (Trazodone Hcl 50 Mg Tablet) 50 mg PO BEDTIME [facility] Last Admin: 10/23/24 22:00 Dose: 50 mg Allergies Allergies Allergy/AdvReac Type Severity Reaction Status Date / Time stringer [CHERRIES] Allergy Severe ANAPHYLAXIS Verified 10/17/24 19:41 gabapentin [From NEURONTIN] Allergy Unknown MUSCLE Verified 10/17/24 19:41 SPASMS lamotrigine [From LAMICTAL] Allergy Unknown MUSCLE Verified 10/17/24 19:41 SPASMS oxcarbazepine Allergy Unknown MUSCLE Verified 10/17/24 19:41 [From TRILEPTAL] SPASMS Sulfa (Sulfonamide Allergy Unknown UNKNOWN Verified 10/17/24 19:41 Antibiotics) [SULFA (SULFONAMIDE ANTIBIOTICS)] coconut Allergy Anaphylaxis Verified 10/17/24 19:41 fish derived [fish] Allergy Anaphylaxis Verified 10/17/24 19:41 Assessment & Plan Assessment & Plan (1) PTSD (post-traumatic stress disorder): Status: Acute Code(s): F43.10 - Post-traumatic stress disorder, unspecified (2) Personality disorder: Status: Acute Code(s): F60.9 - Personality disorder, unspecified (3) Bipolar 1 disorder: Status: Acute Code(s): F31.9 - Bipolar disorder, unspecified Plan Admit, CV, 5 minute checks due to SI Continue current regime Collateral Contact Diagnostics as needed Encourage full milieu Discharge planning. 10/21- Continue current regime Continue behavioral observation. 10/22 pt says she wants to discharge; she's upset with boyfriend... refused Zydis last night; refused topimax today pt says she's good and ready for discharge; reconcilled with her boyfriend. Pt denies psych symptoms, AVH and says she does not want or need zyprexa. Patient educated on: diagnosis and medication risk/benefits Informed Consent: further education needed Reason for continued inpatient stay Substantial Risk for: stable for discharge Time Spent With Patient Time: Total time managing care of this patient today ____ minutes.
[2024-10-24 07:58] VITALS: BP 122/80; PULSE 72; RESP 18; TEMP 36.9; O2SAT 98
[2024-10-24] MEDS: Topiramate 100 MG TABLET 200 MG PO (08:11)
[2024-10-24] MEDS: Omeprazole 20 MG CAPSULE.DR PO (08:11)
--- NOTE | 2024-10-24 10:16 | P.DS_ITS ---
DS: Providers Provider Date of admission: 10/18/24 13:03 Primary care physician: Unknown Physician DS: Diagnosis Discharge Diagnosis (1) PTSD (post-traumatic stress disorder): Status: Acute (2) Personality disorder: Status: Acute (3) Bipolar 1 disorder: Status: Acute DS: Medications Discharge Medications Home Medications: Previous Rx's ?Medication ?Instructions ?Recorded melatonin 3 mg tablet 3 mg PO BEDTIME insomnia #30 tabs 10/24/24 olanzapine 10 mg disintegrating 10 mg PO BEDTIME #30 tabs 10/24/24 tablet omeprazole 20 mg capsule,delayed 20 mg PO DAILY #30 caps 10/24/24 release topiramate 200 mg tablet 200 mg PO BID seizures #60 tabs 10/24/24 trazodone 50 mg tablet 50 mg PO BEDTIME #30 tabs 10/24/24 Data Data Completed and Pending Completed studies during hospitalization [Text1]: 10/17/24 10/18/24 10/21/24 19:50 06:06 08:37 WBC 10.9 H RBC 3.78 L Hgb 11.7 L Hct 35.5 L MCV 93.9 MCH 31.0 MCHC 33.0 RDW 16.4 H Plt Count 229 D MPV 11.0 Immature Gran % (Auto) 0.4 Neut % (Auto) 70.1 Lymph % (Auto) 21.9 [place] % (Auto) 6.1 Eos % (Auto) 0.8 Baso % (Auto) 0.7 Lymph # (Auto) 2.4 [place] # (Auto) 0.7 Eos # (Auto) 0.1 Baso # (Auto) 0.1 Abs Immat Gran (auto) 0.04 H Absolute Neuts (auto) 7.7 Absolute Nucleated RBC 0.000 Nucleated RBC % (auto) 0.0 Sodium 140 Potassium 3.8 Chloride 108 Carbon Dioxide 23 Anion Gap 13 BUN 12 Creatinine 0.68 Estim Creat Clear Calc 121.9 Estimated GFR > 60 Random Glucose 98 Estimat Average Glucose 114 Hemoglobin A1c % 5.6 Calcium 8.8 Magnesium 2.0 Total Bilirubin 0.2 AST 21 ALT 11 Alkaline Phosphatase 65 Total Protein 6.6 Albumin 4.2 Triglycerides 67 Cholesterol 189 LDL Cholesterol, Calc 122 H HDL Cholesterol 54 Vitamin B12 423 Folate 13.6 TSH 1.99 Free T4 1.01 Urine Color Dark Yellow Urine Appearance Cloudy Urine pH 5.5 Ur Specific [place] >= 1.030 H Urine Protein Trace Urine Glucose (UA) Negative Urine Ketones Trace Urine Blood Negative Urine Nitrite Positive H Ur Leukocyte Esterase Negative Urine RBC 0-2 Urine WBC 0-5 Ur Squamous Epith Cells 3-5 Urine Bacteria 4+ Hyaline Casts 0-2 Urine Test NEGATIVE Salicylates < 5.0 L Urine Opiates Screen POSITIVE H Ur Buprenorphine Scrn Not Detected Ur Oxycodone Screen Not Detected Urine Methadone Screen Not Detected Urine Fentanyl Screen Not Detected Acetaminophen < 3 Ur Barbiturates Screen Not Detected Ur Phencyclidine Scrn Not Detected Ur Amphetamines Screen Not Detected U Benzodiazepines Scrn Not Detected Urine Cocaine Screen Not Detected U Marijuana (THC) Screen POSITIVE H Ethyl Alcohol < 10 DS: Summary Time Spent with Patient Time attestation: Total time managing care of this patient today ____ minutes. Discharge Plan Discharge Anticipated Discharge Date/Time: 10/24/24 12:00 Patient Disposition: Xfer Other Discharge Diagnosis: Bipolar Disorder PTSD Referrals: [facility] w DIALLO Madsen [Other] - 11/01/24 10:00 am [facility] with Leslie Blakely [Other] - 1 Week (Leslie was notified of your discharge but has not called back with follow-up appointment; please follow up with Leslie upon discharge. ) [facility] [Other] - 1 Week Cristian L[facility]pez [facility] [Other] - 1 Week (Thursday, 11:30 AM ? 12:30 PM, [facility], [address] [place] [address] Thursday, 11:30 AM ? 12:30 PM, [facility], [address] [place] [address] Thursday, 11:30 AM ? 12:30 PM, [facility], [address] [place] [address] , 11:30 AM ? 12:30 PM, [facility], [address] [place] [address] Thursday, 11:30 AM ? 12:30 PM, [address] Thursday, 11:30 AM ? 12:30 PM, [address]) Discharge Medications: Continued melatonin 3 mg tablet 3 mg PO BEDTIME Qty: 30 0RF omeprazole 20 mg capsule,delayed release(DR/EC) 20 mg PO DAILY Qty: 30 0RF olanzapine 10 mg tablet,disintegrating 10 mg PO BEDTIME Qty: 30 0RF topiramate 200 mg tablet 200 mg PO BID Qty: 60 0RF trazodone 50 mg tablet 50 mg PO BEDTIME Qty: 30 0RF Discontinued nicotine 21 mg/24 hr Patch 24 Hour 21 mg transdermal DAILY PRN (Reason: smoking cessation) 28 Days Qty: 28 0RF Discharge Orders: Discharge Order (Routine); Ordered 10/24/24 Ordered By: Renetta Dixon Diet: Advance to usual diet Activity on Discharge: As tolerated Stand Alone Forms: Patient Portal Discharge page, Community Support Print Language: Malay Care Plan Goals: Mood and Behavioral Stabilization Health Concerns: Mood and Behavioral Stabilization Plan of Treatment: Attend scheduled appointments Take medications as directed Assessment: Pt has insight and demonstrates good judgment in terms of wanting to pursue treatment. Pt has a safety plan that includes presenting to the closest ER or calling 911 if feeling unsafe. Discharge Date/Time: 10/24/24 10:03
== END 2024-10-24 10:03 | disposition other institution (70) | DRG 753 ==
LOC: HO.ED 20:57 → HO.PM5 10-18 13:15
PROVIDERS: Admitting Provider Clinical Nurse Specialist Psychiatric/Mental Health, Adult; Emergency Provider Emergency Medicine Emergency Medical Services; Visit Provider Clinical Nurse Specialist Psychiatric/Mental Health, Adult
DX: F31.9 Bipolar disorder, unspecified (principal); R45.851 Suicidal ideations; F17.210 Nicotine dependence, cigarettes, uncomplicated; F60.9 Personality disorder, unspecified; F43.10 Post-traumatic stress disorder, unspecified; Z71.6 Tobacco abuse counseling; Z79.899 Other long term (current) drug therapy
CPT/HCPCS: 36415; 80053; 80061; 80143; 80179; 80307; 81001; 81025; 82607; 82746; 83036; 83735; 84439; 84443; 85025; 93005; 99285; S9485

== ENCOUNTER → 2024-10-18 09:04 | Outpatient (BNV) | payer MEDICAID, SELFPAY | PROVIDERS: Admitting Provider Clinical Nurse Specialist Psychiatric/Mental Health, Adult; Emergency Provider Emergency Medicine Emergency Medical Services; Visit Provider Internal Medicine | DX: I49.9 Cardiac arrhythmia, unspecified (principal) | CPT/HCPCS: 93010 ==

== ENCOUNTER → 2024-10-18 13:03 | Outpatient (BNV) | payer OTHER, SELFPAY | PROVIDERS: Admitting Provider Clinical Nurse Specialist Psychiatric/Mental Health, Adult; Emergency Provider Emergency Medicine Emergency Medical Services; Visit Provider Clinical Nurse Specialist Psychiatric/Mental Health, Adult | DX: F31.4 Bipolar disorder, current episode depressed, severe, without psychotic features (principal); F60.9 Personality disorder, unspecified; F43.11 Post-traumatic stress disorder, acute | CPT/HCPCS: 99231; 99232 ==

== ENCOUNTER 2025-01-30 10:27 | Outpatient (REF) | payer MEDICAID, SELFPAY ==
--- NOTE | ~2025-01-30 | XR_ITS ---
EXAMINATION: XR KNEE, LEFT CLINICAL INFORMATION: left knee COMPARISON: None available. TECHNIQUE: Three views of the left knee. FINDINGS: There is no joint effusion. The Insall-Salvati ratio measured 1.2 consistent with patella vic. There is questionable narrowing of the medial joint space. There are no soft tissue calcifications. Median ridge of patella is situated 5 mm lateral to the trochlear groove. There is a nonspecific band of sclerosis in the medial metaphysis of tibia. XR/XR knee LT 3V IMPRESSION: There is patella vic and moderate patellofemoral incongruence which is associated with patellofemoral maltracking. There is questionable narrowing of the medial joint space. There is a nonspecific band of sclerosis in the medial tibial metaphysis.. Electronically signed by: Navneet Carter MD 01/30/2025 11:05 AM EDT
--- OUTSIDE RECORDS SUMMARY | 2025-01-30 11:14 | XMS_ITS | Clinical Summary ---
Author Organization [facility] Address [address] [facility] [address] [place] [address] Phone Care Team Providers Care Competitive Intelligence Analyst Name Role Phone Kenyetta Castro MD Primary Care Provider + [phone] Allergies Active Allergy Reactions Criticality Noted Date Comments Mulligan Flavor 05/08/2022 Fish Derived 05/08/2022 Sulfa (Sulfonamide Antibiotics) Rash Low 04/29 Medications * This document contains information received from the source organization and may not represent a complete record from that organization. topiramate (TOPAMAX) 200 MG tablet Take 200 mg by mouth 2 (two) times a day. Last filled 07/06/24 05/07/2022 Active traZODone (DESYREL) 100 MG tablet Take 100 mg by mouth nightly at bedtime. Last filled 07/06/24 05/07/2022 Active OLANZapine (ZYPREXA) 20 MG tablet Take 0.5 tablets (10 mg total) by mouth 2 (two) times a day. 30 tablet 09/09/2024 Active melatonin 3 mg Tab Take 1 tablet (3 mg total) by mouth nightly at bedtime. 09/09/2024 Active nicotine (NICODERM CQ) 21 mg/[address] 1 patch onto the skin daily. 30 patch 09/09/2024 Active ADVAIR DISKUS 250-50 mcg/dose DISKUS Inhale 1 puff into the lungs 2 (two) times a day. 60 each 09/09/2024 Active Active Problems Problem Noted Date Diagnosed Date Suicidal ideations 09/06/2024 Severe episode of recurrent major depressive disorder, without psychotic features 09/06/2024 Suicidal ideation 08/15/2024 Chronic pain of left ankle 05/08/2022 Encounters Date Type Department Care Team Description 12/27/2024 9:09 AM EDT - 12/27/2024 10:36 AM EDT Emergency [facility] [address] [place] [address] Rafal Freeman MD Discharge Disposition: Eloped After Being Seen By Provider 12/11/2024 2:23 PM EDT - 12/11/2024 3:59 PM EDT Emergency [facility] [address] [place] [address] Discharge Disposition: Home or Self Care 12/11/2024 3:11 AM EDT - 12/11/2024 9:11 AM EDT Emergency [facility] Emergency [address] [place] [address] Giorgi Gee MD Cooper, Ann, DO Discharge Disposition: Home or Self Care from Last 3 Months Social History Tobacco Use Types Packs/Day Years Used Date Smoking Tobacco: Every Day Cigarettes 1 6.3 Started: 10/13/2018 Tobacco Cessation:Ready to Q uit: Not Asked; Counseling Given: Yes Alcohol Use Standard Drinks/Week Comments Yes 0 (1 standard drink = 0.6 oz pur e alcohol) Education Answer Date Recorded Are you interested in more education? Not on mark e 10/25/2022 Are you concerned about learning? Not on file 10/25/2022 No 10/25/2022 No 10/25/2022 Food Answer Date Recorded Within the past 6 months we worried whether our food would run out before we got money to buy more. I choose not to answer 12/27/2024 Within the past 6 months the food we bought just didn't last and we didn't have enough money to get more. I choose not to answer 12/27/2024 Residential Stability Answer Date Recor ded What is your housing situation today? I do not have housing (staying in a hotel, in a custodial, living outside on the street, on a beach, in a car, or in a park) 12/27/2024 How many times have you move d in the past 12 months? Zero (I did not move) 12/27/2024 Paying for Meds Answer Date Recorded Do you have trouble paying for medicines? I richard se not to answer 12/27/2024 Paying Utility Bills Answer Date Record ed Do you have trouble paying y our heating or electricity bill? I choose not to answer 12/27/2024 Transportation Answer Date Recorded Has the lack of transportati on kept you from medical appointments or from getting medications? No 12/27/2024 Digital Access Answer Date Recorded Yes 12/27/2024 Yes 12/27/2024 Do you have reliable internet access at home? No 12/27/2024 Do you have a device (e.g., phone, tablet, computer) with a working camera? Yes 12/27/2024 Intimate Partner Violence Answer Date R ecorded Are you denied basic needs s uch as food, clothing, or medical care? No 12/27/2024 In the past 12 months have y ou been in a relationship with a person who hurts, threatens, or tries to control you? No 12/27/2024 Are you denied basic needs s uch as food, clothing, or medical care? No 12/27/2024 In the past 12 months have y ou been in a relationship with a person who hurts, threatens, or tries to control you? No 12/27/2024 Comments No Sex and Gender Information Value Date Recorded Sex Assigned at Female 09/05/2024 11:36 PM EDT Legal Sex Female 1:37 PM EDT Gender Identity Female 09/06/2024 4:18 PM EDT Sexual Orientation Straight 12/11/2024 3: 13 AM EDT Last Filed Vital Signs Vital Sign Reading Time Taken Comments Blood Pressure 125/73 12/27/2024 10:11 AM EDT Pulse 70 12/27/2024 10:11 AM EDT Temperature 36.9 C (98.4 F) 12/27/2024 10:11 AM EDT Respiratory Rate 16 12/27/2024 10:11 AM EDT Oxygen Saturation 98% 12/27/2024 10:11 AM EDT Inhaled Oxygen Concentration - - Weight 78.5 kg (173 lb) 12/27/2024 9:12 AM EDT Height 167.6 cm (5' 6 ) 12/27/2024 9:12 AM EDT Body Mass Index 27.92 12/27/2024 9:12 AM EDT Plan of Treatment Health Maintenance Due Date Last Done Comments Adult Td,Tdap Booster 1984 DEPRESSION SCREENING 1996 HEPATITIS C SCREENING 2002 HIV ONE-TIME SCREENING (18-6 5 YEARS) 2002 PNEUMOCOCCAL VACCINES (0-49 years) (1 of 2 - PCV) 10/07/2003 PAP SMEAR 2005 COVID-19 VACCINE ( - 2023-2 5 season) 2024 MAMMOGRAM 2024 SMOKING Hx and SMOKELESS TOBACCO SCREENING 12/11/2025 12/11/2024 SCREENING FOR DIABETES 09/06/2027 , 09/05/2024 HEPATITIS A VACCINES Aged Out No long er eligible based on patient's age to complete this topic HIB VACCINES Aged Out No longer eligi ble based on patient's age to complete this topic MENINGOCOCCAL VACCINES (ACWY) Aged Out No longer eligible based on patient's age to complete this topic MENINGOCOCCAL VACCINES (B) Aged Out N o longer eligible based on patient's age to complete this topic Medical Devices Not on file Procedures Procedure Name Priority Date/Time Associated Diagnosis Comments XR KNEE 4 OR MORE VIEWS (LEFT) Routine 12/27/2024 9:31 AM EDT XR ANKLE 3 OR MORE VIEWS (LEFT) Routine 12/11/2024 2:41 PM EDT from Last 3 Months Results * XR KNEE 4 OR MORE VIEWS (LEFT) (12/27/2024 9:31 AM EDT) MGB IMG CONSUMER RELATIONS SPECIALIST COMMENT Intra-articul ar fractures with lipohemarthro sis. [facility] Anatomical Region Laterality Modality Knee Left Computed Radiogr aphy 12/27/2024 10:3 5 AM EDT Impressions 12/27/2024 10:40 AM EDT Minimally displaced, comminuted, intra-articular medial tibial plateau/metaphyseal fracture. Moderate lipohemarthrosis, likely from articular involvement from above. Vertical lucency projecting over the fibular metadiaphysis extending to the tibiofibular articular interface, may represent additional nodules placed fracture. Normal alignment. Tricompartmental marginal hypertrophic lipping. A clinically significant result was initiated on 12/27/2024 10:40 AM, Message ID [id number]. Narrative 12/27/2024 10:40 AM EDT XR KNEE 4 OR MORE VIEWS (LEFT) Referring clinician's provided indication for this examination in Epic: Pain; Trauma COMPARISON: None. Procedure Note Milly Magana MD - 12/27/2024 XR KNEE 4 OR MORE VIEWS (LEFT) Referring clinician's provided indication for this examination in Epic:Pain; Trauma COMPARISON: None. IMPRESSION: Minimally displaced, comminuted, intra-articular medial tibialplateau/metaphyseal fracture. Moderate lipohemarthrosis, likely from articular involvement from above. Vertical lucency projecting over the fibular metadiaphysis extending tothe tibiofibular articular interface, may represent additional nodulesplaced fracture. Normal alignment. Tricompartmental marginal hypertrophic lipping. A clinically significant result was initiated on 12/27/2024 10:40 AM,Message ID [id number]. Rafal Freeman MD IMG XR LOWER EXTREMITY Fin al Result * XR ANKLE 3 OR MORE VIEWS (LEFT) (12/11/2024 2:41 PM EDT) Anatomical Region Laterality Modality Ankle Left Computed Radiogr aphy 12/11/2024 4:15 PM EDT Impressions 12/11/2024 4:16 PM EDT No fracture or dislocation. Narrative 12/11/2024 4:16 PM EDT XR ANKLE 3 OR MORE VIEWS (LEFT) Referring clinician's provided indication for this examination in Epic: Pain COMPARISON: XR ANKLE 3 OR MORE VIEWS (LEFT) FINDINGS: No fracture. Normal alignment. Symmetric ankle mortise. Normal joint spaces. Soft tissue swelling over the lateral malleolus. Procedure Note Cheyenne Horton MD - 12/11/2024 XR ANKLE 3 OR MORE VIEWS (LEFT) Referring clinician's provided indication for this examination in Epic:Pain COMPARISON: XR ANKLE 3 OR MORE VIEWS (LEFT) FINDINGS: No fracture. Normal alignment. Symmetric ankle mortise. Normal jointspaces. Soft tissue swelling over the lateral malleolus. IMPRESSION: No fracture or dislocation. [place] Nikkei Sutton MD IMG XR LOWER EXTREMITY Fi nal Result from Last 3 Months Insurance C3 ACO C3 ACO C3 ACO C3 ACO C3 ACO C3 ACO Advance Directives For more information, please contact: [phone] (9AM - 5PM [facility], Thursday-Thursday) * Full Code (Latest Code Status on File) Date Activated Date Inactivated Comments 09/06/2024 3:45 PM Question Answer Comments Code Status Confirmed With: Patient Care Teams Competitive Intelligence Analyst Relationship Specialty Start Date End Date Kenyetta Castro MD [address] [place] [id number] PCP - General Family Medicine 12/11/24 Additional Source Comments The information contained in this document represents components of the legal health record. It is not the complete legal health record.[facility]
--- OUTSIDE RECORDS SUMMARY | 2025-01-30 11:14 | XMS_ITS | Clinical Summary ---
Author Organization [facility] Address [address] [place] [address] Care Team Providers Care Personal Care Assistant Name Role Phone Kenyetta Castro MD Primary Care Provider [phone] Ira Monterroso Unavailable Unavailable Allergies Active Allergy Reactions Criticality Noted Date Comments Fish Allergy Hives Low 08/29/2024 Sulfa Antibiotics Hives Medium 08/29/2024 Medications albuterol (ProAir HFA) 108 (90 Base) MCG/ACT inhaler Inhale 1 puff every 6 (six) hours if needed for wheezing or shortness of breath. 2 Active topiramate (Topamax) 200 MG tabletIndications: Seizure (CMS/HCC) Take 1 tablet (200 mg) by mouth 2 times daily. 180 tablet 5 Active traZODone (Desyrel) 50 MG tabletIndications: Psychophysiologica l insomnia Take 1 tablet (50 mg) by mouth at bedtime. 90 tablet 5 Active OLANZapine zydis (ZyPREXA) 10 MG disintegrating tabletIndications: Bipolar affective disorder, currently depressed, moderate (CMS/HCC) Take 1 tablet (10 mg) by mouth at bedtime. 90 tablet 5 Active Active Problems Problem Noted Date Diagnosed Date Unsheltered homelessness 08/29/2024 Seizure 08/29/2024 Pancreas cyst 08/29/2024 Encounters Date Type Department Care Team Description 01/11/2025 Patient Outreach [facility] (C3) Department [address] [phone] Je Coker c3 care management 12/28/2024 Telephone [facility] Information Management [address] [place] [address] Kenyetta Castro MD 12/22/2024 Patient Outreach [facility] (C3) Department [address] [place] [phone] Virgen Rojas care management (Notification of Closed RN Care Management //C3 Member Katia Wild 1985 has closed services as Lost Contact . /Member transferred to Other:Unable to reach///diabetes clinical manager:Virgen Rojas clinical nurse wound care) 12/12/2024 Patient Outreach [facility] ([facility]) Department [address] [place] [phone] Je Coker 11/25/2024 Patient Outreach [facility] ([facility]) Department [address] [place] [phone] Virgen Rojas 11/16/2024 Patient Outreach [facility] ([facility]) Department [address] [place] [phone] Virgen Rojas 11/09/2024 Patient Outreach [facility] ([facility]) Department [address] [place] [phone] Virgen Rojas 11/09/2024 Patient Outreach [facility] ([facility]) Department [address] [place] [address] Je Coker 11/02/2024 Patient Outreach [facility] ([facility] Department [address] [place] [address] Je Coker from Last 3 Months Social History Tobacco Use Types Packs/Day Years Used Date Smoking Tobacco: Every Day Cigarettes 1 30.6 Started: 1994 Alcohol Use Standard Drinks/Week Comments Not Asked 0 (1 standard drink = 0.6 oz pur e alcohol) Very rare Comments Unknown Sex and Gender Information Value Date Recorded Sex Assigned at Female 07/18/2024 2:18 PM EST Legal Sex Female 2:16 PM EST Gender Identity Female 07/18/2024 2:18 PM EST Sexual Orientation Straight 07/18/2024 2: 18 PM EST Last Filed Vital Signs Vital Sign Reading Time Taken Comments Blood Pressure 103/73 08/29/2024 11:05 AM EST Pulse 88 08/29/2024 11:05 AM EST Temperature - - Respiratory Rate 18 08/29/2024 11:05 AM EST Oxygen Saturation - - Inhaled Oxygen Concentration - - Weight 91.4 kg (201 lb 9.6 oz) 08/29/2024 11:05 AM EST Height 167.6 cm (5' 6 ) 08/29/2024 11:05 AM EST Body Mass Index 32.54 08/29/2024 11:05 AM EST Plan of Treatment Health Maintenance Due Date Last Done Comments Depression Screening 1984 HIV Screening 1984 Lipid Panel 1984 SDOH Screening 1984 Disability Screening 1984 Alcohol/Substance Use Screening 1996 Family Planning (PISQ) 10/07/1999 HPV Vaccines (1 - 3-dose series) 10/07/1999 Hepatitis C Screening 2002 DTaP/Tdap/Td Vaccines (1 - Tdap) 10/07/2003 Hepatitis A Vaccines (1 of 2 - Risk 2-dose series) 10/07/2003 Hepatitis B Vaccines (1 of 3 - 19+ 3-dose series) 10/07/2003 Pneumococcal Vaccine: Pediat rics (0 to 5 Years) and At-Risk Patients (6 to 49) Years (1 of 2 - PCV) 10/07/2003 Pap Smear 2005 Cervical Cancer Screening 2014 HPV/Cotest 2014 COVID-19 Vaccine ( - 2023-2 5 season) 2024 Mammogram 2024 Influenza Vaccine (#1) 2025 Tobacco Screening 08/29/2025 08/29/2024 Diabetes: Hemoglobin A1C 09/05/2025 09/05/2024 Zoster Vaccines (1 of 2) 2034 RSV Patients and Pa tients Aged 60 years or older (1 - 1-dose 75+ series) 10/07/2059 HIB Vaccines Aged Out No longer eligi ble based on patient's age to complete this topic IPV Vaccines Aged Out No longer eligi ble based on patient's age to complete this topic Meningococcal B Vaccine Aged Out No l onger eligible based on patient's age to complete this topic Meningococcal Vaccine Aged Out No drea kyle eligible based on patient's age to complete this topic RSV under 20 months Aged Out No longe r eligible based on patient's age to complete this topic Rotavirus Vaccines Aged Out No longer eligible based on patient's age to complete this topic Insurance [facility] Care Teams Personal Care Assistant Relationship Specialty Start Date End Date Kenyetta Castro MD [address] [place] [id number] PCP - General Family Medicine 08/29/24 Ira Monterroso Health Navigator Financial Counseling and Assistance Services 09/20/24
== END 2025-01-30 10:28 | disposition home or self-care (01) ==
LOC: HO.HOSX 10:27
DX: S82.132D Displaced fracture of medial condyle of left tibia, subsequent encounter for closed fracture with routine healing (principal); M17.11 Unilateral primary osteoarthritis, right knee; M25.562 Pain in left knee; M79.89 Other specified soft tissue disorders; X58.XXXD Exposure to other specified factors, subsequent encounter
CPT/HCPCS: 73562; 99212

== ENCOUNTER → 2025-01-30 10:36 | Outpatient (BNV) | payer MEDICAID, SELFPAY | PROVIDERS: Visit Provider Radiology Diagnostic Radiology | DX: M25.562 Pain in left knee (principal) | CPT/HCPCS: 73562 ==

== ENCOUNTER 2025-01-30 10:56 | Outpatient (AMB) | payer MEDICAID, SELFPAY ==
--- NOTE | 2025-01-30 11:08 | MHC.OFFVIS ---
Vital Signs 01/30/25 11:09 Height 5 ft 6 in Weight 184 lb BMI 29.7 Intake Visit Reasons: FC-LT tibial plateau fx, DOI ?--NEEDS XRAY Intake Note: Katia is a 39 year old female who presents today for a new problem visit status post left tibial plateau, DOI: . Patient was evaluated at [facility] on 12/27/24 where she was diagnosed with a minimally displaced, comminuted, intra-articular medial tibial plateau and metaphysis fracture. Patient complains of pain on the medial aspect of the left knee with associated swelling. She has been taking Tylenol Extra Srength 500 mg every 4-6 hours without relief of pain. She denies numbness or tingling. Denies previous surgeries to the left knee. She is wearing a knee immobilizer she was given at the ED and using a wheelchair the [facility] gave her because it did not belong to their hospital. Allergies stringer (CHERRIES) Allergy (Severe, Verified 01/30/25 11:17) ANAPHYLAXIS gabapentin (From NEURONTIN) Allergy (Unknown, Verified 01/30/25 11:17) MUSCLE SPASMS lamotrigine (From LAMICTAL) Allergy (Unknown, Verified 01/30/25 11:17) MUSCLE SPASMS oxcarbazepine (From TRILEPTAL) Allergy (Unknown, Verified 01/30/25 11:17) MUSCLE SPASMS Sulfa (Sulfonamide Antibiotics) (SULFA (SULFONAMIDE ANTIBIOTICS)) Allergy (Unknown, Verified 01/30/25 11:17) UNKNOWN coconut Allergy (Verified 01/30/25 11:17) Anaphylaxis fish derived (fish) Allergy (Verified 01/30/25 11:17) Anaphylaxis HPI HPI FC-LT tibial plateau fx, DOI ?--NEEDS XRAY: Details: Katia is a 39 year old female who presents today for a new problem visit status post left tibial plateau, DOI: . Patient was evaluated at [facility] on 12/27/24 where she was diagnosed with a minimally displaced, comminuted, intra-articular medial tibial plateau and metaphysis fracture. Patient complains of pain on the medial aspect of the left knee with associated swelling. She has been taking Tylenol Extra Srength 500 mg every 4-6 hours without relief of pain. She denies numbness or tingling. Denies previous surgeries to the left knee. She is wearing a knee immobilizer she was given at the ED and using a wheelchair the [facility] gave her because it did not belong to their hospital. Patient reports that her pain and swelling have both improved significantly since she was evaluated at the hospital, but her knee is still significantly painful. Of note, the patient does state that while she was advised to be nonweightbearing at the hospital, she has attempted weight-bearing several times on the left lower extremity. [facility] Medical History Borderline personality disorder Mood disorder Pain, dental Psychosis Psychosis Bipolar 1 disorder Circulation problem Asthma Surgical History Hx of tubal ligation Tubal ligation status Social History Household Members: None Household Members Other:: AND DOG Housing: Homeless Housing Other:: GETTING EVICTED ON 03/24/24 Do you presently have visiting nurse or other home services: No Alcohol intake: current Alcohol intake frequency: does not drink Patient Tobacco Use Status: Current everyday Tobacco user Tobacco use type: Cigarette Cigarette Packs Per Day: 1 Cigarettes Per Day: 20.0 Years Smoked: 15 e-Cigarette/Vaping Use: Never Used Second Hand Smoke Exposure: Yes Substance Use Type: Marijuana Advance Directives Date on File: 08/08/22 service: No Current occupational status: 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 Sexual orientation: Unable to collect Female Reproductive History Menstrual Age of Menarche: 11 Review of Systems Const All systems reviewed & are unremarkable except as noted in HPI and below Physical Exam Vital Signs: BMI result Body Mass Index 29.7 Extrem Other: Patient's left knee is slightly swollen to inspection, particularly in the medial aspect No erythema, ecchymosis noted No lacerations, abrasions, open areas No evidence of infection Patient reports tenderness to palpation of the Medial aspect of the left knee, particularly of the tibial plateau Pain with range of motion of the left knee Patient is able to flex the left knee to approximately 30 degrees in the office today Distal sensation intact Capillary refill brisk Office Procedures AMB Fracture Care Fracture Billing Code: Fracture Billing Code Results Reviewed Results Reviewed: X-rays obtained in the office today and independently reviewed by , Cam Restrepo PA-C, demonstrate very minimally displaced tibial plateau fracture of the medial aspect of the left knee with evidence of interval bony healing. Assessment & Plan Assessment & Plan (1) Left medial tibial plateau fracture: Code(s): S82.132A - Displaced fracture of medial condyle of left tibia, initial encounter for closed fracture Category: Medical Plan 1. Tibial plateau fracture of the left knee, medial aspect Date of injury 12/27/2024 Patient is educated about this condition Patient is educated about the typical recovery course, particularly the knee to be completely nonweightbearing on the left lower extremity for approximately 3 months postoperatively Patient is educated that she no longer requires use of a knee immobilizer, but is provided with a hinged knee brace for increased stability PT ordered for range of motion of the left knee Patient is educated she can work on range of motion of the left knee at home, but should not be bearing any weight on the left lower extremity, as this could cause displacement of the fracture and the need for further, more invasive intervention Patient understands this and is amenable to this plan Follow-up in 6 weeks with repeat x-rays for reassessment, sooner with any acute concerns Orders: Orders PT Evaluation and Treatment Today S82.132A - Displaced fracture of medial condyle of left tibia, initial encounter for closed fracture Coding Level of Care Code New Pt Level 3 (55846) Diagnoses Left medial tibial plateau fracture S82.132A CPT Codes Fracture Care - Fracture Billing Code: Fracture Billing Code ([id number])
[2025-01-30 11:09] VITALS: BMI 29.7
== END 2025-01-30 11:58 | disposition home or self-care (01) ==
LOC: HO.HOS 10:57
DX: S82.132A Displaced fracture of medial condyle of left tibia, initial encounter for closed fracture (principal)
CPT/HCPCS: 99213

== ENCOUNTER 2025-03-14 08:21 | Outpatient (REF) | payer MEDICAID, SELFPAY ==
--- NOTE | ~2025-03-14 | XR_ITS ---
EXAMINATION: XR KNEE, LEFT CLINICAL INFORMATION: M25.562 - Pain in left knee COMPARISON: January 30, 2025 December 11, 2022. TECHNIQUE: AP view in standing position both knees. Lateral and sunrise view of the left knee. FINDINGS: 14 mm metallic plate at the superior lateral aspect of the right patella, unchanged. Trabeculated cylindrical shaped lucency in the medial aspect of the distal metaphysis right femur, unchanged. Trabeculated morphology pattern of the lateral femoral condyle and to a lesser extent lateral tibial plateau. The patella is in normal position, left knee. No acute cortical disruption or malalignment, left knee. No suprapatellar bursa joint effusion, left knee. Joint space narrowing, medial compartment, left knee. XR/XR knee LT 3V IMPRESSION: Mild medial compartment osteoarthrosis/osteoarthritis, left knee. No acute fracture or dislocation, left knee. Electronically signed by: Lukas Garcia MD 03/14/2025 10:20 AM EDT
== END 2025-03-14 08:22 | disposition home or self-care (01) ==
LOC: HO.HOSX 08:21
DX: S82.132D Displaced fracture of medial condyle of left tibia, subsequent encounter for closed fracture with routine healing (principal); X58.XXXD Exposure to other specified factors, subsequent encounter
CPT/HCPCS: 73562; 99212

== ENCOUNTER 2025-03-14 09:49 | Outpatient (AMB) | payer MEDICAID, SELFPAY ==
--- NOTE | 2025-03-14 10:31 | A.OFFVIS_ITS ---
Vital Signs 03/14/25 10:35 Height 5 ft 6 in Weight 184 lb BMI 29.7 Intake Visit Reasons: OV-LT tibial plateau fx, DOI 12/27/24--NEEDS XRAY Intake Note: Katia is a 39 year old female who presents today for follow up status post Left Tibial Plateau, DOI: 12/27/24. On 01/30/25 knee immobilizer was discontinued. Patient was provided with a hinged knee brace and a referral to Physical Therapy was placed. Patient instructed to remain non-weight bearing. Patient reports today she continues using the knee brace as instructed, non-weight bearing. She complains of pain below the knee and the medial aspect of the knee. She is not taking any pain medications at this time. Patient is using a wheelchair to move around. Allergies stringer (CHERRIES) Allergy (Severe, Verified 03/14/25 10:42) ANAPHYLAXIS gabapentin (From NEURONTIN) Allergy (Unknown, Verified 03/14/25 10:42) MUSCLE SPASMS lamotrigine (From LAMICTAL) Allergy (Unknown, Verified 03/14/25 10:42) MUSCLE SPASMS oxcarbazepine (From TRILEPTAL) Allergy (Unknown, Verified 03/14/25 10:42) MUSCLE SPASMS Sulfa (Sulfonamide Antibiotics) (SULFA (SULFONAMIDE ANTIBIOTICS)) Allergy (U nknown, Verified 03/14/25 10:42) UNKNOWN coconut Allergy (Verified 03/14/25 10:42) Anaphylaxis fish derived (fish) Allergy (Verified 03/14/25 10:42) Anaphylaxis naproxen Allergy (Unverified 03/14/25 10:43) Has Sulfa-per patient HPI HPI OV-LT tibial plateau fx, DOI 12/27/24--NEEDS XRAY: Details: Katia is a 39 year old female who presents today for follow up status post Left Tibial Plateau, DOI: 12/27/24. On 01/30/25 knee immobilizer was discontinued. Patient was provided with a hinged knee brace and a referral to Physical Therapy was placed. Patient instructed to remain non-weight bearing. Patient reports today she continues using the knee brace as instructed, although the patient does report that she has been putting weight on the left lower extremity since previous evaluation.. She complains of pain below the knee and the medial aspect of the knee. She is not taking any pain medications at this time. Patient is using a wheelchair to move around. [facility] Medical History Borderline personality disorder Mood disorder Pain, dental Psychosis Psychosis Bipolar 1 disorder Circulation problem Asthma Surgical History Hx of tubal ligation Tubal ligation status Social History Household Members: None Household Members Other:: AND DOG Housing: Homeless Housing Other:: GETTING EVICTED ON 03/24/24 Do you presently have visiting nurse or other home services: No Alcohol intake: current Alcohol intake frequency: does not drink Patient Tobacco Use Status: Current everyday Tobacco user Tobacco use type: Cigarette Cigarette Packs Per Day: 1 Cigarettes Per Day: 20.0 Years Smoked: 15 e-Cigarette/Vaping Use: Never Used Second Hand Smoke Exposure: Yes Substance Use Type: Marijuana Advance Directives Date on File: 08/08/22 service: No Current occupational status: 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 Sexual orientation: Unable to collect Female Reproductive History Menstrual Age of Menarche: 11 Review of Systems Const All systems reviewed & are unremarkable except as noted in HPI and below Physical Exam Vital Signs: BMI result Body Mass Index 29.7 Extrem Other: Patient's left knee is no longer edematous to inspection No erythema, ecchymosis noted No lacerations, abrasions, open areas No evidence of infection Patient reports mild tenderness to palpation of the Medial aspect of the left knee, particularly of the tibial plateau, improved from previous visit Pain with range of motion of the left knee Patient is able to flex the left knee to approximately 100 degrees in the office today Distal sensation intact Capillary refill brisk Results Reviewed Results Reviewed: X-rays obtained in the office today and independently reviewed by me, Cam Restrepo PA-C, demonstrate very minimally displaced tibial plateau fracture of the medial aspect of the left knee with evidence of interval bony healing. Assessment & Plan Assessment & Plan (1) Left medial tibial plateau fracture: Code(s): S82.132A - Displaced fracture of medial condyle of left tibia, initial encounter for closed fracture Category: Medical Plan 1. Tibial plateau fracture of the left knee, medial aspect Date of injury 12/27/2024 Patient is educated about this condition Patient is educated about the typical recovery course, and is advised that she can begin weight-bearing as tolerated on the left lower extremity at this time Should continue physical therapy for range of motion, strengthening, gait training of the left knee Patient is educated she can work on range of motion of the left knee at home Patient is educated that she can continue to wear a knee brace for comfort Patient is educated that if she begins to experience an acute increase pain while weight-bearing, she should resume nonweightbearing status on the left knee and call our office Patient understands this and is amenable to this plan Follow-up in 6-8 weeks with repeat x-rays for reassessment, sooner with any acute concerns Orders: Orders XR knee LT 3V 03/14/25 M25.562 - Pain in left knee Coding Level of Care Code Global (29142) Diagnoses Left medial tibial plateau fracture S82.132A
[2025-03-14 10:35] VITALS: BMI 29.7
--- OUTSIDE RECORDS SUMMARY | 2025-03-14 12:38 | XMS_ITS | Clinical Summary ---
Author Organization [facility] Address [address] [facility] [address] [place] [address] Phone Care Team Providers Care Cosmetics Presser Name Role Phone Kenyetta Castro MD Primary Care Provider + [phone] Allergies Active Allergy Reactions Criticality Noted Date [...] 10:36 AM EDT Emergency [facility] [address] [place] [address] Rafal Freeman MD Discharge Disposition: Eloped After Being Seen By Provider from Last 3 Months Social History Tobacco Use Types Packs/Day Years Used Date Smoking Tobacco: Every Day Cigarettes 1 6.4 Started: 10/13/2018 Tobacco Cessation:Ready to Q uit: [...] housing (staying in a hotel, in a fdc, living outside on the street, on a [...] 2 - PCV) 10/07/2003 PAP SMEAR 2005 MAMMOGRAM 2024 INFLUENZA VACCINE (#1) 2025 COVID-19 VACCINE (2023-2 5 season) 2025 SMOKING Hx and SMOKELESS TOBACCO SCREENING 12/11/2025 [...] VIEWS (LEFT) Routine 12/27/2024 9:31 AM EDT from Last 3 Months Results * XR KNEE 4 OR MORE VIEWS (LEFT) (12/27/2024 9:31 AM EDT) MGB IMG OPERATOR COMMENT Intra-articul ar fractures with lipohemarthro sis. [facility] Anatomical Region Laterality Modality Knee Left Computed [...] initiated on 12/27/2024 10:40 AM, Message ID [id number]. Narrative 12/27/2024 10:40 AM EDT XR KNEE 4 OR MORE VIEWS (LEFT) Referring clinician's provided indication for this examination in Epic: Pain; Trauma COMPARISON: None. Procedure Note Milly Magana MD - 07/01/2025 XR KNEE 4 OR MORE VIEWS (LEFT) [...] was initiated on 12/27/2024 10:40 AM,Message ID [id number]. Rafal Freeman MD IMG XR LOWER EXTREMITY Fin al Result from Last 3 Months Insurance [employer] [place] [id number] Advance Directives For more information, please contact: [phone] (9AM - 5PM [facility], Thursday-Thursday) * Full Code (Latest Code Status on File) Date Activated Date Inactivated Comments 09/06/2024 3:45 PM Question Answer Comments Code Status Confirmed With: Patient Care Teams Cosmetics Presser Relationship Specialty Start Date End Date Kenyetta Castro MD [address] [place] [id number] PCP - General Family Medicine 12/11/24 Additional Source Comments The information contained in this document represents components of the legal health record. It is not the complete legal health record.[facility]
--- OUTSIDE RECORDS SUMMARY | 2025-03-14 12:38 | XMS_ITS | Clinical Summary ---
Author Organization [employer] Address [address] [facility] 7[address] [place] [address] Care Team Providers Care Supervisor Cell Room Name Role Phone Kenyetta Castro MD Primary Care Provider [phone] Ira Monterroso Unavailable Unavailable Allergies Active Allergy [...] Encounters Date Type Department Care Team Description 02/13/2025 Patient Outreach [facility] (C3) Department [address] [phone] Je Coker c3 care management 01/11/2025 Patient Outreach [facility] (C3) Department [address] [phone] Je Coker c3 care management 12/28/2024 Telephone [facility] Information Management [address] [place] [address] Kenyetta Castro MD 12/22/2024 Patient Outreach [facility] Care [facility] (C3) Department [address] [phone] Virgen Rojas c3 care management (Notification of Closed RN Care Management //C3 Member Katia Wild 1985 has closed services as Lost Contact . /Member transferred to Other:Unable to reach///manager wholesale:Virgen Rojas clinical continuum of care manager) 12/12/2024 Patient Outreach [facility] (C3) Department [address] [place] [phone] Je Coker from Last 3 Months Social History Tobacco Use Types Packs/Day Years Used Date Smoking Tobacco: Every Day Cigarettes 1 30.7 Started: 1994 Alcohol Use Standard Drinks/Week Comments [...] 2005 Cervical Cancer Screening 2014 HPV/Cotest 2014 Mammogram 2024 COVID-19 Vaccine (1 - 2023-2 5 season) 2025 Influenza Vaccine (#1) 2025 Tobacco Screening 08/29/2025 [...] patient's age to complete this topic Insurance [facility] [place] [id number] Care Teams Supervisor Cell Room Relationship Specialty Start Date End Date Kenyetta Castro MD [address] [place] [address] PCP - General Family Medicine 08/29/24 Ira Monterroso Health Navigator Financial Counseling and Assistance Services 09/20/24
== END 2025-03-14 11:06 | disposition home or self-care (01) ==
LOC: HO.HOS 09:49
DX: S82.132A Displaced fracture of medial condyle of left tibia, initial encounter for closed fracture (principal)
CPT/HCPCS: 99213

== ENCOUNTER → 2025-03-14 09:53 | Outpatient (BNV) | payer MEDICAID, SELFPAY | PROVIDERS: Visit Provider Radiology Diagnostic Radiology | DX: M25.562 Pain in left knee (principal) | CPT/HCPCS: 73562 ==

== ENCOUNTER 2025-03-31 11:00 | Outpatient (RCR) | payer MEDICAID, SELFPAY ==
--- NOTE | 2025-02-17 14:06 | MHC.PT.EP ---
[facility] [place] Office [place] Office [place] Office [address] Keshav [place] [address] [phone] F: [phone] F: [phone] F: [phone] F: [phone] Physical Therapy Plan of Care Date of Evaluation: 02/17/25 Date of Surgery: N/A Diagnosis: left medial tibial plateau fracture (RL) Assessment: pt is a 39 y/o female presenting to physical therapy w/ referring diagnosis of left medial tibial plateau fracture. At this time, she is not compliant w/ her WBing status. I advised her to use the crutches she owns or at least bring them in to her next appt so we can assess safety. Impairments include pain, decreased range of motion, decreased strength, impaired functional mobility, impaired postural awareness, and altered ambulation mechanics. pt is a fair candidate for skilled PT due to age, potential remediation of impairments, typical disease/condition progression and prognosis, comorbidities, and motivation. pt would benefit from skilled PT intervention to provide a tailored strengthening and stretching exercise program, functional training, gait training, postural re-training, neuromuscular re-education, modalities as needed for pain, equipment safety demonstration. Frequency and Duration: The patient will be seen 2x/wk for 6 wks Short Term Goals: pt will be I w/ HEP to promote self-management of condition. pt will improve L quad strength by 1 MMT grade to promote ease in sit<>stand transfer. Fdc Goals: pt will report a statistically significant improvement in self-reported outcome measure, LEFI, to promote return to PLOF. pt will perform neutral lifting mechanics w/ 5# object to promote return to functional lifting. Treatment Plan: Modalities to reduce pain, spasms and effusion. Manual therapy to restore motion and function. Therapeutic exercise to improve strength and flexibility. Neuromuscular re-education for posture and balance. Therapeutic activities to return to functional activities of daily living. Electronically signed by: Tiesha Vidal PT, DPT Please sign and return to therapist. Thank you for your referral.
--- NOTE | 2025-04-11 12:06 | MHC.PT.DC ---
[facility] [place] Office [place] Office [place] Office [address] Keshav Durham [address] [facility] [phone] F: [phone] F: [phone] F: [phone] F: [phone] Physical Therapy Discharge Report Diagnosis: left medial tibial plateau fracture (RL) Date of Surgery: DOI 12/27/2024 Date of Evaluation: 02/17/25 Date of Discharge: 04/11/25 Treatments to Date: 8 Cancellations to Date: 2 No Shows to Date: 4 Discharge Status: Recommend MD Follow-up Visit Non-compliance Discharge Summary: The patient has no showed a total of four appointments. At this time, I do have to discharge her for attendance non-compliance. At her last attended visit she was still wearing her brace for activity which I recommended as she was reporting cracking localized to her patellar region. She was given multiple handouts for her exercises which I am hopeful she is continuing on her own. She is now discharged from this physical therapy plan of care. Electronically signed by: Tiesha Vidal PT, DPT Please sign and return to therapist. Thank you for your referral.
== END 2025-04-11 12:06 | disposition home or self-care (01) ==
LOC: HO.PT 11:00
PROVIDERS: PCP Family Medicine
DX: S82.132D Displaced fracture of medial condyle of left tibia, subsequent encounter for closed fracture with routine healing (principal); X58.XXXD Exposure to other specified factors, subsequent encounter
CPT/HCPCS: 97110; 97116; 97162; 97530

== ENCOUNTER 2025-05-10 11:47 | Outpatient (REF) | payer MEDICAID, SELFPAY ==
--- OUTSIDE RECORDS SUMMARY | 2025-05-10 14:42 | XMS_ITS | Clinical Summary ---
Author Organization [employer] Address [address] [facility] 7[address] [place] [address] Care Team Providers Care Supervisor Underwriting Clerks Name Role Phone Kenyetta Castro MD Primary Care Provider [phone] Ira Monterroso Unavailable Unavailable Virgen Rojas Unavailable Allergies Active Allergy Reactions Criticality Noted Date Comments Fish Allergy Hives Low 08/29/2024 Sulfa Antibiotics Hives Medium 08/29/2024 Medications albuterol (ProAir HFA) 108 (90 Base) MCG/ACT inhaler Inhale 1 puff every 6 (six) hours if needed for wheezing or shortness of breath. 2 Active topiramate (Topamax) 200 MG tabletIndications: Seizure (CMS/HCC) (HCC) Take 1 tablet (200 mg) by mouth 2 times daily. 180 tablet 5 Active traZODone (Desyrel) 50 MG tabletIndications: Psychophysiologica l insomnia Take 1 tablet (50 mg) by mouth at bedtime. 90 tablet 5 Active OLANZapine zydis (ZyPREXA) 10 MG disintegrating tabletIndications: Bipolar affective disorder, currently depressed, moderate (CMS/HCC) (HCC) Take 1 tablet (10 mg) by mouth at bedtime. 90 tablet 5 Active Active Problems Problem Noted Date Diagnosed Date Unsheltered homelessness 08/29/2024 Seizure (CMS/HCC) 08/29/2024 Pancreas cyst 08/29/2024 Encounters Date Type Department Care Team Description 05/02/2025 Patient Outreach [facility] Care [facility] (C3) Department [address] [place] [address] Virgen Rojas 04/13/2025 [facility] (C[facility] Department [address] [place] [phone] Bob Virgen 04/12/2025 Patient Outreach [facility] (C[facility]) Department [address] [place] [phone] Virgen Rojas 02/13/2025 Patient Outreach [facility] (C[facility]) Department [address] [place] [phone] Je Coker c3 care management from Last 3 Months Social History Tobacco Use Types Packs/Day Years Used Date Smoking Tobacco: Every Day Cigarettes 1 30.9 Started: 1994 Alcohol Use Standard Drinks/Week Comments [...] 08/29/2024 11:05 AM EST Plan of Treatment Upcoming Encounters Date Type Department Care Team (Late st Contact Info) Description 05/15/2025 11:30 AM EST Office Visit [facility] [address] [place] [address] Kenyetta Castro MD [address] [place] [address] Health Maintenance Due Date Last Done Comments [...] 2014 Mammogram 2024 COVID-19 Vaccine (1 - 2024-2 6 season) 2025 Influenza Vaccine (#1) 2025 Tobacco [...] patient's age to complete this topic [facility] Care Teams Supervisor Underwriting Clerks Relationship Specialty Start Date End Date Kenyetta Castro MD [address] [place] [address] PCP - General Family Medicine 08/29/24 Ira Monterroso Health Navigator Financial Counseling and Assistance Services 09/20/24 Virgen Rojas 04/12/25
--- OUTSIDE RECORDS SUMMARY | 2025-05-10 14:42 | XMS_ITS | Clinical Summary ---
Author Organization [facility] Address [address] [facility] [address] [place] [address] Phone Care Team Providers Care Software Project Lead Name Role Phone Kenyetta Castro MD Primary Care Provider [phone] Allergies Active Allergy Reactions Criticality Noted Date [...] 08/15/2024 Chronic pain of left ankle 05/08/2022 Social History Tobacco Use Types Packs/Day Years Used Date Smoking Tobacco: Every Day Cigarettes 1 6.6 Started: 10/13/2018 Tobacco Cessation:Ready to Q uit: [...] housing (staying in a hotel, in a [facility], living outside on the street, on a [...] 2024 INFLUENZA VACCINE (#1) 2025 COVID-19 VACCINE (1 - 2024-2 6 season) 2025 SMOKING Hx and SMOKELESS TOBACCO SCREENING 12/11/2025 12/11/2024 SCREENING FOR DIABETES 09/06/2027 , 09/05/2024 HEPATITIS A VACCINES Aged Out No long er eligible based on patient's age to complete this topic HIB VACCINES Aged Out No longer eligi ble based on patient's age to complete this topic IPV VACCINES Aged Out No longer eligi ble based on patient's age to complete this topic MENINGOCOCCAL VACCINES (ACWY) Aged Out No longer eligible based on patient's age to complete this topic MENINGOCOCCAL VACCINES (B) Aged Out N o longer eligible based on patient's age to complete this topic Medical Devices Not on file Insurance C3 ACO C3 ACO C3 ACO C3 ACO Advance Directives For more information, please contact: [phone] (9AM - 5PM [facility], Thursday-Thursday) * Full Code (Latest Code Status on File) Date Activated Date Inactivated Comments 09/06/2024 3:45 PM Question Answer Comments Code Status Confirmed With: Patient Care Teams Software Project Lead Relationship Specialty Start Date End Date Kenyetta Castro MD [address] [place] [id number] PCP - General Family Medicine 12/11/24 Additional Source Comments The information contained in this document represents components of the legal health record. It is not the complete legal health record.[facility]
--- OUTSIDE RECORDS SUMMARY | 2025-05-10 14:42 | XMS_ITS ---
Author Organization [employer] [facility] Address [address] [facility] 7t [place] [address] Care Team Providers Care Coat Tailor Name Role Phone Kenyetta Castro MD Primary Care Provider [phone] Ira Monterroso Unavailable Unavailable Virgen Rojas Unavailable CM Complex Status:Outreach In Progress (Enrolling) Start date:04/12/2025 Enrollment reason:Risk Strat Case Team Name Relationship Phone Virgen Rojas(Responsible Staff) [phone] Continued Care and Services Coordination
== END 2025-05-10 11:48 | disposition home or self-care (01) ==
LOC: HO.HOSX 11:47
DX: Z13.89 Encounter for screening for other disorder (principal)

== ENCOUNTER 2025-06-07 14:26 | Outpatient (REF) | payer MEDICAID, SELFPAY ==
--- NOTE | ~2025-06-07 | XR_ITS ---
EXAMINATION: XR KNEE 3 VIEWS LEFT HISTORY: M25.562 - Pain in left knee COMPARISON: Comparison is made with the prior examination dated 03/14/2025. FINDINGS: Standing AP views of both knees and additional lateral and sunrise patellar views of the left knee are submitted. Osseous mineralization is normal. There is no fracture or dislocation. The joint spaces are preserved. There are postsurgical changes involving the right knee. The soft tissues are unremarkable. XR/XR knee LT 3V IMPRESSION: Unremarkable examination of the left knee. Electronically signed by: Agnel Mathews MD 06/07/2025 03:19 PM [facility]
--- OUTSIDE RECORDS SUMMARY | 2025-06-08 22:06 | XMS_ITS | Clinical Summary ---
Author Organization [employer] Address [address] [facility] [address] [place] [address] Care Team Providers Care Feller Seam Operator Name Role Phone Kenyetta Castro MD Primary Care Provider [phone] Ira Monterroso Unavailable Unavailable Virgen Rojas Unavailable [...] Encounters Date Type Department Care Team Description 06/08/2025 [facility] Outreach [facility] [address] [place] [address] Virgen Rojas 05/23/2025 Patient Outreach [facility] ([facility]) Department [address] [place] [address] Virgen Rojas 05/22/2025 11:00 AM EST Office Visit [facility] [address] [place] [address] Kenyetta Castro MD Bipolar affective disorder, currently depressed, moderate (CMS/HCC) (HCC) (Primary Dx); Unsheltered homelessness; Anemia, unspecified type; Seizure (CMS/HCC) (HCC); Seizure disorder (CMS/HCC) (HCC) 05/15/2025 [facility] Outreach [facility] [address] [place] [address] Virgen Rojas 05/02/2025 Patient Outreach [facility] ([facility]) Department [address] [place] [address] Virgen Rojas 04/13/2025 [facility] Outreach [facility] Department [address] [place] [address] Virgen Rojas 04/12/2025 Patient Outreach [facility] ([facility]) Department [address] [place] [address] Virgen Rojas from Last 3 Months Social [...] Description 07/12/2025 11:00 AM EST Office Visit [facility] [address] [place] [address] Kenyetta Castro MD [address] [place] [address] Health Maintenance Due Date Last Done Comments [...] patient's age to complete this topic Insurance [facility] C3 Care Teams Feller Seam Operator Relationship Specialty Start Date End Date Kenyetta Castro MD [address] [place] [address] PCP - General Family Medicine 08/29/24 Ira Monterroso Health Navigator Financial Counseling and Assistance Services 09/20/24 Virgen Rojas 04/12/25
--- OUTSIDE RECORDS SUMMARY | 2025-06-08 22:06 | XMS_ITS | Encounter Summary ---
Author Organization [employer] [facility] Address [address] [facility] [address] [place] [address] Care Team Providers Care Skiing Teacher Name Role Phone Kenyetta Castro MD Primary Care Provider [phone] Ira Monterroso Unavailable Unavailable Virgen Rojas Unavailable Encounter Details Date Type Department Care Team (Late Contact Info) Description 06/08/2025 Patient Outreach [facility] ([facility]) Department [address] [id number] Virgen Rojas Social History Tobacco Use Types Packs/Day Years [...] Orientation Straight 07/18/2024 2: 18 PM EST documented as of this encounter Plan of Treatment Upcoming Encounters Date Type Department Care Team (Late Contact Info) Description 07/12/2025 11:00 AM EST Office Visit [facility] [address] [place] [address] Kenyetta Castro MD [address] [place], [place] documented as of this encounter Visit Diagnoses Not on filedocumented in this encounter Care Teams Skiing Teacher Relationship Specialty Start Date End Date Kenyetta Castro MD [address] [facility] [place] [address] PCP - General Family Medicine 08/29/24 Ira Monterroso Health Navigator Financial Counseling and Assistance Services 09/20/24 Virgen Rojas 04/12/25 documented as of this encounter
--- OUTSIDE RECORDS SUMMARY | 2025-06-08 22:06 | XMS_ITS | Clinical Summary ---
Author Organization [facility] Address [address] [facility] [address] [place] [address] Phone Care Team Providers Care Apigee Developer Name Role Phone Kenyetta Castro MD Primary Care Provider + [phone] Allergies Active Allergy Reactions Criticality Noted Date [...] Date Smoking Tobacco: Every Day Cigarettes 1 6.7 Started: 10/13/2018 Tobacco Cessation:Ready to Q uit: [...] housing (staying in a hotel, in a residential, living outside on the street, on a [...] Advance Directives For more information, please contact: [phone] (9AM - 5PM [facility], Thursday-Thursday) * Full Code (Latest Code Status on File) Date Activated Date Inactivated Comments 09/06/2024 3:45 PM Question Answer Comments Code Status Confirmed With: Patient Care Teams Apigee Developer Relationship Specialty Start Date End Date Kenyetta Castro MD [address] [place] [address] PCP - General Family Medicine 12/11/24 Additional Source Comments The information contained in this document represents components of the legal health record. It is not the complete legal health record.[facility]
--- OUTSIDE RECORDS SUMMARY | 2025-06-08 22:07 | XMS_ITS ---
Author Organization [employer] [facility] Address [address] [facility] 7[address] [place] [address] Care Team Providers Care Proposal Engineer Name Role Phone Kenyetta Castro MD Primary Care Provider [phone] Ira Monterroso Unavailable Unavailable Virgen Rojas Unavailable CM Complex Status:Outreach In Progress (Enrolling) Start date:04/12/2025 Enrollment reason:Risk Strat Case Team Name Relationship Phone Virgen Rojas(Responsible Staff) [phone] Continued Care and Services Coordination
== END 2025-06-07 14:27 | disposition home or self-care (01) ==
LOC: HO.HOSX 14:26
DX: S82.132D Displaced fracture of medial condyle of left tibia, subsequent encounter for closed fracture with routine healing (principal); M17.12 Unilateral primary osteoarthritis, left knee; X58.XXXD Exposure to other specified factors, subsequent encounter
CPT/HCPCS: 73562

== ENCOUNTER 2025-06-07 15:06 | Outpatient (AMB) | payer MEDICAID, SELFPAY ==
[2025-06-07 15:18] VITALS: BMI 29.7
--- NOTE | 2025-06-07 15:18 | A.OFFVIS_ITS ---
Vital Signs 06/07/25 15:18 Height 5 ft 6 in Weight 184 lb BMI 29.7 Intake Visit Reasons: OV-LT tibial plateau fx, DOI 12/27/24--NEEDS XRAY Intake Note: Katia is a 39 year old female who presents today for follow up status post Left Tibial Plateau, DOI: 12/27/24. She was last seen on 03/14/25 where she was advised to begin weight-bearing as tolerated, continuing with physical therapy, and using her knee brace as needed. Patient reports today her knee is clicking, popping, and cracking. She states she is not happy. She denies any new injuries. Allergies stringer (CHERRIES) Allergy (Severe, Verified 06/07/25 15:22) ANAPHYLAXIS gabapentin (From NEURONTIN) Allergy (Unknown, Verified 06/07/25 15:22) MUSCLE SPASMS lamotrigine (From LAMICTAL) Allergy (Unknown, Verified 06/07/25 15:22) MUSCLE SPASMS oxcarbazepine (From TRILEPTAL) Allergy (Unknown, Verified 06/07/25 15:22) MUSCLE SPASMS Sulfa (Sulfonamide Antibiotics) (SULFA (SULFONAMIDE ANTIBIOTICS)) Allergy (Unknown, Verified 06/07/25 15:22) UNKNOWN coconut Allergy (Verified 06/07/25 15:22) Anaphylaxis fish derived (fish) Allergy (Verified 06/07/25 15:22) Anaphylaxis naproxen Allergy (Unverified 06/07/25 15:22) Has Sulfa-per patient HPI HPI OV-LT tibial plateau fx, DOI 12/27/24--NEEDS XRAY: Details: Katia is a 39 year old female who presents today for follow up status post Left Tibial Plateau, DOI: 12/27/24. She was last seen on 03/14/25 where she was advised to begin weight-bearing as tolerated, continuing with physical therapy, and using her knee brace as needed. Patient reports today her knee is clicking, popping, and cracking. She states she is not happy. She denies any new injuries, however does state that she did almost fall today due to knee locking. Patient states ?I am going to need some kind of surgery? [facility] Medical History Borderline personality disorder Mood disorder Pain, dental Psychosis Psychosis Bipolar 1 disorder Circulation problem Asthma Surgical History Hx of tubal ligation Tubal ligation status Social History Household Members: None Household Members Other:: AND DOG Housing: Homeless Housing Other:: GETTING EVICTED ON 03/24/24 Do you presently have visiting nurse or other home services: No Alcohol intake: current Alcohol intake frequency: does not drink Patient Tobacco Use Status: Current everyday Tobacco user Tobacco use type: Cigarette Cigarette Packs Per Day: 1 Cigarettes Per Day: 20.0 Years Smoked: 15 e-Cigarette/Vaping Use: Never Used Second Hand Smoke Exposure: Yes Substance Use Type: Marijuana Advance Directives Date on File: 08/08/22 service: No Current occupational status: 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 Sexual orientation: Unable to collect Female Reproductive History Menstrual Age of Menarche: 11 Physical Exam Vital Signs: BMI result Body Mass Index 29.7 Extrem Other: Patient's left knee is no longer edematous to inspection No erythema, ecchymosis noted No lacerations, abrasions, open areas No evidence of infection Patient diffusely tender to palpation throughout the left knee Pain with range of motion of the left knee Patient is able to flex the left knee to approximately 100 degrees in the office today, can extend fully without difficulty No ligamentous laxity noted with varus and valgus testing Negative anterior drawer Distal sensation intact Capillary refill brisk Results Reviewed Results Reviewed: X-rays obtained in the office today and independently reviewed by me, Cam Restrepo PA-C, demonstrate healed left medial tibial plateau fracture With no evidence of significant displacement or significant posttraumatic arthritis Assessment & Plan Assessment & Plan (1) Left medial tibial plateau fracture: Code(s): S82.132A - Displaced fracture of medial condyle of left tibia, initial encounter for closed fracture Category: Medical Plan 1. Left medial tibial plateau fracture Date of injury 12/27/2024 Patient appears to be recovering fairly well from her injury Patient is educated about the typical recovery course Patient is educated that this was a big fracture, and these types of fractures do typically take a significant amount of time to heal fully However, due to the significant pain and tenderness at the patient's reporting, I do feel that it is best to get an MRI of the left knee to assess the soft tissue structures Patient may continue weight-bearing as tolerated, as there is no evidence of bony complication on x-ray Patient will follow-up after MRI for results review and discussion of further treatment options if indicated Patient is also provided with a new hinged knee brace today, as she did feel that this helped, but hers broke Follow-up after MRI for results review and discussion of further treatment options if indicated, sooner with any acute concerns Orders: Orders MR knee LT wo con Today M17.12 - Unilateral primary osteoarthritis, left knee XR knee LT 3V Today M25.562 - Pain in left knee Coding Level of Care Code Est Pt Level 3 (70232) Diagnoses Left medial tibial plateau fracture S82.132A
--- OUTSIDE RECORDS SUMMARY | 2025-06-07 23:39 | XMS_ITS ---
Author Organization [employer] [facility] Address [address] [facility] 7t [place] [address] Care Team Providers Care Machine Fancy Stitcher Name Role Phone Kenyetta Csatro MD Primary Care Provider [phone] Ira Monterroso Unavailable Unavailable Virgen Rojas Unavailable CM Complex Status:Outreach In Progress (Enrolling) Start date:04/12/2025 Enrollment reason:Risk Strat Case Team Name Relationship Phone Virgen Rojas(Responsible Staff) [phone] Continued Care and Services Coordination
--- OUTSIDE RECORDS SUMMARY | 2025-06-07 23:39 | XMS_ITS | Clinical Summary ---
Author Organization [facility] Address [address] [facility] [address] [place] [address] Phone Care Team Providers Care Tunnel Elastic Operator Zigzag Name Role Phone Kenyetta Castro MD Primary Care Provider + [phone] Allergies Active Allergy Reactions Criticality Noted Date [...] housing (staying in a hotel, in a halfway, living outside on the street, on a [...] Advance Directives For more information, please contact: [phone] (9AM - 5PM [facility], Thursday-Thursday) * Full Code (Latest Code Status on File) Date Activated Date Inactivated Comments 09/06/2024 3:45 PM Question Answer Comments Code Status Confirmed With: Patient Care Teams Tunnel Elastic Operator Zigzag Relationship Specialty Start Date End Date Kenyetta Castro MD [address] [place] [address] PCP - General Family Medicine 12/11/24 Additional Source Comments The information contained in this document represents components of the legal health record. It is not the complete legal health record.[facility]
--- OUTSIDE RECORDS SUMMARY | 2025-06-07 23:39 | XMS_ITS | Clinical Summary ---
Author Organization [employer] Address [address] [facility] [address] [place] [address] Care Team Providers Care Flute Polisher Name Role Phone Kenyetta Castro MD Primary Care Provider [phone] Ira Monterroso Unavailable Unavailable Virgen Rojas Unavailable Allergies Active Allergy Reactions Criticality Noted Date Comments Fish Allergy Hives Low 08/29/2024 Sulfa Antibiotics Hives Medium 08/29/2024 Medications albuterol (ProAir HFA) 108 (90 Base) MCG/ACT inhaler Inhale 1 puff every 6 (six) hours if needed for wheezing or shortness of breath. 03/16/20 Active OLANZapine zydis (ZyPREXA) 10 MG disintegrating tabletIndications :Bipolar affective disorder, currently depressed, moderate (CMS/HCC) (HCC) Take 1 tablet (10 mg) by mouth at bedtime. 90 tablet 05/22/20 25 2025 Active MV & Min w/FA-DHA ( Adult Gummy/DHA/FA) 0.4-25 MG chewable tabletIndications :Anemia, unspecified type Chew 1 each Once per day. 90 tablet 2 05/22/20 25 2025 Active topiramate (Topamax) 200 MG tabletIndications :Seizure (CMS/HCC) (HCC) Take 1 tablet (200 mg) by mouth 2 times daily. 180 tablet 05/22/20 25 2025 Active topiramate (Topamax) 200 MG tabletIndications :Seizure (CMS/HCC) (HCC) Take 1 tablet (200 mg) by mouth 2 times daily. 180 tablet 08/30/192024 Discontinued(R eorder (will not trigger notification to Pharmacy)) traZODone (Desyrel) 50 MG tabletIndications :Psychophysiologi rich insomnia Take 1 tablet (50 mg) by mouth at bedtime. 90 tablet 08/30/19 25 2024 Discontinued OLANZapine zydis (ZyPREXA) 10 MG disintegrating tabletIndications :Bipolar affective disorder, currently depressed, moderate (CMS/HCC) (HCC) Take 1 tablet (10 mg) by mouth at bedtime. 90 tablet 08/30/192024 Discontinued(R eorder (will not trigger notification to Pharmacy)) Active Problems Problem Noted Date Diagnosed Date Unsheltered homelessness 08/29/2024 Seizure (CMS/HCC) 08/29/2024 Pancreas cyst 08/29/2024 Encounters Date Type Department Care Team Description 05/23/2025 [facility] [address] [place] [address] Virgen Rojas 05/22/2025 11:00 AM EST Office Visit [facility] [address] [place] [address] Kenyetta Castro MD Bipolar affective disorder, currently depressed, moderate (CMS/HCC) (HCC) (Primary Dx); Unsheltered homelessness; Anemia, unspecified type; Seizure (CMS/HCC) (HCC); Seizure disorder (CMS/HCC) (HCC) 05/15/2025 Patient Outreach [facility] [address] [place] [address] Virgen Rojas 05/02/2025 [facility] Outreach [facility] [address] [place] [address] Virgen Rojas 04/13/2025 [facility] Outreach [facility] Department [address] [place] [address] Virgen Rojas 04/12/2025 [facility] Outreach [facility] Department [address] [place] [address] Virgen Rojas from Last 3 Months Social History Tobacco [...] Sign Reading Time Taken Comments Blood Pressure 147/96 05/22/2025 11:23 AM EST Pulse 86 05/22/2025 11:23 AM EST Temperature - - Respiratory Rate 18 05/22/2025 11:23 AM EST Oxygen Saturation - - Inhaled Oxygen Concentration - - Weight 74.1 kg (163 lb 6.4 oz) 05/22/2025 11:23 AM EST Height 167.6 cm (5' 6 ) 08/29/2024 11:05 AM EST Body Mass Index 26.37 08/29/2024 11:05 AM EST Plan of Treatment Upcoming Encounters Date Type Department Care Team (Late st Contact Info) Description 07/12/2025 11:00 AM EST Office Visit [place] [facility] [address] [place] [address] Kenyetta Castro MD [address] [place] [address] Health Maintenance Due Date Last Done Comments [...] patient's age to complete this topic Insurance [facility] C3 Care Teams Flute Polisher Relationship Specialty Start Date End Date Kenyetta Castro MD [address] [place] [address] PCP - General Family Medicine 08/29/24 Ira Monterroso Health Navigator Financial Counseling and Assistance Services 09/20/24 Virgen Rojas 04/12/25
== END 2025-06-07 15:35 | disposition home or self-care (01) ==
LOC: HO.HOS 15:07
DX: S82.132A Displaced fracture of medial condyle of left tibia, initial encounter for closed fracture (principal)
CPT/HCPCS: 99213

== ENCOUNTER → 2025-06-07 15:09 | Outpatient (BNV) | payer MEDICAID, SELFPAY | PROVIDERS: Visit Provider Radiology Diagnostic Radiology | DX: M25.562 Pain in left knee (principal) | CPT/HCPCS: 73562 ==